=== PATIENT | female | born 1940 ===

== ENCOUNTER 2016-10-29 13:32 | Inpatient (IN) | payer MEDICAID, MEDICARE ==
[2016-10-29 13:33] VITALS: BMI 26.9
--- NOTE | 2016-10-29 14:03 | ED PDOC ---
HPI: General Adult Time Seen by Provider: 10/29/16 13:48 Chief Complaint (Nursing): Dizziness/Lightheaded Chief Complaint (Provider): Dizziness History Per: Patient History/Exam Limitations: no limitations Onset/Duration Of Symptoms: Days (3) Have you had recent travel within the past 21 days to any of the following countries: [place], [place], [place] or [place]?: No Current Symptoms Are (Timing): Still Present Additional Complaint(s): Dyspnea, dizziness, weakness all over, nausea (no vomit), palpitations, off and on chest pain. No headaches, numbness, tingles. Has diarrhea and abd pain upper as well mild. No cough, congestion. States same when she had chf last time (1 month ago and was admitted). No leg pain. Past Medical History Reviewed: Nursing Documentation, Vital Signs Vital Signs: Last Vital Signs Temp 98.7 F 10/29/16 17:32 Pulse 128 H 10/29/16 17:32 Resp 16 10/29/16 17:32 BP 125/83 10/29/16 17:32 Pulse Ox 99 10/29/16 17:32 - Medical History PMH: Asthma, CHF, Depression, Diabetes, HTN Denies: Chronic Kidney Disease - Surgical History Surgical History: Denies: Pacemaker - Family History Family History: States: Unknown Family Hx - Living Arrangements Living Arrangements: With Family - Social History Current smoker - smoking cessation education provided: No Alcohol: None Drugs: Denies - Home Medications Home Medications: Ambulatory Orders Medication Instructions Recorded Metformin ER [Glucophage XR] 1,000 mg PO QPM 09/06/16 Omeprazole [Omeprazole] 20 mg PO DAILY 09/06/16 Polyethylene Glycol 3350 [Miralax] 17 gm PO DAILY 09/06/16 Atorvastatin [Lipitor] 10 mg PO DAILY #30 tab 09/10/16 Carvedilol [Coreg] 6.25 mg PO Q12 #60 tab 09/10/16 Lisinopril [Zestril] 10 mg PO DAILY #30 tab 09/10/16 Spironolactone [Aldactone] 25 mg PO DAILY #30 tab 09/10/16 Bisacodyl [Dulcolax] 5 mg PO DAILY 10/29/16 Furosemide [Lasix] 40 mg PO BID 10/29/16 - Allergies Allergies/Adverse Reactions: Allergies Allergy/AdvReac Type Severity Reaction Status Date / Time No Known Allergies Allergy Verified 03/12/14 18:47 Review of Systems ROS Statement: Except As Marked, All Systems Reviewed And Found Negative Constitutional: Positive for: Weakness Cardiovascular: Positive for: Chest Pain, Palpitations, Light Headedness Respiratory: Positive for: Shortness of Breath Gastrointestinal: Positive for: Nausea, Abdominal Pain, Diarrhea Neurological: Positive for: Weakness, Dizziness Physical Exam - Reviewed Nursing Documentation Reviewed: Yes Vital Signs Reviewed: Yes - Physical Exam Appears: Positive for: Non-toxic, Uncomfortable Head Exam: Positive for: ATRAUMATIC, NORMAL INSPECTION, NORMOCEPHALIC Skin: Positive for: Normal Color, Warm, DRY Eye Exam: Positive for: EOMI, Normal appearance, PERRL ENT: Positive for: Normal ENT Inspection Neck: Positive for: Normal, Painless ROM Cardiovascular/Chest: Positive for: Regular Rate, Rhythm. Negative for: Edema Respiratory: Positive for: Decreased Breath Sounds. Negative for: Wheezing, Respiratory Distress Gastrointestinal/Abdominal: Positive for: Bowel Sounds, Soft, Tenderness (mild epigastric) Back: Positive for: Normal Inspection. Negative for: L CVA Tenderness, R CVA Tenderness Extremity: Positive for: Normal ROM. Negative for: Tenderness, Pedal Edema, Calf Tenderness Neurologic/Psych: Positive for: Alert, police officer booking II-XII, Oriented. Negative for: Motor/Sensory Deficits, Facial Droop - Laboratory Results Result Diagrams: 10/29/16 14:35 10/29/16 14:35 Interpretation Of Abn Labs: 12.2 wbc, probnp elevation, bun elevation, t bili 1.6 - ECG ECG: Positive for: Interpreted By Me, Viewed By Me Interpretation Of Abn EKG: possible atrial flutter O2 Sat by Pulse Oximetry: 100 Pulse Ox Interpretation: Normal - Radiology X-Ray: Read By Radiologist X-Ray Interpretation: No Acute Disease - CT Scan/US head Other Rad Studies (CT/US): Read By Radiologist Other Rad Interpretation: no acute - Progress ED Course And Treament: 1744: Dr. Lee aware of pt. Wanted digoxin 0.25mg IV for a flutter. If no improvement after 4 hours, can give another dose. 1809: Stable. Spoke with Dr. Biswas for [facility]. Will admit tele inpt. AAOx3. Pain free. Tolerated PO. Will hold anticoagulation at this time. [facility] team to further evaluate and determine need. - Critical Care Total Time (In Min): 30 Documented Critical Care: Time excludes all time spent performint seperately billable procedures Disposition - Clinical Impression Clinical Impression: Atrial flutter, CHF (congestive heart failure) - Patient ED Disposition Is Patient to be Admitted: Yes Counseled Patient/Family Regarding: Studies Performed, Diagnosis - Disposition Disposition Time: 18:12 Condition: FAIR - Pt Status Changed To: Hospital Disposition Of: Inpatient - Admit Certification Admit to Inpatient:: After my assessment, the patient will require hospitalization for at least two midnights. This is because of the severity of symptoms shown, intensity of services needed, and/or the medical risk in this patient being treated as an outpatient. - POA Present On Arrival: None
[2016-10-29] MEDS ORDERED: Sodium Chloride 0.9% 500 ML IV STA (14:08)
[2016-10-29 14:43] LABS: BASO # 0.1 K/uL (0.0-0.2); BASO % 0.8 % (0.0-2.0); HEMATOCRIT 50.4 % (34.0-47.0); LYMPH # 1.7 K/uL (1.0-4.3); MEAN CELL VOLUME 78.8 fl (81.0-99.0); MEAN CORPUSCULAR HEMOGLOBIN 25.2 pg (27.0-31.0); MEAN CORPUSCULAR HGB CONC 32.1 g/dL (33.0-37.0); MEAN PLATELET VOLUME 10.1 fl (7.2-11.7); MONO # 1.2 K/uL (0.0-0.8); MONO % 9.5 % (0.0-10.0); NEUT # 9.3 K/uL (1.8-7.0); NEUT % 75.7 % (50.0-75.0); NRBC % 0.1 % (0.0-0.0); RED CELL DISTRIBUTION WIDTH 15.7 % (11.5-14.5); WHITE BLOOD COUNT 12.2 K/uL (4.8-10.8)
[2016-10-29 14:56] LABS: ALKALINE PHOSPHATASE 83 U/L (38-126); ALT/SGPT 36 U/L (9-52); AST/SGOT 60 U/L (14-36); BILIRUBIN,TOTAL 1.6 mg/dl (0.2-1.3); BLOOD UREA NITROGEN 28 mg/dl (7-17); CALCIUM 9.7 mg/dL (8.4-10.2); CARBON DIOXIDE 28 mmol/L (22-30); CHLORIDE 94 mmol/L (98-107); GFR AFRICAN-AMERICAN > 60; GLUCOSE,RANDOM 206 mg/dL (65-105); LIPASE 94 U/L (23-300); POTASSIUM 4.6 MMOL/L (3.6-5.0); SODIUM 134 mmol/l (132-148); TOTAL PROTEIN 8.4 G/DL (6.3-8.2)
[2016-10-29 15:08] LABS: PARTIAL THROMBOPLASTIN TIME 25.7 SECONDS (23.3-32.5)
--- NOTE | 2016-10-29 15:16 | CT ---
PROCEDURE: CT HEAD WITHOUT CONTRAST. HISTORY: Headache COMPARISON: 09/13/2013 TECHNIQUE: Axial computed tomography images were obtained through the head/brain without intravenous contrast. Radiation dose: Total exam DLP = 806.72 mGy-cm. This CT exam was performed using one or more of the following dose reduction techniques: Automated exposure control, adjustment of the mA and/or kV according to patient size, and/or use of iterative reconstruction technique. FINDINGS: HEMORRHAGE: No intracranial hemorrhage. BRAIN: There are moderate chronic microangiopathic changes. There is no mass, mass effect or abnormal extra-axial fluid collection. There are coarse atherosclerotic calcifications in the cavernous carotid arteries. VENTRICLES: There is moderate age-related global parenchymal volume loss and proportionate enlargement of the ventricles and cortical sulci. CALVARIUM: The skull base and calvarium are normal. PARANASAL SINUSES: Predominantly clear. MASTOID AIR CELLS: Predominantly clear. OTHER FINDINGS: None. IMPRESSION: No acute intracranial abnormality. Moderate chronic microangiopathic changes and moderate age-related global parenchymal volume loss.
--- NOTE | 2016-10-29 15:18 | RAD ---
HISTORY: Dyspnea COMPARISON: 09/06/2016 FINDINGS: LUNGS: The lungs are well inflated and clear. PLEURA: No significant pleural effusion identified, no pneumothorax apparent. CARDIOVASCULAR: There is persistent mild cardiomegaly. OSSEOUS STRUCTURES: No significant abnormalities. VISUALIZED UPPER ABDOMEN: Normal. OTHER FINDINGS: None. IMPRESSION: No active pulmonary disease.
[2016-10-29] MEDS ORDERED: Digoxin 500 mcg/2ml (0.5 mg/2ml) Inj IVP STA (16:33)
[2016-10-29] MEDS ORDERED: Digoxin 500 mcg/2ml (0.5 mg/2ml) Inj ONE (17:13)
--- NOTE | 2016-10-29 17:49 | US ---
HISTORY: RUQ for pain r/o stones COMPARISON: Comparison is made to the previous study dated 09/08/2016 TECHNIQUE: Sonographic evaluation of the right upper quadrant of the abdomen. FINDINGS: LIVER: Measures 15.4 cm in length. Normal echogenicity of the liver parenchyma. No mass. No intrahepatic bile duct dilatation. GALLBLADDER: Again seen is gallbladder sludge and stone. The gallbladder wall measures 3 millimeter. COMMON BILE DUCT: Measures 5 mm. No stones. No dilatation. PANCREAS: Unremarkable as visualized. No mass. No ductal dilatation. RIGHT KIDNEY: Measures 10.7 x 3.7 x 3.7 cm in length. Normal echogenicity. No calculus, mass, or hydronephrosis. AORTA: No aneurysmal dilatation. IVC: Unremarkable. OTHER FINDINGS: None . IMPRESSION: Re- demonstration of gallstones without definite ultrasound evidence of acute cholecystitis.
[2016-10-29] MEDS ORDERED: Dextrose 50% SYRINGE Inj (50 ml) IVP PRN (19:26)
[2016-10-29] MEDS ORDERED: Dextrose 50% SYRINGE Inj (50 ml) IV PRN (19:26)
[2016-10-29] MEDS ORDERED: Glucagon Recombinant 1 mg Inj IM PRN ×2 (19:26)
[2016-10-29] MEDS ORDERED: Sodium Chloride 0.9% 1,000 ML IV SCH (19:30)
--- NOTE | 2016-10-29 19:45 | CP.PCM.HP ---
History of Present Illness - History of Present Illness History of Present Illness: 76yo F with PMHx of hypertension, T2DM, asthma, depression, GERD, diabetic neuropathy admitted for atrial flutter and CHF exacerbation. SOB x3 days, a/w unsteady gait., diarrhea x3 days. c/o nausea, tolerating liquids, no new foods, no other sick contacts. Reports abd pain with diarrhea which have both resolved. Denies attempts at exercise, walking up stairs, or walking in general d/t SOB. Denies LE edema, PND; sleeps with 1 pillow at night. Denies chest pain , headaches, palpitations, nausea, vomiting, fever, chills, weakness, numbness, tingling. Patient was last seen by PMD about 4 weeks ago. PMHx; as above SHx: csection, tumor removal FHx: noncontributory Social Hx: lives by herself. Elevator to apt[address]3rd floor, Denies smoking, EtOH, drug use Allergy: NKDA Meds: checked in [facility] PMD: Dr Leung ED course: HR 120s EKG aflutter Digoxin 0.25mg IV x1 ASA 325mg x1 c/s Cardio Dr. Lee -start digoxin CBC, CMP, coags, lipase, troponin WBC 12.2 BNP 36285 pepcid 20mg IV x1 lasix 40mg IV x1 Reglan 10mg IV x1 NS 500cc, 100cc/hr CT head-no acute change US abd-cholelithiasis CXR-no acute disease Present on Admission - Present on Admission Any Indicators Present on Admission: No Review of Systems - Constitutional Constitutional: absent: Chills, Fever - Cardiovascular Cardiovascular: Palpitations. absent: Chest Pain - Respiratory Respiratory: Dyspnea. absent: Dyspnea on Exertion - Gastrointestinal Gastrointestinal: Abdominal Pain, Diarrhea, Nausea. absent: Vomiting - Genitourinary Genitourinary: absent: Dysuria, Hematuria - Musculoskeletal Musculoskeletal: absent: Back Pain - Neurological Neurological: absent: Headaches Past Patient History - Infectious Disease Hx of Infectious Diseases: None - Tetanus Immunizations Tetanus Immunization: Unknown - Past Medical History & Family History Past Medical History?: Yes - Past Social History Alcohol: None Drugs: Denies - CARDIAC Hx Congestive Heart Failure: Yes Hx Hypertension: Yes Hx Pacemaker: No - PULMONARY Hx Asthma: Yes - NEUROLOGICAL Hx Paralysis: No - HEENT Hx Deafness: Yes (hard of hearing) - RENAL Hx Chronic Kidney Disease: No - ENDOCRINE/METABOLIC Hx Diabetes Mellitus Type 2: Yes - HEMATOLOGICAL/ONCOLOGICAL Hx Blood Transfusions: No - INTEGUMENTARY Hx Dermatological Problems: No - MUSCULOSKELETAL/RHEUMATOLOGICAL Hx Musculoskeletal Disorders: No - GASTROINTESTINAL Hx Diverticulitis: Yes (diverticulosis w polypectomy non-malignant) - GENITOURINARY/GYNECOLOGICAL Other/Comment: 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 - PSYCHIATRIC Hx Depression: Yes - SURGICAL HISTORY Hx Surgeries: No - ANESTHESIA Hx Anesthesia Reactions: Yes (SOB if general given, pt states she needs iv sedation) Meds Allergies/Adverse Reactions: Allergies Allergy/AdvReac Type Severity Reaction Status Date / Time No Known Allergies Allergy Verified 03/12/14 18:47 Physical Exam - Constitutional Appears: Non-toxic, No Acute Distress - Head Exam Head Exam: ATRAUMATIC, NORMAL INSPECTION - Eye Exam Eye Exam: Normal appearance - Neck Exam Neck exam: Positive for: Normal Inspection - Respiratory Exam Respiratory Exam: Rales (lower lung bases b/l, some in the middle lobe) - Cardiovascular Exam Cardiovascular Exam: Irregular Rhythm, JVD (6cm) - GI/Abdominal Exam GI & Abdominal Exam: Normal Bowel Sounds, Soft - Extremities Exam Extremities exam: Positive for: normal inspection. Negative for: pedal edema, tenderness - Neurological Exam Neurological exam: Alert, Oriented x3 - Skin Skin Exam: Dry, Warm Results - Vital Signs Recent Vital Signs: Last Vital Signs Temp 98.7 F 10/29/16 17:32 Pulse 128 H 10/29/16 17:32 Resp 16 10/29/16 17:32 BP 125/83 10/29/16 17:32 Pulse Ox 100 10/29/16 18:13 - Labs Result Diagrams: 10/29/16 14:35 10/29/16 14:35 Assessment & Plan - Assessment and Plan (Free Text) Assessment: 76yo F with PMHx of hypertension, DM, GERD, hep c admitted for CHF exacerbation and aflutter. likely 2/2 hypovolemia clinically given tachycardia, hemo- concentrated with increased H/H from baseline and BUN/Cr 28/0.9 atrial flutter -EKG atrial flutter -repeat EKG 4 hours later continues to show atrial flutter -EKG AM -cardio on board, appreciate input -reevaluated in 4 hr: 2nd dose of digoxin 0.25mg IV -start digoxin 0.125mg daily -ASA and lovenox for now Acute on chronic CHF exacerbation -lasix 40mg iv bid -spironolactone -echo -daily weight -I/O -cardio on board, appreciate input -will provide gentle IV hydration NS 75cc/hr concomittantly Hypertension -amlodipine, coreg, lisinopril T2DM -A1c 7.9 (09/08/16) -held metformin -SSI -accucheck Hx of hep c -AST/ALT 60/36 -monitor Hx of GERD -omeprazole 20mg po daily Diabetic neuropathy -c/w Gabapenin 300mg DVT prophylaxis -lovenox 40mg sc daily Decision To Admit - Pt Status Changed To: Hospital Disposition Of: Inpatient - Admit Certification Admit to Inpatient:: After my assessment, the patient will require hospitalization for at least two midnights. This is because of the severity of symptoms shown, intensity of services needed, and/or the medical risk in this patient being treated as an outpatient. - . Bed Request Type: Telemetry Admitting Physician: Yvonne Dunn
[2016-10-29] MEDS: Insulin Regular 100 units/ml SC SCH (22:30)
[2016-10-29] MEDS ORDERED: Digoxin 500 mcg/2ml (0.5 mg/2ml) Inj IVP ONE (22:44)
[2016-10-30 04:10] VITALS: PULSE 109
[2016-10-30] MEDS ORDERED: Digoxin 500 mcg/2ml (0.5 mg/2ml) Inj IVP ONE ×2 (05:00→10:00)
[2016-10-30 05:50] LABS: HEMATOCRIT 47.5 % (34.0-47.0); MEAN CELL VOLUME 79.2 fl (81.0-99.0); MEAN CORPUSCULAR HEMOGLOBIN 25.4 pg (27.0-31.0); MEAN CORPUSCULAR HGB CONC 32.1 g/dL (33.0-37.0); RED CELL DISTRIBUTION WIDTH 15.8 % (11.5-14.5); WHITE BLOOD COUNT 11.9 K/uL (4.8-10.8)
[2016-10-30 05:58] LABS: ALB/GLOB RATIO 0.9 (1.0-2.1); ALKALINE PHOSPHATASE 76 U/L (38-126); ALT/SGPT 30 U/L (9-52); AST/SGOT 51 U/L (14-36); BILIRUBIN,TOTAL 1.7 mg/dl (0.2-1.3); BLOOD UREA NITROGEN 23 mg/dl (7-17); CALCIUM 9.1 mg/dL (8.4-10.2); CARBON DIOXIDE 25 mmol/L (22-30); CHLORIDE 98 mmol/L (98-107); GFR AFRICAN-AMERICAN > 60; GLUCOSE,RANDOM 169 mg/dL (65-105); POTASSIUM 4.1 MMOL/L (3.6-5.0); SODIUM 133 mmol/l (132-148); TOTAL PROTEIN 7.4 G/DL (6.3-8.2)
[2016-10-30] MEDS: Insulin Regular 100 units/ml SC SCH ×4 (06:33→23:00)
[2016-10-30] MEDS: Bisacodyl 5mg EC Tab PO SCH (08:54)
[2016-10-30] MEDS: Pantoprazole 40 mg EC Tab PO SCH (08:55)
[2016-10-30] MEDS ORDERED: Digoxin 125 mcg (0.125 mg) Tab PO SCH (09:00)
[2016-10-30] MEDS ORDERED: Enoxaparin 40 mg Syringe SC SCH (09:00)
[2016-10-30] MEDS ORDERED: Iohexol 240 (50 ml) PO ONE (10:07)
--- NOTE | 2016-10-30 10:58 | CP.PCM.PN ---
Subjective - Date & Time of Evaluation Date of Evaluation: 10/30/16 Time of Evaluation: 08:30 - Subjective Subjective: Overnight events reviewed. Pt with aflutter with HR of 140s and was given Digoxin 0.25mg IV twice overnight. Currently, pt seen sitting up in bed, with c/o diffuse abdominal pain and nausea. States she only had a few bites of breakfast to eat. Denies vomiting or diarrhea since admission. Denies fever, chills, chest pain, SOB. Objective - Vital Signs/Intake and Output Vital Signs (last 24 hours): Temp Pulse Resp BP Pulse Ox 98.2 F 136 H 18 127/89 96 10/30/16 07:53 10/30/16 07:53 10/30/16 07:53 10/30/16 10:21 10/30/16 07:53 - Medications Medications: Current Medications Amlodipine Besylate (Norvasc) 5 mg PO DAILY [facility] Last Admin: 10/30/16 08:55 Dose: 5 mg Atorvastatin Calcium (Lipitor) 10 mg PO DAILY [facility] Last Admin: 10/30/16 08:54 Dose: 10 mg Bisacodyl (Dulcolax) 5 mg PO DAILY [facility] Last Admin: 10/30/16 08:54 Dose: 5 mg Carvedilol (Coreg) 6.25 mg PO Q12 [facility] Last Admin: 10/30/16 08:53 Dose: 6.25 mg Dextrose (Dextrose 50% Inj) 0 ml IVP STAT PRN; Protocol PRN Reason: Hypoglycemia Protocol Dextrose (Dextrose 50% Inj) 0 ml IV STAT PRN; Protocol PRN Reason: Hyglycemia Protocol Dextrose (Glutose 15) 0 gm PO ONCE PRN; Protocol PRN Reason: Hypoglycemia Protocol Enoxaparin Sodium (Lovenox) 40 mg SC DAILY [facility] PRN Reason: Protocol Famotidine (Pepcid) 20 mg PO DAILY [facility] Furosemide (Lasix) 40 mg IVP BID [facility] Last Admin: 10/30/16 10:21 Dose: 40 mg Glucagon (Glucagen Diagnostic Kit) 0 mg IM STAT PRN; Protocol PRN Reason: Hypoglycemia Protocol Glucagon (Glucagen Diagnostic Kit) 0 mg IM STAT PRN; Protocol PRN Reason: Hypoglycemia Protocol Insulin Human Regular (Humulin R) 0 units SC ACHS [facility] PRN Reason: Protocol Last Admin: 10/30/16 06:33 Dose: Not Given Lisinopril (Zestril) 10 mg PO DAILY [facility] Last Admin: 10/30/16 08:55 Dose: 10 mg Ondansetron HCl (Zofran Inj) 4 mg IVP Q4 PRN PRN Reason: Nausea/Vomiting Pantoprazole Sodium (Protonix Ec Tab) 40 mg PO DAILY [facility] Last Admin: 10/30/16 08:55 Dose: 40 mg Polyethylene Glycol (Miralax) 17 gm PO DAILY [facility] Spironolactone (Aldactone) 25 mg PO DAILY [facility] Last Admin: 10/30/16 08:53 Dose: 25 mg - Labs Labs: 10/30/16 05:40 10/30/16 05:40 PT 11.3 SECONDS (9.6-11.2) H 10/29/16 14:35 INR 1.09 (0.92-1.08) H 10/29/16 14:35 APTT 25.7 SECONDS (23.3-32.5) 10/29/16 14:35 - Constitutional Appears: Well, No Acute Distress - Head Exam Head Exam: NORMAL INSPECTION - Eye Exam Eye Exam: EOMI, Normal appearance - ENT Exam ENT Exam: Mucous Membranes Moist - Respiratory Exam Respiratory Exam: Clear to Ausculation Bilateral, NORMAL BREATHING PATTERN - Cardiovascular Exam Cardiovascular Exam: Tachycardia, +S1, +S2. absent: Irregular Rhythm - GI/Abdominal Exam GI & Abdominal Exam: Soft, Tenderness (LLQ), Normal Bowel Sounds, Rebound. absent: Distended, Guarding - Extremities Exam Extremities Exam: Normal Inspection. absent: Calf Tenderness, Pedal Edema - Neurological Exam Neurological Exam: Alert, Oriented x3 - Skin Skin Exam: Dry, Normal Color Assessment and Plan - Assessment and Plan (Free Text) Assessment: 1. Abdominal Pain - Abd US shows gallstone, present from before - LLQ tenderness with rebound - f/u CT scan with PO and IV contrast; r/o colitis - add cipro/flagyl if necessary 2. Atrial flutter -s/p Digoxin 0.25mg IV; 3 doses total since admission -cardio consult - Dr. Lee, follow recommendation -consider increasing pt's coreg dose 3. Acute on chronic CHF exacerbation -lasix 40mg iv bid -spironolactone -echo -daily weight -I/O 4. Hypertension - controlled -amlodipine, coreg, lisinopril 5. T2DM -A1c 7.9 (3/8/17) -held metformin -SSI -accucheck 6. Hx of hep c -elevated LFTs -monitor 7. Hx of GERD -omeprazole 20mg po daily 8. Diabetic neuropathy -c/w Gabapenin 300mg 9. DVT prophylaxis -lovenox 40mg sc daily
--- NOTE | 2016-10-30 11:24 | CARD ---
APPROVED REPORT EKG Measurement Heart [id number] <Conclusion> Atrial flutter with variable AV block ST & T wave abnormality, consider lateral ischemia Abnormal ECG
--- NOTE | 2016-10-30 11:24 | CARD ---
APPROVED REPORT EKG Measurement Heart [id number] <Conclusion> Atrial flutter with variable AV block ST & T wave abnormality, consider lateral ischemia Abnormal ECG
--- NOTE | 2016-10-30 13:01 | CP.PCM.CON ---
History of Present Illness - History of Present Illness History of Present Illness: Full Note Dictated Pt with Dilated Cardiomyopathy CHF precipitated by A Flutter and related tachycardia DM(II) Dig used to control HR initially because of low BP Now rec higher dose of Coreg to control HR (Amlodipine D/Naeem) Xarelto for oral anticoagulation Past Patient History - Infectious Disease Hx of Infectious Diseases: None - Tetanus Immunizations Tetanus Immunization: Unknown - Past Medical History & Family History Past Medical History?: Yes - Past Social History Alcohol: None Drugs: Denies - CARDIAC Hx Cardiac Disorders: Yes - PULMONARY Hx Respiratory Disorders: Yes - NEUROLOGICAL Hx Neurological Disorder: Yes - HEENT Hx HEENT Problems: No - RENAL Hx Chronic Kidney Disease: No - ENDOCRINE/METABOLIC Hx Endocrine Disorders: Yes - HEMATOLOGICAL/ONCOLOGICAL Hx Blood Transfusions: No - INTEGUMENTARY Hx Dermatological Problems: No - MUSCULOSKELETAL/RHEUMATOLOGICAL Hx Musculoskeletal Disorders: No - GASTROINTESTINAL Hx Diverticulitis: Yes (diverticulosis w polypectomy non-malignant) - GENITOURINARY/GYNECOLOGICAL Hx Genitourinary Disorders: No - PSYCHIATRIC Hx Psychophysiologic Disorder: Yes - SURGICAL HISTORY Hx Surgeries: No - ANESTHESIA Hx Anesthesia Reactions: Yes (SOB if general given, pt states she needs iv sedation) Meds Allergies/Adverse Reactions: Allergies Allergy/AdvReac Type Severity Reaction Status Date / Time No Known Allergies Allergy Verified 03/12/14 18:47 - Medications Medications: Current Medications Atorvastatin Calcium (Lipitor) 10 mg PO DAILY [facility] Last Admin: 10/30/16 08:54 Dose: 10 mg Bisacodyl (Dulcolax) 5 mg PO DAILY [facility] Last Admin: 10/30/16 08:54 Dose: 5 mg Carvedilol (Coreg) 12.5 mg PO Q12 [facility] Dextrose (Dextrose 50% Inj) 0 ml IVP STAT PRN; Protocol PRN Reason: Hypoglycemia Protocol Dextrose (Dextrose 50% Inj) 0 ml IV STAT PRN; Protocol PRN Reason: Hyglycemia Protocol Dextrose (Glutose 15) 0 gm PO ONCE PRN; Protocol PRN Reason: Hypoglycemia Protocol Famotidine (Pepcid) 20 mg PO DAILY [facility] Furosemide (Lasix) 40 mg PO DAILY [facility] Glucagon (Glucagen Diagnostic Kit) 0 mg IM STAT PRN; Protocol PRN Reason: Hypoglycemia Protocol Glucagon (Glucagen Diagnostic Kit) 0 mg IM STAT PRN; Protocol PRN Reason: Hypoglycemia Protocol Insulin Human Regular (Humulin R) 0 units SC ACHS [facility] PRN Reason: Protocol Last Admin: 10/30/16 06:33 Dose: Not Given Lisinopril (Zestril) 10 mg PO DAILY [facility] Last Admin: 10/30/16 08:55 Dose: 10 mg Ondansetron HCl (Zofran Inj) 4 mg IVP Q4 PRN PRN Reason: Nausea/Vomiting Pantoprazole Sodium (Protonix Ec Tab) 40 mg PO DAILY [facility] Last Admin: 10/30/16 08:55 Dose: 40 mg Polyethylene Glycol (Miralax) 17 gm PO DAILY [facility] Rivaroxaban (Xarelto) 20 mg PO QD5 [facility] PRN Reason: Protocol Spironolactone (Aldactone) 25 mg PO DAILY [facility] Last Admin: 10/30/16 08:53 Dose: 25 mg Results - Vital Signs Recent Vital Signs: Last Vital Signs Temp 97.4 F L 10/30/16 11:53 Pulse 107 H 10/30/16 11:53 Resp 18 10/30/16 11:53 BP 136/86 10/30/16 11:53 Pulse Ox 97 10/30/16 11:53 - Labs Result Diagrams: 10/30/16 05:40 10/30/16 05:40 Labs: Laboratory Results - last 24 hr 10/29/16 10/30/16 10/30/16 22:14 05:18 05:40 WBC 11.9 H RBC 6.00 H Hgb 15.2 Hct 47.5 H MCV 79.2 L MCH 25.4 L MCHC 32.1 L RDW 15.8 H Plt Count 90 L Sodium Potassium Chloride Carbon Dioxide Anion Gap BUN Creatinine Est GFR ( Amer) Est GFR (Non-Af Amer) POC Glucose (mg/dL) 169 H 146 H Random Glucose Calcium Total Bilirubin AST ALT Alkaline Phosphatase Total Protein Albumin Globulin Albumin/Globulin Ratio 10/30/16 10/30/16 05:40 11:13 WBC RBC Hgb Hct MCV MCH MCHC RDW Plt Count Sodium 133 Potassium 4.1 Chloride 98 Carbon Dioxide 25 Anion Gap 14 BUN 23 H Creatinine 0.7 Est GFR ( Amer) > 60 Est GFR (Non-Af Amer) > 60 POC Glucose (mg/dL) 197 H Random Glucose 169 H Calcium 9.1 Total Bilirubin 1.7 H AST 51 H ALT 30 Alkaline Phosphatase 76 Total Protein 7.4 Albumin 3.6 Globulin 3.9 Albumin/Globulin Ratio 0.9 L
[2016-10-30] MEDS ORDERED: Docusate-Senna 50 mg-8.6 mg Tab PO PRN (13:46)
[2016-10-30] MEDS ORDERED: Iohexol 300 100 ML IJ ONE (15:19)
--- NOTE | 2016-10-30 15:28 | CON ---
DATE: 10/30/2016 She is hospitalized under the resident's care in room 401, bed 2. 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 The patient arrived in the Emergency Room with a heart rate of 130 beats per minute, irregularly irregular and was found to have atrial flutter on her electrocardiogram. She has recently undergone a coronary angiogram which shows nonobstructive coronary arteries and generalized dilated cardiomyopathy. The patient has never been a smoker and has never suffered congestive cardiac failure. She has a left ventricular ejection fraction in the range of 20%-25% with mild to moderate mitral regurgitation. The patient was on spironolactone and Lasix as well as Coreg for heart rate control and on lisinopril. Initially in the Emergency Room , her systolic blood pressure was in the range of 108 mmHg and digitalis was used to control her heart rate. This morning, her heart rate has been fairly well controlled with a heart rate between 80 and 90 beats per minute, has received approximately 0.75 mg of digoxin overnight intravenously in multiple doses. Now she is free of dyspnea, having received intravenous Lasix once and diuresed well. PHYSICAL EXAMINATION: VITAL SIGNS: With the heart rate controlled, her systolic blood pressure now was 120 mmHg. The patient was able to stand up without any orthostatic changes to her blood pressure. She had no rales. NECK: Her jugular venous pressure was not elevated. EXTREMITIES: There was no edema of lower extremity. The pedal pulses were well felt. HEART: She had a faint S3 gallop. LUNGS: Again there were no rales. EXTREMITIES: Warm, nailbeds are pink. There was no central or peripheral cyanosis. Her electrocardiogram showed atrial flutter with variable AV conduction and no Q -waves were seen. The QRS morphology was identical to her earlier electrocardiograms. LABORATORY DATA: Noted. IMPRESSION: At this time is dilated cardiomyopathy secondary to adult onset diabetes mellitus with new onset atrial flutter with precipitation of congestive heart failure because of atrial flutter and induced related tachycardia. So her heart failure is left ventricular, acute on chronic and systolic. Accordingly a higher dose of Coreg is being used to control her heart rate. She has been started on Xarelto for oral anticoagulation and will continue to take Lasix and spironolactone as diuretics. Her potassium level will be checked again tomorrow. If she appears stable, she may be allowed to return home to continue taking her medicines subsequently. Jeffery V Rosa GONCALVES cc: 23 TT: 10/30/2016 15:27:24 Confirmation # [id number] Dictation # [id number] MTDD
[2016-10-30] MEDS: POLYETHYLENE GLYCOL 3350 17 GM/Dose PACKET PO SCH (17:02)
[2016-10-31] MEDS: Insulin Regular 100 units/ml SC SCH ×4 (06:34→22:33)
[2016-10-31 07:53] LABS: ALB/GLOB RATIO 0.9 (1.0-2.1); ALKALINE PHOSPHATASE 65 U/L (38-126); ALT/SGPT 31 U/L (9-52); AST/SGOT 53 U/L (14-36); BILIRUBIN,TOTAL 1.7 mg/dl (0.2-1.3); BLOOD UREA NITROGEN 21 mg/dl (7-17); CALCIUM 9.2 mg/dL (8.4-10.2); CARBON DIOXIDE 32 mmol/L (22-30); CHLORIDE 95 mmol/L (98-107); GFR AFRICAN-AMERICAN > 60; GLUCOSE,RANDOM 125 mg/dL (65-105); POTASSIUM 4.1 MMOL/L (3.6-5.0); SODIUM 137 mmol/l (132-148); TOTAL PROTEIN 7.8 G/DL (6.3-8.2)
[2016-10-31] MEDS: Bisacodyl 5mg EC Tab PO SCH (09:40)
[2016-10-31] MEDS: Pantoprazole 40 mg EC Tab PO SCH (09:42)
[2016-10-31] MEDS: POLYETHYLENE GLYCOL 3350 17 GM/Dose PACKET PO SCH (09:42)
[2016-10-31 10:34] LABS: BASO # 0.1 K/uL (0.0-0.2); BASO % 0.6 % (0.0-2.0); EOS % 0.3 % (0.0-4.0); HEMATOCRIT 49.4 % (34.0-47.0); LYMPH # 3.3 K/uL (1.0-4.3); LYMPH % 30.5 % (20.0-40.0); MEAN CELL VOLUME 79.3 fl (81.0-99.0); MEAN CORPUSCULAR HEMOGLOBIN 25.2 pg (27.0-31.0); MEAN CORPUSCULAR HGB CONC 31.8 g/dL (33.0-37.0); MEAN PLATELET VOLUME 10.8 fl (7.2-11.7); MONO # 1.1 K/uL (0.0-0.8); MONO % 10.3 % (0.0-10.0); NEUT # 6.4 K/uL (1.8-7.0); NEUT % 58.3 % (50.0-75.0); NRBC % 0.1 % (0.0-0.0); RED CELL DISTRIBUTION WIDTH 15.7 % (11.5-14.5); WHITE BLOOD COUNT 10.9 K/uL (4.8-10.8)
--- NOTE | 2016-10-31 11:03 | CP.PCM.PN ---
Subjective - Date & Time of Evaluation Date of Evaluation: 10/31/16 Time of Evaluation: 10:30 - Subjective Subjective: Feels well, slept well Gets in and out of bed and uses BR unassisted Ambulates in the room symptomlessly HR 80-90 BPM (A Flutter) BP 120/70 mm Hg JVP flat, no rales, no gallop Labs stable including BUN/ Creatinin and electrolytes Tolerates present Rx well Can go home on present Rx ( Including Xarelto) Objective - Vital Signs/Intake and Output Vital Signs (last 24 hours): Temp Pulse Resp BP Pulse Ox 97.3 F L 94 H 18 124/60 98 10/31/16 07:52 10/31/16 09:40 10/31/16 07:52 10/31/16 09:41 10/31/16 07:52 - Medications Medications: Current Medications Acetaminophen (Tylenol 325mg Tab) 650 mg PO Q4 PRN PRN Reason: Pain, moderate (4-7) Atorvastatin Calcium (Lipitor) 10 mg PO DAILY [facility] Last Admin: 10/31/16 09:41 Dose: 10 mg Bisacodyl (Dulcolax) 5 mg PO DAILY [facility] Last Admin: 10/31/16 09:40 Dose: 5 mg Carvedilol (Coreg) 12.5 mg PO Q12 [facility] Last Admin: 10/31/16 09:40 Dose: 12.5 mg Ciprofloxacin (Cipro) 500 mg PO Q12 [facility] Dextrose (Dextrose 50% Inj) 0 ml IVP STAT PRN; Protocol PRN Reason: Hypoglycemia Protocol Dextrose (Dextrose 50% Inj) 0 ml IV STAT PRN; Protocol PRN Reason: Hyglycemia Protocol Dextrose (Glutose 15) 0 gm PO ONCE PRN; Protocol PRN Reason: Hypoglycemia Protocol Famotidine (Pepcid) 20 mg PO DAILY [facility] Last Admin: 10/31/16 09:42 Dose: 20 mg Furosemide (Lasix) 40 mg PO DAILY [facility] Last Admin: 10/31/16 09:41 Dose: 40 mg Glucagon (Glucagen Diagnostic Kit) 0 mg IM STAT PRN; Protocol PRN Reason: Hypoglycemia Protocol Glucagon (Glucagen Diagnostic Kit) 0 mg IM STAT PRN; Protocol PRN Reason: Hypoglycemia Protocol Insulin Human Regular (Humulin R) 0 units SC ACHS [facility] PRN Reason: Protocol Last Admin: 10/31/16 06:34 Dose: Not Given Lisinopril (Zestril) 10 mg PO DAILY [facility] Last Admin: 10/31/16 09:42 Dose: 10 mg Metronidazole (Flagyl) 500 mg PO Q8 [facility] Ondansetron HCl (Zofran Inj) 4 mg IVP Q4 PRN PRN Reason: Nausea/Vomiting Pantoprazole Sodium (Protonix Ec Tab) 40 mg PO DAILY [facility] Last Admin: 10/31/16 09:42 Dose: 40 mg Polyethylene Glycol (Miralax) 17 gm PO DAILY [facility] Last Admin: 10/31/16 09:42 Dose: 17 gm Rivaroxaban (Xarelto) 20 mg PO QD5 [facility] PRN Reason: Protocol Last Admin: 10/30/16 17:02 Dose: 20 mg Senna/Docusate Sodium (Senokot S 50 Mg-8.6 Mg) 2 tab PO HS PRN PRN Reason: Constipation Spironolactone (Aldactone) 25 mg PO DAILY [facility] Last Admin: 10/31/16 09:40 Dose: 25 mg - Labs Labs: 10/31/16 10:15 10/31/16 06:30 PT 11.3 SECONDS (9.6-11.2) H 10/29/16 14:35 INR 1.09 (0.92-1.08) H 10/29/16 14:35 APTT 25.7 SECONDS (23.3-32.5) 10/29/16 14:35
--- NOTE | 2016-10-31 12:01 | CT ---
PROCEDURE: CT Abdomen and Pelvis with contrast HISTORY: LLQ pain, rebound tenderness, r/o colitis COMPARISON: 03/12/2014 TECHNIQUE: Contrast dose: 100 cc of Omnipaque 300 Radiation dose: Total exam DLP = 1093 mGy-cm. This CT exam was performed using one or more of the following dose reduction techniques: Automated exposure control, adjustment of the mA and/or kV according to patient size, and/or use of iterative reconstruction technique. FINDINGS: LOWER THORAX: Unremarkable. LIVER: Unremarkable. No gross lesion or ductal dilatation. GALLBLADDER AND BILE DUCTS: Unremarkable. PANCREAS: Unremarkable. No gross lesion or ductal dilatation. SPLEEN: Unremarkable. ADRENALS: Unremarkable. No mass. KIDNEYS AND URETERS: Unremarkable. No hydronephrosis. No solid mass. VASCULATURE: Unremarkable. No aortic aneurysm. BOWEL: Severe colonic diverticulosis with diffuse pericolonic fat infiltration involving the sigmoid colon consistent with acute diverticulitis.. No obstruction. No gross mural thickening. APPENDIX: Normal appendix. PERITONEUM: Unremarkable. No free fluid. No free air. LYMPH NODES: Unremarkable. No enlarged lymph nodes. BLADDER: Unremarkable. REPRODUCTIVE: Unremarkable. BONES: No acute fracture. OTHER FINDINGS: None. IMPRESSION: Severe colonic diverticulosis with diffuse pericolonic fat infiltration involving the sigmoid colon consistent with acute diverticulitis.
--- NOTE | 2016-10-31 12:48 | CP.PCM.PN ---
Subjective - Date & Time of Evaluation Date of Evaluation: 10/31/16 Time of Evaluation: 08:00 - Subjective Subjective: Pt sleeping upon entering room. Easily arousable with verbal stimuli. Pt has not eaten breakfast yet, because of being asleep still, however, she states that she tolerated regular diet yesterday for lunch and dinner. Still has some mid/LLQ abdominal pain, but denies any vomiting or diarrhea. Pt had abdominal CT scan done yesterday. Was evaluated by cardiology yesterday, at which time coreg dose was increased and pt was placed on xarelto. Pt feeling CP, SOB or palpitations. Objective - Vital Signs/Intake and Output Vital Signs (last 24 hours): Temp Pulse Resp BP Pulse Ox 98.2 F 78 18 119/78 96 10/31/16 11:54 10/31/16 11:54 10/31/16 11:54 10/31/16 11:54 10/31/16 11:54 - Medications Medications: Current Medications Acetaminophen (Tylenol 325mg Tab) 650 mg PO Q4 PRN PRN Reason: Pain, moderate (4-7) Atorvastatin Calcium (Lipitor) 10 mg PO DAILY [facility] Last Admin: 10/31/16 09:41 Dose: 10 mg Bisacodyl (Dulcolax) 5 mg PO DAILY [facility] Last Admin: 10/31/16 09:40 Dose: 5 mg Carvedilol (Coreg) 12.5 mg PO Q12 [facility] Last Admin: 10/31/16 09:40 Dose: 12.5 mg Ciprofloxacin (Cipro) 500 mg PO Q12 [facility] Last Admin: 10/31/16 12:36 Dose: 500 mg Dextrose (Dextrose 50% Inj) 0 ml IVP STAT PRN; Protocol PRN Reason: Hypoglycemia Protocol Dextrose (Dextrose 50% Inj) 0 ml IV STAT PRN; Protocol PRN Reason: Hyglycemia Protocol Dextrose (Glutose 15) 0 gm PO ONCE PRN; Protocol PRN Reason: Hypoglycemia Protocol Famotidine (Pepcid) 20 mg PO DAILY [facility] Last Admin: 10/31/16 09:42 Dose: 20 mg Furosemide (Lasix) 40 mg PO DAILY [facility] Last Admin: 10/31/16 09:41 Dose: 40 mg Glucagon (Glucagen Diagnostic Kit) 0 mg IM STAT PRN; Protocol PRN Reason: Hypoglycemia Protocol Glucagon (Glucagen Diagnostic Kit) 0 mg IM STAT PRN; Protocol PRN Reason: Hypoglycemia Protocol Insulin Human Regular (Humulin R) 0 units SC ACHS [facility] PRN Reason: Protocol Last Admin: 10/31/16 12:39 Dose: Not Given Lisinopril (Zestril) 10 mg PO DAILY [facility] Last Admin: 10/31/16 09:42 Dose: 10 mg Metronidazole (Flagyl) 500 mg PO Q8 [facility] Last Admin: 10/31/16 12:36 Dose: 500 mg Ondansetron HCl (Zofran Inj) 4 mg IVP Q4 PRN PRN Reason: Nausea/Vomiting Pantoprazole Sodium (Protonix Ec Tab) 40 mg PO DAILY [facility] Last Admin: 10/31/16 09:42 Dose: 40 mg Polyethylene Glycol (Miralax) 17 gm PO DAILY [facility] Last Admin: 10/31/16 09:42 Dose: 17 gm Rivaroxaban (Xarelto) 20 mg PO QD5 [facility] PRN Reason: Protocol Last Admin: 10/30/16 17:02 Dose: 20 mg Senna/Docusate Sodium (Senokot S 50 Mg-8.6 Mg) 2 tab PO HS PRN PRN Reason: Constipation Spironolactone (Aldactone) 25 mg PO DAILY [facility] Last Admin: 10/31/16 09:40 Dose: 25 mg - Labs Labs: 10/31/16 10:15 10/31/16 06:30 PT 11.3 SECONDS (9.6-11.2) H 10/29/16 14:35 INR 1.09 (0.92-1.08) H 10/29/16 14:35 APTT 25.7 SECONDS (23.3-32.5) 10/29/16 14:35 - Constitutional Appears: Non-toxic, No Acute Distress - Head Exam Head Exam: NORMAL INSPECTION - Eye Exam Eye Exam: EOMI, Normal appearance - ENT Exam ENT Exam: Mucous Membranes Moist - Respiratory Exam Respiratory Exam: Clear to Ausculation Bilateral, NORMAL BREATHING PATTERN - Cardiovascular Exam Cardiovascular Exam: Tachycardia - GI/Abdominal Exam GI & Abdominal Exam: Soft, Tenderness (LLQ, improved from yesterday), Rebound ( mild, improved from yesterday). absent: Distended - Extremities Exam Extremities Exam: absent: Calf Tenderness - Neurological Exam Neurological Exam: Awake, Oriented x3 - Skin Skin Exam: Normal Color Assessment and Plan - Assessment and Plan (Free Text) Assessment: 1. Acute diverticulitis - Abd US shows gallstone, present from before - LLQ tenderness with rebound - CT scan shows diverticulitis - PO cipro and flagyl started 2. Atrial flutter - HR better today -cardio - Dr. Lee consulted -coreg dose increased -xarelto added 3. Acute on chronic CHF exacerbation -asymptomatic, likely resolved at this point -ECHO 09/06/16: severe systolic dysfunction with EF 15% -lasix changed 40mg po daily from prior IV BID -spironolactone 25mg PO daily -daily weights -I/Os 4. Hypertension - controlled -amlodipine, coreg, lisinopril 5. T2DM -A1c 7.9 (09/08/16) -held metformin -SSI -accucheck 6. Hx of hep c -elevated LFTs -monitor 7. Hx of GERD -omeprazole 20mg po daily 8. Diabetic neuropathy -c/w Gabapenin 300mg 9. DVT prophylaxis -lovenox 40mg sc daily 10. Dispo plan - PT evaluated pt and recommends TCU - SW consulted for TCU placement and also for homemaker services once pt is d/c' d home
[2016-11-01] MEDS: Insulin Regular 100 units/ml SC SCH ×4 (06:49→21:52)
--- NOTE | 2016-11-01 09:30 | CP.PCM.PN ---
Subjective - Date & Time of Evaluation Date of Evaluation: 11/01/16 Time of Evaluation: 09:15 - Subjective Subjective: Becomes tachycardic everytime she gets OOB and uses BR (with faster A:V conduction) HR was 80-96 during night (A Flutter) Now 140 BPM (A Flutter) BP 120/70 mm Hg No overt CHF/No dizziness upon standing up Will increase Coreg dose to 25 mg BID (to create higher A:V block) Objective - Vital Signs/Intake and Output Vital Signs (last 24 hours): Temp Pulse Resp BP Pulse Ox 98.9 F 107 H 20 128/94 H 98 11/01/16 07:49 11/01/16 07:49 11/01/16 07:49 11/01/16 07:49 11/01/16 07:49 - Medications Medications: Current Medications Acetaminophen (Tylenol 325mg Tab) 650 mg PO Q4 PRN PRN Reason: Pain, moderate (4-7) Atorvastatin Calcium (Lipitor) 10 mg PO DAILY [facility] Last Admin: 10/31/16 09:41 Dose: 10 mg Bisacodyl (Dulcolax) 5 mg PO DAILY [facility] Last Admin: 10/31/16 09:40 Dose: 5 mg Ciprofloxacin (Cipro) 500 mg PO Q12 [facility] Last Admin: 10/31/16 21:07 Dose: 500 mg Dextrose (Dextrose 50% Inj) 0 ml IVP STAT PRN; Protocol PRN Reason: Hypoglycemia Protocol Dextrose (Dextrose 50% Inj) 0 ml IV STAT PRN; Protocol PRN Reason: Hyglycemia Protocol Dextrose (Glutose 15) 0 gm PO ONCE PRN; Protocol PRN Reason: Hypoglycemia Protocol Famotidine (Pepcid) 20 mg PO DAILY [facility] Last Admin: 10/31/16 09:42 Dose: 20 mg Furosemide (Lasix) 40 mg PO DAILY [facility] Last Admin: 10/31/16 09:41 Dose: 40 mg Glucagon (Glucagen Diagnostic Kit) 0 mg IM STAT PRN; Protocol PRN Reason: Hypoglycemia Protocol Glucagon (Glucagen Diagnostic Kit) 0 mg IM STAT PRN; Protocol PRN Reason: Hypoglycemia Protocol Insulin Human Regular (Humulin R) 0 units SC ACHS [facility] PRN Reason: Protocol Last Admin: 11/01/16 06:49 Dose: Not Given Lisinopril (Zestril) 10 mg PO DAILY [facility] Last Admin: 10/31/16 09:42 Dose: 10 mg Metronidazole (Flagyl) 500 mg PO Q8 [facility] Last Admin: 11/01/16 02:55 Dose: 500 mg Ondansetron HCl (Zofran Inj) 4 mg IVP Q4 PRN PRN Reason: Nausea/Vomiting Pantoprazole Sodium (Protonix Ec Tab) 40 mg PO DAILY [facility] Last Admin: 10/31/16 09:42 Dose: 40 mg Polyethylene Glycol (Miralax) 17 gm PO DAILY [facility] Last Admin: 10/31/16 09:42 Dose: 17 gm Rivaroxaban (Xarelto) 20 mg PO QD5 [facility] PRN Reason: Protocol Last Admin: 10/31/16 17:30 Dose: 20 mg Senna/Docusate Sodium (Senokot S 50 Mg-8.6 Mg) 2 tab PO HS PRN PRN Reason: Constipation Spironolactone (Aldactone) 25 mg PO DAILY [facility] Last Admin: 10/31/16 09:40 Dose: 25 mg - Labs Labs: 10/31/16 10:15 10/31/16 06:30 PT 11.3 SECONDS (9.6-11.2) H 10/29/16 14:35 INR 1.09 (0.92-1.08) H 10/29/16 14:35 APTT 25.7 SECONDS (23.3-32.5) 10/29/16 14:35
[2016-11-01] MEDS: POLYETHYLENE GLYCOL 3350 17 GM/Dose PACKET PO SCH ×2 (09:36→09:43)
[2016-11-01] MEDS: Pantoprazole 40 mg EC Tab PO SCH (09:37)
[2016-11-01] MEDS: Bisacodyl 5mg EC Tab PO SCH (09:37)
--- NOTE | 2016-11-01 15:28 | CP.PCM.PN ---
Subjective - Date & Time of Evaluation Date of Evaluation: 11/01/16 Time of Evaluation: 08:30 - Subjective Subjective: 76 y/o F seen at bedside in not acute distress. Patient states she feels better and has regained some of her appetite and strength back since admission. Denies CP, palpitations, SOB, fever, headache. Patient evalauted by Dr Lee this morning and Coreg dose increased to 25mg BID due to persistent increased HR when OOB. Accuchecks 162-256 last 24h. Patient is refusing insulin administration when needed as per sliding scale. She states her BS at home have been "low"(100-150) and that her PCP recommended to stop her DM meds about 2 months ago. ECW patient chart reviewed and case discussed with Dr Leung(her PCP ) who recommends patient should be on Metformin if patient thinks she feels better about the GI discomfort. Patient's CBC reviewed, Hgb and Hct elevated and Plt low. O2sat WNL. Objective - Vital Signs/Intake and Output Vital Signs (last 24 hours): Temp Pulse Resp BP Pulse Ox 98.9 F 77 20 130/86 97 11/01/16 12:37 11/01/16 12:37 11/01/16 12:37 11/01/16 12:37 11/01/16 12:37 - Medications Medications: Current Medications Acetaminophen (Tylenol 325mg Tab) 650 mg PO Q4 PRN PRN Reason: Pain, moderate (4-7) Atorvastatin Calcium (Lipitor) 10 mg PO DAILY [facility] Last Admin: 11/01/16 09:37 Dose: 10 mg Bisacodyl (Dulcolax) 5 mg PO DAILY [facility] Last Admin: 11/01/16 09:37 Dose: 5 mg Carvedilol (Coreg) 25 mg PO Q12 [facility] Last Admin: 11/01/16 10:46 Dose: 25 mg Ciprofloxacin (Cipro) 500 mg PO Q12 [facility] Last Admin: 11/01/16 09:36 Dose: 500 mg Dextrose (Dextrose 50% Inj) 0 ml IVP STAT PRN; Protocol PRN Reason: Hypoglycemia Protocol Dextrose (Dextrose 50% Inj) 0 ml IV STAT PRN; Protocol PRN Reason: Hyglycemia Protocol Dextrose (Glutose 15) 0 gm PO ONCE PRN; Protocol PRN Reason: Hypoglycemia Protocol Famotidine (Pepcid) 20 mg PO DAILY [facility] Last Admin: 11/01/16 09:36 Dose: 20 mg Furosemide (Lasix) 40 mg PO DAILY [facility] Last Admin: 11/01/16 09:36 Dose: 40 mg Glucagon (Glucagen Diagnostic Kit) 0 mg IM STAT PRN; Protocol PRN Reason: Hypoglycemia Protocol Glucagon (Glucagen Diagnostic Kit) 0 mg IM STAT PRN; Protocol PRN Reason: Hypoglycemia Protocol Insulin Human Regular (Humulin R) 0 units SC ACHS [facility] PRN Reason: Protocol Last Admin: 11/01/16 06:49 Dose: Not Given Lisinopril (Zestril) 10 mg PO DAILY [facility] Last Admin: 11/01/16 09:37 Dose: 10 mg Metronidazole (Flagyl) 500 mg PO Q8 [facility] Last Admin: 11/01/16 09:36 Dose: 500 mg Ondansetron HCl (Zofran Inj) 4 mg IVP Q4 PRN PRN Reason: Nausea/Vomiting Last Admin: 11/01/16 09:35 Dose: 4 mg Pantoprazole Sodium (Protonix Ec Tab) 40 mg PO DAILY [facility] Last Admin: 11/01/16 09:37 Dose: 40 mg Polyethylene Glycol (Miralax) 17 gm PO DAILY [facility] Last Admin: 11/01/16 09:43 Dose: Not Given Rivaroxaban (Xarelto) 20 mg PO QD5 [facility] PRN Reason: Protocol Last Admin: 10/31/16 17:30 Dose: 20 mg Senna/Docusate Sodium (Senokot S 50 Mg-8.6 Mg) 2 tab PO HS PRN PRN Reason: Constipation Spironolactone (Aldactone) 25 mg PO DAILY [facility] Last Admin: 11/01/16 09:37 Dose: 25 mg - Labs Labs: 10/31/16 10:15 10/31/16 06:30 PT 11.3 SECONDS (9.6-11.2) H 10/29/16 14:35 INR 1.09 (0.92-1.08) H 10/29/16 14:35 APTT 25.7 SECONDS (23.3-32.5) 10/29/16 14:35 - Constitutional Appears: Non-toxic, No Acute Distress - Head Exam Head Exam: NORMAL INSPECTION - Eye Exam Eye Exam: PERRL - Respiratory Exam Respiratory Exam: Clear to Ausculation Bilateral, NORMAL BREATHING PATTERN. absent: Rales, Wheezes - Cardiovascular Exam Cardiovascular Exam: Irregular Rhythm, +S1, +S2. absent: Gallop - GI/Abdominal Exam GI & Abdominal Exam: Soft, Tenderness (mild tenderness with deep palpation of LLQ), Normal Bowel Sounds. absent: Distended - Extremities Exam Extremities Exam: Normal Capillary Refill. absent: Calf Tenderness, Tenderness - Neurological Exam Neurological Exam: Alert, Awake, Oriented x3 - Psychiatric Exam Psychiatric exam: Normal Affect, Normal Mood (Confused at times) - Skin Skin Exam: Normal Color Assessment and Plan - Assessment and Plan (Free Text) Assessment: 1. Acute diverticulitis - Abd US shows gallstone, present from before - LLQ tenderness with rebound - CT scan shows diverticulitis - Cont PO cipro and flagyl 2. Atrial flutter - HR increases when OOB -cardio Dr. Lee on board -coreg dose increased to 25mg BID -Cont xarelto PO 3. Acute on chronic CHF exacerbation -asymptomatic -ECHO 09/06/16: severe systolic dysfunction with EF 15% -lasix changed 40mg po daily from prior IV BID -spironolactone 25mg PO daily -daily weights -I/Os 4. Elevated Hgb/Hct with low platelets(rule out malignancy) Acute -Hematology consult Dr Lee, V -TIBC, Ferritin, Vit B12, TSH, folate, ret count 5. Hypertension - controlled - amlodipine, coreg, lisinopril 6. T2DM -A1c 7.9 (09/08/16) -held metformin. Consider restarting metformin tomorrow -SSI(patient declining insuling dose as needed per SS) -accucheck 7. Hx of hep c -elevated LFTs -monitor 8. Hx of GERD -omeprazole 20mg po daily 9. Diabetic neuropathy -c/w Gabapenin 300mg 10. DVT prophylaxis -Patient on Xarelto 11. Dispo plan - PT evaluated pt and recommends TCU - SW consulted for TCU placement and also for homemaker services once pt is d/c' d home - Patient needs insurance authorization. - F/U with SW on 11/02/16
[2016-11-01] MEDS: Saccharomyces Boulardi 250 mg Cap PO SCH (18:10)
[2016-11-01 19:06] LABS: IRON 51 ug/dL (37-170)
[2016-11-02 06:39] LABS: BASO # 0.1 K/uL (0.0-0.2); BASO % 1.1 % (0.0-2.0); EOS # 0.1 K/uL (0.0-0.7); EOS % 0.7 % (0.0-4.0); LYMPH # 2.4 K/uL (1.0-4.3); LYMPH % 28.2 % (20.0-40.0); MEAN CELL VOLUME 80.1 fl (81.0-99.0); MEAN CORPUSCULAR HGB CONC 31.1 g/dL (33.0-37.0); MEAN PLATELET VOLUME 9.6 fl (7.2-11.7); MONO % 11.6 % (0.0-10.0); NEUT # 4.9 K/uL (1.8-7.0); NEUT % 58.4 % (50.0-75.0); NRBC % 0.1 % (0.0-0.0); RED CELL DISTRIBUTION WIDTH 16.1 % (11.5-14.5); WHITE BLOOD COUNT 8.3 K/uL (4.8-10.8)
[2016-11-02 06:52] LABS: BLOOD UREA NITROGEN 23 mg/dl (7-17); CARBON DIOXIDE 28 mmol/L (22-30); CHLORIDE 99 mmol/L (98-107); GFR AFRICAN-AMERICAN > 60; GLUCOSE,RANDOM 162 mg/dL (65-105); POTASSIUM 3.8 MMOL/L (3.6-5.0); SODIUM 137 mmol/l (132-148)
[2016-11-02] MEDS: Insulin Regular 100 units/ml SC SCH ×4 (07:00→22:40)
[2016-11-02 07:15] LABS: THYROID STIMULATING HORMONE 8.49 mIU/ML (0.46-4.68)
[2016-11-02] MEDS: Saccharomyces Boulardi 250 mg Cap PO SCH ×2 (08:50→16:29)
[2016-11-02] MEDS: Bisacodyl 5mg EC Tab PO SCH (08:52)
[2016-11-02] MEDS: Pantoprazole 40 mg EC Tab PO SCH (08:53)
[2016-11-02] MEDS: POLYETHYLENE GLYCOL 3350 17 GM/Dose PACKET PO SCH ×2 (08:53→08:56)
--- NOTE | 2016-11-02 08:56 | CP.PCM.PN ---
Subjective - Date & Time of Evaluation Date of Evaluation: 11/02/16 Time of Evaluation: 08:00 - Subjective Subjective: 76 y/o F seen at bedside in not acute distress. Patient states she continues feeling better in terms of strength and appetite. She reports 4 episodes of small liquid diarrhea NBNM yesterday. No vomiting or nausea. Denies CP, SOB or palpitations. No difficulty urinating. Patient to be evaluated by Dr Moncho Lee today. hand worker contacted yesterday 15:00. Patient needs insurance approval for rehabilitation services at [facility] as recommended by PT evaluation. Disposition most likely to be decided today. Objective - Vital Signs/Intake and Output Vital Signs (last 24 hours): Temp Pulse Resp BP Pulse Ox 97.9 F 88 20 129/87 97 11/02/16 08:03 11/02/16 08:52 11/02/16 08:03 11/02/16 08:52 11/02/16 08:03 - Medications Medications: Current Medications Acetaminophen (Tylenol 325mg Tab) 650 mg PO Q4 PRN PRN Reason: Pain, moderate (4-7) Atorvastatin Calcium (Lipitor) 10 mg PO DAILY [facility] Last Admin: 11/02/16 08:52 Dose: 10 mg Bisacodyl (Dulcolax) 5 mg PO DAILY [facility] Last Admin: 11/02/16 08:52 Dose: 5 mg Carvedilol (Coreg) 25 mg PO Q12 [facility] Last Admin: 11/02/16 08:51 Dose: 25 mg Ciprofloxacin (Cipro) 500 mg PO Q12 [facility] Last Admin: 11/02/16 08:51 Dose: 500 mg Dextrose (Dextrose 50% Inj) 0 ml IVP STAT PRN; Protocol PRN Reason: Hypoglycemia Protocol Dextrose (Dextrose 50% Inj) 0 ml IV STAT PRN; Protocol PRN Reason: Hyglycemia Protocol Dextrose (Glutose 15) 0 gm PO ONCE PRN; Protocol PRN Reason: Hypoglycemia Protocol Famotidine (Pepcid) 20 mg PO DAILY [facility] Last Admin: 11/02/16 08:50 Dose: 20 mg Furosemide (Lasix) 40 mg PO DAILY [facility] Last Admin: 11/02/16 08:51 Dose: 40 mg Glucagon (Glucagen Diagnostic Kit) 0 mg IM STAT PRN; Protocol PRN Reason: Hypoglycemia Protocol Glucagon (Glucagen Diagnostic Kit) 0 mg IM STAT PRN; Protocol PRN Reason: Hypoglycemia Protocol Insulin Human Regular (Humulin R) 0 units SC ACHS [facility] PRN Reason: Protocol Last Admin: 11/01/16 21:52 Dose: Not Given Lisinopril (Zestril) 10 mg PO DAILY [facility] Last Admin: 11/02/16 08:52 Dose: 10 mg Metronidazole (Flagyl) 500 mg PO Q8 [facility] Last Admin: 11/02/16 08:52 Dose: 500 mg Ondansetron HCl (Zofran Inj) 4 mg IVP Q4 PRN PRN Reason: Nausea/Vomiting Last Admin: 11/01/16 09:35 Dose: 4 mg Pantoprazole Sodium (Protonix Ec Tab) 40 mg PO DAILY [facility] Last Admin: 11/02/16 08:53 Dose: 40 mg Polyethylene Glycol (Miralax) 17 gm PO DAILY [facility] Last Admin: 11/01/16 09:43 Dose: Not Given Rivaroxaban (Xarelto) 20 mg PO QD5 [facility] PRN Reason: Protocol Last Admin: 11/01/16 16:08 Dose: 20 mg Saccharomyces Boulardii (Florastor) 250 mg PO BID [facility] Last Admin: 11/02/16 08:50 Dose: 250 mg Senna/Docusate Sodium (Senokot S 50 Mg-8.6 Mg) 2 tab PO HS PRN PRN Reason: Constipation Spironolactone (Aldactone) 25 mg PO DAILY [facility] Last Admin: 11/02/16 08:50 Dose: 25 mg - Labs Labs: 11/02/16 05:00 11/02/16 05:00 PT 11.3 SECONDS (9.6-11.2) H 10/29/16 14:35 INR 1.09 (0.92-1.08) H 10/29/16 14:35 APTT 25.7 SECONDS (23.3-32.5) 10/29/16 14:35 - Constitutional Appears: Non-toxic, No Acute Distress - Eye Exam Eye Exam: PERRL - ENT Exam ENT Exam: Mucous Membranes Moist - Neck Exam Neck Exam: Full ROM - Respiratory Exam Respiratory Exam: Clear to Ausculation Bilateral, NORMAL BREATHING PATTERN - Cardiovascular Exam Cardiovascular Exam: Irregular Rhythm, +S1, +S2. absent: Gallop, Murmur - GI/Abdominal Exam GI & Abdominal Exam: Soft, Tenderness (Mild tenderness deep palpation of LLQ), Normal Bowel Sounds - Extremities Exam Extremities Exam: Full ROM, Normal Capillary Refill. absent: Calf Tenderness - Neurological Exam Neurological Exam: Alert, Awake, Oriented x3 - Psychiatric Exam Psychiatric exam: Normal Affect, Normal Mood - Skin Skin Exam: Normal Color, Warm Assessment and Plan - Assessment and Plan (Free Text) Assessment: 1. Acute diverticulitis - LLQ tenderness with rebound - CT scan shows diverticulitis - Cont PO cipro and flagyl - Diarrhea: C.Diff toxines ordered 2. Atrial flutter - Stable/asymptomatic - HR increases when OOB -cardio Dr. Lee on board -coreg dose increased to 25mg BID yesterday -Cont xarelto PO 3. Acute on chronic CHF exacerbation -asymptomatic -ECHO 09/06/16: severe systolic dysfunction with EF 15% -lasix changed 40mg po daily from prior IV BID -spironolactone 25mg PO daily -daily weights -I/Os 4. Elevated Hgb/Hct with low platelets(rule out malignancy) Acute -Improved compared to yesterday: WBC 8.3, Hgb 14.6, Hct 47.0, Plt 109 -F/U Hematology consult Dr Lee, V -F/U Ferritin, folate -Vit B12: 556 -ret count: 1.3 -TIBC high -TSH: 8.49(Repeat TSH in 2-3 days) Free T4, T3, Thyroglobulin panel, Thyroid peroxidase AB: ordered 5. Hypertension - controlled - amlodipine, coreg, lisinopril 6. T2DM -A1c 7.9 (09/08/16) -held metformin. -Decided not to restart metformin for now due to persistent diarrhea -SSI: Patient has been refusing reg insulin as needed per SS. -accucheck 7. Hx of hep c -elevated LFTs -F/U CMP tomorrow -monitor 8. Hx of GERD -omeprazole 20mg po daily 9. Diabetic neuropathy -c/w Gabapenin 300mg 10. DVT prophylaxis -Patient on Xarelto 11. Dispo plan - PT evaluated pt and recommends TCU - SW consulted for TCU placement and also for homemaker services once pt is d/c' d home - Patient needs insurance authorization. - F/U with SW
--- NOTE | 2016-11-02 11:11 | CP.PCM.CON ---
History of Present Illness - History of Present Illness History of Present Illness: This is a 76 yrs old female who was admitted with c/o weakness and dizziness. She also had nausea but no vomiting, and diarrhea but no rectal bleeding. She has a h/o atrial flutter and CHF. A blood count done as a out pt showed a hgb of 18.6.in the hospital it was 16.2 when she came in. nowtwas 12.2 but is now 14.6gms. The WBC was 12.2 but have come down to 8.3. Platelets are a little low 90-115., no bleeding from any site. She has a strong h/o diverticulitis and GERD. Last time she had a colonoscopy or endoscopy was 7 yrs ago. She has lost her appetite because of this and has lost about 15 lbs. No shortness of breath, or cough. She has a h/o DMtype 2 but is not on any medication at this time.Iron studies show low serum iron and iron sat, but ferritin is in the normal range. She is not a smoker and only drinks socially. Past Patient History - Infectious Disease Hx of Infectious Diseases: None - Tetanus Immunizations Tetanus Immunization: Unknown - Past Medical History & Family History Past Medical History?: Yes - Past Social History Alcohol: None Drugs: Denies - CARDIAC Hx Cardiac Disorders: Yes - PULMONARY Hx Respiratory Disorders: Yes - NEUROLOGICAL Hx Neurological Disorder: Yes - HEENT Hx HEENT Problems: No - RENAL Hx Chronic Kidney Disease: No - ENDOCRINE/METABOLIC Hx Endocrine Disorders: Yes - HEMATOLOGICAL/ONCOLOGICAL Hx Blood Transfusions: No - INTEGUMENTARY Hx Dermatological Problems: No - MUSCULOSKELETAL/RHEUMATOLOGICAL Hx Musculoskeletal Disorders: No - GASTROINTESTINAL Hx Diverticulitis: Yes (diverticulosis w polypectomy non-malignant) - GENITOURINARY/GYNECOLOGICAL Hx Genitourinary Disorders: No - PSYCHIATRIC Hx Psychophysiologic Disorder: Yes - SURGICAL HISTORY Hx Surgeries: No - ANESTHESIA Hx Anesthesia Reactions: Yes (SOB if general given, pt states she needs iv sedation) Meds Allergies/Adverse Reactions: Allergies Allergy/AdvReac Type Severity Reaction Status Date / Time No Known Allergies Allergy Verified 03/12/14 18:47 - Medications Medications: Current Medications Acetaminophen (Tylenol 325mg Tab) 650 mg PO Q4 PRN PRN Reason: Pain, moderate (4-7) Atorvastatin Calcium (Lipitor) 10 mg PO DAILY [facility] Last Admin: 11/02/16 08:52 Dose: 10 mg Carvedilol (Coreg) 25 mg PO Q12 [facility] Last Admin: 11/02/16 08:51 Dose: 25 mg Ciprofloxacin (Cipro) 500 mg PO Q12 [facility] Last Admin: 11/02/16 08:51 Dose: 500 mg Dextrose (Dextrose 50% Inj) 0 ml IVP STAT PRN; Protocol PRN Reason: Hypoglycemia Protocol Dextrose (Dextrose 50% Inj) 0 ml IV STAT PRN; Protocol PRN Reason: Hyglycemia Protocol Dextrose (Glutose 15) 0 gm PO ONCE PRN; Protocol PRN Reason: Hypoglycemia Protocol Famotidine (Pepcid) 20 mg PO DAILY [facility] Last Admin: 11/02/16 08:50 Dose: 20 mg Furosemide (Lasix) 40 mg PO DAILY [facility] Last Admin: 11/02/16 08:51 Dose: 40 mg Glucagon (Glucagen Diagnostic Kit) 0 mg IM STAT PRN; Protocol PRN Reason: Hypoglycemia Protocol Glucagon (Glucagen Diagnostic Kit) 0 mg IM STAT PRN; Protocol PRN Reason: Hypoglycemia Protocol Insulin Human Regular (Humulin R) 0 units SC [facility] PRN Reason: Protocol Last Admin: 11/01/16 21:52 Dose: Not Given Lisinopril (Zestril) 10 mg PO DAILY [facility] Last Admin: 11/02/16 08:52 Dose: 10 mg Metronidazole (Flagyl) 500 mg PO Q8 [facility] Last Admin: 11/02/16 08:52 Dose: 500 mg Ondansetron HCl (Zofran Inj) 4 mg IVP Q4 PRN PRN Reason: Nausea/Vomiting Last Admin: 11/01/16 09:35 Dose: 4 mg Pantoprazole Sodium (Protonix Ec Tab) 40 mg PO DAILY [facility] Last Admin: 11/02/16 08:53 Dose: 40 mg Rivaroxaban (Xarelto) 20 mg PO QD5 [facility] PRN Reason: Protocol Last Admin: 11/01/16 16:08 Dose: 20 mg Saccharomyces Boulardii (Florastor) 250 mg PO BID [facility] Last Admin: 11/02/16 08:50 Dose: 250 mg Spironolactone (Aldactone) 25 mg PO DAILY [facility] Last Admin: 11/02/16 08:50 Dose: 25 mg Physical Exam - Additional Findings Additional findings: Physical exam; Alert, well oriented, in no acute distress. Neck; Supple, no adenopathy Chest; Clear, no rales or rhonchi Heart; RSR, no murmur Abd; Soft, no josephine, mild generalised tenderness.s Results - Vital Signs Recent Vital Signs: Last Vital Signs Temp 97.9 F 11/02/16 08:03 Pulse 88 11/02/16 08:52 Resp 20 11/02/16 08:03 BP 129/87 11/02/16 08:52 Pulse Ox 97 11/02/16 08:03 - Labs Result Diagrams: 11/02/16 05:00 11/02/16 05:00 Labs: Laboratory Results - last 24 hr 11/01/16 11/01/16 11/01/16 11:16 15:39 18:26 WBC RBC Hgb Hct MCV MCH MCHC RDW Plt Count MPV Neut % (Auto) Lymph % (Auto) Patrick % (Auto) Eos % (Auto) Baso % (Auto) Neut # Lymph # Patrick # Eos # Baso # Retic Count Sodium Potassium Chloride Carbon Dioxide Anion Gap BUN Creatinine Est GFR ( Amer) Est GFR (Non-Af Amer) POC Glucose (mg/dL) 230 H 163 H Random Glucose Calcium Iron 51 TIBC 453 H % Saturation 11 L Ferritin Vitamin B12 TSH 3rd Generation 11/01/16 11/02/16 11/02/16 21:20 05:00 05:00 WBC 8.3 RBC 5.86 H Hgb 14.6 Hct 47.0 MCV 80.1 L MCH 25.0 L MCHC 31.1 L RDW 16.1 H Plt Count 109 L MPV 9.6 Neut % (Auto) 58.4 Lymph % (Auto) 28.2 Patrick % (Auto) 11.6 H Eos % (Auto) 0.7 Baso % (Auto) 1.1 Neut # 4.9 Lymph # 2.4 Patrick # 1.0 H Eos # 0.1 Baso # 0.1 Retic Count Sodium 137 Potassium 3.8 Chloride 99 Carbon Dioxide 28 Anion Gap 14 BUN 23 H Creatinine 0.7 Est GFR ( Amer) > 60 Est GFR (Non-Af Amer) > 60 POC Glucose (mg/dL) 233 H Random Glucose 162 H Calcium 9.0 Iron TIBC % Saturation Ferritin 63.8 Vitamin B12 556 TSH 3rd Generation 8.49 H 11/02/16 11/02/16 05:00 05:07 WBC RBC Hgb Hct MCV MCH MCHC RDW Plt Count MPV Neut % (Auto) Lymph % (Auto) Patrick % (Auto) Eos % (Auto) Baso % (Auto) Neut # Lymph # Patrick # Eos # Baso # Retic Count 1.3 Sodium Potassium Chloride Carbon Dioxide Anion Gap BUN Creatinine Est GFR ( Amer) Est GFR (Non-Af Amer) POC Glucose (mg/dL) 158 H Random Glucose Calcium Iron TIBC % Saturation Ferritin Vitamin B12 TSH 3rd Generation Assessment & Plan - Assessment and Plan (Free Text) Assessment: Impression; Mild reactive thrombocytopenia, and leukocytosis from the diverticulitis. R/O malignancy Plan: Plan; I do feel though that she should have an endoscopy and colonoscopy to r/o malignancy/ - Date & Time Date: 11/02/16 Time: 11:46
[2016-11-02 17:35] LABS: FOLATE 11.8 ng/mL
[2016-11-03 07:02] LABS: BASO # 0.1 K/uL (0.0-0.2); EOS # 0.1 K/uL (0.0-0.7); EOS % 0.8 % (0.0-4.0); HEMATOCRIT 47.8 % (34.0-47.0); LYMPH # 2.2 K/uL (1.0-4.3); LYMPH % 29.1 % (20.0-40.0); MEAN CORPUSCULAR HEMOGLOBIN 25.2 pg (27.0-31.0); MEAN CORPUSCULAR HGB CONC 31.4 g/dL (33.0-37.0); MEAN PLATELET VOLUME 9.5 fl (7.2-11.7); MONO # 0.9 K/uL (0.0-0.8); MONO % 12.3 % (0.0-10.0); NEUT # 4.4 K/uL (1.8-7.0); NEUT % 56.8 % (50.0-75.0); NRBC % 0.1 % (0.0-0.0); WHITE BLOOD COUNT 7.7 K/uL (4.8-10.8)
[2016-11-03 07:26] LABS: ALB/GLOB RATIO 0.9 (1.0-2.1); ALKALINE PHOSPHATASE 75 U/L (38-126); ALT/SGPT 33 U/L (9-52); AST/SGOT 51 U/L (14-36); BILIRUBIN,TOTAL 0.9 mg/dl (0.2-1.3); BLOOD UREA NITROGEN 21 mg/dl (7-17); CALCIUM 9.3 mg/dL (8.4-10.2); CARBON DIOXIDE 28 mmol/L (22-30); CHLORIDE 98 mmol/L (98-107); GFR AFRICAN-AMERICAN > 60; GLUCOSE,RANDOM 174 mg/dL (65-105); POTASSIUM 3.9 MMOL/L (3.6-5.0); SODIUM 136 mmol/l (132-148); TOTAL PROTEIN 7.5 G/DL (6.3-8.2)
[2016-11-03 08:12] VITALS: RESP 18
[2016-11-03] MEDS: Saccharomyces Boulardi 250 mg Cap PO SCH (08:38)
[2016-11-03] MEDS: Pantoprazole 40 mg EC Tab PO SCH (08:39)
[2016-11-03] MEDS: Insulin Regular 100 units/ml SC SCH ×2 (08:40→14:02)
[2016-11-03] MEDS ORDERED: Lidocaine 5% Patch TD SCH (09:45)
[2016-11-03 12:38] VITALS: BP 128/88; PULSE 88; TEMP 97.3; O2SAT 100
--- NOTE | 2016-11-03 12:40 | CP.PCM.DIS ---
Provider - Provider Date of Admission: 10/29/16 18:13 Attending physician: Yvonne Dunn MD Primary care physician: Deanne Leung MD Consults: Dr Zapata Cardiology Dr Blandon Hem-onc Time Spent in preparation of Discharge (in minutes): 35 Diagnosis - Discharge Diagnosis (1) Acute diverticulitis Status: Acute Comment: Cont abx treatment with Flagyl and Cipro PO (2) Atrial flutter Status: Chronic Comment: Stable. Evaluated by Cardiology. Cont Xarelto PO daily (3) CHF (congestive heart failure) Status: Chronic Comment: EF 15%. Stable. Cont Home meds. (4) Diabetes mellitus Status: Chronic Comment: On ISS. Held Metformin due to diarrhea Hospital Course - Lab Results Lab Results: Most Recent Lab Values WBC 7.7 K/uL (4.8-10.8) 11/03/16 06:10 RBC 5.98 Mil/uL (3.80-5.20) H 11/03/16 06:10 Hgb 15.0 g/dL (12.0-16.0) 11/03/16 06:10 Hct 47.8 % (34.0-47.0) H 11/03/16 06:10 MCV 80.0 fl (81.0-99.0) L 11/03/16 06:10 MCH 25.2 pg (27.0-31.0) L 11/03/16 06:10 MCHC 31.4 g/dL (33.0-37.0) L 11/03/16 06:10 RDW 16.0 % (11.5-14.5) H 11/03/16 06:10 Plt Count 119 K/uL (130-400) L 11/03/16 06:10 MPV 9.5 fl (7.2-11.7) 11/03/16 06:10 Neut % (Auto) 56.8 % (50.0-75.0) 11/03/16 06:10 Lymph % (Auto) 29.1 % (20.0-40.0) 11/03/16 06:10 Tyrrell % (Auto) 12.3 % (0.0-10.0) H 11/03/16 06:10 Eos % (Auto) 0.8 % (0.0-4.0) 11/03/16 06:10 Baso % (Auto) 1.0 % (0.0-2.0) 11/03/16 06:10 Neut # 4.4 K/uL (1.8-7.0) 11/03/16 06:10 Lymph # 2.2 K/uL (1.0-4.3) 11/03/16 06:10 Tyrrell # 0.9 K/uL (0.0-0.8) H 11/03/16 06:10 Eos # 0.1 K/uL (0.0-0.7) 11/03/16 06:10 Baso # 0.1 K/uL (0.0-0.2) 11/03/16 06:10 Retic Count 1.3 % (0.5-1.5) 11/02/16 05:00 PT 11.3 SECONDS (9.6-11.2) H 10/29/16 14:35 INR 1.09 (0.92-1.08) H 10/29/16 14:35 APTT 25.7 SECONDS (23.3-32.5) 10/29/16 14:35 Sodium 136 mmol/l (132-148) 11/03/16 06:10 Potassium 3.9 MMOL/L (3.6-5.0) 11/03/16 06:10 Chloride 98 mmol/L (98-107) 11/03/16 06:10 Carbon Dioxide 28 mmol/L (22-30) 11/03/16 06:10 Anion Gap 14 (10-20) 11/03/16 06:10 BUN 21 mg/dl (7-17) H 11/03/16 06:10 Creatinine 0.7 mg/dL (0.7-1.2) 11/03/16 06:10 Est GFR ( Amer) > 60 11/03/16 06:10 Est GFR (Non-Af Amer) > 60 11/03/16 06:10 POC Glucose (mg/dL) 296 mg/dL (65-110) H 11/03/16 10:55 Random Glucose 174 mg/dL (65-105) H 11/03/16 06:10 Calcium 9.3 mg/dL (8.4-10.2) 11/03/16 06:10 Iron 51 ug/dL (37-170) 11/01/16 18:26 TIBC 453 ug/dL (250-450) H 11/01/16 18:26 % Saturation 11 % (20-55) L 11/01/16 18:26 Ferritin 63.8 ng/mL 11/02/16 05:00 Total Bilirubin 0.9 mg/dl (0.2-1.3) 11/03/16 06:10 AST 51 U/L (14-36) H 11/03/16 06:10 ALT 33 U/L (9-52) 11/03/16 06:10 Alkaline Phosphatase 75 U/L (38-126) 11/03/16 06:10 Troponin I 0.0330 ng/mL (0.00-0.120) 10/29/16 14:35 NT-Pro-B Natriuret Pep 60298 pg/ml (0-900) H 10/29/16 14:35 Total Protein 7.5 G/DL (6.3-8.2) 11/03/16 06:10 Albumin 3.6 g/dL (3.5-5.0) 11/03/16 06:10 Globulin 3.9 gm/dL (2.2-3.9) 11/03/16 06:10 Albumin/Globulin Ratio 0.9 (1.0-2.1) L 11/03/16 06:10 Lipase 94 U/L (23-300) 10/29/16 14:35 Carcinoembryonic Ag 3.7 ng/mL (0-3.0) H 11/02/16 11:52 Vitamin B12 556 pg/mL (239-931) 11/02/16 05:00 Folate 11.8 ng/mL 11/02/16 05:00 Free T4 1.89 ng/dL (0.78-2.19) 11/03/16 06:10 Total T3 1.44 nmol/L (1.49-2.60) L 11/03/16 06:10 TSH 3rd Generation 8.49 mIU/ML (0.46-4.68) H 11/02/16 05:00 C. difficile Ag & Toxin Negative (NEGATIVE) 11/02/16 20:00 - Hospital Course Hospital Course: 76 y/o F with PMHx of DM, CHF and Cardiac Arrhythmia, presented to ED for abd pain, fatigue, anorexia and diarrhea. CT abd showed acute noncomplicated diverticulitis. Patient was started with Abx treatment and was evaluated by Cardiology due to CHF and cardiac arrhythmia. Coreg dose was readjusted and patient responded well to treatment. General status improved. Patient was evaluated by Hem-onc due to elevated Hgb-Hct with low plt. Dr Blandon suggested work up for malignancy with Colonoscopy and Endoscopy as out patient. UE US was performed due to L/arm swelling and showed L/arm thrombosis when patiet had previously blood drawn. As per Hem-onc recs patient can cont with current anticoag treatment. Today patient is stable to DC from telemetry unit and after evaluated by PT services, she will be admitted to TCU for PT treatment. Discharge Exam - Head Exam Head Exam: NORMAL INSPECTION - Eye Exam Eye Exam: PERRL - ENT Exam ENT Exam: Mucous Membranes Moist - Neck Exam Neck exam: Normal Inspection - Respiratory Exam Respiratory Exam: Clear to PA & Lateral, NORMAL BREATHING PATTERN, UNREMARKABLE - Cardiovascular Exam Cardiovascular Exam: Irregular Rhythm, +S1, +S2. absent: Gallop - GI/Abdominal Exam GI & Abdominal Exam: Normal Bowel Sounds, Tenderness (Deep palpation of LLQ). absent: Distended, Rebound - Extremities Exam Extremities exam: normal capillary refill - Neurological Exam Neurological exam: Alert, Oriented x3 (Confused at times), Reflexes Normal - Psychiatric Exam Psychiatric exam: Normal Affect, Normal Mood - Skin Skin Exam: Normal Color Discharge Plan - Follow Up Plan Condition: FAIR Disposition: HOME/ ROUTINE Instructions: Heart Failure (DC), Heart Failure (GEN), Atrial Flutter (DC), Pacemaker (DC), Pacemaker (GEN), Pulmonary Edema (DC), Pulmonary Edema (GEN), Ascites (DC), Ascites (GEN) Referrals: Deanne Leung MD [Primary Care Provider] -
--- NOTE | 2016-11-03 17:53 | US ---
Left upper extremity venous Doppler dated 11/03/2016. History: Rule out DVT. Duplex interrogation of the deep veins left upper extremity performed. Findings: The the visualized left internal jugular vein, left subclavian, axillary, brachial and basilic veins, compressibility out evidence of DVT. Poor thrombus in a short segment of the left cephalic vein within the antecubital fossa. The left ulnar and radial veins not visualized Impression: There is a short segment of thrombus within the left cephalic vein in the antecubital fossa. Note that these findings were discussed with 7 Floor Nurse Operario at approximately 5:42 p.m. with written down and read back verification.
== END 2016-11-03 14:45 | DRG 544 ==
LOC: H.ER 13:32 → H.ERHOLD 18:13 → H.TEL 21:36
PROVIDERS: ADMIT Family Medicine; ATTEND Family Medicine
DX: I48.92 Unspecified atrial flutter (principal); I50.23 Acute on chronic systolic (congestive) heart failure; K80.00 Calculus of gallbladder with acute cholecystitis without obstruction; I42.0 Dilated cardiomyopathy; E11.40 Type 2 diabetes mellitus with diabetic neuropathy, unspecified; D69.59 Other secondary thrombocytopenia; I82.612 Acute embolism and thrombosis of superficial veins of left upper extremity; E86.1 Hypovolemia; I11.0 Hypertensive heart disease with heart failure; K57.92 Diverticulitis of intestine, part unspecified, without perforation or abscess without bleeding; K21.9 Gastro-esophageal reflux disease without esophagitis; J45.909 Unspecified asthma, uncomplicated; Z86.19 Personal history of other infectious and parasitic diseases; D72.828 Other elevated white blood cell count; Z79.01 Long term (current) use of anticoagulants

== ENCOUNTER 2016-11-02 14:03 | Inpatient (IN) | payer MEDICAID, MEDICARE ==
[2016-11-03 14:27] VITALS: BMI 26.6
[2016-11-03 15:05] VITALS: RESP 20
[2016-11-03] MEDS ORDERED: Dextrose 50% SYRINGE Inj (50 ml) IV PRN (15:24)
[2016-11-03] MEDS ORDERED: Glucagon Recombinant 1 mg Inj IM PRN (15:24)
[2016-11-03] MEDS: Insulin Regular 100 units/ml SC SCH ×2 (17:37→22:44)
[2016-11-03] MEDS: Saccharomyces Boulardi 250 mg Cap PO SCH (17:38)
[2016-11-04] MEDS: Digoxin 125 mcg (0.125 mg) Tab PO SCH (08:17)
[2016-11-04] MEDS: Insulin Regular 100 units/ml SC SCH ×3 (08:18→16:48)
[2016-11-04] MEDS: Saccharomyces Boulardi 250 mg Cap PO SCH ×2 (08:19→16:47)
--- NOTE | 2016-11-04 10:00 | CP.PCM.HP ---
History of Present Illness - History of Present Illness History of Present Illness: PMD:Dr Leung 76yo F with PMHx of hypertension, T2DM, depression, GERD, diabetic neuropathy initially admitted to [facility] on 10/29/16 for abd pain, fatigue and anorexia. Patient was found to have acute diverticulitis, atrial flutter and CHF exacerbation. During this same hospital stay her blood count showed a hgb 16.2 it trended down but is now 14.6gms. The She had leukocytosis that resolved and thombocytopenia(plt 90-115.) Denies any Hx of bleeding or bruising. Last time she had a colonoscopy or endoscopy was 7 yrs ago; she was evaluated by hematology/oncology Dr Blandon who recommended GI consult for endoscopy/ colonoscopy to rule out malignancy. She was also evaluated by Cardiology Dr Zapata because of persistent increased HR with exertion, coreg dose was increased, Xarelto was started and patient has been stable since. She was also found to have acute superficial venous thrombosis on the L/arm. She was admitted yesterday to TCU for PT services. Reports her abd pain continues improving, as well as appetite. L/Arm swelling improved with warm compresses. Denies any fever, chills, numbness, nausea or vomiting Present on Admission - Present on Admission Any Indicators Present on Admission: Yes History of DVT/PE: No History of Uncontrolled Diabetes: Yes Urinary Catheter: No Decubitus Ulcer Present: No Review of Systems - Constitutional Constitutional: Anorexia, Malaise, Weight Loss - EENT Nose/Mouth/Throat: absent: Nasal Congestion, Sore Throat - Cardiovascular Cardiovascular: Irregular Heart Rhythm, Rapid Heart Rate (with exertion). absent: Chest Pain, Dyspnea on Exertion - Respiratory Respiratory: absent: Cough, Wheezing - Gastrointestinal Gastrointestinal: Abdominal Pain (improved), Diarrhea (NBNM), Heartburn ( occasional) - Genitourinary Genitourinary: absent: Dysuria - Musculoskeletal Musculoskeletal: Back Pain (resolved). absent: Arthralgias - Integumentary Integumentary: absent: Lesions, Rash - Neurological Neurological: As Per HPI - Psychiatric Psychiatric: absent: Anxiety, Depression - Hematologic/Lymphatic Hematologic: absent: Easy Bleeding, Easy Bruising Past Patient History - Infectious Disease Hx of Infectious Diseases: None - Tetanus Immunizations Tetanus Immunization: Unknown - Past Medical History & Family History Past Medical History?: Yes - Past Social History Smoking Status: Never Smoked - CARDIAC Hx Cardiac Disorders: Yes - PULMONARY Hx Respiratory Disorders: Yes - NEUROLOGICAL Hx Neurological Disorder: Yes - HEENT Hx HEENT Problems: No 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) - RENAL Hx Chronic Kidney Disease: No - ENDOCRINE/METABOLIC Hx Endocrine Disorders: Yes - HEMATOLOGICAL/ONCOLOGICAL Hx AIDS: No Hx Blood Transfusions: No Hx Human Immunodeficiency Virus (HIV): No - INTEGUMENTARY Hx Dermatological Problems: No - MUSCULOSKELETAL/RHEUMATOLOGICAL Hx Falls: No - GASTROINTESTINAL Hx Diarrhea: Yes Hx Diverticulitis: Yes (diverticulosis w polypectomy non-malignant) - GENITOURINARY/GYNECOLOGICAL Hx Genitourinary Disorders: No - PSYCHIATRIC Hx Substance Use: No - SURGICAL HISTORY Hx Surgeries: No - ANESTHESIA Hx Anesthesia Reactions: Yes (SOB if general given, pt states she needs iv sedation) Meds Allergies/Adverse Reactions: Allergies Allergy/AdvReac Type Severity Reaction Status Date / Time No Known Allergies Allergy Verified 11/03/16 14:45 Results - Vital Signs Recent Vital Signs: Last Vital Signs Temp 98.2 F 11/04/16 07:59 Pulse 72 11/04/16 08:20 Resp 20 11/04/16 07:59 BP 147/65 11/04/16 08:20 Pulse Ox 99 11/04/16 07:59 - Labs Labs: Laboratory Results - last 24 hr 11/03/16 11/03/16 11/04/16 16:31 20:25 05:10 POC Glucose (mg/dL) 173 H 213 H 164 H Assessment & Plan - Assessment and Plan (Free Text) Assessment: 76yo F with PMHx of hypertension, DM, GERD, hep c s/p 5 days inpatient stay for CHF exacerbation, aflutter an acute diverticulits admitted to TCU for PT services 1-Deconditioning -S/P 5 days inpatient stay -generalized weakness 2-Atrial flutter -EKG atrial flutter -Cont Coreg 25mg BID -Evaluated by Cardiology Dr Lee -Digoxin 0.125mg daily -ASA -Xarelto 20mg daily -CHADs2 score: 4 3-Acute uncomplicated diverticulitis -Diarrhea, mild abd pain -Diagnosed on CT scan -Cont Flagyl and Cipro PO -C.Diff negative 4-CHF(chronic) -lasix -spironolactone -EF 15% -cardio on board. 5-Elevated Hgb/Hct, low plt -Rule out malignancy -Elevated TIBC normal ferritin -Evaluated by Hem-onc(Dr Blandon): recommended GI eval for Colonoscopy/Endoscopy -F/U GI recs -Improving -EPO ordered 6-Hypertension(chronic) -amlodipine, coreg, lisinopril 7-T2DM(stable) -A1c 7.9 (09/08/16) -held metformin due to diarrhea -SSI -accucheck 8-Diabetic neuropathy -c/w Gabapenin 300mg 9-L/arm thrombosis -site where blood was drawn -Diagnosed on UE US -Improved since yesterday -Cont warm compress -As per Hem-Onc cont Xarelto 20mg 10- Prophylactic measures -On Xarelto 20mg daily -Pepcid -Florastor
--- NOTE | 2016-11-04 10:17 | CP.PCM.CON ---
<Devora Steele - Last Filed: 11/04/16 11:06> History of Present Illness - History of Present Illness History of Present Illness: This is a GI consult Note: Dr. Del Castillo cc: diverticulitis HPI: Pt is 76yo F with PMHx of hypertension, T2DM, asthma, depression, GERD, diabetic neuropathy initially admitted to [facility] on 10/29/16 for atrial flutter and CHF exacerbation. During this admission she also reported having diarrhea x3 days and abdominal pain and was found to have diverticulitis on CT scan for which she is currently being treated for at [facility]. During this same hospital stay her blood count went done; from as an out patient showed a hgb of 18.6.in the hospital it was 16.2 when she came in. now it was 12.2 but is now 14.6gms. The WBC was 12.2 but have come down to 8.3. Platelets are a little low 90-115. No bleeding from any site. She has a strong h/o diverticulitis and GERD. Last time she had a colonoscopy or endoscopy was 7 yrs ago; she was evaluated by hematology/oncology who recommended GI consult for endoscopy/colonoscopy. Pt seen and evaluated at the [facility] gym this morning, reports her stomach has been bothering her for a while, and she has not being eating much. Denies any fever, chills, numbness, nausea or vomiting,bleeding from the rectum PMHX: T2DM, Diabetic neuropathy, systolic CHF, Asthma, HTN, A-flutter SHx: , tumor removal FHx: noncontributory Social Hx: lives by herself. Elevator to apt.3rd floor, Denies smoking, EtOH, drug use Allergy: NKDA PMD: Dr Leung Review of Systems - Review of Systems All systems: reviewed and no additional remarkable complaints except Review of Systems: All negative except those stated in HPI Past Patient History - Infectious Disease Hx of Infectious Diseases: None - Tetanus Immunizations Tetanus Immunization: Unknown - Past Medical History & Family History Past Medical History?: Yes - Past Social History Smoking Status: Never Smoked - CARDIAC Hx Cardiac Disorders: Yes - PULMONARY Hx Respiratory Disorders: Yes - NEUROLOGICAL Hx Neurological Disorder: Yes - HEENT Hx HEENT Problems: No 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) - RENAL Hx Chronic Kidney Disease: No - ENDOCRINE/METABOLIC Hx Endocrine Disorders: Yes - HEMATOLOGICAL/ONCOLOGICAL Hx AIDS: No Hx Blood Transfusions: No Hx Human Immunodeficiency Virus (HIV): No - INTEGUMENTARY Hx Dermatological Problems: No - MUSCULOSKELETAL/RHEUMATOLOGICAL Hx Falls: No - GASTROINTESTINAL Hx Diarrhea: Yes Hx Diverticulitis: Yes (diverticulosis w polypectomy non-malignant) - GENITOURINARY/GYNECOLOGICAL Hx Genitourinary Disorders: No - PSYCHIATRIC Hx Substance Use: No - SURGICAL HISTORY Hx Surgeries: No - ANESTHESIA Hx Anesthesia Reactions: Yes (SOB if general given, pt states she needs iv sedation) Meds Allergies/Adverse Reactions: Allergies Allergy/AdvReac Type Severity Reaction Status Date / Time No Known Allergies Allergy Verified 11/03/16 14:45 - Medications Medications: Current Medications Acetaminophen (Tylenol 325mg Tab) 325 mg PO Q6 PRN PRN Reason: Pain, Mild (1-3) Aspirin (Aspirin Chewable) 81 mg PO DAILY [facility] Last Admin: 11/04/16 08:17 Dose: 81 mg Atorvastatin Calcium (Lipitor) 10 mg PO DAILY [facility] Last Admin: 11/04/16 08:19 Dose: 10 mg Carvedilol (Coreg) 25 mg PO Q12 [facility] Last Admin: 11/04/16 08:20 Dose: 25 mg Ciprofloxacin (Cipro) 500 mg PO Q12 [facility] Last Admin: 11/04/16 08:19 Dose: 500 mg Dextrose (Dextrose 50% Inj) 0 ml IV STAT PRN; Protocol PRN Reason: Hyglycemia Protocol Dextrose (Glutose 15) 0 gm PO ONCE PRN; Protocol PRN Reason: Hypoglycemia Protocol Digoxin (Lanoxin) 0.125 mg PO DAILY [facility] Last Admin: 11/04/16 08:17 Dose: 0.125 mg Famotidine (Pepcid) 20 mg PO DAILY [facility] Last Admin: 11/04/16 08:19 Dose: 20 mg Furosemide (Lasix) 40 mg PO DAILY [facility] Last Admin: 11/04/16 08:18 Dose: 40 mg Gabapentin (Neurontin) 300 mg PO HS PRN PRN Reason: Other Last Admin: 11/04/16 08:18 Dose: 300 mg Glucagon (Glucagen Diagnostic Kit) 0 mg IM STAT PRN; Protocol PRN Reason: Hypoglycemia Protocol Insulin Human Regular (Humulin R) 0 units SC ACCU-CHECK [facility] PRN Reason: Protocol Last Admin: 11/04/16 08:18 Dose: 1 u Lisinopril (Zestril) 10 mg PO DAILY [facility] Last Admin: 11/04/16 08:19 Dose: 10 mg Metronidazole (Flagyl) 500 mg PO Q8 [facility] Last Admin: 11/04/16 08:17 Dose: 500 mg Ondansetron HCl (Zofran Tab) 4 mg PO Q6 PRN PRN Reason: Nausea/Vomiting Rivaroxaban (Xarelto) 20 mg PO QD5 [facility] PRN Reason: Protocol Last Admin: 11/03/16 17:36 Dose: 20 mg Saccharomyces Boulardii (Florastor) 250 mg PO BID [facility] Last Admin: 11/04/16 08:19 Dose: 250 mg Spironolactone (Aldactone) 25 mg PO DAILY [facility] Last Admin: 11/04/16 08:19 Dose: 25 mg Physical Exam - Constitutional Appears: Well, Non-toxic, No Acute Distress - Head Exam Head Exam: NORMOCEPHALIC - Eye Exam Eye Exam: Normal appearance, PERRL Pupil Exam: NORMAL ACCOMODATION - ENT Exam ENT Exam: Mucous Membranes Moist - Neck Exam Neck exam: Positive for: Normal Inspection - Respiratory Exam Respiratory Exam: Clear to Auscultation Bilateral, NORMAL BREATHING PATTERN - Cardiovascular Exam Cardiovascular Exam: REGULAR RHYTHM, +S1, +S2 - GI/Abdominal Exam GI & Abdominal Exam: Normal Bowel Sounds, Soft. absent: Tenderness - Extremities Exam Extremities exam: Negative for: calf tenderness - Neurological Exam Neurological exam: Alert, Oriented x3 Results - Vital Signs Recent Vital Signs: Last Vital Signs Temp 98.2 F 11/04/16 07:59 Pulse 72 11/04/16 08:20 Resp 20 11/04/16 07:59 BP 147/65 11/04/16 08:20 Pulse Ox 99 11/04/16 07:59 - Labs Labs: Laboratory Results - last 24 hr 11/03/16 11/03/16 11/04/16 16:31 20:25 05:10 POC Glucose (mg/dL) 173 H 213 H 164 H Assessment & Plan - Assessment and Plan (Free Text) Assessment: 76 y/o female with medical history of T2DM, HTN, CHF(EF of 15%), A-flutter, diabetic neuropathy, asthma and Hep C, currently on antibiotics for active diverticulitis,and found to have mild reactive thrombocytopenia and leukocyctosis most likely due to the diverticulitis but was seen and evaluated by hematology/oncology who recommends a GI consult for endoscopy/colonoscopy to rule out malignancy, pt's last colonoscopy was 7years. Plan: Patient is currently actively on antibiotics for diverticulitis- continue with antibiotics course after infectious process is resolved, and pt medically optimized, colonoscopy will be done. Thank you very much for your consult <Livan Del Castillo MD - Last Filed: 11/04/16 16:12> Meds - Medications Medications: Current Medications Acetaminophen (Tylenol 325mg Tab) 325 mg PO Q6 PRN PRN Reason: Pain, Mild (1-3) Aspirin (Aspirin Chewable) 81 mg PO DAILY [facility] Last Admin: 11/04/16 08:17 Dose: 81 mg Atorvastatin Calcium (Lipitor) 10 mg PO DAILY [facility] Last Admin: 11/04/16 08:19 Dose: 10 mg Carvedilol (Coreg) 25 mg PO Q12 [facility] Last Admin: 11/04/16 08:20 Dose: 25 mg Ciprofloxacin (Cipro) 500 mg PO Q12 [facility] Last Admin: 11/04/16 08:19 Dose: 500 mg Dextrose (Dextrose 50% Inj) 0 ml IV STAT PRN; Protocol PRN Reason: Hyglycemia Protocol Dextrose (Glutose 15) 0 gm PO ONCE PRN; Protocol PRN Reason: Hypoglycemia Protocol Digoxin (Lanoxin) 0.125 mg PO DAILY [facility] Last Admin: 11/04/16 08:17 Dose: 0.125 mg Famotidine (Pepcid) 20 mg PO DAILY [facility] Last Admin: 11/04/16 08:19 Dose: 20 mg Furosemide (Lasix) 40 mg PO DAILY [facility] Last Admin: 11/04/16 08:18 Dose: 40 mg Gabapentin (Neurontin) 300 mg PO HS PRN PRN Reason: Other Last Admin: 11/04/16 08:18 Dose: 300 mg Glucagon (Glucagen Diagnostic Kit) 0 mg IM STAT PRN; Protocol PRN Reason: Hypoglycemia Protocol Insulin Human Regular (Humulin R) 0 units SC ACCU-CHECK [facility] PRN Reason: Protocol Last Admin: 11/04/16 12:21 Dose: 1 u Lisinopril (Zestril) 10 mg PO DAILY [facility] Last Admin: 11/04/16 08:19 Dose: 10 mg Metronidazole (Flagyl) 500 mg PO Q8 [facility] Last Admin: 11/04/16 08:17 Dose: 500 mg Ondansetron HCl (Zofran Tab) 4 mg PO Q6 PRN PRN Reason: Nausea/Vomiting Rivaroxaban (Xarelto) 20 mg PO QD5 [facility] PRN Reason: Protocol Last Admin: 11/03/16 17:36 Dose: 20 mg Saccharomyces Boulardii (Florastor) 250 mg PO BID [facility] Last Admin: 11/04/16 08:19 Dose: 250 mg Spironolactone (Aldactone) 25 mg PO DAILY [facility] Last Admin: 11/04/16 08:19 Dose: 25 mg Results - Vital Signs Recent Vital Signs: Last Vital Signs Temp 98.2 F 11/04/16 07:59 Pulse 72 11/04/16 08:20 Resp 20 11/04/16 07:59 BP 147/65 11/04/16 08:20 Pulse Ox 99 11/04/16 07:59 - Labs Labs: Laboratory Results - last 24 hr 11/03/16 11/03/16 11/04/16 16:31 20:25 05:10 POC Glucose (mg/dL) 173 H 213 H 164 H 11/04/16 10:57 POC Glucose (mg/dL) 198 H Attending/Attestation - Attestation I have personally seen and examined this patient.: Yes I have fully participated in the care of the patient.: Yes I have reviewed all pertinent clinical information: Yes Notes (Text): 11/04/16 16:02 Patient seen and examined with resident on GI rounds. This is a 76 y/o female with medical history of T2DM, HTN, CHF(EF of 15%), A-flutter, diabetic neuropathy, asthma and Hep C, currently on antibiotics for active diverticulitis on imaging and loose stools for last few days. Patient denies antibiotic use prior to admission. She has nausea, dyspepsia like symptoms due to gastroparesis. Tolerating diet. GI consulted for diverticulitis and anemia. Patient is on xarelto for new DVT as per nursing staff - Uncomplicated diverticulitis- continue antibiotics as you are doing - Stool infectious work up- C diff, O and P, wbc, culture and calprotectin - Currently with acute diverticulitis and on xarelto for recent DVT- absolute contraindications for invasive luminal exam - Gastroparesis as already have underlying DM neuropathy- if nausea and vomiting will not subside will give reglan trail - Small frequent meals with low fat and fiber - Patient given phone number to office to follow after discharge to schedule EGD / colonoscopy - No current indications for in hospital endoscopy - Thank you for letting us participate in the care of this patient 11/04/16 16:09
[2016-11-05] MEDS: Insulin Regular 100 units/ml SC SCH ×5 (00:12→22:54)
[2016-11-05] MEDS: Saccharomyces Boulardi 250 mg Cap PO SCH ×2 (08:49→17:00)
[2016-11-05] MEDS: Digoxin 125 mcg (0.125 mg) Tab PO SCH (08:50)
--- NOTE | 2016-11-05 09:27 | CP.PCM.PN ---
Subjective - Date & Time of Evaluation Date of Evaluation: 11/05/16 Time of Evaluation: 09:24 - Subjective Subjective: Pt was seen by me when she was on medsurg floor. She had c/o abdominal pain and diarrhea, negative for C Diff. She also had a h/o the HGb being elevated to 18 as a out patient, However when she came to the hospitl the hgb was down to 14.5 gms. Her platelets had started to improve as well, along with the wbc which came down to 7.8. She had a CT scan of the abdomen done which showed diverticulitis, She is on antibiotics for the same and that may be the reason for the counts getting better. She had a little swelling in the left arm at the site of the ib which had infiltrated.The ultrasound of the arm showed a very short segment of a clot at the iv site. She was started on xarelto for that. This and the antibiotics may delay the endo and colonoscopy which I feel may be important considering her lack of appetite and weight loss. So if the clot in the arm clears up she should have a the above tests. I have ordered the JAK2 mutation to r/o evidence of polycythemia Objective - Vital Signs/Intake and Output Vital Signs (last 24 hours): Temp Pulse Resp BP Pulse Ox 97.7 F 91 H 20 127/72 100 11/05/16 08:06 11/05/16 08:50 11/05/16 08:06 11/05/16 08:50 11/05/16 08:06 - Medications Medications: Current Medications Acetaminophen (Tylenol 325mg Tab) 325 mg PO Q6 PRN PRN Reason: Pain, Mild (1-3) Aspirin (Aspirin Chewable) 81 mg PO DAILY [facility] Last Admin: 11/05/16 08:49 Dose: 81 mg Atorvastatin Calcium (Lipitor) 10 mg PO DAILY [facility] Last Admin: 11/04/16 08:19 Dose: 10 mg Carvedilol (Coreg) 25 mg PO Q12 [facility] Last Admin: 11/05/16 08:49 Dose: 25 mg Ciprofloxacin (Cipro) 500 mg PO Q12 [facility] Last Admin: 11/05/16 08:50 Dose: 500 mg Dextrose (Dextrose 50% Inj) 0 ml IV STAT PRN; Protocol PRN Reason: Hyglycemia Protocol Dextrose (Glutose 15) 0 gm PO ONCE PRN; Protocol PRN Reason: Hypoglycemia Protocol Digoxin (Lanoxin) 0.125 mg PO DAILY [facility] Last Admin: 11/05/16 08:50 Dose: 0.125 mg Famotidine (Pepcid) 20 mg PO DAILY [facility] Last Admin: 11/05/16 08:49 Dose: 20 mg Furosemide (Lasix) 40 mg PO DAILY [facility] Last Admin: 11/05/16 08:49 Dose: 40 mg Gabapentin (Neurontin) 300 mg PO HS PRN PRN Reason: Other Last Admin: 11/04/16 08:18 Dose: 300 mg Glucagon (Glucagen Diagnostic Kit) 0 mg IM STAT PRN; Protocol PRN Reason: Hypoglycemia Protocol Insulin Human Regular (Humulin R) 0 units SC ACCU-CHECK [facility] PRN Reason: Protocol Last Admin: 11/05/16 06:21 Dose: 2 u Lisinopril (Zestril) 10 mg PO DAILY [facility] Last Admin: 11/05/16 08:50 Dose: 10 mg Metronidazole (Flagyl) 500 mg PO Q8 [facility] Last Admin: 11/05/16 08:49 Dose: 500 mg Ondansetron HCl (Zofran Tab) 4 mg PO Q6 PRN PRN Reason: Nausea/Vomiting Rivaroxaban (Xarelto) 20 mg PO QD5 [facility] PRN Reason: Protocol Last Admin: 11/04/16 16:47 Dose: 20 mg Saccharomyces Boulardii (Florastor) 250 mg PO BID [facility] Last Admin: 11/05/16 08:49 Dose: 250 mg Spironolactone (Aldactone) 25 mg PO DAILY [facility] Last Admin: 11/05/16 08:50 Dose: 25 mg
--- NOTE | 2016-11-05 11:12 | CP.PCM.CON ---
History of Present Illness - History of Present Illness History of Present Illness: Full Note Dictated. Congestive Cardiomyopathy A Flutter CHF (LV, Syst, Chr) DM(II) Polycythemia (?? Primary/? 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) - RENAL Hx Chronic Kidney Disease: No - ENDOCRINE/METABOLIC Hx Endocrine Disorders: Yes - HEMATOLOGICAL/ONCOLOGICAL Hx AIDS: No Hx Blood Transfusions: No Hx Human Immunodeficiency Virus (HIV): No - INTEGUMENTARY Hx Dermatological Problems: No - MUSCULOSKELETAL/RHEUMATOLOGICAL Hx Falls: No - GASTROINTESTINAL Hx Diarrhea: Yes Hx Diverticulitis: Yes (diverticulosis w polypectomy non-malignant) - GENITOURINARY/GYNECOLOGICAL Hx Genitourinary Disorders: No - PSYCHIATRIC Hx Substance Use: No - SURGICAL HISTORY Hx Surgeries: No - ANESTHESIA Hx Anesthesia Reactions: Yes (SOB if general given, pt states she needs iv sedation) Meds Allergies/Adverse Reactions: Allergies Allergy/AdvReac Type Severity Reaction Status Date / Time No Known Allergies Allergy Verified 11/03/16 14:45 - Medications Medications: Current Medications Acetaminophen (Tylenol 325mg Tab) 325 mg PO Q6 PRN PRN Reason: Pain, Mild (1-3) Aspirin (Aspirin Chewable) 81 mg PO DAILY [facility] Last Admin: 11/05/16 08:49 Dose: 81 mg Atorvastatin Calcium (Lipitor) 10 mg PO DAILY [facility] Last Admin: 11/04/16 08:19 Dose: 10 mg Carvedilol (Coreg) 25 mg PO Q12 [facility] Last Admin: 11/05/16 08:49 Dose: 25 mg Ciprofloxacin (Cipro) 500 mg PO Q12 [facility] Last Admin: 11/05/16 08:50 Dose: 500 mg Dextrose (Dextrose 50% Inj) 0 ml IV STAT PRN; Protocol PRN Reason: Hyglycemia Protocol Dextrose (Glutose 15) 0 gm PO ONCE PRN; Protocol PRN Reason: Hypoglycemia Protocol Digoxin (Lanoxin) 0.125 mg PO DAILY [facility] Last Admin: 11/05/16 08:50 Dose: 0.125 mg Famotidine (Pepcid) 20 mg PO DAILY [facility] Last Admin: 11/05/16 08:49 Dose: 20 mg Furosemide (Lasix) 40 mg PO DAILY [facility] Last Admin: 11/05/16 08:49 Dose: 40 mg Gabapentin (Neurontin) 300 mg PO HS PRN PRN Reason: Other Last Admin: 11/04/16 08:18 Dose: 300 mg Glucagon (Glucagen Diagnostic Kit) 0 mg IM STAT PRN; Protocol PRN Reason: Hypoglycemia Protocol Insulin Human Regular (Humulin R) 0 units SC ACCU-CHECK [facility] PRN Reason: Protocol Last Admin: 11/05/16 06:21 Dose: 2 u Lisinopril (Zestril) 10 mg PO DAILY [facility] Last Admin: 11/05/16 08:50 Dose: 10 mg Metronidazole (Flagyl) 500 mg PO Q8 [facility] Last Admin: 11/05/16 08:49 Dose: 500 mg Ondansetron HCl (Zofran Tab) 4 mg PO Q6 PRN PRN Reason: Nausea/Vomiting Rivaroxaban (Xarelto) 20 mg PO QD5 [facility] PRN Reason: Protocol Last Admin: 11/04/16 16:47 Dose: 20 mg Saccharomyces Boulardii (Florastor) 250 mg PO BID [facility] Last Admin: 11/05/16 08:49 Dose: 250 mg Spironolactone (Aldactone) 25 mg PO DAILY [facility] Last Admin: 11/05/16 08:50 Dose: 25 mg Results - Vital Signs Recent Vital Signs: Last Vital Signs Temp 97.7 F 11/05/16 08:06 Pulse 91 H 11/05/16 08:50 Resp 20 11/05/16 08:06 BP 127/72 11/05/16 08:50 Pulse Ox 100 11/05/16 08:06 - Labs Labs: Laboratory Results - last 24 hr 11/04/16 11/04/16 11/04/16 10:57 16:28 20:45 POC Glucose (mg/dL) 198 H 190 H 198 H 11/05/16 11/05/16 05:47 10:58 POC Glucose (mg/dL) 200 H 245 H
--- NOTE | 2016-11-05 12:42 | CON ---
DATE: 11/05/2016 She is hospitalized under the resident's care in room 708, bed 1. This 76-year-old diabetic female was recently found to have congestive cardiomyopathy. A coronary an giogram did not show any significant coronary stenosis. The patient was recently hospitalized follow ing onset of atrial fibrillation with rapid heart rate requiring additional beta blockers to control her heart rate. She has been successfully diuresed and has been on a beta shanice and an ARB along w ith spironolactone and is in the transitional care unit. The patient was also found to have polycyth emia with a hematocrit in the range of 59%. Subsequent lab tests have shown that the hematocrit is i n the range of 50%-51%. She has never been a smoker and there is no prior history of lung disease. The patient at this juncture is in transitional care unit and is able to get in and out of bed unassi sted and ambulate in her room without much difficulty. PHYSICAL EXAMINATION: GENERAL: Shows an elderly, pleasant female who is alert, awake, coherent. VITAL SIGNS: Afebrile. Her pulse rate was 80 beats per minute, irregularly irregular, and her blood pressure was 120/80 mmHg. Her jugular venous pressure was not elevated. EXTREMITIES: There was no edema of her lower extremities. The pedal pulses were well felt. NECK: There were no carotid bruits. Thyroid and breasts did not reveal anything abnormal. HEART: The apex was vaguely felt in the fifth space. The first heart sound had a variable intensity . The second heart sound was normal. A brief apical systolic murmur of mitral regurgitation was shonda dent at apex. There was no gallop. LUNGS: There were no rales. Her electrocardiogram showed atrial flutter with 3:1 conduction and a heart rate of 84 beats per pallavi te. There were nonspecific ST changes. No Q-waves suggestive of a prior myocardial infarction were evident on her electrocardiogram. IMPRESSION: At this time is dilated congestive cardiomyopathy with atrial flutter, congestive heart failure, which is left ventricular systolic and chronic with diabetes mellitus and polycythemia. The patient at this juncture is on appropriate medications and will continue to be on it until a repeat echocardiogram to evaluate if her ejection fraction has improved. Otherwise, she will need an automa tic implantable cardioverter-defibrillator implant. Jeffery Lee MD cc: [id number] TT: 11/05/2016 12:42:16 Confirmation # [id number] Dictation # [id number]
[2016-11-06] MEDS: Insulin Regular 100 units/ml SC SCH ×2 (06:11→12:50)
[2016-11-06 08:17] VITALS: BP 123/78; PULSE 90; TEMP 96.1; O2SAT 98
[2016-11-06] MEDS: Saccharomyces Boulardi 250 mg Cap PO SCH (08:57)
[2016-11-06] MEDS: Digoxin 125 mcg (0.125 mg) Tab PO SCH (08:58)
[2016-11-06 09:01] VITALS: PULSE 90
--- NOTE | 2016-11-06 09:19 | CARD ---
APPROVED REPORT EKG Measurement Heart [id number] <Conclusion> Atrial flutter with variable AV block with premature ventricular or aberrantly conducted complexes ST & T wave abnormality, consider inferolateral ischemia Abnormal ECG
--- NOTE | 2016-11-06 09:53 | CP.PCM.DIS ---
Provider - Provider Date of Admission: 11/03/16 14:35 Attending physician: Yvonne Dunn MD Primary care physician: Deanne Leung MD Consults: cardiology: Dr. Sandi Lee heme/onc: Dr. Moncho Lee GI: Dr. Del Castillo Time Spent in preparation of Discharge (in minutes): 45 Diagnosis - Discharge Diagnosis (1) Acute diverticulitis Status: Acute Hospital Course - Lab Results Lab Results: Most Recent Lab Values POC Glucose (mg/dL) 216 mg/dL (65-110) H 11/05/16 19:53 Erythropoietin 25.5 mIU/mL (2.6-18.5) H 11/04/16 09:30 - Hospital Course Hospital Course: 76 yo female with PMHx of hypertension, T2DM, asthma, depression, GERD, diabetic neuropathy presents with sob, unstable gait, and diarrhea x 3 days was admitted diverticulitis s/p cipro and flagyl. During admission pt was found to have a flutter on ekg. Cardiology was consulted and recommend increase in Coreg dose and started on xarelto. Patient was evaluated by Hem-onc, Dr. Moncho Lee, due to elevated Hgb-Hct with thrombocytopenia, and suggested work up for malignancy with Colonoscopy and Endoscopy as out patient. US was performed due to left arm swelling and showed thrombosis. As per Hem-onc recs patient can continue with xarelto. Patient transfer to TCU for PT treatment. Per PT, she ahs maximize her treat. Pt is medically optimize and stable to be discharge home today. Follow up pending labs: calprotectin, fecal, cyndi 2 mutation, stool ova and parasit, fecal leukocytes Continue with home medications: Aspirin 81 mg PO DAILY Lipitor 10 mg PO DAILY Spironolactone 25 mg PO DAILY Digoxin 0.125 mg PO DAILY Lasix 40 mg PO DAILY Gabapentin 300 mg PO HS PRN Lisinopril 10 mg PO DAILY JUNO Discharge new medication: Ciprofloxacin (Cipro) 500 mg PO Q12 JUNO x 8 days Metronidazole (Flagyl) 500 mg PO Q8 JUNO x 8 days Ondansetron HCl (Zofran Tab) 4 mg PO daily PRN x5days Rivaroxaban (Xarelto) 20 mg PO QD5 JUNO Carvedilol (Coreg) 25 mg PO Q12 RX was given for both home and d/c medications. Appointment was made with Dr. Leung on December 17 @9:40 am. Follow up with Dr. Lee, senior engineering associate and Dr. Moncho day within 2 weeks Follow up with GI for outpt endoscopy and colonoscopy. Follow up pending labs: calprotectin, fecal, cyndi 2 mutation, stool ova and parasit, fecal leukocytes Discharge Exam - Head Exam Head Exam: NORMOCEPHALIC - Additional Findings Additional findings: Constitutional Appears: Non-toxic, No Acute Distress - Eye Exam Eye Exam: PERRL - ENT Exam ENT Exam: Mucous Membranes Moist - Neck Exam Neck Exam: Full ROM - Respiratory Exam Respiratory Exam: Clear to Ausculation Bilateral, NORMAL BREATHING PATTERN - Cardiovascular Exam Cardiovascular Exam: Irregular Rhythm, +S1, +S2. absent: Gallop, Murmur, RUB - GI/Abdominal Exam GI & Abdominal Exam: Soft, Tenderness (Mild tenderness deep palpation of LLQ), Normal Bowel Sounds - Extremities Exam Extremities Exam: Full ROM, Normal Capillary Refill. absent: Calf Tenderness - Neurological Exam Neurological Exam: Alert, Awake, Oriented x3 - Psychiatric Exam Psychiatric exam: Normal Affect, Normal Mood - Skin Skin Exam: Normal Color, Warm Discharge Plan - Discharge Medications Prescriptions: Atorvastatin [Lipitor] 10 mg PO DAILY #30 tab Carvedilol [Coreg] 25 mg PO BID #60 tab Carvedilol [Coreg] 25 mg PO Q12 #60 tab Ciprofloxacin [Cipro] 500 mg PO Q12 #16 tab metroNIDAZOLE [Flagyl] 500 mg PO Q8 #24 tab Ondansetron [Zofran Tab] 4 mg PO DAILY #5 tab Ondansetron HCl [Zofran] 4 mg PO DAILY #5 solution - Follow Up Plan Condition: FAIR Disposition: HOME/ ROUTINE Instructions: Heart Failure (DC), Atrial Flutter (DC), Diverticulitis (DC), Deep Venous Thrombosis (DC) Referrals: Deanne Leung MD [Primary Care Provider] - 12/17/16 9:40 am
[2016-11-06 10:25] LABS: BASO # 0.1 K/uL (0.0-0.2); BASO % 1.4 % (0.0-2.0); EOS % 0.5 % (0.0-4.0); HEMATOCRIT 44.9 % (34.0-47.0); LYMPH # 2.2 K/uL (1.0-4.3); LYMPH % 27.4 % (20.0-40.0); MEAN CELL VOLUME 79.6 fl (81.0-99.0); MEAN CORPUSCULAR HEMOGLOBIN 25.2 pg (27.0-31.0); MEAN CORPUSCULAR HGB CONC 31.7 g/dL (33.0-37.0); MEAN PLATELET VOLUME 8.8 fl (7.2-11.7); MONO # 0.8 K/uL (0.0-0.8); MONO % 10.2 % (0.0-10.0); NEUT # 4.8 K/uL (1.8-7.0); NEUT % 60.5 % (50.0-75.0); NRBC % 0.1 % (0.0-0.0); RED CELL DISTRIBUTION WIDTH 16.2 % (11.5-14.5)
[2016-11-06 10:34] LABS: ALB/GLOB RATIO 0.9 (1.0-2.1); ALKALINE PHOSPHATASE 71 U/L (38-126); ALT/SGPT 29 U/L (9-52); AST/SGOT 48 U/L (14-36); BILIRUBIN,TOTAL 0.8 mg/dl (0.2-1.3); BLOOD UREA NITROGEN 24 mg/dl (7-17); CALCIUM 9.2 mg/dL (8.4-10.2); CARBON DIOXIDE 28 mmol/L (22-30); CHLORIDE 95 mmol/L (98-107); GFR AFRICAN-AMERICAN > 60; GLUCOSE,RANDOM 279 mg/dL (65-105); POTASSIUM 4.2 MMOL/L (3.6-5.0); SODIUM 129 mmol/l (132-148); TOTAL PROTEIN 7.4 G/DL (6.3-8.2)
[2016-11-08 11:11] LABS: JAK2 V617F NOT DETECTED
== END 2016-11-06 15:20 | disposition home or self-care (01) | DRG 551 ==
LOC: H.TCU 11-03 14:35
PROVIDERS: ADMIT Family Medicine; ATTEND Family Medicine
PROC: F07L0ZZ Range of Motion and Joint Mobility Treatment of Musculoskeletal System - Lower Back / Lower Extremity (ICD-10-PCS; principal; 2016-11-03)
PROC: F07K0ZZ Range of Motion and Joint Mobility Treatment of Musculoskeletal System - Upper Back / Upper Extremity (ICD-10-PCS; 2016-11-03)
PROC: F08Z4ZZ Home Management Treatment (ICD-10-PCS; 2016-11-03)
PROC: F07Z9ZZ Gait Training/Functional Ambulation Treatment (ICD-10-PCS; 2016-11-03)
PROC: F07M6ZZ Therapeutic Exercise Treatment of Musculoskeletal System - Whole Body (ICD-10-PCS; 2016-11-03)
DX: K57.92 Diverticulitis of intestine, part unspecified, without perforation or abscess without bleeding (principal); I50.22 Chronic systolic (congestive) heart failure; I42.0 Dilated cardiomyopathy; E11.40 Type 2 diabetes mellitus with diabetic neuropathy, unspecified; K31.84 Gastroparesis; I11.0 Hypertensive heart disease with heart failure; D69.6 Thrombocytopenia, unspecified; I48.92 Unspecified atrial flutter; B19.20 Unspecified viral hepatitis C without hepatic coma; I48.91 Unspecified atrial fibrillation; J45.909 Unspecified asthma, uncomplicated; D75.1 Secondary polycythemia; Z86.718 Personal history of other venous thrombosis and embolism; Z79.01 Long term (current) use of anticoagulants; K21.9 Gastro-esophageal reflux disease without esophagitis

== ENCOUNTER 2016-11-16 11:23 | Inpatient (IN) | payer MEDICARE, MEDICAID ==
[2016-11-16 11:23] VITALS: BMI 26.6
[2016-11-16] MEDS ORDERED: Iohexol 240 (50 ml) PO ONE (11:53)
[2016-11-16] MEDS ORDERED: Sodium Chloride 0.9% 500 ML IV STA ×2 (11:53→14:47)
--- NOTE | 2016-11-16 12:03 | ED PDOC ---
HPI: Abdomen Time Seen by Provider: 11/16/16 11:43 Chief Complaint (Nursing): Abdominal Pain Chief Complaint (Provider): Abd pain History Per: Patient History/Exam Limitations: no limitations Onset/Duration Of Symptoms: Days (weeks) Additional Complaint(s): Pt. with abd pain diffuse like she has been getting since being in the hospital recently. Nausea and vomit, nonbloody. No chest pain, dyspnea. Feels light- headed. No palpitations. Weakness all over. Seen by pcp today and sent to the ER. Denies diarrhea. No numbness, tingles. Past Medical History Vital Signs: Last Vital Signs Temp 96.0 F L 11/16/16 11:44 Pulse 94 H 11/16/16 12:20 Resp 18 11/16/16 12:20 BP 105/82 11/16/16 12:20 Pulse Ox 99 11/16/16 14:46 - Medical History PMH: Asthma, Atrial Fibrillation, CHF, Depression, Diabetes, Diverticulitis ( diverticulosis w polypectomy non-malignant), HTN, Hypercholesterolemia Denies: HIV, Chronic Kidney Disease - Surgical History Surgical History: Denies: Pacemaker - Family History Family History: States: Unknown Family Hx - Living Arrangements Living Arrangements: With Family - Social History Current smoker - smoking cessation education provided: No Alcohol: None Drugs: Denies - Home Medications Home Medications: Ambulatory Orders Medication Instructions Recorded Aspirin [Aspirin Chewable] 81 mg PO DAILY #0 11/06/16 Atorvastatin [Lipitor] 10 mg PO DAILY #30 tab 11/06/16 Carvedilol [Coreg] 25 mg PO Q12 #60 tab 11/06/16 Digoxin [Lanoxin] 0.125 mg PO DAILY tab 11/06/16 Gabapentin [Neurontin] 300 mg PO HS PRN cap 11/06/16 Lisinopril [Zestril] 10 mg PO DAILY tab 11/06/16 Ondansetron [Zofran Tab] 4 mg PO DAILY #5 tab 11/06/16 Rivaroxaban [Xarelto] 20 mg PO QD5 tab 11/06/16 Saccharomyces Boulardi [Florastor] 250 mg PO BID cap 11/06/16 Spironolactone [Aldactone] 25 mg PO DAILY tab 11/06/16 metroNIDAZOLE [Flagyl] 500 mg PO Q8 #24 tab 11/06/16 Furosemide [Lasix] 40 mg PO BID 11/16/16 Polyethylene Glycol 3350 [Miralax] 17 gm PO DAILY 11/16/16 - Allergies Allergies/Adverse Reactions: Allergies Allergy/AdvReac Type Severity Reaction Status Date / Time No Known Allergies Allergy Verified 11/16/16 11:43 Review of Systems ROS Statement: Except As Marked, All Systems Reviewed And Found Negative Constitutional: Positive for: Weakness Cardiovascular: Positive for: Light Headedness Gastrointestinal: Positive for: Nausea, Vomiting, Abdominal Pain Neurological: Positive for: Weakness, Dizziness Physical Exam - Reviewed Nursing Documentation Reviewed: Yes Vital Signs Reviewed: Yes - Physical Exam Appears: Positive for: Non-toxic, No Acute Distress Head Exam: Positive for: ATRAUMATIC, NORMAL INSPECTION, NORMOCEPHALIC Skin: Positive for: Normal Color, Warm, DRY Eye Exam: Positive for: EOMI, Normal appearance, PERRL ENT: Positive for: Normal ENT Inspection Neck: Positive for: Normal, Painless ROM, Supple Cardiovascular/Chest: Positive for: Regular Rate, Rhythm Respiratory: Positive for: CNT, Normal Breath Sounds Gastrointestinal/Abdominal: Positive for: Bowel Sounds, Soft, Tenderness ( diffuse mild) Back: Positive for: Normal Inspection. Negative for: L CVA Tenderness, R CVA Tenderness Extremity: Positive for: Normal ROM. Negative for: Tenderness, Pedal Edema Neurologic/Psych: Positive for: Alert, Oriented - Laboratory Results Result Diagrams: 11/16/16 12:58 11/16/16 14:00 Interpretation Of Abn Labs: elevated bun and cr; changed from old - ECG ECG: Positive for: Interpreted By Me, Viewed By Me ECG Rhythm: Positive for: Atrial Fibrillation (rate controlled) O2 Sat by Pulse Oximetry: 99 Pulse Ox Interpretation: Normal - Radiology X-Ray: Interpreted by Me, Viewed By Me X-Ray Interpretation: No Acute Disease - Progress ED Course And Treament: 1620: Spoke with [facility] resident Dr. Ortega. Will admit tele. She will call nephrology and fu on Ct abd/pelvis. Pt. stable. AAOx3. Feels better. Disposition - Clinical Impression Clinical Impression: Dehydration, Renal insufficiency, Abdominal pain - Patient ED Disposition Is Patient to be Admitted: Yes Counseled Patient/Family Regarding: Studies Performed, Diagnosis - Disposition Disposition Time: 16:21 Condition: FAIR - Pt Status Changed To: Hospital Disposition Of: Inpatient - Admit Certification Admit to Inpatient:: After my assessment, the patient will require hospitalization for at least two midnights. This is because of the severity of symptoms shown, intensity of services needed, and/or the medical risk in this patient being treated as an outpatient. - POA Present On Arrival: None
[2016-11-16] MEDS ORDERED: Iohexol 240 (50 ml) ONE (12:54)
[2016-11-16 13:02] LABS: BASO # 0.1 K/uL (0.0-0.2); BASO % 0.9 % (0.0-2.0); EOS % 0.2 % (0.0-4.0); HEMATOCRIT 53.3 % (34.0-47.0); LYMPH # 2.4 K/uL (1.0-4.3); LYMPH % 24.9 % (20.0-40.0); MEAN CELL VOLUME 77.8 fl (81.0-99.0); MEAN CORPUSCULAR HEMOGLOBIN 25.5 pg (27.0-31.0); MEAN CORPUSCULAR HGB CONC 32.8 g/dL (33.0-37.0); MEAN PLATELET VOLUME 10.4 fl (7.2-11.7); MONO # 1.1 K/uL (0.0-0.8); MONO % 11.2 % (0.0-10.0); NEUT % 62.8 % (50.0-75.0); NRBC % 0.1 % (0.0-0.0); RED CELL DISTRIBUTION WIDTH 16.7 % (11.5-14.5); WHITE BLOOD COUNT 9.6 K/uL (4.8-10.8)
[2016-11-16 13:26] LABS: PARTIAL THROMBOPLASTIN TIME 32.3 SECONDS (23.3-32.5)
[2016-11-16 14:17] LABS: ALKALINE PHOSPHATASE 97 U/L (38-126); ALT/SGPT 45 U/L (9-52); AST/SGOT 82 U/L (14-36); BILIRUBIN,TOTAL 1.3 mg/dl (0.2-1.3); BLOOD UREA NITROGEN 64 mg/dl (7-17); CALCIUM 9.8 mg/dL (8.4-10.2); CARBON DIOXIDE 28 mmol/L (22-30); CHLORIDE 90 mmol/L (98-107); GFR AFRICAN-AMERICAN 25; GLUCOSE,RANDOM 197 mg/dL (65-105); LIPASE 246 U/L (23-300); POTASSIUM 4.4 MMOL/L (3.6-5.0); SODIUM 134 mmol/l (132-148); TOTAL PROTEIN 9.5 G/DL (6.3-8.2)
--- NOTE | 2016-11-16 17:00 | CT ---
PROCEDURE: CT Abdomen and pelvis dated 11/16/2016. HISTORY: pain COMPARISON: Comparison made with prior CT scan of the abdomen pelvis 10/30/2016. TECHNIQUE: The contiguous helical/ transaxial sections of the abdomen pelvis performed in standard fashion following oral contrast administration. IV contrast not injected per request. Radiation dose: Total exam DLP = 862.73 mGy-cm. This CT exam was performed using one or more of the following dose reduction techniques: Automated exposure control, adjustment of the mA and/or kV according to patient size, and/or use of iterative reconstruction technique. FINDINGS: LOWER THORAX: Heart is enlarged. No significant pericardial effusion. Mild left basilar atelectasis and or scarring changes including left lingular and middle lobe regions. No evidence of effusion or basilar pneumothorax. Small hiatal hernia. LIVER: Liver exhibits normal size measuring 15 cm in CC dimension. No obvious hepatic mass or collection. Small calcification consistent with prior exposure to granulomatous disease process. GALLBLADDER AND BILE DUCTS: The gallbladder is markedly distended with at least 1 peripherally calcified intraluminal calculus at what is felt to represent layering sludge. No evidence of gallbladder wall thickening. No pericholecystic fluid collections. PANCREAS: The visualized portions of the pancreas appear grossly unremarkable. . SPLEEN: Spleen exhibits normal size and attenuation pattern without mass collection or calcification. Small splenule anterior to the splenic parenchyma unchanged. ADRENALS: Mildly prominent adrenal glands KIDNEYS AND URETERS: The kidneys exhibit symmetric size. No evidence of nephrolithiasis or hydronephrosis. . VASCULATURE: Unremarkable. No aortic aneurysm. BOWEL: . Evaluation of the bowel is slightly limited due to incomplete opacification. The stomach is under opacified and nondistended which may account for thick-walled appearance. The possibility of a gastritis or other intrinsic/invasive wall lesion cannot be excluded. Followup endoscopy could be performed if clinically indicated. Visualized loops of small bowel exhibit normal contour and caliber. No evidence acute mechanical small bowel obstruction. Oral contrast material has extended into the colon to the level of the distal descending/sigmoid colon junction. There is the mild irregular wall thickening of a short segment of the distal descending and proximal transverse colon which may in part be due to incomplete distention peristalsis and under opacified stool. The possibility of a localized inflammatory process cannot be completely excluded. Previously noted significant inflammatory wall thickening of the sigmoid colon has improved. Colonic diverticulosis predominately involving the sigmoid colon again noted. Moderate amount of stool is present within the rectum and sigmoid consistent mild constipation. . Wall thickening APPENDIX: The appendix not seen with certainty on this study however no inflammatory changes on the identified in the right lower quadrant of the abdomen. PERITONEUM: Unremarkable. No free fluid. No free air. LYMPH NODES: Unremarkable. No enlarged lymph nodes. BLADDER: Urinary bladder is incompletely distended which may account for slight thick-walled appearance. Possibility of a cystitis not excluded. REPRODUCTIVE: Vascular calcifications surrounding the uterus again noted. BONES: No acute compression fractures nor retropulsed fragments. Minor multilevel degenerative spondylosis of the lumbar spine. There are no acute or chronic compression fractures nor retropulsed fragments. No suspicious lytic or blastic lesions are identified. OTHER FINDINGS: None. IMPRESSION: Interval improvement previously noted significant inflammatory wall thickening of the sigmoid colon. Colonic diverticulosis predominately involving the sigmoid again noted. . . A moderate amount of stool is present within the rectum and sigmoid suggesting mild constipation. There is the mild irregular wall thickening of a short segment of the distal descending and proximal transverse colon which may in part be due to incomplete distention peristalsis and under opacified stool. The possibility of a localized inflammatory process cannot be completely excluded. The stomach is under distended which may account for thick-walled appearance however the possibility of gastritis or other intrinsic/invasive wall lesion cannot be excluded. Followup bulla endoscopy could be performed if clinically indicated. The gallbladder is moderately distended and contains at least 1 peripherally calcified stone and what appears represent layering sludge in the dependent portion of the gallbladder. Small hepatic calcification consistent with prior exposure to a granulomatous disease process. Mild wall thickening of the urinary bladder could be due to under distention however cystitis not excluded Cardiomegaly.
--- NOTE | 2016-11-16 17:00 | RAD ---
HISTORY: Upper dyspnea. Portable study 12:34. COMPARISON: 10/29/2016. FINDINGS: LUNGS: No active pulmonary disease. PLEURA: No significant pleural effusion identified, no pneumothorax apparent. CARDIOVASCULAR: Cardiomegaly. No evidence of acute, significant cardiovascular disease. OSSEOUS STRUCTURES: No significant abnormalities. VISUALIZED UPPER ABDOMEN: Normal. OTHER FINDINGS: None. IMPRESSION: No active disease. No significant interval change compared to the prior examination(s).
--- NOTE | 2016-11-16 18:30 | CP.PCM.HP ---
<Brit Solano - Last Filed: 11/16/16 23:03> History of Present Illness - History of Present Illness History of Present Illness: 76 yo female with PMHx of hypertension, T2DM, asthma, depression, GERD, diabetic neuropathy who was sent to Ed by PCP after clinic visit due to abdominal pain. Patient states that she has been with epigastric pain for couple of days reason why she has been with poor oral intake. It is associated w/ nauseas, vomiting and acid reflux. Last vomit yesterday, NBNB as per pt. Also she mentions to have low grade fever and feels generalized weakness. Denies: diarrheas, chest pain, SOB, Headache, focal weakness, cough, dysuria. Last BM today morning, soft, non bloody. Patient was recently d/c from [facility] w[facility] after an episode of acute diverticulitis, interim events reviewed. ED Course: vitals stable, labs: Cr: 2.3, BUN: 64, H+H: 17.4/53.3, probnp: 2630, Lipase:246, troponin x 1 negative. -abd CT: Interval improvement previously noted significant inflammatory wall thickening of the sigmoid colon. Mild irregular wall thickening of a short segment of the distal descending and proximal transverse colon which may in part be due to incomplete distention peristalsis and under opacified stool. The possibility of a localized inflammatory process cannot be completely excluded. The stomach is under distended which may account for thick-walled appearance however the possibility of gastritis or other intrinsic/invasive wall lesion cannot be excluded. Followup bulla endoscopy could be performed if clinically indicated. The gallbladder is moderately distended and contains at least 1 peripherally calcified stone and what appears represent layering sludge in the dependent portion of the gallbladder. Small hepatic calcification consistent with prior exposure to a granulomatous disease process. Mild wall thickening of the urinary bladder could be due to under distention however cystitis not excluded Meds: pepcid, reglan, morphine, IV normal saline bolus. Patient was admitted w/ diagnosis of YOVANI and Dehydration. PMD: Dr. Leung at [facility] PMHx: hypertension, T2DM, asthma, depression, GERD, diabetic neuropathy SHx: csection, tumor removal FHx: noncontributory Social Hx: lives by herself. Elevator to apt[address]3rd floor, Denies smoking, EtOH, drug use Allergy: NKDA Meds:Aspirin 81 mg PO DAILY Lipitor 10 mg PO DAILY Spironolactone 25 mg PO DAILY Digoxin 0.125 mg PO DAILY Lasix 40 mg PO DAILY Gabapentin 300 mg PO HS PRN Lisinopril 10 mg PO DAILY JUNO Rivaroxaban (Xarelto) 20 mg PO QD Carvedilol (Coreg) 25 mg PO Q12 Present on Admission - Present on Admission Any Indicators Present on Admission: Yes History of DVT/PE: Yes History of Uncontrolled Diabetes: No Urinary Catheter: No Decubitus Ulcer Present: No Review of Systems - Review of Systems Review of Systems: as per HPI Past Patient History - Infectious Disease Hx of Infectious Diseases: None - Tetanus Immunizations Tetanus Immunization: Unknown - Past Medical History & Family History Past Medical History?: Yes - Past Social History Smoking Status: Former Smoker - CARDIAC Hx Cardiac Disorders: Yes Hx Atrial Fibrillation: Yes Hx Congestive Heart Failure: Yes Hx Hypercholesterolemia: Yes Hx Hypertension: Yes Hx Pacemaker: No Other/Comment: Cardiac Cath 10/2016 - PULMONARY Hx Respiratory Disorders: Yes Hx Asthma: Yes - NEUROLOGICAL Hx Neurological Disorder: Yes Hx Dizziness: Yes - HEENT Hx HEENT Problems: Yes 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) Other/Comment: reading glasses - RENAL Hx Chronic Kidney Disease: No - ENDOCRINE/METABOLIC Hx Endocrine Disorders: Yes Hx Diabetes Mellitus Type 2: Yes - HEMATOLOGICAL/ONCOLOGICAL Hx Blood Disorders: Yes Hx Anemia: Yes - INTEGUMENTARY Hx Dermatological Problems: Yes Other/Comment: dry scaly skin - MUSCULOSKELETAL/RHEUMATOLOGICAL Hx Musculoskeletal Disorders: Yes Hx Falls: Yes - GASTROINTESTINAL Hx Gastrointestinal Disorders: Yes Hx Diarrhea: Yes Hx Diverticulitis: Yes (diverticulosis w polypectomy non-malignant) Hx Vomiting: Yes - GENITOURINARY/GYNECOLOGICAL Hx Genitourinary Disorders: No - PSYCHIATRIC Hx Psychophysiologic Disorder: No Hx Substance Use: No - SURGICAL HISTORY Hx Surgeries: Yes Hx Cardiac Catheterization: Yes (10/2016) Other/Comment: Right Ovary cyst removal 12 yrs ago - ANESTHESIA Hx Anesthesia: Yes Hx Anesthesia Reactions: No Meds Allergies/Adverse Reactions: Allergies Allergy/AdvReac Type Severity Reaction Status Date / Time No Known Allergies Allergy Verified 11/16/16 11:43 Physical Exam - Constitutional Appears: No Acute Distress, Chronically Ill - Head Exam Head Exam: ATRAUMATIC - Eye Exam Eye Exam: EOMI - ENT Exam ENT Exam: Mucous Membranes Dry - Neck Exam Neck exam: Positive for: Full Rom - Respiratory Exam Respiratory Exam: Clear to Auscultation Bilateral. absent: Rales, Rhonchi, Wheezes, Respiratory Distress - Cardiovascular Exam Cardiovascular Exam: Irregular Rhythm. absent: JVD - GI/Abdominal Exam GI & Abdominal Exam: Normal Bowel Sounds, Soft, Tenderness (mild epigastric tenderness). absent: Guarding - Extremities Exam Extremities exam: Negative for: pedal edema, tenderness - Neurological Exam Neurological exam: Alert, Oriented x3 Results - Vital Signs Recent Vital Signs: Last Vital Signs Temp 97.3 F L 11/16/16 17:49 Pulse 110 H 11/16/16 17:58 Resp 20 11/16/16 17:58 BP 135/85 11/16/16 17:49 Pulse Ox 99 11/16/16 17:58 - Labs Result Diagrams: 11/16/16 12:58 11/16/16 14:00 <Devora Steele - Last Filed: 11/17/16 08:16> Results - Vital Signs Recent Vital Signs: Last Vital Signs Temp 97.5 F L 11/17/16 05:00 Pulse 98 H 11/17/16 05:00 Resp 20 11/17/16 05:00 BP 113/73 11/17/16 05:00 Pulse Ox 97 11/17/16 05:00 - Labs Result Diagrams: 11/17/16 05:30 11/17/16 05:30 Labs: Laboratory Results - last 24 hr 11/16/16 11/17/16 11/17/16 21:06 05:04 05:30 WBC 7.4 RBC 6.20 H Hgb 15.6 Hct 49.0 H MCV 79.1 L MCH 25.1 L MCHC 31.7 L RDW 16.6 H Plt Count 113 L D Sodium Potassium Chloride Carbon Dioxide Anion Gap BUN Creatinine Est GFR ( Amer) Est GFR (Non-Af Amer) POC Glucose (mg/dL) 169 H 103 Random Glucose Calcium NT-Pro-B Natriuret Pep 11/17/16 05:30 WBC RBC Hgb Hct MCV MCH MCHC RDW Plt Count Sodium 134 Potassium 4.2 Chloride 98 Carbon Dioxide 25 Anion Gap 16 BUN 60 H Creatinine 2.1 H Est GFR ( Amer) 28 Est GFR (Non-Af Amer) 23 POC Glucose (mg/dL) Random Glucose 134 H Calcium 9.0 NT-Pro-B Natriuret Pep 2500 H Assessment & Plan - Assessment and Plan (Free Text) Assessment: 76 yo F with multiples comorbidities admitted with abdominal pain/nauseas/ vomiting. 1) Abdominal pain admit to telemetry vitals q 6 hrs heart heathy /mod carb diet likely 2/2 Gastritis/GERD vs diabetic gastroparesis vs malignancy lipase neg not improvement w/ PPI at home Pain management: Morphine Zofran PRN Reglan 5 mg PO ACHS pepcid 20 mg IV q[address] CT: Interval improvement previously noted significant inflammatory wall thickening of the sigmoid colon. Mild irregular wall thickening of a short segment of the distal descending and proximal transverse colon which may in part be due to incomplete distention peristalsis and under opacified stool. The possibility of a localized inflammatory process cannot be completely excluded. The stomach is under distended which may account for thick-walled appearance however the possibility of gastritis or other intrinsic/invasive wall lesion cannot be excluded. Followup bulla endoscopy could be performed if clinically indicated. The gallbladder is moderately distended and contains at least 1 peripherally calcified stone and what appears represent layering sludge in the dependent portion of the gallbladder. Small hepatic calcification consistent with prior exposure to a granulomatous disease process. Mild wall thickening of the urinary bladder could be due to under distention however cystitis not excluded Consider GI for possible EGD/Colonoscopy ( + concerning about malignancy..+ weight loss, anorexia, Hx of DVT, abd ct findings) 2) YOVANI BUN/CR: 64/2.3 new onset, likely prerenal 2/2 Dehydration. IVFs: normal saline at 100 cc/hr , s/p 500 cc bolus in ED carefully Hydration due to Hx of CHF w/ EF: 15%. repeat BMP in AM consider Nephro consult. 3) Polycythemia H=H: 17.4/53.3 can be 2/2 dehydration prior work up: elevated EPO, negative Srini mutation will repeat CBC after hydration continue to monitor consider HO consult. 4) Hx of A. Flutter on anticoag w/ xarelto ( held due to worsening of renal Fx, CrCL: 24) rate well controlled c/w digoxin, coreg 5) Hx of chronic systolic CHF proBNP: 2630 PE negative for edema or rales in lungs last echo: EF: 15% lasix on hold c/w digoxin c/w coreg c/w aldactone c/w lisinopril 6)Hx of DM2 w/o hyperglycemia ISS low dose metformin held accucheck ACHS 7) DVT prophylaxis scd for now xarelto held due to worsening of renal Fx repeat BMP in AM, and consider start heparin. Decision To Admit - Pt Status Changed To: Hospital Disposition Of: Inpatient - Admit Certification Admit to Inpatient:: After my assessment, the patient will require hospitalization for at least two midnights. This is because of the severity of symptoms shown, intensity of services needed, and/or the medical risk in this patient being treated as an outpatient. - . Bed Request Type: Telemetry Admitting Physician: Kayla Magana
[2016-11-16] MEDS ORDERED: Sodium Chloride 0.9% 1,000 ML IV SCH (18:45)
[2016-11-16] MEDS ORDERED: Glucagon Recombinant 1 mg Inj IM PRN ×2 (20:33→20:34)
[2016-11-16] MEDS ORDERED: Dextrose 50% SYRINGE Inj (50 ml) IVP PRN (20:33)
[2016-11-16] MEDS ORDERED: Dextrose 50% SYRINGE Inj (50 ml) IV PRN (20:34)
[2016-11-16] MEDS: Sodium Chloride 0.9% 1,000 ML IV SCH (20:40)
[2016-11-16] MEDS: Insulin Regular 100 units/ml SC SCH (21:47)
--- NOTE | 2016-11-16 22:35 | CARD ---
APPROVED REPORT EKG Measurement Heart [id number] <Conclusion> Atrial fibrillation with rapid ventricular response Nonspecific T wave abnormality Abnormal ECG
[2016-11-17] MEDS: Insulin Regular 100 units/ml SC SCH ×4 (06:37→22:05)
[2016-11-17 06:57] LABS: MEAN CELL VOLUME 79.1 fl (81.0-99.0); MEAN CORPUSCULAR HEMOGLOBIN 25.1 pg (27.0-31.0); MEAN CORPUSCULAR HGB CONC 31.7 g/dL (33.0-37.0); RED CELL DISTRIBUTION WIDTH 16.6 % (11.5-14.5); WHITE BLOOD COUNT 7.4 K/uL (4.8-10.8)
[2016-11-17 07:01] LABS: POTASSIUM 4.2 MMOL/L (3.6-5.0)
[2016-11-17] MEDS: Digoxin 125 mcg (0.125 mg) Tab PO SCH (10:09)
--- NOTE | 2016-11-17 10:43 | CP.PCM.PN ---
Subjective - Date & Time of Evaluation Date of Evaluation: 11/17/16 Time of Evaluation: 09:00 - Subjective Subjective: 76 y/o F admitted for nausea, vomiting seen today in not acute distress, patient still c/o nausea and epigastric discomfort. Denies diarrhea, vomiting, blood in stools, dizziness, CP or SOB. She was evaluated today by GI and is scheduled for endos/colonoscopy tomorrow. Objective - Vital Signs/Intake and Output Vital Signs (last 24 hours): Temp Pulse Resp BP Pulse Ox 97.3 F L 128 H 18 120/90 100 11/17/16 08:40 11/17/16 10:09 11/17/16 08:40 11/17/16 10:09 11/17/16 08:40 - Medications Medications: Current Medications Aspirin (Aspirin Chewable) 81 mg PO DAILY [facility] Last Admin: 11/17/16 10:10 Dose: 81 mg Atorvastatin Calcium (Lipitor) 10 mg PO DAILY [facility] Last Admin: 11/17/16 10:09 Dose: 10 mg Carvedilol (Coreg) 25 mg PO Q12 [facility] Last Admin: 11/17/16 10:09 Dose: 25 mg Dextrose (Dextrose 50% Inj) 0 ml IVP STAT PRN; Protocol PRN Reason: Hypoglycemia Protocol Dextrose (Dextrose 50% Inj) 0 ml IV STAT PRN; Protocol PRN Reason: Hyglycemia Protocol Dextrose (Glutose 15) 0 gm PO ONCE PRN; Protocol PRN Reason: Hypoglycemia Protocol Digoxin (Lanoxin) 0.125 mg PO DAILY [facility] Last Admin: 11/17/16 10:09 Dose: 0.125 mg Famotidine (Pepcid) 20 mg IVP Q12 [facility] Last Admin: 11/17/16 10:15 Dose: 20 mg Gabapentin (Neurontin) 300 mg PO HS PRN PRN Reason: Other Glucagon (Glucagen Diagnostic Kit) 0 mg IM STAT PRN; Protocol PRN Reason: Hypoglycemia Protocol Glucagon (Glucagen Diagnostic Kit) 0 mg IM STAT PRN; Protocol PRN Reason: Hypoglycemia Protocol Sodium Chloride (Sodium Chloride 0.9%) 1,000 mls @ 80 mls/hr IV .[id number] [facility] Stop: 11/17/16 18:42 Last Admin: 11/16/16 20:40 Dose: 80 mls/hr Insulin Human Regular (Humulin R) 0 units SC ACHS [facility] PRN Reason: Protocol Last Admin: 11/17/16 06:37 Dose: Not Given Lisinopril (Zestril) 10 mg PO DAILY [facility] Last Admin: 11/17/16 10:09 Dose: 10 mg Metoclopramide HCl (Reglan) 5 mg PO ACHS [facility] Last Admin: 11/17/16 10:08 Dose: 5 mg Morphine Sulfate (Morphine) 1 mg IVP Q6 PRN PRN Reason: Pain, severe (8-10) Ondansetron HCl (Zofran Inj) 4 mg IVP Q6 PRN PRN Reason: Nausea/Vomiting - Labs Labs: 11/17/16 05:30 11/17/16 05:30 PT 14.9 SECONDS (9.6-11.2) H 11/16/16 12:58 INR 1.43 (0.92-1.08) H 11/16/16 12:58 APTT 32.3 SECONDS (23.3-32.5) 11/16/16 12:58 - Constitutional Appears: Non-toxic, No Acute Distress - Head Exam Head Exam: NORMAL INSPECTION - Eye Exam Eye Exam: PERRL - ENT Exam ENT Exam: Mucous Membranes Moist - Respiratory Exam Respiratory Exam: Clear to Ausculation Bilateral, NORMAL BREATHING PATTERN - Cardiovascular Exam Cardiovascular Exam: REGULAR RHYTHM, +S1, +S2. absent: Gallop - GI/Abdominal Exam GI & Abdominal Exam: Soft, Tenderness (epigastrium), Normal Bowel Sounds. absent: Distended, Guarding - Extremities Exam Extremities Exam: Normal Capillary Refill - Neurological Exam Neurological Exam: Alert, Awake, Oriented x3 - Psychiatric Exam Psychiatric exam: Normal Affect, Normal Mood - Skin Skin Exam: Warm Assessment and Plan - Assessment and Plan (Free Text) Assessment: Assessment: 76 yo F with multiples comorbidities admitted with abdominal pain/nausea/ vomiting. 1) Abdominal pain heart heathy /mod carb diet likely 2/2 Gastritis/GERD vs diabetic gastroparesis vs malignancy Zofran PRN Reglan 5 mg PO ACHS pepcid 20 mg IV q12 GI consult(Dr Byrd) Patient scheduled for Endo/Colonoscopy tomorrow 2) YOVANI BUN/CR: 64/2.3--->60/2.1 new onset, likely prerenal 2/2 Dehydration. IVFs: normal saline at 100 cc/hr , s/p 500 cc bolus in ED carefully Hydration due to Hx of CHF w/ EF: 15%. Nephro consult will f/u recs 3) Polycythemia secondary improved prior work up: elevated EPO, negative Srini mutation continue to monitor Will consider HO consult after GI evaluation 4) Hx of A. Flutter on anticoag w/ xarelto: Held for YOVANI and Procedure tomorrow rate well controlled c/w digoxin, coreg 5) Hx of chronic systolic CHF proBNP: 2630 PE negative for edema or rales in lungs last echo: EF: 15% lasix on hold c/w digoxin c/w coreg aldactone held for now c/w lisinopril 6)Hx of DM2 w/o hyperglycemia ISS low dose metformin held accucheck ACHS 7) DVT prophylaxis scd for now xarelto held due to worsening of renal Fx
[2016-11-17] MEDS ORDERED: Peg-Electrolyte Oral Soln 4L (Golytely) PO ONE (12:25)
--- NOTE | 2016-11-17 13:13 | CP.PCM.CON ---
History of Present Illness - History of Present Illness History of Present Illness: CC: H/o diverticulitis, GERD HPI: 76 year old female with h/o HTN, DM, Asthma, GERD, CHF sent to the ER for abdominal pain. She reports that she has intermittent epigastric pain, sometimes associated with nausea/vomiting. She gets heartburn and acid reflux improved with omeprazole. She denies diarrhea/constipation. She was recently admitted with an episode of acute diverticulitis managed medically. Remote h/o colonoscopy > 7 years ago. She has had poor oral intake. No blood in the stool. No chest pain. Some SOBOE. Hungry today. PMHx: HTN, DM, asthma, depression, GERD, diabetic neuropathy,CHF PSHx: C section FHx: no family history of GI cancer SHx: Denies smoking, EtOH, drug use ROS A comprehesnive review of systems was performed and was negative apart from HPI Past Patient History - Infectious Disease Hx of Infectious Diseases: None - Tetanus Immunizations Tetanus Immunization: Unknown - Past Medical History & Family History Past Medical History?: Yes - Past Social History Smoking Status: Former Smoker - CARDIAC Hx Cardiac Disorders: Yes Hx Atrial Fibrillation: Yes Hx Congestive Heart Failure: Yes Hx Hypercholesterolemia: Yes Hx Hypertension: Yes Hx Pacemaker: No Other/Comment: Cardiac Cath 10/2016 - PULMONARY Hx Respiratory Disorders: Yes Hx Asthma: Yes - NEUROLOGICAL Hx Neurological Disorder: Yes Hx Dizziness: Yes - HEENT Hx HEENT Problems: Yes 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) Other/Comment: reading glasses - RENAL Hx Chronic Kidney Disease: No - ENDOCRINE/METABOLIC Hx Endocrine Disorders: Yes Hx Diabetes Mellitus Type 2: Yes - HEMATOLOGICAL/ONCOLOGICAL Hx Blood Disorders: Yes Hx Anemia: Yes - INTEGUMENTARY Hx Dermatological Problems: Yes Other/Comment: dry scaly skin - MUSCULOSKELETAL/RHEUMATOLOGICAL Hx Musculoskeletal Disorders: Yes Hx Falls: Yes - GASTROINTESTINAL Hx Gastrointestinal Disorders: Yes Hx Diarrhea: Yes Hx Diverticulitis: Yes (diverticulosis w polypectomy non-malignant) Hx Vomiting: Yes - GENITOURINARY/GYNECOLOGICAL Hx Genitourinary Disorders: No - PSYCHIATRIC Hx Psychophysiologic Disorder: No Hx Substance Use: No - SURGICAL HISTORY Hx Surgeries: Yes Hx Cardiac Catheterization: Yes (10/2016) Other/Comment: Right Ovary cyst removal 12 yrs ago - ANESTHESIA Hx Anesthesia: Yes Hx Anesthesia Reactions: No Meds Allergies/Adverse Reactions: Allergies Allergy/AdvReac Type Severity Reaction Status Date / Time No Known Allergies Allergy Verified 11/16/16 11:43 - Medications Medications: Current Medications Aspirin (Aspirin Chewable) 81 mg PO DAILY [facility] Last Admin: 11/17/16 10:10 Dose: 81 mg Atorvastatin Calcium (Lipitor) 10 mg PO DAILY [facility] Last Admin: 11/17/16 10:09 Dose: 10 mg Carvedilol (Coreg) 25 mg PO Q12 [facility] Last Admin: 11/17/16 10:09 Dose: 25 mg Dextrose (Dextrose 50% Inj) 0 ml IVP STAT PRN; Protocol PRN Reason: Hypoglycemia Protocol Dextrose (Dextrose 50% Inj) 0 ml IV STAT PRN; Protocol PRN Reason: Hyglycemia Protocol Dextrose (Glutose 15) 0 gm PO ONCE PRN; Protocol PRN Reason: Hypoglycemia Protocol Digoxin (Lanoxin) 0.125 mg PO DAILY [facility] Last Admin: 11/17/16 10:09 Dose: 0.125 mg Famotidine (Pepcid) 20 mg IVP Q12 [facility] Last Admin: 11/17/16 10:15 Dose: 20 mg Gabapentin (Neurontin) 300 mg PO HS PRN PRN Reason: Other Glucagon (Glucagen Diagnostic Kit) 0 mg IM STAT PRN; Protocol PRN Reason: Hypoglycemia Protocol Glucagon (Glucagen Diagnostic Kit) 0 mg IM STAT PRN; Protocol PRN Reason: Hypoglycemia Protocol Sodium Chloride (Sodium Chloride 0.9%) 1,000 mls @ 80 mls/hr IV .[id number] [facility] Stop: 11/17/16 18:42 Last Admin: 11/16/16 20:40 Dose: 80 mls/hr Insulin Human Regular (Humulin R) 0 units SC [facility] PRN Reason: Protocol Last Admin: 11/17/16 12:30 Dose: 3 unit Lisinopril (Zestril) 10 mg PO DAILY [facility] Last Admin: 11/17/16 10:09 Dose: 10 mg Metoclopramide HCl (Reglan) 5 mg PO ACHS [facility] Last Admin: 11/17/16 12:30 Dose: 5 mg Morphine Sulfate (Morphine) 1 mg IVP Q6 PRN PRN Reason: Pain, severe (8-10) Ondansetron HCl (Zofran Inj) 4 mg IVP Q6 PRN PRN Reason: Nausea/Vomiting Physical Exam - Constitutional Appears: Well, No Acute Distress - Head Exam Head Exam: ATRAUMATIC, NORMOCEPHALIC - Eye Exam Eye Exam: Normal appearance. absent: Scleral icterus Pupil Exam: PERRL - ENT Exam ENT Exam: Mucous Membranes Moist, Normal Oropharynx - Neck Exam Neck exam: Negative for: Lymphadenopathy, Thyromegaly - Respiratory Exam Respiratory Exam: Clear to Auscultation Bilateral, NORMAL BREATHING PATTERN. absent: Respiratory Distress, Stridor - Cardiovascular Exam Cardiovascular Exam: REGULAR RHYTHM, +S1, +S2 - GI/Abdominal Exam GI & Abdominal Exam: Soft. absent: Distended, Guarding, Tenderness - Extremities Exam Extremities exam: Positive for: normal capillary refill, pedal edema - Neurological Exam Neurological exam: Alert, Oriented x3 - Psychiatric Exam Psychiatric exam: Normal Affect, Normal Mood - Skin Skin Exam: Dry, Normal Color, Warm Results - Vital Signs Recent Vital Signs: Last Vital Signs Temp 97.6 F 11/17/16 12:06 Pulse 92 H 11/17/16 12:06 Resp 18 11/17/16 12:06 BP 95/59 L 11/17/16 12:06 Pulse Ox 98 11/17/16 12:06 - Labs Result Diagrams: 11/17/16 05:30 11/17/16 05:30 Labs: Laboratory Results - last 24 hr 11/16/16 11/17/16 11/17/16 21:06 05:04 05:30 WBC 7.4 RBC 6.20 H Hgb 15.6 Hct 49.0 H MCV 79.1 L MCH 25.1 L MCHC 31.7 L RDW 16.6 H Plt Count 113 L D Sodium Potassium Chloride Carbon Dioxide Anion Gap BUN Creatinine Est GFR ( Amer) Est GFR (Non-Af Amer) POC Glucose (mg/dL) 169 H 103 Random Glucose Calcium NT-Pro-B Natriuret Pep 11/17/16 11/17/16 05:30 11:10 WBC RBC Hgb Hct MCV MCH MCHC RDW Plt Count Sodium 134 Potassium 4.2 Chloride 98 Carbon Dioxide 25 Anion Gap 16 BUN 60 H Creatinine 2.1 H Est GFR ( Amer) 28 Est GFR (Non-Af Amer) 23 POC Glucose (mg/dL) 272 H Random Glucose 134 H Calcium 9.0 NT-Pro-B Natriuret Pep 2500 H Assessment & Plan - Assessment and Plan (Free Text) Assessment: 76 year old female with h/o CHF, HTN, DM, Obesity, GERD, Acute diverticulitis recently admitted with abdominal discomfort, YOVANI. 1. Abdominal pain 2. H/o diverticulitis 3. GERD Plan: -recommend EGD/Colonosocopy -clear liquids -golytely 4 liters today -npo after mn -d/w patient the procedure -continue supportive care with ppi daily -CT scan reviewed, improved appearance of diverticulitis - Date & Time Date: 11/17/16 Time: 13:12
[2016-11-17] MEDS: Sodium Chloride 0.9% 1,000 ML IV SCH (16:50)
--- NOTE | 2016-11-17 23:31 | CP.PCM.CON ---
History of Present Illness - History of Present Illness History of Present Illness: REASONS FOR CONSULT : YOVANI MILD HYPONATREMIA .. NA 134 OLD RECORDS ALL REVIEWED .. CURRENT RECORDS ALL REVIEWED .. PT WAS SEEN AND EXAMINED CC: H/o diverticulitis, GERD HPI: 76 year old female with h/o HTN, DM, Asthma, GERD, CHF sent to the ER for abdominal pain. She reports that she has intermittent epigastric pain, sometimes associated with nausea/vomiting. She gets heartburn and acid reflux improved with omeprazole. She denies diarrhea/constipation. She was recently admitted with an episode of acute diverticulitis managed medically. Remote h/o colonoscopy > 7 years ago. She has had poor oral intake. No blood in the stool. No chest pain. Some SOBOE. Hungry today. PMHx: HTN, DM, asthma, depression, GERD, diabetic neuropathy,CHF PSHx: C section FHx: no family history of GI cancer SHx: Denies smoking, EtOH, drug use ROS A comprehesnive review of systems was performed and was negative apart from HPI FAR RENAL IS CONCERNED .. SHE ALWAYS HAD NORMAL RENAL FUNCTION PER OLD RECORDS BUN AND CREAT WERE WNL ON HER PEVIOUS ADMISSIONS Past Patient History - Infectious Disease Hx of Infectious Diseases: None - Tetanus Immunizations Tetanus Immunization: Unknown - Past Medical History & Family History Past Medical History?: Yes - Past Social History Smoking Status: Former Smoker - CARDIAC Hx Cardiac Disorders: Yes Hx Atrial Fibrillation: Yes Hx Congestive Heart Failure: Yes Hx Hypercholesterolemia: Yes Hx Hypertension: Yes Hx Pacemaker: No Other/Comment: Cardiac Cath 10/2016 - PULMONARY Hx Respiratory Disorders: Yes Hx Asthma: Yes - NEUROLOGICAL Hx Neurological Disorder: Yes Hx Dizziness: Yes - HEENT Hx HEENT Problems: Yes 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) Other/Comment: reading glasses - RENAL Hx Chronic Kidney Disease: No - ENDOCRINE/METABOLIC Hx Endocrine Disorders: Yes Hx Diabetes Mellitus Type 2: Yes - HEMATOLOGICAL/ONCOLOGICAL Hx Blood Disorders: Yes Hx Anemia: Yes - INTEGUMENTARY Hx Dermatological Problems: Yes Other/Comment: dry scaly skin - MUSCULOSKELETAL/RHEUMATOLOGICAL Hx Musculoskeletal Disorders: Yes Hx Falls: Yes - GASTROINTESTINAL Hx Gastrointestinal Disorders: Yes Hx Diarrhea: Yes Hx Diverticulitis: Yes (diverticulosis w polypectomy non-malignant) Hx Vomiting: Yes - GENITOURINARY/GYNECOLOGICAL Hx Genitourinary Disorders: No - PSYCHIATRIC Hx Psychophysiologic Disorder: No Hx Substance Use: No - SURGICAL HISTORY Hx Surgeries: Yes Hx Cardiac Catheterization: Yes (10/2016) Other/Comment: Right Ovary cyst removal 12 yrs ago - ANESTHESIA Hx Anesthesia: Yes Hx Anesthesia Reactions: No Meds Allergies/Adverse Reactions: Allergies Allergy/AdvReac Type Severity Reaction Status Date / Time No Known Allergies Allergy Verified 11/16/16 11:43 - Medications Medications: Current Medications Aspirin (Aspirin Chewable) 81 mg PO DAILY [facility] Last Admin: 11/17/16 10:10 Dose: 81 mg Atorvastatin Calcium (Lipitor) 10 mg PO DAILY [facility] Last Admin: 11/17/16 10:09 Dose: 10 mg Carvedilol (Coreg) 25 mg PO Q12 [facility] Last Admin: 11/17/16 21:41 Dose: 25 mg Dextrose (Dextrose 50% Inj) 0 ml IVP STAT PRN; Protocol PRN Reason: Hypoglycemia Protocol Dextrose (Dextrose 50% Inj) 0 ml IV STAT PRN; Protocol PRN Reason: Hyglycemia Protocol Dextrose (Glutose 15) 0 gm PO ONCE PRN; Protocol PRN Reason: Hypoglycemia Protocol Digoxin (Lanoxin) 0.125 mg PO DAILY [facility] Last Admin: 11/17/16 10:09 Dose: 0.125 mg Famotidine (Pepcid) 20 mg IVP Q12 [facility] Last Admin: 11/17/16 22:01 Dose: 20 mg Gabapentin (Neurontin) 300 mg PO HS PRN PRN Reason: Other Glucagon (Glucagen Diagnostic Kit) 0 mg IM STAT PRN; Protocol PRN Reason: Hypoglycemia Protocol Glucagon (Glucagen Diagnostic Kit) 0 mg IM STAT PRN; Protocol PRN Reason: Hypoglycemia Protocol Insulin Human Regular (Humulin R) 0 units SC [facility] PRN Reason: Protocol Last Admin: 11/17/16 22:05 Dose: Not Given Lisinopril (Zestril) 10 mg PO DAILY [facility] Last Admin: 11/17/16 10:09 Dose: 10 mg Metoclopramide HCl (Reglan) 5 mg PO [facility] Last Admin: 11/17/16 21:42 Dose: 5 mg Morphine Sulfate (Morphine) 1 mg IVP Q6 PRN PRN Reason: Pain, severe (8-10) Ondansetron HCl (Zofran Inj) 4 mg IVP Q6 PRN PRN Reason: Nausea/Vomiting Results - Vital Signs Recent Vital Signs: Last Vital Signs Temp 97.6 F 11/17/16 19:35 Pulse 93 H 11/17/16 21:41 Resp 18 11/17/16 19:35 BP 113/80 11/17/16 21:41 Pulse Ox 97 11/17/16 19:35 - Labs Result Diagrams: 11/17/16 05:30 11/17/16 05:30 Labs: Laboratory Results - last 24 hr 11/17/16 11/17/16 11/17/16 05:04 05:30 05:30 WBC 7.4 RBC 6.20 H Hgb 15.6 Hct 49.0 H MCV 79.1 L MCH 25.1 L MCHC 31.7 L RDW 16.6 H Plt Count 113 L D Sodium 134 Potassium 4.2 Chloride 98 Carbon Dioxide 25 Anion Gap 16 BUN 60 H Creatinine 2.1 H Est GFR ( Amer) 28 Est GFR (Non-Af Amer) 23 POC Glucose (mg/dL) 103 Random Glucose 134 H Calcium 9.0 NT-Pro-B Natriuret Pep 2500 H 11/17/16 11/17/16 11/17/16 11:10 16:14 21:15 WBC RBC Hgb Hct MCV MCH MCHC RDW Plt Count Sodium Potassium Chloride Carbon Dioxide Anion Gap BUN Creatinine Est GFR ( Amer) Est GFR (Non-Af Amer) POC Glucose (mg/dL) 272 H 156 H 166 H Random Glucose Calcium NT-Pro-B Natriuret Pep Assessment & Plan - Assessment and Plan (Free Text) Plan: PROBABLY YOVANI 2/2 PRE RENAL AZOTEMIA Vs ATN R/O AIN .. R/O PRIMARY GN P : C/O IVF .. LUCKILY RENAL FUNCTION IS GETTING IMPROVED F/U ON SERIAL BMP WILL F/U VERY CLOSELY - Date & Time Date: 11/17/16 Time: 13:00
[2016-11-18 07:14] LABS: CALCIUM 9.2 mg/dL (8.4-10.2)
[2016-11-18 19:48] LABS: HEMATOCRIT 46.8 % (34.0-47.0); MEAN CORPUSCULAR HGB CONC 31.7 g/dL (33.0-37.0); RED CELL DISTRIBUTION WIDTH 16.7 % (11.5-14.5); WHITE BLOOD COUNT 7.6 K/uL (4.8-10.8)
[2016-11-18] MEDS: Insulin Regular 100 units/ml SC SCH (21:51)
[2016-11-19 06:28] LABS: BASO # 0.1 K/uL (0.0-0.2); BASO % 1.2 % (0.0-2.0); EOS % 0.5 % (0.0-4.0); HEMATOCRIT 47.6 % (34.0-47.0); LYMPH % 37.1 % (20.0-40.0); MEAN CORPUSCULAR HEMOGLOBIN 25.2 pg (27.0-31.0); MEAN CORPUSCULAR HGB CONC 31.5 g/dL (33.0-37.0); MEAN PLATELET VOLUME 10.2 fl (7.2-11.7); MONO % 12.2 % (0.0-10.0); NRBC % 0.1 % (0.0-0.0); RED CELL DISTRIBUTION WIDTH 16.9 % (11.5-14.5); WHITE BLOOD COUNT 8.1 K/uL (4.8-10.8)
[2016-11-19] MEDS: Insulin Regular 100 units/ml SC SCH ×3 (06:39→17:35)
[2016-11-19 06:48] LABS: CALCIUM 8.9 mg/dL (8.4-10.2); POTASSIUM 4.4 MMOL/L (3.6-5.0)
[2016-11-19 08:21] VITALS: O2SAT 98
[2016-11-19 09:14] VITALS: PULSE 97
[2016-11-19] MEDS: Digoxin 125 mcg (0.125 mg) Tab PO SCH (09:14)
--- NOTE | 2016-11-19 09:43 | CP.PCM.CON ---
History of Present Illness - History of Present Illness History of Present Illness: Full Note Dictated Diabetic Cardiomyopathy Recent onset of A Flutter/ fib Acute renal insufficiency ( ?due to tachycardia with consequent drop in card out put Improving with rate control ) DM/HEN Recent finding of polycythemia/Thrombocytosis Stable from cardiac point of view May go home on present Rx and have GI W/U as out pt. Stable for IV sedation Past Patient History - Infectious Disease Hx of Infectious Diseases: None - Tetanus Immunizations Tetanus Immunization: Unknown - Past Medical History & Family History Past Medical History?: Yes - Past Social History Smoking Status: Former Smoker - CARDIAC Hx Cardiac Disorders: Yes Hx Atrial Fibrillation: Yes Hx Congestive Heart Failure: Yes Hx Hypercholesterolemia: Yes Hx Hypertension: Yes Hx Pacemaker: No Other/Comment: Cardiac Cath 10/2016 - PULMONARY Hx Respiratory Disorders: Yes Hx Asthma: Yes - NEUROLOGICAL Hx Neurological Disorder: Yes Hx Dizziness: Yes - HEENT Hx HEENT Problems: Yes 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) Other/Comment: reading glasses - RENAL Hx Chronic Kidney Disease: No - ENDOCRINE/METABOLIC Hx Endocrine Disorders: Yes Hx Diabetes Mellitus Type 2: Yes - HEMATOLOGICAL/ONCOLOGICAL Hx Blood Disorders: Yes Hx Anemia: Yes - INTEGUMENTARY Hx Dermatological Problems: Yes Other/Comment: dry scaly skin - MUSCULOSKELETAL/RHEUMATOLOGICAL Hx Musculoskeletal Disorders: Yes Hx Falls: Yes - GASTROINTESTINAL Hx Gastrointestinal Disorders: Yes Hx Diarrhea: Yes Hx Diverticulitis: Yes (diverticulosis w polypectomy non-malignant) Hx Vomiting: Yes - GENITOURINARY/GYNECOLOGICAL Hx Genitourinary Disorders: No - PSYCHIATRIC Hx Psychophysiologic Disorder: No Hx Substance Use: No - SURGICAL HISTORY Other/Comment: Right Ovary cyst removal 12 yrs ago - ANESTHESIA Hx Anesthesia: Yes Hx Anesthesia Reactions: No Meds Allergies/Adverse Reactions: Allergies Allergy/AdvReac Type Severity Reaction Status Date / Time No Known Allergies Allergy Verified 11/16/16 11:43 - Medications Medications: Current Medications Aspirin (Aspirin Chewable) 81 mg PO DAILY [facility] Last Admin: 11/19/16 09:14 Dose: 81 mg Atorvastatin Calcium (Lipitor) 10 mg PO DAILY [facility] Last Admin: 11/19/16 09:15 Dose: 10 mg Carvedilol (Coreg) 25 mg PO Q12 [facility] Last Admin: 11/18/16 21:49 Dose: 25 mg Dextrose (Dextrose 50% Inj) 0 ml IVP STAT PRN; Protocol PRN Reason: Hypoglycemia Protocol Dextrose (Dextrose 50% Inj) 0 ml IV STAT PRN; Protocol PRN Reason: Hyglycemia Protocol Dextrose (Glutose 15) 0 gm PO ONCE PRN; Protocol PRN Reason: Hypoglycemia Protocol Digoxin (Lanoxin) 0.125 mg PO DAILY [facility] Last Admin: 11/19/16 09:14 Dose: 0.125 mg Famotidine (Pepcid) 20 mg IVP Q12 [facility] Last Admin: 11/19/16 09:15 Dose: 20 mg Gabapentin (Neurontin) 300 mg PO HS PRN PRN Reason: Other Glucagon (Glucagen Diagnostic Kit) 0 mg IM STAT PRN; Protocol PRN Reason: Hypoglycemia Protocol Glucagon (Glucagen Diagnostic Kit) 0 mg IM STAT PRN; Protocol PRN Reason: Hypoglycemia Protocol Insulin Human Regular (Humulin R) 0 units SC ACHS [facility] PRN Reason: Protocol Last Admin: 11/19/16 06:39 Dose: 1 unit Lisinopril (Zestril) 10 mg PO DAILY [facility] Last Admin: 11/19/16 09:13 Dose: 10 mg Metoclopramide HCl (Reglan) 5 mg PO ACHS [facility] Last Admin: 11/19/16 06:40 Dose: 5 mg Morphine Sulfate (Morphine) 1 mg IVP Q6 PRN PRN Reason: Pain, severe (8-10) Ondansetron HCl (Zofran Inj) 4 mg IVP Q6 PRN PRN Reason: Nausea/Vomiting Results - Vital Signs Recent Vital Signs: Last Vital Signs Temp 97.5 F L 11/19/16 08:20 Pulse 97 H 11/19/16 08:20 Resp 20 11/19/16 08:20 BP 118/83 11/19/16 09:13 Pulse Ox 98 11/19/16 08:20 - Labs Result Diagrams: 11/19/16 05:20 11/19/16 05:20 Labs: Laboratory Results - last 24 hr 11/18/16 11/18/16 11/18/16 04:00 04:00 11:54 WBC 7.6 RBC 5.92 H Hgb 14.8 Hct 46.8 MCV 79.0 L MCH 25.0 L MCHC 31.7 L RDW 16.7 H Plt Count 105 L MPV Neut % (Auto) Lymph % (Auto) Schleicher % (Auto) Eos % (Auto) Baso % (Auto) Neut # Lymph # Schleicher # Eos # Baso # Sodium 137 Potassium 4.0 Chloride 101 Carbon Dioxide 25 Anion Gap 15 BUN 46 H Creatinine 1.6 H Est GFR ( Amer) 38 Est GFR (Non-Af Amer) 31 POC Glucose (mg/dL) 203 H Random Glucose 124 H Calcium 9.2 11/18/16 11/18/16 11/19/16 15:43 21:23 05:20 WBC 8.1 RBC 5.95 H Hgb 15.0 Hct 47.6 H MCV 80.0 L MCH 25.2 L MCHC 31.5 L RDW 16.9 H Plt Count 92 L MPV 10.2 Neut % (Auto) 49.0 L Lymph % (Auto) 37.1 Schleicher % (Auto) 12.2 H Eos % (Auto) 0.5 Baso % (Auto) 1.2 Neut # 4.0 Lymph # 3.0 Schleicher # 1.0 H Eos # 0.0 Baso # 0.1 Sodium Potassium Chloride Carbon Dioxide Anion Gap BUN Creatinine Est GFR ( Amer) Est GFR (Non-Af Amer) POC Glucose (mg/dL) 225 H 150 H Random Glucose Calcium 11/19/16 05:20 WBC RBC Hgb Hct MCV MCH MCHC RDW Plt Count MPV Neut % (Auto) Lymph % (Auto) [place] % (Auto) Eos % (Auto) Baso % (Auto) Neut # Lymph # Schleicher # Eos # Baso # Sodium 136 Potassium 4.4 Chloride 105 Carbon Dioxide 20 L Anion Gap 15 BUN 44 H Creatinine 1.6 H Est GFR ( Amer) 38 Est GFR (Non-Af Amer) 31 POC Glucose (mg/dL) Random Glucose 149 H Calcium 8.9
--- NOTE | 2016-11-19 10:24 | CON ---
DATE: 11/19/2016 She is hospitalized under the resident's care in room 408, bed 1. HISTORY OF PRESENT ILLNESS: This 76-year-old female came into the Emergency Room with gastrointestin al complaints and was hospitalized for observation and treatment. Recently, she was found to have di abetic cardiomyopathy confirmed by coronary angiography, which did not show any evidence of coronary stenosis. The patient was then hospitalized with an acute onset of atrial flutter which is not uncom mon given her circumstances and was treated with a beta blockade for controlling heart rate which was added digoxin 0.125 and has good heart rate control. The patient is also anticoagulated. She is on an LYNN inhibitor as well. Her symptoms of congestive heart failure have been controlled as far as o rthopnea or pedal edema is concerned. She complains of fatigue which is consequent to her congestive heart failure. The patient was being worked up for polycythemia and thrombocytosis. Considering th e possibility of a GI malignancy, she was scheduled to undergo GI workup consisting of an endoscopy a nd colonoscopy, which was delayed because of this admission. PHYSICAL EXAMINATION: VITAL SIGNS: Shows a pleasant elderly female who is able to lie virtually flat and breathe comfortab ly at 16-18 breaths per minute, has a heart rate of 88 beats per minute, irregularly irregular and a blood pressure of 122/74 mmHg. NECK: Her jugular venous pressure was not elevated. EXTREMITIES: There was no edema of lower extremity. The pedal pulses were well felt. There were no carotid bruits. HEART: The apex was in the sixth space, slightly heaving in character. The first heart sound had a variable intensity. The second heart sound was normal. There was an apical systolic murmur of oskar l regurgitation. LUNGS: There were no rales. ABDOMEN: Soft. Liver and spleen were not palpable. Her electrocardiogram shows atrial flutter/fibrillation with a heart rate of 104 beats per minute wit h nonspecific ST changes. LABORATORY DATA: Noted. Her BUN and creatinine were 64 and 2.3 mg percent on 11/16, which with adequ ate heart rate control and hydration, have come down to 44 and 1.6 mg percent. The GFR continues to improve. Her hemoglobin and hematocrit, which were 17.4 grams and 53.3% on the are 15.0 and 47. 6% respectively 3 days later. She continues to display a mild degree of thrombocytopenia with a plat elet count of 92,000 which has varied between 180 and 92,000. IMPRESSION AND PLAN: At this time is diabetic congestive cardiomyopathy with atrial flutter/fibrilla tion with hypertension, diabetes, polycythemia and thrombocytopenia. The patient is stable from card iovascular point of view. Her renal status continues to improve, probably due to prerenal causes and precipitated by possible onset of atrial fibrillation. Her heart rate is controlled with improvemen t in the cardiac output, renal perfusion. The BUN and creatinine appears to be improving. She is st able from cardiovascular point of view to go home and be treated on present medications and have her GI workup as an outpatient. Her oral anticoagulation needs to be withdrawn a couple of days before her GI workup. I have discussed this with the residents. Jeffery Lee MD cc: 23 TT: 11/19/2016 10:23:44 Confirmation # [id number] Dictation # [id number] naren
--- NOTE | 2016-11-19 10:39 | CP.PCM.PN ---
Subjective - Date & Time of Evaluation Date of Evaluation: 11/19/16 Time of Evaluation: 08:30 - Subjective Subjective: Patient seen at bedside this am. No overnight complains. She was seen yesterday too and a prolonged discussion with daughter Ele had ensued over her goals of care and outpatient work up. Objective - Vital Signs/Intake and Output Vital Signs (last 24 hours): Temp Pulse Resp BP Pulse Ox 97.5 F L 97 H 20 118/83 98 11/19/16 08:20 11/19/16 08:20 11/19/16 08:20 11/19/16 09:13 11/19/16 08:20 - Medications Medications: Current Medications Aspirin (Aspirin Chewable) 81 mg PO DAILY [facility] Last Admin: 11/19/16 09:14 Dose: 81 mg Atorvastatin Calcium (Lipitor) 10 mg PO DAILY [facility] Last Admin: 11/19/16 09:15 Dose: 10 mg Carvedilol (Coreg) 25 mg PO Q12 [facility] Last Admin: 11/18/16 21:49 Dose: 25 mg Dextrose (Dextrose 50% Inj) 0 ml IVP STAT PRN; Protocol PRN Reason: Hypoglycemia Protocol Dextrose (Dextrose 50% Inj) 0 ml IV STAT PRN; Protocol PRN Reason: Hyglycemia Protocol Dextrose (Glutose 15) 0 gm PO ONCE PRN; Protocol PRN Reason: Hypoglycemia Protocol Digoxin (Lanoxin) 0.125 mg PO DAILY [facility] Last Admin: 11/19/16 09:14 Dose: 0.125 mg Famotidine (Pepcid) 20 mg IVP Q12 [facility] Last Admin: 11/19/16 09:15 Dose: 20 mg Gabapentin (Neurontin) 300 mg PO HS PRN PRN Reason: Other Glucagon (Glucagen Diagnostic Kit) 0 mg IM STAT PRN; Protocol PRN Reason: Hypoglycemia Protocol Glucagon (Glucagen Diagnostic Kit) 0 mg IM STAT PRN; Protocol PRN Reason: Hypoglycemia Protocol Insulin Human Regular (Humulin R) 0 units SC [facility] PRN Reason: Protocol Last Admin: 11/19/16 06:39 Dose: 1 unit Lisinopril (Zestril) 10 mg PO DAILY [facility] Last Admin: 11/19/16 09:13 Dose: 10 mg Metoclopramide HCl (Reglan) [address] [facility] Last Admin: 11/19/16 06:40 Dose: 5 mg Morphine Sulfate (Morphine) 1 mg IVP Q6 PRN PRN Reason: Pain, severe (8-10) Ondansetron HCl (Zofran Inj) 4 mg IVP Q6 PRN PRN Reason: Nausea/Vomiting - Labs Labs: 11/19/16 05:20 11/19/16 05:20 PT 14.9 SECONDS (9.6-11.2) H 11/16/16 12:58 INR 1.43 (0.92-1.08) H 11/16/16 12:58 APTT 32.3 SECONDS (23.3-32.5) 11/16/16 12:58 - Constitutional Appears: Well, Non-toxic, No Acute Distress - Head Exam Head Exam: ATRAUMATIC, NORMAL INSPECTION, NORMOCEPHALIC - Eye Exam Eye Exam: EOMI, Normal appearance, PERRL - ENT Exam ENT Exam: Mucous Membranes Moist, Normal Exam - Respiratory Exam Respiratory Exam: Clear to Ausculation Bilateral, NORMAL BREATHING PATTERN - Cardiovascular Exam Cardiovascular Exam: REGULAR RHYTHM, +S1, +S2. absent: Murmur - GI/Abdominal Exam GI & Abdominal Exam: Soft, Normal Bowel Sounds. absent: Tenderness Additional comments: Non tender, no guarding - Neurological Exam Neurological Exam: Alert, Awake, CN II-XII Intact, Normal Gait, Oriented x3 - Skin Skin Exam: Dry, Intact, Normal Color, Warm Assessment and Plan - Assessment and Plan (Free Text) Assessment: 76 yr old F with multiple comorbidities admitted with abdominal pain and YOVANI now improving. She was seen by me in my office referred by Dr Leung for thin caliber stools back in aug 2016. She was scheduled as outpatient for EGD/ colonoscopy in september which the patient called and cancelled stating '' my herat is too weak to handle it"'. Subsequently she was admitted with sigmoid diverticulitis. Now she is readmitted with abdominal pain and diverticulitis resolving on CT scan. Discussed with daughter Ele at length that EGD/ colonoscopy can be done as outpatient and it is not necessary to keep her in the hospital till next week if all acute issues have resolved. I have given outpatient date for endoscopy to the patient. Discussed with Dr Sandi Lee her oracle programmer analyst that patient is cleared for anesthesia for the procedure. Discussed with the team Plan: - IVF as per primary team - Diet as tolerated - Cleared from GI perspective for discharge - EGD/ colonoscopy as outpatient in 1-2 weeks - Discussed with oracle programmer analyst and primary team - Thank you for letting us participate in the care of this patient
--- NOTE | 2016-11-19 15:22 | CP.PCM.DIS ---
Addendum entered and electronically signed by Faisal Zelaya MD 11/21/16 18: 00: Discharge meds Aspirin [Aspirin Chewable] 81 mg PO DAILY Atorvastatin [Lipitor] 10 mg PO DAILY Carvedilol [Coreg] 25 mg PO Q12 Digoxin [Lanoxin] 0.125 mg PO DAILY tab Gabapentin [Neurontin] 300 mg PO HS PRN cap Lisinopril [Zestril] 10 mg PO DAILY tab Ondansetron [Zofran Tab] 4 mg PO DAILY Rivaroxaban [Xarelto] 20 mg PO daily Spironolactone [Aldactone] 25 mg PO DAILY tab Furosemide [Lasix] 40 mg PO BID Original Note: <Faisal Zelaya - Last Filed: 11/21/16 17:40> Provider - Provider Date of Admission: 11/16/16 16:19 Attending physician: Kayla Magana MD Primary care physician: Deanne Leung MD Consults: Dr Zapata(Cardiology) Dr Mcclellan(Nephrology) Dr Del Castillo(GI) Time Spent in preparation of Discharge (in minutes): 35 Diagnosis - Discharge Diagnosis (1) Abdominal pain Status: Acute Comment: Improved. Epigastric. F/U with GI as outpatient (2) Congestive cardiac failure Status: Chronic Comment: Stable. (3) Renal insufficiency Status: Acute Comment: Improved. Evaluated by Nephro. Possible due to dehydration (4) Atrial flutter Status: Chronic Comment: Stable. [facility] Course - Lab Results Lab Results: Most Recent Lab Values WBC 8.1 K/uL (4.8-10.8) 11/19/16 05:20 RBC 5.95 Mil/uL (3.80-5.20) H 11/19/16 05:20 Hgb 15.0 g/dL (12.0-16.0) 11/19/16 05:20 Hct 47.6 % (34.0-47.0) H 11/19/16 05:20 MCV 80.0 fl (81.0-99.0) L 11/19/16 05:20 MCH 25.2 pg (27.0-31.0) L 11/19/16 05:20 MCHC 31.5 g/dL (33.0-37.0) L 11/19/16 05:20 RDW 16.9 % (11.5-14.5) H 11/19/16 05:20 Plt Count 92 K/uL (130-400) L 11/19/16 05:20 MPV 10.2 fl (7.2-11.7) 11/19/16 05:20 Neut % (Auto) 49.0 % (50.0-75.0) L 11/19/16 05:20 Lymph % (Auto) 37.1 % (20.0-40.0) 11/19/16 05:20 [place] % (Auto) 12.2 % (0.0-10.0) H 11/19/16 05:20 Eos % (Auto) 0.5 % (0.0-4.0) 11/19/16 05:20 Baso % (Auto) 1.2 % (0.0-2.0) 11/19/16 05:20 Neut # 4.0 K/uL (1.8-7.0) 11/19/16 05:20 Lymph # 3.0 K/uL (1.0-4.3) 11/19/16 05:20 [place] # 1.0 K/uL (0.0-0.8) H 11/19/16 05:20 Eos # 0.0 K/uL (0.0-0.7) 11/19/16 05:20 Baso # 0.1 K/uL (0.0-0.2) 11/19/16 05:20 PT 14.9 SECONDS (9.6-11.2) H 11/16/16 12:58 INR 1.43 (0.92-1.08) H 11/16/16 12:58 APTT 32.3 SECONDS (23.3-32.5) 11/16/16 12:58 Sodium 136 mmol/l (132-148) 11/19/16 05:20 Potassium 4.4 MMOL/L (3.6-5.0) 11/19/16 05:20 Chloride 105 mmol/L (98-107) 11/19/16 05:20 Carbon Dioxide 20 mmol/L (22-30) L 11/19/16 05:20 Anion Gap 15 (10-20) 11/19/16 05:20 BUN 44 mg/dl (7-17) H 11/19/16 05:20 Creatinine 1.6 mg/dL (0.7-1.2) H 11/19/16 05:20 Est GFR ( Amer) 38 11/19/16 05:20 Est GFR (Non-Af Amer) 31 11/19/16 05:20 POC Glucose (mg/dL) 150 mg/dL (65-110) H 11/18/16 21:23 Random Glucose 149 mg/dL (65-105) H 11/19/16 05:20 Calcium 8.9 mg/dL (8.4-10.2) 11/19/16 05:20 Total Bilirubin 1.3 mg/dl (0.2-1.3) 11/16/16 14:00 AST 82 U/L (14-36) H D 11/16/16 14:00 ALT 45 U/L (9-52) 11/16/16 14:00 Alkaline Phosphatase 97 U/L (38-126) 11/16/16 14:00 Troponin I < 0.0120 ng/mL (0.00-0.120) 11/16/16 14:00 NT-Pro-B Natriuret Pep 2500 pg/ml (0-900) H 11/17/16 05:30 Total Protein 9.5 G/DL (6.3-8.2) H 11/16/16 14:00 Albumin 4.7 g/dL (3.5-5.0) 11/16/16 14:00 Globulin 4.8 gm/dL (2.2-3.9) H 11/16/16 14:00 Albumin/Globulin Ratio 1.0 (1.0-2.1) 11/16/16 14:00 Lipase 246 U/L (23-300) 11/16/16 14:00 Digoxin < 0.4 ng/mL (0.8-2.0) L 11/16/16 12:58 - Hospital Course Hospital Course: 76 y/o F with PMhx of a.fib, CHF, DM, and dyspepsia presented to ED for abd pain , vomiting, nausea. Patient was previously DC from hosp for acute diverticulitis 2 weeks ago. She improved initially after DC but started having dyspeptic symptoms again about a week before admission associated with epigastric pain and anorexia. Patient was found to have dehydration and YOVANI. While in the hosp she was evaluated by Cardiology, Nephrology and GI specialists. She was scheduled for Endo/Colonoscopy while admitted but had to be cancelled for non medical reasons. After patient renal function improved and general status and closely evaluation by multi team specialist she is decided to DC home with appt for scheduled Colonoscopy/Endoscopy by GI(Dr Del Castillo) in 1 week. Plan discussed with patient and family and agreed. Discharge Exam - Head Exam Head Exam: ATRAUMATIC, NORMAL INSPECTION, NORMOCEPHALIC - ENT Exam ENT Exam: Mucous Membranes Moist - Respiratory Exam Respiratory Exam: Clear to PA & Lateral, NORMAL BREATHING PATTERN, UNREMARKABLE - Cardiovascular Exam Cardiovascular Exam: Irregular Rhythm, +S1, +S2. absent: Gallop - GI/Abdominal Exam GI & Abdominal Exam: Soft, Tenderness (mild epigastric tenderness). absent: Distended, Guarding - Extremities Exam Extremities exam: normal capillary refill, pedal pulses present - Neurological Exam Neurological exam: Alert, Oriented x3 - Psychiatric Exam Psychiatric exam: Normal Affect, Normal Mood - Skin Skin Exam: Warm Discharge Plan - Follow Up Plan Condition: FAIR Disposition: HOME/ ROUTINE Patient education suggested?: Yes Additional Instructions: F/U at [facility] with Dr Washington on Tuesday11/23/16 at 09:00 Referrals: Deanne Leung MD [Primary Care Provider] - <America Schaefera - Last Filed: 11/22/16 11:14> Provider - Provider Date of Admission: 11/16/16 16:19 Attending physician: Kayla Magana MD Primary care physician: Deanne Leung MD Hospital Course - Lab Results Lab Results: Most Recent Lab Values WBC 8.1 K/uL (4.8-10.8) 11/19/16 05:20 RBC 5.95 Mil/uL (3.80-5.20) H 11/19/16 05:20 Hgb 15.0 g/dL (12.0-16.0) 11/19/16 05:20 Hct 47.6 % (34.0-47.0) H 11/19/16 05:20 MCV 80.0 fl (81.0-99.0) L 11/19/16 05:20 MCH 25.2 pg (27.0-31.0) L 11/19/16 05:20 MCHC 31.5 g/dL (33.0-37.0) L 11/19/16 05:20 RDW 16.9 % (11.5-14.5) H 11/19/16 05:20 Plt Count 92 K/uL (130-400) L 11/19/16 05:20 MPV 10.2 fl (7.2-11.7) 11/19/16 05:20 Neut % (Auto) 49.0 % (50.0-75.0) L 11/19/16 05:20 Lymph % (Auto) 37.1 % (20.0-40.0) 11/19/16 05:20 [place] % (Auto) 12.2 % (0.0-10.0) H 11/19/16 05:20 Eos % (Auto) 0.5 % (0.0-4.0) 11/19/16 05:20 Baso % (Auto) 1.2 % (0.0-2.0) 11/19/16 05:20 Neut # 4.0 K/uL (1.8-7.0) 11/19/16 05:20 Lymph # 3.0 K/uL (1.0-4.3) 11/19/16 05:20 [place] # 1.0 K/uL (0.0-0.8) H 11/19/16 05:20 Eos # 0.0 K/uL (0.0-0.7) 11/19/16 05:20 Baso # 0.1 K/uL (0.0-0.2) 11/19/16 05:20 PT 14.9 SECONDS (9.6-11.2) H 11/16/16 12:58 INR 1.43 (0.92-1.08) H 11/16/16 12:58 APTT 32.3 SECONDS (23.3-32.5) 11/16/16 12:58 Sodium 136 mmol/l (132-148) 11/19/16 05:20 Potassium 4.4 MMOL/L (3.6-5.0) 11/19/16 05:20 Chloride 105 mmol/L (98-107) 11/19/16 05:20 Carbon Dioxide 20 mmol/L (22-30) L 11/19/16 05:20 Anion Gap 15 (10-20) 11/19/16 05:20 BUN 44 mg/dl (7-17) H 11/19/16 05:20 Creatinine 1.6 mg/dL (0.7-1.2) H 11/19/16 05:20 Est GFR ( Amer) 38 11/19/16 05:20 Est GFR (Non-Af Amer) 31 11/19/16 05:20 POC Glucose (mg/dL) 150 mg/dL (65-110) H 11/18/16 21:23 Random Glucose 149 mg/dL (65-105) H 11/19/16 05:20 Calcium 8.9 mg/dL (8.4-10.2) 11/19/16 05:20 Total Bilirubin 1.3 mg/dl (0.2-1.3) 11/16/16 14:00 AST 82 U/L (14-36) H D 11/16/16 14:00 ALT 45 U/L (9-52) 11/16/16 14:00 Alkaline Phosphatase 97 U/L (38-126) 11/16/16 14:00 Troponin I < 0.0120 ng/mL (0.00-0.120) 11/16/16 14:00 NT-Pro-B Natriuret Pep 2500 pg/ml (0-900) H 11/17/16 05:30 Total Protein 9.5 G/DL (6.3-8.2) H 11/16/16 14:00 Albumin 4.7 g/dL (3.5-5.0) 11/16/16 14:00 Globulin 4.8 gm/dL (2.2-3.9) H 11/16/16 14:00 Albumin/Globulin Ratio 1.0 (1.0-2.1) 11/16/16 14:00 Lipase 246 U/L (23-300) 11/16/16 14:00 Urine Color Yellow (YELLOW) 11/19/16 22:40 Urine Clarity Clear (Clear) 11/19/16 22:40 Urine pH 5.0 (5.0-8.0) 11/19/16 22:40 Ur Specific Mason 1.010 (1.003-1.030) 11/19/16 22:40 Urine Protein Negative mg/dL (NEGATIVE) 11/19/16 22:40 Urine Glucose (UA) 50 mg/dL (Normal) 11/19/16 22:40 Urine Ketones Negative mg/dL (NEGATIVE) 11/19/16 22:40 Urine Blood Negative (NEGATIVE) 11/19/16 22:40 Urine Nitrate Negative (NEGATIVE) 11/19/16 22:40 Urine Bilirubin Negative (NEGATIVE) 11/19/16 22:40 Urine Urobilinogen 0.2-1.0 mg/dL (0.2-1.0) 11/19/16 22:40 Ur Leukocyte Esterase Neg Vazquez/uL (Negative) 11/19/16 22:40 Urine RBC (Auto) < 1 /hpf (0-3) 11/19/16 22:40 Urine Microscopic WBC 1 /hpf (0-5) 11/19/16 22:40 Ur Squamous Epith Cells 1 /hpf (0-5) 11/19/16 22:40 Urine Bacteria Rare (<OCC) 11/19/16 22:40 Ur Random Sodium 16 meq/L 11/19/16 10:31 Ur Random Potassium 15.6 mmol/L 11/19/16 10:31 Digoxin < 0.4 ng/mL (0.8-2.0) L 11/16/16 12:58 Discharge Exam - Additional Findings Additional findings: ATTENDING NOTE/ ATTESTATION PATIENT SEEN AND EXAMINED. CASE DISCUSSED WITH RESIDENT. WILL BE DISCHARGED. FOLLOW UP 11/23/16 IN OFFICE. AGREE WITH PLAN.
[2016-11-19 17:35] VITALS: RESP 18; TEMP 97.7
--- NOTE | 2016-11-19 20:10 | CP.PCM.PN ---
Subjective - Date & Time of Evaluation Date of Evaluation: 11/19/16 Time of Evaluation: 15:00 - Subjective Subjective: SEEN ON RENAL F/U FEELS MUCH BETTER RENAL FUNCTION IMPROVING ON IVF PREVIOUS EMR ALL REVIEWED Objective - Vital Signs/Intake and Output Vital Signs (last 24 hours): Temp Pulse Resp BP Pulse Ox 97.7 F 95 H 18 120/91 H 98 11/19/16 16:00 11/19/16 16:00 11/19/16 16:00 11/19/16 16:00 11/19/16 16:00 Intake and Output: 11/19/16 11/20/16 18:59 06:59 Intake Total 550 Balance 550 - Medications Medications: Current Medications Aspirin (Aspirin Chewable) 81 mg PO DAILY [facility] Last Admin: 11/19/16 09:14 Dose: 81 mg Atorvastatin Calcium (Lipitor) 10 mg PO DAILY [facility] Last Admin: 11/19/16 09:15 Dose: 10 mg Carvedilol (Coreg) 25 mg PO Q12 [facility] Last Admin: 11/19/16 12:29 Dose: 25 mg Dextrose (Dextrose 50% Inj) 0 ml IVP STAT PRN; Protocol PRN Reason: Hypoglycemia Protocol Dextrose (Dextrose 50% Inj) 0 ml IV STAT PRN; Protocol PRN Reason: Hyglycemia Protocol Dextrose (Glutose 15) 0 gm PO ONCE PRN; Protocol PRN Reason: Hypoglycemia Protocol Digoxin (Lanoxin) 0.125 mg PO DAILY [facility] Last Admin: 11/19/16 09:14 Dose: 0.125 mg Famotidine (Pepcid) 20 mg IVP Q12 [facility] Last Admin: 11/19/16 09:15 Dose: 20 mg Gabapentin (Neurontin) 300 mg PO HS PRN PRN Reason: Other Glucagon (Glucagen Diagnostic Kit) 0 mg IM STAT PRN; Protocol PRN Reason: Hypoglycemia Protocol Glucagon (Glucagen Diagnostic Kit) 0 mg IM STAT PRN; Protocol PRN Reason: Hypoglycemia Protocol Insulin Human Regular (Humulin R) 0 units SC [facility] PRN Reason: Protocol Last Admin: 11/19/16 17:35 Dose: Not Given Lisinopril (Zestril) 10 mg PO DAILY [facility] Last Admin: 11/19/16 09:13 Dose: 10 mg Metoclopramide HCl (Reglan) 5 mg PO [facility] Last Admin: 05/19/17 16:34 Dose: 5 mg Morphine Sulfate (Morphine) 1 mg IVP Q6 PRN PRN Reason: Pain, severe (8-10) Ondansetron HCl (Zofran Inj) 4 mg IVP Q6 PRN PRN Reason: Nausea/Vomiting - Labs Labs: 11/19/16 05:20 11/19/16 05:20 PT 14.9 SECONDS (9.6-11.2) H 11/16/16 12:58 INR 1.43 (0.92-1.08) H 11/16/16 12:58 APTT 32.3 SECONDS (23.3-32.5) 11/16/16 12:58 Assessment and Plan - Assessment and Plan (Free Text) Assessment: YOVANI PROBABLY PRE RENAL AZOTEMIA .. IMPROVING ON IVF OK FOR D/C .. REPEAT BNP AN OUT PT
[2016-11-19 21:09] VITALS: BP 133/96; PULSE 131
[2016-11-19 22:43] LABS: RBC URINE < 1 /hpf (0-3); URINE BACTERIA RARE (<OCC); URINE BILIRUBIN NEGATIVE (NEGATIVE); URINE BLOOD NEGATIVE (NEGATIVE); URINE COLOR YELLOW (YELLOW); URINE GLUCOSE (UA) 50 mg/dL (Normal); URINE KETONE NEGATIVE (NEGATIVE); URINE LEUKOCYTE ESTERASE NEG Leu/uL (Negative); URINE PROTEIN NEGATIVE (NEGATIVE); URINE UROBILINOGEN 0.2-1.0 mg/dL (0.2-1.0); WBC URINE 1 /hpf (0-5)
== END 2016-11-19 21:30 | disposition home or self-care (01) | DRG 683 ==
LOC: H.ER 11:23 → H.ERHOLD 16:19 → H.TEL 17:27
PROVIDERS: ADMIT Family Medicine Geriatric Medicine; ATTEND Family Medicine Geriatric Medicine
DX: N17.9 Acute kidney failure, unspecified (principal); E87.1 Hypo-osmolality and hyponatremia; I48.92 Unspecified atrial flutter; I42.0 Dilated cardiomyopathy; E11.40 Type 2 diabetes mellitus with diabetic neuropathy, unspecified; D69.59 Other secondary thrombocytopenia; I50.22 Chronic systolic (congestive) heart failure; I11.0 Hypertensive heart disease with heart failure; E86.0 Dehydration; I48.91 Unspecified atrial fibrillation; D75.1 Secondary polycythemia; K21.9 Gastro-esophageal reflux disease without esophagitis; K29.60 Other gastritis without bleeding; J45.909 Unspecified asthma, uncomplicated; E78.00 Pure hypercholesterolemia, unspecified; E66.9 Obesity, unspecified; Z68.26 Body mass index [BMI] 26.0-26.9, adult; F32.9 Major depressive disorder, single episode, unspecified; Z87.19 Personal history of other diseases of the digestive system; Z86.718 Personal history of other venous thrombosis and embolism; Z86.711 Personal history of pulmonary embolism; Z87.891 Personal history of nicotine dependence

== ENCOUNTER 2016-11-30 09:07 | Day surgery (SDC) | payer MEDICARE, MEDICAID ==
[2016-11-30] MEDS ORDERED: Lactated Ringer's 500 ML IV ONE (09:34)
[2016-11-30 10:09] VITALS: TEMP 96.8
[2016-11-30] MEDS ORDERED: Etomidate 20 mg/10ml Inj IV ONE (10:33)
[2016-11-30] MEDS ORDERED: Midazolam 2 MG/2 ML VIAL ONE (10:34)
[2016-11-30] MEDS ORDERED: Propofol 10 mg/ml Inj (20 ML) ONE (10:34)
[2016-11-30 11:30] VITALS: BP 128/79; PULSE 76; RESP 19; O2SAT 99
== END 2016-11-30 11:39 | disposition home or self-care (01) ==
LOC: H.ENDO 09:07
PROVIDERS: ATTEND Internal Medicine Gastroenterology
DX: Z12.11 Encounter for screening for malignant neoplasm of colon (principal); Q43.8 Other specified congenital malformations of intestine; E11.9 Type 2 diabetes mellitus without complications; K57.30 Diverticulosis of large intestine without perforation or abscess without bleeding; K63.89 Other specified diseases of intestine; K64.8 Other hemorrhoids
CPT/HCPCS: 45380; 82948; 88305; J2250; J2704; J3010; J7120

== ENCOUNTER 2017-09-07 19:39 | Inpatient (IN) | payer MEDICARE, MEDICAID ==
[2017-09-07 19:39] VITALS: BMI 26.6
[2017-09-07] MEDS ORDERED: Sodium Chloride 0.9% 1,000 ML IV STA (20:12)
--- NOTE | 2017-09-07 20:16 | ED PDOC ---
Syncope/Near Syncope/Dizziness Time Seen by Provider: 09/07/17 20:05 Chief Complaint (Nursing): Syncope History Per: Patient Onset/Duration Of Symptoms: Hrs (1) Current Symptoms Are (Timing): Better Activity At Onset Of Symptoms: Standing Associated Symptoms Preceding Syncopal Episode: Other (palpitations) Seizure Or Post-ictal Symptoms: None Fall Associated With With Symptoms: Yes Severity: Mild Additional Complaint(s): Dizziness assoc with palpitations this PM. Fell to floor. Unknown LOC. Denies chest pain or peripheral weakness. Defibrilator did not fire. Past Medical History Vital Signs: Last Vital Signs Temp 97.5 F L 09/07/17 19:43 Pulse 83 09/07/17 19:43 Resp 18 09/07/17 19:43 BP 129/75 09/07/17 19:43 Pulse Ox 100 09/07/17 19:43 - Medical History PMH: Anemia, Asthma, Atrial Fibrillation, CHF, Depression, Diabetes, Diverticulitis (diverticulosis w polypectomy non-malignant), HTN, Hypercholesterolemia Denies: HIV, Chronic Kidney Disease - Surgical History Surgical History: Denies: Pacemaker - Family History Family History: States: Unknown Family Hx - Home Medications Home Medications: Ambulatory Orders Medication Instructions Recorded Aspirin [Aspirin Chewable] 81 mg PO DAILY #0 11/06/16 Atorvastatin [Lipitor] 10 mg PO DAILY #30 tab 11/06/16 Gabapentin [Neurontin] 300 mg PO HS PRN cap 11/06/16 Lisinopril/Hydrochlorothiazide 1 each PO DAILY 11/30/16 [Lisinopril-Hctz 10-12.5 mg Tab] Meclizine [Antivert] 12.5 mg PO DAILY 11/30/16 Omeprazole 20 mg PO DAILY 11/30/16 Repaglinide [Prandin] 1 mg PO DAILY 11/30/16 amLODIPine [Norvasc] 5 mg PO DAILY 11/30/16 metFORMIN [glucOPHAGE] 500 mg PO BID 11/30/16 - Allergies Allergies/Adverse Reactions: Allergies Allergy/AdvReac Type Severity Reaction Status Date / Time No Known Allergies Allergy Verified 09/07/17 19:51 Review of Systems ROS Statement: Except As Marked, All Systems Reviewed And Found Negative Cardiovascular: Positive for: Palpitations Neurological: Positive for: Dizziness. Negative for: Weakness, Numbness Physical Exam - Reviewed Nursing Documentation Reviewed: Yes Vital Signs Reviewed: Yes - Physical Exam Appears: Positive for: Non-toxic, No Acute Distress Head Exam: Positive for: ATRAUMATIC, NORMAL INSPECTION, NORMOCEPHALIC Skin: Positive for: Normal Color, Warm, DRY Eye Exam: Positive for: EOMI, Normal appearance, PERRL ENT: Positive for: Normal ENT Inspection Neck: Positive for: Normal, Painless ROM Cardiovascular/Chest: Positive for: Regular Rate, Rhythm Respiratory: Positive for: CNT, Normal Breath Sounds Gastrointestinal/Abdominal: Positive for: Normal Exam, Bowel Sounds, Soft Back: Positive for: Normal Inspection Extremity: Positive for: Other (Right hip tenderness. No deformity) Neurologic/Psych: Positive for: Alert, Oriented. Negative for: Motor/Sensory Deficits - Laboratory Results Result Diagrams: 09/07/17 20:32 09/07/17 20:32 - ECG O2 Sat by Pulse Oximetry: 100 Disposition - Clinical Impression Clinical Impression: Syncope - Patient ED Disposition Is Patient to be Admitted: Yes - Disposition Disposition Time: 21:37 Condition: FAIR Forms: [facility] (Welsh) - Pt Status Changed To: Hospital Disposition Of: Observation - POA Present On Arrival: None
[2017-09-07 20:40] LABS: BASO # 0.1 K/uL (0.0-0.2); BASO % 1.1 % (0.0-2.0); EOS # 0.1 K/uL (0.0-0.7); EOS % 0.6 % (0.0-4.0); HEMOGLOBIN 14.6 g/dL (12.0-16.0); LYMPH % 20.6 % (20.0-40.0); MEAN CELL VOLUME 84.8 fl (81.0-99.0); MEAN CORPUSCULAR HEMOGLOBIN 27.7 pg (27.0-31.0); MEAN CORPUSCULAR HGB CONC 32.7 g/dL (33.0-37.0); MEAN PLATELET VOLUME 9.5 fl (7.2-11.7); MONO # 0.7 K/uL (0.0-0.8); MONO % 6.8 % (0.0-10.0); NEUT # 6.8 K/uL (1.8-7.0); NEUT % 70.9 % (50.0-75.0); NRBC % 0.7 % (0.0-0.0); RBC 5.29 Mil/uL (3.80-5.20); RED CELL DISTRIBUTION WIDTH 13.3 % (11.5-14.5); WHITE BLOOD COUNT 9.6 K/uL (4.8-10.8)
[2017-09-07 20:54] LABS: CALCIUM 9.8 mg/dL (8.4-10.2); GFR AFRICAN-AMERICAN > 60; GFR NON-AFRICAN AMERICAN 54
[2017-09-07 21:09] LABS: ALB/GLOB RATIO 1.1 (1.0-2.1); ALBUMIN 4.3 g/dL (3.5-5.0); ALT/SGPT 40 U/L (9-52); AST/SGOT 65 U/L (14-36); BLOOD UREA NITROGEN 29 mg/dl (7-17)
--- NOTE | 2017-09-07 21:15 | CT ---
EXAM: CT Head Without Intravenous Contrast EXAM DATE/TIME: 09/07/2017 8:12 PM CLINICAL HISTORY: 77 years old, female; Injury or trauma and signs and symptoms; Fall; Initial encounter; Blunt trauma (contusions or hematomas); Syncope and collapse; Additional info: R/O bleed TECHNIQUE: Axial computed tomography images of the head/brain without intravenous contrast. All CT scans at this facility use one or more dose reduction techniques, viz.: automated exposure control; ma/kV adjustment per patient size (including targeted exams where dose is matched to indication; i.e. head); or iterative reconstruction technique. Coronal and sagittal reformatted images were created and reviewed. COMPARISON: CT - HEAD W/O CONTRAST 2016-10-29 14:49 FINDINGS: Brain: There is prominence of sulci gyri and ventricles. There is no midline shift. There is decreased attenuation in periventricular white matter. There are basal ganglia calcifications bilaterally. There are no focal masses. There are no focal hemorrhages. Porter-white differentiation is visualized. Ventricles: See above. Bones: Cranial vault is intact. Soft tissues: unremarkable Sinuses: There is no acute sinusitis. Ears and mastoids: Middle ears and mastoids are unremarkable. Orbits: Orbital contents are unremarkable. IMPRESSION: Atrophy and small vessel disease, no bleed
--- NOTE | 2017-09-07 22:11 | CP.PCM.HP ---
History of Present Illness - History of Present Illness History of Present Illness: "i was holding my dinner plate, got dizzy, and fell" 77 y/o female, with PMHx of CHF, HTN, NIDDM2, Asthma, with pacemaker/ defibrillator, presents s/p syncopal episode/fall. Pt reports she has been feeling dizzy for a prolonged period of time but this afternoon it suddenly worsened. At approx dinnertime, she was standing in her kitchen, preparing dinner, when she took her plate and started to move to the table she felt dizzy and weak, dropping the plate, grabbing onto a countertop, and gradually placing her self on the floor. She denies blacking out or head trauma. She then dragged herself to the phone and called for EMS. She denies any fever/chills, headaches , changes in vision, CP/SOB/palpitations, LOC, N/V/D/C, urinary symptoms, numbness/tingling. PMD: Leeanna Leung PMHx: CHF, HTN, NIDDM2, Hep C, Asthma, Anxiety, Depression, GERD Meds: Amlopidpine 10mg QD, Lisinopril 10mg QD, Spironolactone 25mg QD, Carvedilol 12.5mg QD, Digoxin 125mcg QD, Gabapentin 300mg QD at bedtime Repaglinide 1mg before meals, Furosemide 40mg QD, Aspirin 81mg QD, Metformin 500mg BID ALL: NKDA PsurgHx: breast biopsy 04/2014 SocialHx: denies ETOH/Tobacco/drug abuse FamilyHx: no known family hx, several children, all healthy Next of kin: daughterLadan [phone] Code Status: Full Code ER Course: Vitals on presentation: T 97.5, BP 129/75, HR 83, RR 18, POX 100% RA Labs: CBC: wnl CMP: hyperkalemia, hyperglycemia, elevated BUN Troponin I: 0.0330 Imaging: Head CT: negative CXR: cardiomegaly, airbronchograms, laya B lines, AICD in place as per my interpretation Pelvis XR: no fracture EKG: atrial paced, 68 bpm, AV block RI 238, normal QTc, no acute ST elevations/ depressions as interpreted by me Meds: IV NS Toradol Present on Admission - Present on Admission Any Indicators Present on Admission: No History of DVT/PE: No History of Uncontrolled Diabetes: No Review of Systems - Constitutional Constitutional: absent: As Per HPI, Anorexia, Chills, Daytime Sleepiness, Excessive Sweating, Fatigue, Fever, Frequent Falls, Headache, Increased Appetite , Lethargy, Malaise, Night Sweats, Snoring, Sleep Apnea, Weight Gain, Weight Loss, Weakness, Other - EENT Eyes: absent: As Per HPI, Blind Spots, Blurred Vision, Change in Vision, Decreased Night Vision, Diplopia, Discharge, Dry Eye, Exophthalmos, Floaters, Irritation, Itchy Eyes, Loss of Peripheral Vision, Pain, Photophobia, Requires Corrective Lenses, Sees Flashes, Spots in Vision, Tunnel Vision, Other Visual Disturbances, Loss of Vision, Other Ears: absent: As Per HPI, Decreased Hearing, Ear Discharge, Ear Pain, Tinnitus, Abnormal Hearing, Disequilibrium, Dizziness, Other Nose/Mouth/Throat: absent: As Per HPI, Epistaxis, Nasal Congestion, Nasal Discharge, Nasal Obstruction, Nasal Trauma, Nose Pain, Post Nasal Drip, Sinus Pain, Sinus Pressure, Bleeding Gums, Change in Voice, Dental Pain, Dry Mouth, Dysphagia, Halitosis, Hoarsness, Lip Swelling, Mouth Lesions, Mouth Pain, Odynophagia, Sore Throat, Throat Swelling, Tongue Swelling, Facial Pain, Neck Pain, Neck Mass, Other - Cardiovascular Cardiovascular: absent: As Per HPI, Acrocyanosis, Chest Pain, Chest Pain at Rest , Chest Pain with Activity, Claudication, Diaphoresis, Dyspnea, Dyspnea on Exertion, Edema, Irregular Heart Rhythm, Pain Radiating to Arm/Neck/Jaw, Leg Edema, Leg Ulcers, Lightheadedness, Orthopnea, Palpitations, Paroxysmal Nocturnal Dyspnea, Pedal Edema, Radiating Pain, Rapid Heart Rate, Slow Heart Rate, Syncope, Other - Respiratory Respiratory: absent: As Per HPI, Cough, Dyspnea, Hemoptysis, Dyspnea on Exertion , Wheezing, Snoring, Stridor, Pain on Inspiration, Chest Congestion, Excessive Mucous Production, Change in Mucous Color, Pain with Coughing, Other - Gastrointestinal Gastrointestinal: absent: As Per HPI, Abdominal Pain, Belching, Bloating, Change in Bowel Habits, Change in Stool Character, Coffee Ground Emesis, Constipation, Cramping, Diarrhea, Dyspepsia, Dysphagia, Early Satiety, Excessive Flatus, Fecal Incontinence, Heartburn, Hematemesis, Hematochezia, Loose Stools, Melena, Nausea, Odynophagia, Temesmus, Vomiting, Other - Genitourinary Genitourinary: absent: As Per HPI, Change in Urinary Stream, Difficulty Urinating, Dysuria, Flank Pain, Hematuria, Pyuria, Nocturia, Urinary Incontinence, Urinary Frequency, Urinary Hesitance, Urinary Urgency, Voiding Freq/Small Amts, Freq UTI, Hx Renal/Bladder Calculi, Hx /Renal Surgery, Bladder Distension, Other - Musculoskeletal Musculoskeletal: Other (left hip pain ). absent: As Per HPI, Abnormal Gait, Arthralgias, Atrophy, Back Pain, Deformity, Joint Swelling, Limited Range of Motion, Loss of Height, Muscle Cramps, Muscle Weakness, Myalgias, Neck Pain, Numbness, Radiating Pain into Limb, Stiffness, Tingling - Integumentary Integumentary: absent: As Per HPI, Acne, Alopecia, Bleeding Lesions, Change in Hair, Change in Nails, Change in Pigmentation, Changing Lesions, Dry Skin, Erythema, Furuncle, Hirsutism, Lesions, New Lesions, Non-Healing Lesions, Photosensitivity, Pruritus, Rash, Skin Pain, Skin Ulcer, Sores, Striae, Swelling , Unusual Bruising, Wounds, Jaundice, Other - Neurological Neurological: Dizziness, Syncope. absent: Abnormal Gait, Abnormal Speech, Behavioral Changes, Burning Sensations, Confusion, Disequilibrium, Numbness, Focal Weakness, Frequent Falls, Headaches, Lack of Coordination, Loss of Vision , Paresthesias, Sensory Deficit, Tingling, Vertigo - Psychiatric Psychiatric: absent: As Per HPI, Abnormal Sleep Pattern, Anhedonia, Anxiety, Auditory Hallucinations, Behavioral Changes, Change in Appetite, Change in Libido, Confusion, Depression, Difficulty Concentrating, Hallucinations, Homicidal Ideation, Hopelessness, Irritability, Memory Loss, Mood Swings, Panic Attacks, Paranoia, Suicidal Ideation, Visual Hallucinations, Tactile Hallucinations, Other Past Patient History - Infectious Disease Hx of Infectious Diseases: None - Tetanus Immunizations Tetanus Immunization: Unknown - Past Medical History & Family History Past Medical History?: Yes - Past Social History Smoking Status: Never Smoked Alcohol: None Drugs: Denies Home Situation {Lives}: With Family - CARDIAC Hx Atrial Fibrillation: Yes Hx Congestive Heart Failure: Yes Hx Hypercholesterolemia: Yes Hx Hypertension: Yes Hx Pacemaker: No - PULMONARY Hx Asthma: Yes - NEUROLOGICAL Hx Neurological Disorder: No - HEENT Hx HEENT Problems: No - RENAL Hx Chronic Kidney Disease: No - ENDOCRINE/METABOLIC Hx Endocrine Disorders: Yes Hx Diabetes Mellitus Type 2: Yes - HEMATOLOGICAL/ONCOLOGICAL Hx Anemia: Yes Hx Human Immunodeficiency Virus (HIV): No - INTEGUMENTARY Hx Dermatological Problems: No - MUSCULOSKELETAL/RHEUMATOLOGICAL Hx Musculoskeletal Disorders: No - GASTROINTESTINAL Hx Diverticulitis: Yes (diverticulosis w polypectomy non-malignant) - GENITOURINARY/GYNECOLOGICAL Hx Genitourinary Disorders: No - PSYCHIATRIC Hx Depression: Yes - SURGICAL HISTORY Hx Surgeries: Yes Hx Cardiac Catheterization: Yes Other/Comment: OVARIAN TUMOR SURGERY - ANESTHESIA Hx Anesthesia: Yes Hx Anesthesia Reactions: No Hx Malignant Hyperthermia: No Meds Allergies/Adverse Reactions: Allergies Allergy/AdvReac Type Severity Reaction Status Date / Time No Known Allergies Allergy Verified 09/07/17 19:51 Physical Exam - Constitutional Appears: Non-toxic, No Acute Distress - Head Exam Head Exam: ATRAUMATIC, NORMOCEPHALIC - Eye Exam Eye Exam: EOMI, Normal appearance. absent: Conjunctival injection, Nystagmus, Periorbital swelling, Periorbital tenderness, Scleral icterus Pupil Exam: NORMAL ACCOMODATION, PERRL - ENT Exam ENT Exam: Mucous Membranes Moist, Normal Exam, Normal Oropharynx, TM's Normal Bilaterally - Neck Exam Neck exam: Positive for: Full Rom, Normal Inspection. Negative for: Tenderness - Respiratory Exam Respiratory Exam: Clear to Auscultation Bilateral, NORMAL BREATHING PATTERN. absent: Accessory Muscle Use, Rales, Rhonchi, Wheezes, Respiratory Distress - Cardiovascular Exam Cardiovascular Exam: REGULAR RHYTHM, RRR, +S1, +S2. absent: Tachycardia, Diastolic murmur, Gallop, Irregular Rhythm, JVD, Rubs, Systolic Murmur - GI/Abdominal Exam GI & Abdominal Exam: Normal Bowel Sounds, Soft. absent: Tenderness - Extremities Exam Extremities exam: Positive for: calf tenderness, normal capillary refill, normal inspection, pedal pulses present. Negative for: full ROM, pedal edema, tenderness - Back Exam Back exam: NORMAL INSPECTION. absent: CVA tenderness (L), CVA tenderness (R) - Neurological Exam Neurological exam: Alert, CN II-XII Intact, Oriented x3, Reflexes Normal - Psychiatric Exam Psychiatric exam: Normal Affect, Normal Mood - Skin Skin Exam: Dry, Intact, Normal Color, Warm Results - Vital Signs Recent Vital Signs: Last Vital Signs Temp 97.5 F L 09/07/17 19:43 Pulse 83 09/07/17 19:43 Resp 18 09/07/17 19:43 BP 129/75 09/07/17 19:43 Pulse Ox 100 09/07/17 21:37 - Labs Result Diagrams: 09/07/17 20:32 09/07/17 20:32 Labs: Laboratory Results - last 24 hr 09/07/17 09/07/17 20:32 20:32 WBC 9.6 RBC 5.29 H Hgb 14.6 Hct 44.8 MCV 84.8 D MCH 27.7 MCHC 32.7 L RDW 13.3 Plt Count 132 MPV 9.5 Neut % (Auto) 70.9 Lymph % (Auto) 20.6 Ellis % (Auto) 6.8 Eos % (Auto) 0.6 Baso % (Auto) 1.1 Neut # (Auto) 6.8 Lymph # (Auto) 2.0 Ellis # (Auto) 0.7 Eos # (Auto) 0.1 Baso # (Auto) 0.1 Sodium 137 Potassium 5.1 H Chloride 96 L Carbon Dioxide 25 Anion Gap 21 H BUN 29 H Creatinine 1.0 Est GFR ( Amer) > 60 Est GFR (Non-Af Amer) 54 Random Glucose 275 H Calcium 9.8 Total Bilirubin 1.1 AST 65 H ALT 40 Alkaline Phosphatase 80 Troponin I 0.0330 Total Protein 8.1 Albumin 4.3 Globulin 3.9 Albumin/Globulin Ratio 1.1 Assessment & Plan - Assessment and Plan (Free Text) Assessment: 77 y/o female with extensive medical history admitted for evaluation of suspected syncopal episode. Plan: 1) Syncope/Pre-syncope -medication combo? dehydration? vasovagal? ischemia? -vitals stable -AAOx4 -head CT negative -labs/imaging unremarkable thus far -Troponin trending Q6H -Pro-bnp: pending -digoxin level: pending -orthostatic BP: pending -PT evaluation 2) Hyperkalemia: -5.1 -asymptomatic -likely 2/2 to Aldactone -monitor with BMP 3) Azotemia: -likely 2/2 to dehydration -1 L NS given -f/u BMP 4) Left Systolic Heart Failure with Decreased Ejection Fraction -chronic -stable -asymptomatic -LVEF in 02/2017: 10% -ACID in place -followed by Robert Lee -c/w furosemide/spironolactone/digoxin -Pro-BNP pending 5) NIDDM2: -oral hypoglycemics held -Levemir coverage scale 6) Hypertension -chronic -stable -c/w home meds as ordered 7) Hepatitis C -chronic -stable 8) Diet: -mod CC/heart healthy 9) Prophylaxis: -CrCl: 51 mL/min -Lovenox 40mg SC QD 10) Code Status: -full code
[2017-09-07] MEDS ORDERED: Glucagon Recombinant 1 mg Inj IM PRN (23:53)
[2017-09-07] MEDS ORDERED: Dextrose 50% SYRINGE Inj (50 ml) IV PRN (23:53)
[2017-09-08 03:21] LABS: BLOOD UREA NITROGEN 30 mg/dl (7-17); CALCIUM 9.5 mg/dL (8.4-10.2); GFR AFRICAN-AMERICAN > 60; GFR NON-AFRICAN AMERICAN 54
[2017-09-08] MEDS ORDERED: Insulin Lispro (humaLOG) 100 Units/ml Inj SC SCH (07:30)
--- NOTE | 2017-09-08 08:05 | CP.PCM.PN ---
Subjective - Date & Time of Evaluation Date of Evaluation: 09/08/17 Time of Evaluation: 08:03 - Subjective Subjective: Orthostatics taken this morning: Supine: BP 169/77, HR 60 Sitting: BP 170/81, HR 69 Standing: BP 158/80, HR 75 Pt reports that her "dizziness" has improved since last night. Upon standing for orthostatic vitals signs, she reports mild lightheadedness, denied palpitations, cp, sob. Objective - Vital Signs/Intake and Output Vital Signs (last 24 hours): Temp Pulse Resp BP Pulse Ox 98.0 F 62 18 160/80 H 98 09/08/17 05:00 09/08/17 05:00 09/08/17 05:00 09/08/17 05:00 09/08/17 05:00 - Medications Medications: Current Medications Amlodipine Besylate (Norvasc) 5 mg PO DAILY [facility] Aspirin (Aspirin Chewable) 81 mg PO DAILY [facility] Atorvastatin Calcium (Lipitor) 10 mg PO DAILY [facility] Carvedilol (Coreg) 12.5 mg PO Q12 [facility] Dextrose (Dextrose 50% Inj) 0 ml IV STAT PRN; Protocol PRN Reason: Hypoglycemia Protocol Dextrose (Glutose 15) 0 gm PO ONCE PRN; Protocol PRN Reason: Hypoglycemia Protocol Digoxin (Digoxin) 0.125 mg PO DAILY [facility] Enoxaparin Sodium (Lovenox) 40 mg SC DAILY [facility] PRN Reason: Protocol Furosemide (Lasix) 40 mg PO DAILY [facility] Gabapentin (Neurontin) 300 mg PO HS PRN PRN Reason: Other Glucagon (Glucagen Diagnostic Kit) 0 mg IM STAT PRN; Protocol PRN Reason: Hypoglycemia Protocol Lisinopril (Zestril) 10 mg PO DAILY [facility] Metformin HCl (Glucophage) 500 mg PO BID [facility] Pantoprazole Sodium (Protonix Ec Tab) 40 mg PO DAILY [facility] Repaglinide (Prandin) 1 mg PO DAILY [facility] Spironolactone (Aldactone) 25 mg PO DAILY [facility] - Labs Labs: 09/07/17 20:32 09/08/17 02:30 - Constitutional Appears: Well, Non-toxic, No Acute Distress - ENT Exam ENT Exam: Mucous Membranes Moist - Respiratory Exam Respiratory Exam: Clear to Ausculation Bilateral. absent: Rales, Wheezes - Cardiovascular Exam Cardiovascular Exam: REGULAR RHYTHM, +S1, +S2, Murmur - GI/Abdominal Exam GI & Abdominal Exam: Soft. absent: Distended, Tenderness - Neurological Exam Neurological Exam: Alert, Awake, Oriented x3 - Psychiatric Exam Psychiatric exam: Normal Affect - Skin Skin Exam: Normal Color Assessment and Plan - Assessment and Plan (Free Text) Assessment: 77 y/o female with extensive medical history admitted for evaluation of suspected syncopal episode. Plan: 1) Syncope/Pre-syncope -No new/witnessed syncopal events -Clinically suggestive of orthostatic hypotension 2/2 to antihypertensive medications. Orthostatic parameters wnl, however pt reported lightheadedness. I reviewed pt's functional capacity to take medication accordingly at home and she states that she is very independent and also has her medication packaged and delivered to her. Pt states she takes all of her medication in the morning except for Gabapentin which increases clinical suspicion for orthostatis due to antihypertensive medications taken all at once. 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 Will clarify with patient and her daughters. -Hemodynamically stable -Head CT negative -labs/imaging unremarkable thus far -Troponin negative x3 -Pro-bnp: 419 -digoxin level: pending -orthostatic BP:see top of note -PT evaluation 2) Hyperkalemia: -5.1 -asymptomatic -likely 2/2 to Aldactone -monitor with BMP 3) Azotemia: -likely 2/2 to dehydration -1 L NS given -f/u BMP 4) Left Systolic Heart Failure with Decreased Ejection Fraction -chronic -stable -asymptomatic -LVEF in 02/2017: 10% -ACID in place. Pt states she heard beeping noise that she believed was coming from pacemaker. -followed by Robert Lee -c/w furosemide/spironolactone/digoxin -Pro-BNP 418 5) NIDDM2: -c/w metformin. No plan for contrast studies -Levemir coverage scale 6) Hypertension -Normotensive -chronic -stable -c/w home meds as ordered 7) Hepatitis C -chronic -stable 8) Diet: -mod CC/heart healthy 9) Prophylaxis: -CrCl: 51 mL/min -Lovenox 40mg SC QD 10) Code Status: -full code
[2017-09-08] MEDS: Pantoprazole 40 mg EC Tab PO SCH (08:57)
[2017-09-08] MEDS: Digoxin 125 mcg (0.125 mg) Tab PO SCH (08:58)
[2017-09-08] MEDS: Enoxaparin 40 mg Syringe SC SCH (08:59)
--- NOTE | 2017-09-08 09:03 | RAD ---
PROCEDURE: Radiographs of the pelvis. HISTORY: trauma COMPARISON: CT scan of the abdomen and pelvis dated 11/16/2016. FINDINGS: BONES: Pelvic Bones: Unremarkable. Hips: Narrowing with subchondral sclerosis. JOINTS: Sacroiliac Joints: Unremarkable. Pubic Symphysis: Unremarkable. OTHER FINDINGS: None. IMPRESSION: No demonstrated fracture or dislocation. Bilateral hip degenerative changes.
--- NOTE | 2017-09-08 09:17 | RAD ---
PROCEDURE: CHEST RADIOGRAPH, 1 VIEW HISTORY: syncope COMPARISON: Chest radiograph dated 11/16/2016. FINDINGS: LUNGS: Clear. PLEURA: No pneumothorax or pleural fluid seen. CARDIOVASCULAR: New left subclavian access AICD/ pacemaker with leads terminating in the right atrium and right ventricle. Atherosclerotic aortic calcifications. Cardiomediastinal silhouette stably enlarged. OSSEOUS STRUCTURES: Unchanged. VISUALIZED UPPER ABDOMEN: Normal. OTHER FINDINGS: None. IMPRESSION: New left subclavian AICD/ pacemaker in satisfactory position. No appreciable pneumothorax. No focal consolidation or pleural effusion.
[2017-09-08 20:12] VITALS: RESP 18
[2017-09-08] MEDS ORDERED: Insulin Detemir 100 Units/ml Inj SC SCH (22:00)
[2017-09-09] MEDS: Pantoprazole 40 mg EC Tab PO SCH (09:11)
[2017-09-09 09:12] VITALS: PULSE 67
[2017-09-09] MEDS: Digoxin 125 mcg (0.125 mg) Tab PO SCH (09:12)
[2017-09-09] MEDS: Enoxaparin 40 mg Syringe SC SCH (09:12)
--- NOTE | 2017-09-09 09:31 | CP.PCM.CON ---
History of Present Illness - History of Present Illness History of Present Illness: This 77- year-old long-standing diabetic hypertensive female with known nonischemic cardiomyopathy who had severe left ventricular systolic dysfunction requiring an AICD implant in April of last year has come into the hospital having had a near syncopal episode at home while taking her for the breakfast table 80 the patient has had a sense of unsteadiness for number of years. Among her medications she was taking Coreg, Lasix, and Aldactone. The patient had discontinued metformin and arrived in the hospital with blood sugars exceeding 300 mg percent. She has had a bout of atrial fibrillation for which she was briefly started on anticoagulations. These were discontinued after history of repeated falling as well as a bout of GI bleed which was investigated and the patient was found to have gastritis and diverticulitis. The patient lives alone and has some degree of confusion and the possibility that she might have taken her medications in an erratic fashion exist also. Physical examination shows an elderly female who is alert and awake. She is able to answer simple questions currently. Telemetry shows atrial paced and ventricular sensed rhythm. Interoperation of her AICD has shown no evidence of atrial fibrillation or ventricular tachycardia. Her blood pressure lying down was 156/80 mmHg and upon standing up was 124/70 mmHg. Her jugular venous pressure was not elevated and there was no edema over lower extremities. Her pedal pulses were well felt. There were no carotid bruits. An AICD was in place in the left infraclavicular area. Her apex was not palpable. The first and second heart sounds are normal. There was no murmur or gallop there were no rales. Abdomen soft liver and spleen are not palpable. Her electric cardiogram shows atrial paced ventricular sensed rhythm. No Q waves were detected on electro-cardiogram. A coronary angiogram in September of last year shows nonobstructive coronary arteries and a left ventricular ejection fraction in the range of 20%. Her lab data shows normal hemoglobin and hematocrit with a marginally elevated BUN and creatinine. Her serum potassium was normal. Her proBNP was 450 pg per mL. Impression: Near syncopal episode in the patient demonstrates some degree of orthostatic changes to her blood pressure and was taking multiple medications that could contribute to her orthostatic hypotension including carvedilol, Lasix , Aldactone as well as lisinopril. Her blood sugar at admission was significantly limited which could have contradicted to osmotic diuresis and further drop in her systolic blood pressure. The patient had received intravenous fluids prior to this examination. I have discussed her case with her primary care physician and residents. I have requested an echocardiogram in light of the normal proBNP level. If her left ventricular systolic function has improved she will need less number of diuretics and with steady sinus rhythm with digoxin can be withdrawn. She will need better supervision of her compliance with medications. Past Patient History - Infectious Disease Hx of Infectious Diseases: None - Tetanus Immunizations Tetanus Immunization: Unknown - Past Medical History & Family History Past Medical History?: Yes - Past Social History Smoking Status: Never Smoked Alcohol: None Drugs: Denies Home Situation {Lives}: With Family - CARDIAC Hx Atrial Fibrillation: Yes Hx Congestive Heart Failure: Yes Hx Hypercholesterolemia: Yes Hx Hypertension: Yes Hx Pacemaker: No - PULMONARY Hx Asthma: Yes - NEUROLOGICAL Hx Neurological Disorder: No - HEENT Hx HEENT Problems: No - RENAL Hx Chronic Kidney Disease: No - ENDOCRINE/METABOLIC Hx Endocrine Disorders: Yes Hx Diabetes Mellitus Type 2: Yes - HEMATOLOGICAL/ONCOLOGICAL Hx Anemia: Yes Hx Human Immunodeficiency Virus (HIV): No - INTEGUMENTARY Hx Dermatological Problems: No - MUSCULOSKELETAL/RHEUMATOLOGICAL Hx Musculoskeletal Disorders: No - GASTROINTESTINAL Hx Diverticulitis: Yes (diverticulosis w polypectomy non-malignant) - GENITOURINARY/GYNECOLOGICAL Hx Genitourinary Disorders: No - PSYCHIATRIC Hx Depression: Yes - SURGICAL HISTORY Hx Surgeries: Yes Hx Cardiac Catheterization: Yes Other/Comment: OVARIAN TUMOR SURGERY - ANESTHESIA Hx Anesthesia: Yes Hx Anesthesia Reactions: No Hx Malignant Hyperthermia: No Meds Allergies/Adverse Reactions: Allergies Allergy/AdvReac Type Severity Reaction Status Date / Time No Known Allergies Allergy Verified 09/07/17 19:51 - Medications Medications: Current Medications Aspirin (Aspirin Chewable) 81 mg PO DAILY [facility] Last Admin: 09/09/17 09:11 Dose: 81 mg Atorvastatin Calcium (Lipitor) 10 mg PO DAILY [facility] Last Admin: 09/09/17 09:11 Dose: 10 mg Carvedilol (Coreg) 12.5 mg PO Q12 [facility] Last Admin: 09/09/17 09:11 Dose: 12.5 mg Dextrose (Dextrose 50% Inj) 0 ml IV STAT PRN; Protocol PRN Reason: Hypoglycemia Protocol Dextrose (Glutose 15) 0 gm PO ONCE PRN; Protocol PRN Reason: Hypoglycemia Protocol Enoxaparin Sodium (Lovenox) 40 mg SC DAILY [facility] PRN Reason: Protocol Last Admin: 09/09/17 09:12 Dose: 40 mg Furosemide (Lasix) 40 mg PO DAILY [facility] Last Admin: 09/09/17 09:10 Dose: 40 mg Gabapentin (Neurontin) 300 mg PO HS PRN PRN Reason: Insomnia Glucagon (Glucagen Diagnostic Kit) 0 mg IM STAT PRN; Protocol PRN Reason: Hypoglycemia Protocol Ibuprofen (Motrin Oral Susp) 200 mg PO Q6 PRN PRN Reason: Headache Last Admin: 09/08/17 20:52 Dose: 200 mg Lisinopril (Zestril) 10 mg PO DAILY [facility] Last Admin: 09/09/17 09:10 Dose: 10 mg Metformin HCl (Glucophage) 500 mg PO BID [facility] Last Admin: 09/09/17 09:10 Dose: 500 mg Pantoprazole Sodium (Protonix Ec Tab) 40 mg PO DAILY [facility] Last Admin: 09/09/17 09:11 Dose: 40 mg Repaglinide (Prandin) 1 mg PO DAILY [facility] Last Admin: 09/08/17 08:57 Dose: 1 mg Spironolactone (Aldactone) 25 mg PO DAILY [facility] Last Admin: 09/09/17 09:10 Dose: 25 mg Results - Vital Signs Recent Vital Signs: Last Vital Signs Temp 97.2 F L 09/09/17 07:59 Pulse 144 H 09/09/17 09:11 Resp 18 09/09/17 07:59 BP 142/83 09/09/17 09:11 Pulse Ox 98 09/09/17 07:59 - Labs Result Diagrams: 09/07/17 20:32 09/08/17 02:30 Labs: Laboratory Results - last 24 hr 09/08/17 09/08/17 09/08/17 08:31 10:19 10:40 POC Glucose (mg/dL) 259 H Troponin I 0.0370 Vitamin B12 Folate TSH 3rd Generation 2.59 RPR 09/08/17 09/08/17 09/08/17 12:44 12:44 16:11 POC Glucose (mg/dL) 276 H Troponin I Vitamin B12 456 Folate 19.0 TSH 3rd Generation RPR Nonreactive 09/08/17 09/09/17 21:25 05:20 POC Glucose (mg/dL) 269 H 181 H Troponin I Vitamin B12 Folate TSH 3rd Generation RPR
--- NOTE | 2017-09-09 11:04 | CARD ---
APPROVED REPORT EXAM: Two-dimensional and M-mode echocardiogram with Doppler and color Doppler. Other Information Quality : GoodRhythm : NSR INDICATION Congestive Heart Failure Surgery/Intervention Pacemaker: 2D DIMENSIONS IVSd1.51 (0.7-1.1cm)LVDd4.72 (3.9-5.9cm) LVOT Diameter2.10 (1.8-2.4cm)PWd1.10 (0.7-1.1cm) IVSs1.74 (0.8-1.2cm)LVDs3.63 (2.5-4.0cm) FS (%) 23.1 %PWs1.28 (0.8-1.2cm) M-Mode DIMENSIONS Left Atrium (MM)4.30 (2.5-4.0cm)IVSd1.57 (0.7-1.1cm) Aortic Root3.23 (2.2-3.7cm)LVDd5.02 (4.0-5.6cm) Aortic Cusp Exc.1.74 (1.5-2.0cm)PWd1.16 (0.7-1.1cm) IVSs1.99 cmFS (%) 31 % LVDs3.47 (2.0-3.8cm)PWs1.35 cm Mitral Valve MV E Ckvtncoi57.2cm/sMV DECEL [id number] A Yekxkpaq76.5cm/s MV BYI15kyO/A ratio0.5MVA (PHT)2.23cm2 TDI Lateral E' Peak V4.48cm/sMedial E' Peak V4.24cm/sE/Lateral E'10.3 E/Medial E'10.9 Pulmonary Valve PV Peak Xurrissv074.6cm/s LEFT VENTRICLE The left ventricle is normal size. There is normal left ventricular wall thickness. Left ventricle systolic function is normal. The Ejection Fraction is >55%. There is normal LV segmental wall motion. Transmitral Doppler flow pattern is Grade I-abnormal relaxation pattern. RIGHT VENTRICLE The right ventricle is normal size. AICD lead are seen in RV There is normal right ventricular wall thickness. The right ventricular systolic function is normal. ATRIA The left atrium size is normal. The right atrium size is normal. Pacing leads are seen in RA. AORTIC VALVE The aortic valve is normal in structure. No aortic regurgitation is present. There is no aortic valvular stenosis. MITRAL VALVE The mitral valve is normal in structure. There is no evidence of mitral valve prolapse. There is no mitral valve stenosis. Mitral regurgitation is mild. TRICUSPID VALVE The tricuspid valve is normal in structure. There is trace to mild tricuspid regurgitation. Right ventricular systolic pressure is estimated at 26 mmHg. There is no pulmonary hypertension. PULMONIC VALVE The pulmonary valve is normal in structure. There is no pulmonic valvular regurgitation. GREAT VESSELS The aortic root is normal in size. The IVC is normal in size and collapses >50% with inspiration. PERICARDIAL EFFUSION The pericardium appears normal. <Conclusion> The left ventricle is normal size. There is normal left ventricular wall thickness. There is normal LV segmental wall motion. Left ventricle systolic function is normal. The Ejection Fraction is >55%. Transmitral Doppler flow pattern is Grade I-abnormal relaxation pattern.
[2017-09-09 12:15] VITALS: BP 149/80; PULSE 64; TEMP 97.9; O2SAT 99
--- NOTE | 2017-09-09 14:29 | CP.PCM.DIS ---
Provider - Provider Date of Admission: 09/08/17 17:15 Attending physician: Kayla Magana MD Time Spent in preparation of Discharge (in minutes): 45 Diagnosis - Discharge Diagnosis (1) Syncope Status: Acute Comment: Likely Orthostatic Hypotension in the setting of multiple antihypertensive regimen. Cardiology consulted, medication regimen adjusted. Pacemaker interogated, no arrythmia noted. (2) CHF (congestive heart failure) Status: Chronic Comment: Echo completed, EF improved to 55%. Digoxin D/C as per marshmallow maker, Dr. Lee. (3) HTN (hypertension) Status: Chronic Comment: BP medications adjusted. Reviewed with pt and called pharmacy to confirm changes in meds. Hospital Course - Lab Results Lab Results: Most Recent Lab Values WBC 9.6 K/uL (4.8-10.8) 09/07/17 20:32 RBC 5.29 Mil/uL (3.80-5.20) H 09/07/17 20:32 Hgb 14.6 g/dL (12.0-16.0) 09/07/17 20:32 Hct 44.8 % (34.0-47.0) 09/07/17 20:32 MCV 84.8 fl (81.0-99.0) D 09/07/17 20:32 MCH 27.7 pg (27.0-31.0) 09/07/17 20:32 MCHC 32.7 g/dL (33.0-37.0) L 09/07/17 20:32 RDW 13.3 % (11.5-14.5) 09/07/17 20:32 Plt Count 132 K/uL (130-400) 09/07/17 20:32 MPV 9.5 fl (7.2-11.7) 09/07/17 20:32 Neut % (Auto) 70.9 % (50.0-75.0) 09/07/17 20:32 Lymph % (Auto) 20.6 % (20.0-40.0) 09/07/17 20:32 [place] % (Auto) 6.8 % (0.0-10.0) 09/07/17 20:32 Eos % (Auto) 0.6 % (0.0-4.0) 09/07/17 20:32 Baso % (Auto) 1.1 % (0.0-2.0) 09/07/17 20:32 Neut # (Auto) 6.8 K/uL (1.8-7.0) 09/07/17 20:32 Lymph # (Auto) 2.0 K/uL (1.0-4.3) 09/07/17 20:32 [place] # (Auto) 0.7 K/uL (0.0-0.8) 09/07/17 20:32 Eos # (Auto) 0.1 K/uL (0.0-0.7) 09/07/17 20:32 Baso # (Auto) 0.1 K/uL (0.0-0.2) 09/07/17 20:32 Sodium 137 mmol/l (132-148) 09/08/17 02:30 Potassium 4.5 MMOL/L (3.6-5.0) 09/08/17 02:30 Chloride 100 mmol/L (98-107) 09/08/17 02:30 Carbon Dioxide 23 mmol/L (22-30) 09/08/17 02:30 Anion Gap 19 (10-20) 09/08/17 02:30 BUN 30 mg/dl (7-17) H 09/08/17 02:30 Creatinine 1.0 mg/dl (0.7-1.2) 09/08/17 02:30 Est GFR ( Amer) > 60 09/08/17 02:30 Est GFR (Non-Af Amer) 54 09/08/17 02:30 POC Glucose (mg/dL) 308 mg/dL (65-110) H 09/09/17 11:02 Random Glucose 317 mg/dL (65-105) H 09/08/17 02:30 Calcium 9.5 mg/dL (8.4-10.2) 09/08/17 02:30 Total Bilirubin 1.1 mg/dl (0.2-1.3) 09/07/17 20:32 AST 65 U/L (14-36) H 09/07/17 20:32 ALT 40 U/L (9-52) 09/07/17 20:32 Alkaline Phosphatase 80 U/L (38-126) 09/07/17 20:32 Troponin I 0.0370 ng/mL (0.00-0.120) 09/08/17 08:31 NT-Pro-B Natriuret Pep 419 pg/ml (0-900) 09/08/17 02:30 Total Protein 8.1 G/DL (6.3-8.2) 09/07/17 20:32 Albumin 4.3 g/dL (3.5-5.0) 09/07/17 20:32 Globulin 3.9 gm/dL (2.2-3.9) 09/07/17 20:32 Albumin/Globulin Ratio 1.1 (1.0-2.1) 09/07/17 20:32 Vitamin B12 456 pg/mL (239-931) 09/08/17 12:44 Folate 19.0 ng/mL 09/08/17 12:44 TSH 3rd Generation 2.59 mIU/ML (0.46-4.68) 09/08/17 10:19 Digoxin 1.0 ng/mL (0.8-2.0) 09/08/17 02:30 RPR Nonreactive (NONREACTIVE) 09/08/17 12:44 - Hospital Course Hospital Course: Consultations: Cardiology (Dr. Lee- BP meds adjusted, Echo EF 55%) Procedures: None Hospital Course: 77 y/o female, with PMHx of CHF, HTN, NIDDM2, Asthma, with pacemaker/ defibrillator, admitted to the hospital for Syncope. Workup revealed syncopal episode is likely related to pt's multiple antihypertensive regimen. Pt stable on d/c. Discharge Medication: Spironolactone and Digoxin D/C'd. Lasix dosage changed to 20mg daily. Called pharmacy to verfy d/c of old medications. Ibuprofen d/c Discharge Instructions: Pt instructed on new medication regimen. Advised to take Lasix in the evening. Pt strongly advised not to take Nsaids including ibuprofen as this may worsen her CHF. Alternative medication discussed. Pt verbalized understanding. 3 Discharge Exam - Head Exam Head Exam: ATRAUMATIC, NORMOCEPHALIC - ENT Exam ENT Exam: Mucous Membranes Moist - Respiratory Exam Respiratory Exam: Clear to PA & Lateral. absent: Rhonchi, Wheezes - Cardiovascular Exam Cardiovascular Exam: REGULAR RHYTHM, +S1, +S2. absent: Systolic Murmur - GI/Abdominal Exam GI & Abdominal Exam: Soft. absent: Distended, Tenderness - Extremities Exam Extremities exam: normal inspection - Neurological Exam Neurological exam: Alert, Oriented x3 - Psychiatric Exam Psychiatric exam: Normal Affect Discharge Plan - Discharge Medications Prescriptions: Carvedilol [Coreg] 6.25 mg PO Q12 30 Days #60 tab Furosemide [Lasix] 20 mg PO DAILY 30 Days #30 tab - Follow Up Plan Condition: FAIR Disposition: HOME/ ROUTINE Instructions: Syncope (Fainting) (DC) Additional Instructions: follow up with pmd on 09/27 Referrals: Deanne Leung MD [Family Provider] - 09/27/17 8:00 pm
== END 2017-09-09 15:30 | disposition home or self-care (01) | DRG 312 ==
LOC: H.ER 19:39 → H.ERHOLD 21:34 → H.TEL 22:54 → OBSVTOIN 09-08 17:15
PROVIDERS: ADMIT Family Medicine Geriatric Medicine; ATTEND Family Medicine Geriatric Medicine
DX: I95.2 Hypotension due to drugs (principal); E87.5 Hyperkalemia; I11.0 Hypertensive heart disease with heart failure; I50.22 Chronic systolic (congestive) heart failure; E86.0 Dehydration; E11.9 Type 2 diabetes mellitus without complications; I48.91 Unspecified atrial fibrillation; I42.8 Other cardiomyopathies; B18.2 Chronic viral hepatitis C; E78.00 Pure hypercholesterolemia, unspecified; F32.9 Major depressive disorder, single episode, unspecified; J45.909 Unspecified asthma, uncomplicated; T46.5X5A Adverse effect of other antihypertensive drugs, initial encounter; F41.9 Anxiety disorder, unspecified; K21.9 Gastro-esophageal reflux disease without esophagitis; Z95.810 Presence of automatic (implantable) cardiac defibrillator

== ENCOUNTER 2018-01-25 19:06 | Inpatient (IN) | payer MEDICARE, MEDICAID ==
[2018-01-25 19:06] VITALS: PULSE 67
[2018-01-25] MEDS ORDERED: Nitroglycerin 2% Ointment Foilpak UD TOP STA (20:03)
[2018-01-25 20:06] LABS: BASO # 0.1 K/uL (0.0-0.2); EOS % 0.5 % (0.0-4.0); LYMPH # 2.1 K/uL (1.0-4.3); LYMPH % 26.7 % (20.0-40.0); MEAN CELL VOLUME 87.8 fl (81.0-99.0); MEAN CORPUSCULAR HEMOGLOBIN 28.1 pg (27.0-31.0); MEAN PLATELET VOLUME 9.5 fl (7.2-11.7); MONO # 0.8 K/uL (0.0-0.8); MONO % 10.6 % (0.0-10.0); NEUT # 4.8 K/uL (1.8-7.0); NEUT % 61.2 % (50.0-75.0); RBC 4.64 Mil/uL (3.80-5.20); RED CELL DISTRIBUTION WIDTH 14.4 % (11.5-14.5); WHITE BLOOD COUNT 7.9 K/uL (4.8-10.8)
--- NOTE | 2018-01-25 20:08 | ED PDOC ---
HPI: SOB/CHF/COPD Time Seen by Provider: 01/25/18 19:27 Chief Complaint (Nursing): Shortness Of Breath Chief Complaint (Provider): Shortness Of Breath History Per: Patient History/Exam Limitations: no limitations Onset/Duration Of Symptoms: Days (x2) Current Symptoms Are (Timing): Still Present Additional Complaint(s): 78 y/o female with a PMHx of a-fib, HTN, diabetes, pacemaker, and CHF presenting for evaluation of shortness of breath x2 days. Patient is describing dyspnea on exertion. She denies any chest pain, nausea, vomiting, or diaphoresis. She states she may have mild swelling to her feet. She reports shortness of breath is worse with recumbence. PMD: [facility] Past Medical History Reviewed: Historical Data, Nursing Documentation, Vital Signs Vital Signs: Last Vital Signs Temp 97.3 F L 01/26/18 00:20 Pulse 87 01/26/18 02:17 Resp 16 01/26/18 02:17 BP 152/89 H 01/26/18 00:20 Pulse Ox 98 01/26/18 00:20 - Medical History PMH: Anemia, Asthma, Atrial Fibrillation, CHF, Depression, Diabetes, Diverticulitis (diverticulosis w polypectomy non-malignant), HTN, Hypercholesterolemia Denies: HIV, Chronic Kidney Disease - Surgical History Surgical History: Denies: Pacemaker - Family History Family History: States: Unknown Family Hx - Social History Current smoker - smoking cessation education provided: No Alcohol: None Drugs: Denies - Home Medications Home Medications: Ambulatory Orders Medication Instructions Recorded Aspirin [Aspirin Chewable] 81 mg PO DAILY #0 11/06/16 Atorvastatin [Lipitor] 10 mg PO DAILY #30 tab 11/06/16 Gabapentin [Neurontin] 300 mg PO HS PRN cap 11/06/16 Meclizine [Antivert] 12.5 mg PO DAILY 11/30/16 Omeprazole 20 mg PO DAILY 11/30/16 Repaglinide [Prandin] 1 mg PO DAILY 11/30/16 metFORMIN [glucOPHAGE] 500 mg PO BID 11/30/16 Lisinopril [Zestril] DAILY 09/07/17 Carvedilol [Coreg] 6.25 mg PO Q12 30 Days #60 tab 09/09/17 Furosemide [Lasix] 20 mg PO DAILY 30 Days #30 tab 09/09/17 - Allergies Allergies/Adverse Reactions: Allergies Allergy/AdvReac Type Severity Reaction Status Date / Time No Known Allergies Allergy Verified 01/25/18 19:09 Review of Systems ROS Statement: Except As Marked, All Systems Reviewed And Found Negative Constitutional: Negative for: Sweats Cardiovascular: Negative for: Chest Pain Respiratory: Positive for: Shortness of Breath, SOB with Exertion Gastrointestinal: Negative for: Nausea, Vomiting Physical Exam - Reviewed Nursing Documentation Reviewed: Yes Vital Signs Reviewed: Yes - Physical Exam Appears: Positive for: Non-toxic, No Acute Distress Head Exam: Positive for: ATRAUMATIC, NORMAL INSPECTION, NORMOCEPHALIC Skin: Positive for: Normal Color, Warm, DRY Eye Exam: Positive for: EOMI, Normal appearance, PERRL ENT: Positive for: Normal ENT Inspection Neck: Positive for: Normal, Painless ROM Cardiovascular/Chest: Positive for: JVD (+1) Respiratory: Positive for: Crackles (bibasilar) Gastrointestinal/Abdominal: Positive for: Normal Exam, Soft. Negative for: Tenderness Back: Positive for: Normal Inspection. Negative for: L CVA Tenderness, R CVA Tenderness, Vertebral Tenderness Extremity: Positive for: Normal ROM. Negative for: Pedal Edema, Deformity Neurologic/Psych: Positive for: Alert, Oriented (x3). Negative for: Motor/ Sensory Deficits - Laboratory Results Result Diagrams: 01/25/18 20:00 01/25/18 20:00 - ECG O2 Sat by Pulse Oximetry: 100 (RA) Pulse Ox Interpretation: Normal Medical Decision Making Medical Decision Makin:31 Impression: 78 y/o female with acute mild exacerbation of CHF Plan: -EKg -BNP -CMP -Troponin I -CBC -PTT/PT -CXR -Heplock insertion -Accucheck -Reevaluation 20:50 Labs reviewed and found significant for markedly elevated pro-BNP. Patient will be placed under observation for CHF. Case accepted by Dr. Umm Zelaya, resident conical mixer. Scribe Attestation: Documented by Brett Davila, acting as a scribe for Joey Williamson MD. Provider Scribe Attestation: All medical record entries made by the Scribe were at my direction and personally dictated by me. I have reviewed the chart and agree that the record accurately reflects my personal performance of the history, physical exam, medical decision making, and the department course for this patient. I have also personally directed, reviewed, and agree with the discharge instructions and disposition. Disposition - Clinical Impression Clinical Impression: CHF (congestive heart failure) - Patient ED Disposition Is Patient to be Admitted: Yes - Disposition Disposition Time: 20:50 Condition: FAIR - Pt Status Changed To: Hospital Disposition Of: Observation
[2018-01-25 20:17] LABS: INR 1.3 (0.9-1.2); PARTIAL THROMBOPLASTIN TIME 33.5 Seconds (25.6-37.1); PROTHROMBIN TIME 13.9 Seconds (9.8-13.1)
[2018-01-25] MEDS ORDERED: Nitroglycerin 2% Ointment Foilpak UD TOP ONE (20:21)
[2018-01-25 20:29] LABS: ALB/GLOB RATIO 1.2 (1.0-2.1); ALBUMIN 4.2 g/dL (3.5-5.0); ALT/SGPT 21 U/L (9-52); AST/SGOT 39 U/L (14-36); BLOOD UREA NITROGEN 19 mg/dl (7-17); CALCIUM 9.3 mg/dL (8.4-10.2); GFR NON-AFRICAN AMERICAN > 60
[2018-01-25 20:47] LABS: B-TYPE NATRIURETIC PEPTIDE 6740 pg/ml (0-900)
--- NOTE | 2018-01-25 21:16 | CP.PCM.HP ---
History of Present Illness - History of Present Illness History of Present Illness: History taken from patient and medical records Full code PMD: Dr Leung, [place] Stitcher Dr Lee 77-year-old F with PMhx of HTN, NIDDM, CHF, nonischemic cardiomyopathy S/P AICD implant in April of last year presented to ED c/o worsening SOB for the past 2 -3 days. As per patient she was taking all her meds as prescribed. Admits fatigue. Denies CP, palpitations, vomiting, nausea, lightheadedness or changes in urination or stools. Patient admits drinking "a lot" of water. ED course VS HR 95, BP 138/90, O2sat 99 RA, afebrile CBC Unremarkable CMP. BUN 19, AST 39 rest WNL trop x1 normal ProBnp: 6740 EKG: Sinus rhythm wit occasional PVCs, T wave abnormality(Pending official) CXR: NO focal consolidation, No obvious pleural effusion: Pending report Lasix 40 mg IV once Nitro-Bid top once Admit for Obs PMHx: CHF, HTN, NIDDM2, Hep C, Asthma, Anxiety, Depression, GERD ALL: NKDA PsurgHx: breast biopsy 04/2014 SocialHx: denies ETOH/Tobacco/drug abuse FamilyHx: no known family hx, several children, all healthy Next of kin: daughterLadan [phone] Present on Admission - Present on Admission Any Indicators Present on Admission: No Review of Systems - Review of Systems All systems: reviewed and no additional remarkable complaints except (Those described on HPI) Past Patient History - Infectious Disease Hx of Infectious Diseases: None - Tetanus Immunizations Tetanus Immunization: Unknown - Past Medical History & Family History Past Medical History?: Yes - Past Social History Alcohol: None Drugs: Denies - CARDIAC Hx Atrial Fibrillation: Yes Hx Congestive Heart Failure: Yes Hx Hypercholesterolemia: Yes Hx Hypertension: Yes Hx Pacemaker: No - PULMONARY Hx Asthma: Yes - NEUROLOGICAL Hx Neurological Disorder: No - HEENT Hx HEENT Problems: No - RENAL Hx Chronic Kidney Disease: No - ENDOCRINE/METABOLIC Hx Endocrine Disorders: Yes Hx Diabetes Mellitus Type 2: Yes - HEMATOLOGICAL/ONCOLOGICAL Hx Anemia: Yes Hx Human Immunodeficiency Virus (HIV): No - INTEGUMENTARY Hx Dermatological Problems: No - MUSCULOSKELETAL/RHEUMATOLOGICAL Hx Musculoskeletal Disorders: No - GASTROINTESTINAL Hx Diverticulitis: Yes (diverticulosis w polypectomy non-malignant) - GENITOURINARY/GYNECOLOGICAL Hx Genitourinary Disorders: No - PSYCHIATRIC Hx Depression: Yes - SURGICAL HISTORY Hx Surgeries: Yes Hx Cardiac Catheterization: Yes Other/Comment: OVARIAN TUMOR SURGERY - ANESTHESIA Hx Anesthesia: Yes Hx Anesthesia Reactions: No Hx Malignant Hyperthermia: No Meds Allergies/Adverse Reactions: Allergies Allergy/AdvReac Type Severity Reaction Status Date / Time No Known Allergies Allergy Verified 01/25/18 19:09 Physical Exam - Constitutional Appears: Non-toxic, Chronically Ill - Eye Exam Eye Exam: EOMI, PERRL - ENT Exam ENT Exam: Mucous Membranes Moist - Neck Exam Neck exam: Positive for: Full Rom. Negative for: Lymphadenopathy - Respiratory Exam Respiratory Exam: Rales (BB), NORMAL BREATHING PATTERN. absent: Decreased Breath Sounds, Clear to Auscultation Bilateral, Rhonchi, Wheezes, Respiratory Distress - Cardiovascular Exam Cardiovascular Exam: Irregular Rhythm, +S1, +S2. absent: Gallop - GI/Abdominal Exam GI & Abdominal Exam: Normal Bowel Sounds, Soft. absent: Distended, Firm, Guarding, Rebound, Rigid, Tenderness - Extremities Exam Extremities exam: Positive for: normal capillary refill, pedal edema (Mild/ Nonpitting), pedal pulses present. Negative for: calf tenderness - Neurological Exam Neurological exam: Alert, Oriented x3 - Psychiatric Exam Psychiatric exam: Normal Affect, Normal Mood - Skin Skin Exam: Pallor, Warm Results - Vital Signs Recent Vital Signs: Last Vital Signs Temp 97.0 F L 01/25/18 19:21 Pulse 95 H 01/25/18 21:05 Resp 21 01/25/18 19:54 BP 139/71 01/25/18 21:05 Pulse Ox 100 01/25/18 21:00 - Labs Result Diagrams: 01/25/18 20:00 01/25/18 20:00 Labs: Laboratory Results - last 24 hr 01/25/18 01/25/18 01/25/18 20:00 20:00 20:00 WBC 7.9 RBC 4.64 Hgb 13.0 Hct 40.7 MCV 87.8 D MCH 28.1 MCHC 32.0 L RDW 14.4 Plt Count 165 MPV 9.5 Neut % (Auto) 61.2 Lymph % (Auto) 26.7 [place] % (Auto) 10.6 H Eos % (Auto) 0.5 Baso % (Auto) 1.0 Neut # (Auto) 4.8 Lymph # (Auto) 2.1 [place] # (Auto) 0.8 Eos # (Auto) 0.0 Baso # (Auto) 0.1 PT 13.9 H INR 1.3 H APTT 33.5 Sodium 140 Potassium 3.7 Chloride 98 Carbon Dioxide 30 Anion Gap 16 BUN 19 H Creatinine 0.7 Est GFR ( Amer) > 60 Est GFR (Non-Af Amer) > 60 POC Glucose (mg/dL) Random Glucose 149 H Calcium 9.3 Total Bilirubin 1.1 AST 39 H D ALT 21 Alkaline Phosphatase 59 Troponin I 0.0240 NT-Pro-B Natriuret Pep 6740 H Total Protein 7.6 Albumin 4.2 Globulin 3.4 Albumin/Globulin Ratio 1.2 01/25/18 20:22 WBC RBC Hgb Hct MCV MCH MCHC RDW Plt Count MPV Neut % (Auto) Lymph % (Auto) [place] % (Auto) Eos % (Auto) Baso % (Auto) Neut # (Auto) Lymph # (Auto) [place] # (Auto) Eos # (Auto) Baso # (Auto) PT INR APTT Sodium Potassium Chloride Carbon Dioxide Anion Gap BUN Creatinine Est GFR ( Amer) Est GFR (Non-Af Amer) POC Glucose (mg/dL) 138 H Random Glucose Calcium Total Bilirubin AST ALT Alkaline Phosphatase Troponin I NT-Pro-B Natriuret Pep Total Protein Albumin Globulin Albumin/Globulin Ratio Assessment & Plan - Assessment and Plan (Free Text) Assessment: 78 y/o F with PMhx of NIDDM, HTN, CHF is admitted to CHF exacerbation CHF exacerbation SOB, Probnp elevated, mild LE edema Has hx of systolic CHF but last Echo 4 m/a showed EF=55%. States compliance with meds Might be related to increased PO fluids intake VS stable as well as mental status S/P Lasix and Nitrobid at ED Restart all home meds including Lasix 20 mg, Lisinopril 10mg, Atorvastatin 10 mg , Coreg 6.25mg Q12h Fluid restriction and low Na diet Daily Wts and I&O Patient has AICD placed Admit to Obs NIDDM Last Hgb1c <8, 4 m/a C/W home meds ACB and Hypoglycemia protocol HTN Chronic C/w home meds Monitor DVT prophylaxis SCDs Lovenox 40 mg HS
[2018-01-25] MEDS ORDERED: Glucagon Recombinant 1 mg Inj IM PRN (21:28)
[2018-01-25] MEDS ORDERED: Dextrose 50% SYRINGE Inj (50 ml) IV PRN (21:28)
--- NOTE | 2018-01-26 06:37 | CP.PCM.PN ---
Subjective - Date & Time of Evaluation Date of Evaluation: 01/26/18 Time of Evaluation: 07:00 - Subjective Subjective: Pt is seen and examined at bed side. Pt was lying at bed receiving oxygen by nasal canulla. Pt state that she still feel SOB, and epigastric pain, she still dont feel any improvement. Pt denies fever, chills, headache, chest pain, constipation diarrhea, dysuria, polyuria, or any other symptoms Objective - Vital Signs/Intake and Output Vital Signs (last 24 hours): Temp Pulse Resp BP Pulse Ox 97.6 F 78 18 123/86 96 01/26/18 05:00 01/26/18 05:00 01/26/18 05:00 01/26/18 05:00 01/26/18 05:00 - Medications Medications: Current Medications Aspirin (Aspirin Chewable) 81 mg PO DAILY [facility] Atorvastatin Calcium (Lipitor) 10 mg PO DAILY [facility] Carvedilol (Coreg) 6.25 mg PO Q12 [facility] Dextrose (Dextrose 50% Inj) 0 ml IV STAT PRN; Protocol PRN Reason: Hypoglycemia Protocol Dextrose (Glutose 15) 0 gm PO ONCE PRN; Protocol PRN Reason: Hypoglycemia Protocol Enoxaparin Sodium (Lovenox) 40 mg SC HS JUNO PRN Reason: Protocol Furosemide (Lasix) 20 mg PO DAILY [place] Gabapentin (Neurontin) 300 mg PO HS PRN PRN Reason: Other Glucagon (Glucagen Diagnostic Kit) 0 mg IM STAT PRN; Protocol PRN Reason: Hypoglycemia Protocol Lisinopril (Zestril) 10 mg PO DAILY [facility] Metformin HCl (Glucophage) 500 mg PO BID [facility] Repaglinide (Prandin) 1 mg PO DAILY [facility] - Labs Labs: 01/25/18 20:00 01/25/18 20:00 PT 13.9 Seconds (9.8-13.1) H 01/25/18 20:00 INR 1.3 (0.9-1.2) H 01/25/18 20:00 APTT 33.5 Seconds (25.6-37.1) 01/25/18 20:00 - Constitutional Appears: Well, Non-toxic, No Acute Distress - Head Exam Head Exam: ATRAUMATIC, NORMAL INSPECTION, NORMOCEPHALIC - Eye Exam Eye Exam: EOMI, Normal appearance, PERRL Pupil Exam: NORMAL ACCOMODATION, PERRL - ENT Exam ENT Exam: Mucous Membranes Moist, Normal Exam - Neck Exam Neck Exam: Full ROM, Normal Inspection - Respiratory Exam Respiratory Exam: Clear to Ausculation Bilateral, NORMAL BREATHING PATTERN - Cardiovascular Exam Cardiovascular Exam: REGULAR RHYTHM, +S1, +S2 - GI/Abdominal Exam GI & Abdominal Exam: Soft, Tenderness, Normal Bowel Sounds Additional comments: epigastric tenderness - Extremities Exam Extremities Exam: Full ROM, Normal Capillary Refill, Normal Inspection - Back Exam Back Exam: NORMAL INSPECTION. absent: CVA tenderness (L), CVA tenderness (R) - Neurological Exam Neurological Exam: Alert, Awake, Oriented x3 - Psychiatric Exam Psychiatric exam: Normal Affect, Normal Mood - Skin Skin Exam: Dry, Intact, Normal Color, Warm Assessment and Plan - Assessment and Plan (Free Text) Assessment: Assessment: 78 yo f with pmh of NIDDM, HTN, CHF, is admitted to CHF exacerbation. CHF exacerbation Systolic CHF but last Echo 4 m/a showed EF=35-40% SOB, Pro-bnp elevated, mild LE edema. 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
--- NOTE | 2018-01-26 09:01 | RAD ---
Date of service: 01/25/2018 HISTORY: chest pain COMPARISON: Portable chest 09/07/2017. FINDINGS: LUNGS: No active pulmonary disease. PLEURA: No significant pleural effusion identified, no pneumothorax apparent. CARDIOVASCULAR: Cardiac silhouette appears more prominent which may be a function of frontal technique. All pulmonary vascular congestion is also in question. Permanent cardiac pacemaker/AICD stable in appearance. OSSEOUS STRUCTURES: No significant abnormalities. VISUALIZED UPPER ABDOMEN: Mild elevation of right hemidiaphragm noted. OTHER FINDINGS: None. IMPRESSION: Limited pulmonary vascular congestion in question. Clinically correlate further. No acute infiltrate, pleural effusion or pneumothorax identified. Mild elevation of right hemidiaphragm noted.
--- NOTE | 2018-01-26 10:52 | CP.PCM.CON ---
History of Present Illness - History of Present Illness History of Present Illness: This 78-year-old hypertensive diabetic female came into the emergency room after experiencing severe shortness of breath and eventual orthopnea. She was diagnosed to have dilated cardiomyopathy when she was hospitalized in early 2016 with severe congestive cardiac failure and was found to have a severely dysfunctional left ventricle with an ejection fraction in the range of 10-15%. A coronary angiogram in September revealed no significant obstructive coronary lesions and a diagnosis of nonischemic cardial by Janett was made. The patient eventually required an AICD placement in late 2016. The patient has had bouts of atrial flutter fibrillation. The patient has been extremely noncompliant as far as taking medications or sticking to a low salt diet is concerned. By her own admission she has been eating salty food and arrived in the emergency room profoundly short of breath. Physical examination reveals a elderly anxious female who is alert and awake and mildly confused. She reports significant diuresis after furosemide was administered with relief of shortness of breath to some extent. Her heart rate was 70 bpm regular and her blood pressure was 130/70 mmHg lying down and standing up. Her jugular veins with distended up to the angle of the jaw with severe CVA complexes her apex was in the sixth space slightly heaving in character the first heart sound was muffled the second heart sound was normal there was an S3 gallop. With a apical systolic murmur of mitral regurgitation. There was mild pedal edema which was pitting in nature with well felt pedal pulses and no carotid bruits. Her extremities were warm and nailbeds were pink. There was no central or peripheral cyanosis. There were scattered rales at both bases. Her abdomen was soft and liver and spleen are not palpable. The electric cardiac gram showed sinus rhythm with nonspecific ST-T changes no Q waves were detected on her cardiogram. The pattern of her cardiogram has not significantly changed since September of last year. Her lab data showed a BUN/creatinine of 19 and 0.7 mg percent respectively his electrolytes were normal her proBNP was 6740 pg per mL her blood sugar was 138 mg percent. Her hemoglobin and hematocrit were normal her WBC count and platelet counts were normal as well chest x-ray revealed an AICD in place with mild pulmonary congestion and blunted costophrenic angle on the left side. There was mild cardiomegaly. Echocardiogram of September this year shows mildly dysfunctional left ventricle with an ejection fraction in the range of 35-40%. Impression: Nonischemic congestive cardiomyopathy with poor compliance with medications and diet. Status post insertion of an AICD. Diabetes mellitus. I have impressed upon the patient the need for salt and starts restrictions. I have started her on intravenous Diuretics and her renal function and electrolytes will be monitored. I have spoken with her daughter at length and the need for proper salt and starts restriction was stressed again. Past Patient History - Infectious Disease Hx of Infectious Diseases: None - Tetanus Immunizations Tetanus Immunization: Unknown - Past Medical History & Family History Past Medical History?: Yes - Past Social History Alcohol: None Drugs: Denies - CARDIAC Hx Atrial Fibrillation: Yes Hx Congestive Heart Failure: Yes Hx Hypercholesterolemia: Yes Hx Hypertension: Yes Hx Pacemaker: No - PULMONARY Hx Asthma: Yes - NEUROLOGICAL Hx Neurological Disorder: Yes - HEENT Hx HEENT Problems: No - RENAL Hx Chronic Kidney Disease: No - ENDOCRINE/METABOLIC Hx Endocrine Disorders: Yes - HEMATOLOGICAL/ONCOLOGICAL Hx Anemia: Yes Hx Human Immunodeficiency Virus (HIV): No - INTEGUMENTARY Hx Dermatological Problems: No - MUSCULOSKELETAL/RHEUMATOLOGICAL Hx Musculoskeletal Disorders: No Hx Falls: No - GASTROINTESTINAL Hx Diverticulitis: Yes (diverticulosis w polypectomy non-malignant) - GENITOURINARY/GYNECOLOGICAL Hx Genitourinary Disorders: No - PSYCHIATRIC Hx Depression: Yes - SURGICAL HISTORY Hx Surgeries: Yes Hx Cardiac Catheterization: Yes Other/Comment: OVARIAN TUMOR SURGERY - ANESTHESIA Hx Anesthesia: Yes Hx Anesthesia Reactions: No Hx Malignant Hyperthermia: No Meds Allergies/Adverse Reactions: Allergies Allergy/AdvReac Type Severity Reaction Status Date / Time No Known Allergies Allergy Verified 01/25/18 19:09 - Medications Medications: Current Medications Aspirin (Aspirin Chewable) 81 mg PO DAILY [facility] Last Admin: 01/26/18 08:31 Dose: 81 mg Atorvastatin Calcium (Lipitor) 10 mg PO DAILY [facility] Last Admin: 01/26/18 08:29 Dose: 10 mg Carvedilol (Coreg) 6.25 mg PO Q12 [facility] Last Admin: 01/26/18 08:30 Dose: 6.25 mg Dextrose (Dextrose 50% Inj) 0 ml IV STAT PRN; Protocol PRN Reason: Hypoglycemia Protocol Dextrose (Glutose 15) 0 gm PO ONCE PRN; Protocol PRN Reason: Hypoglycemia Protocol Enoxaparin Sodium (Lovenox) 40 mg SC HS [facility] PRN Reason: Protocol Famotidine (Pepcid) 20 mg PO BID [facility] Furosemide (Lasix) 40 mg IVP DAILY [facility] Gabapentin (Neurontin) 300 mg PO HS PRN PRN Reason: Other Glucagon (Glucagen Diagnostic Kit) 0 mg IM STAT PRN; Protocol PRN Reason: Hypoglycemia Protocol Lisinopril (Zestril) 10 mg PO DAILY [facility] Last Admin: 01/26/18 08:29 Dose: 10 mg Metformin HCl (Glucophage) 500 mg PO BID [facility] Last Admin: 01/26/18 08:30 Dose: 500 mg Repaglinide (Prandin) 1 mg PO DAILY [facility] Last Admin: 01/26/18 08:29 Dose: 1 mg Results - Vital Signs Recent Vital Signs: Last Vital Signs Temp 98.0 F 01/26/18 08:41 Pulse 95 H 01/26/18 08:41 Resp 20 01/26/18 08:41 BP 154/111 H 01/26/18 08:41 Pulse Ox 97 01/26/18 08:41 - Labs Result Diagrams: 01/25/18 20:00 01/25/18 20:00 Labs: Laboratory Results - last 24 hr 01/25/18 01/25/18 01/25/18 20:00 20:00 20:00 WBC 7.9 RBC 4.64 Hgb 13.0 Hct 40.7 MCV 87.8 D MCH 28.1 MCHC 32.0 L RDW 14.4 Plt Count 165 MPV 9.5 Neut % (Auto) 61.2 Lymph % (Auto) 26.7 [place] % (Auto) 10.6 H Eos % (Auto) 0.5 Baso % (Auto) 1.0 Neut # (Auto) 4.8 Lymph # (Auto) 2.1 [place] # (Auto) 0.8 Eos # (Auto) 0.0 Baso # (Auto) 0.1 PT 13.9 H INR 1.3 H APTT 33.5 Sodium 140 Potassium 3.7 Chloride 98 Carbon Dioxide 30 Anion Gap 16 BUN 19 H Creatinine 0.7 Est GFR ( Amer) > 60 Est GFR (Non-Af Amer) > 60 POC Glucose (mg/dL) Random Glucose 149 H Calcium 9.3 Total Bilirubin 1.1 AST 39 H D ALT 21 Alkaline Phosphatase 59 Troponin I 0.0240 NT-Pro-B Natriuret Pep 6740 H Total Protein 7.6 Albumin 4.2 Globulin 3.4 Albumin/Globulin Ratio 1.2 01/25/18 01/26/18 20:22 05:27 WBC RBC Hgb Hct MCV MCH MCHC RDW Plt Count MPV Neut % (Auto) Lymph % (Auto) [place] % (Auto) Eos % (Auto) Baso % (Auto) Neut # (Auto) Lymph # (Auto) [place] # (Auto) Eos # (Auto) Baso # (Auto) PT INR APTT Sodium Potassium Chloride Carbon Dioxide Anion Gap BUN Creatinine Est GFR ( Amer) Est GFR (Non-Af Amer) POC Glucose (mg/dL) 138 H 105 Random Glucose Calcium Total Bilirubin AST ALT Alkaline Phosphatase Troponin I NT-Pro-B Natriuret Pep Total Protein Albumin Globulin Albumin/Globulin Ratio
--- NOTE | 2018-01-26 12:31 | CARD ---
APPROVED REPORT Date of service: 01/25/2018 EKG Measurement Heart [id number] KS 172P [id number] <Conclusion> Sinus rhythm with occasional premature ventricular complexes T wave abnormality, consider lateral ischemia Abnormal ECG
[2018-01-26 12:59] VITALS: BMI 25.0
[2018-01-26] MEDS: Enoxaparin 40 mg Syringe SC SCH (21:42)
[2018-01-27 05:22] LABS: BLOOD UREA NITROGEN 20 mg/dl (7-17); CALCIUM 9.2 mg/dL (8.4-10.2); GFR NON-AFRICAN AMERICAN > 60; HDL CHOLESTEROL 41 MG/DL (30-70)
[2018-01-27 05:59] LABS: LDL CHOLESTEROL < 30 mg/dL (0-129)
[2018-01-27] MEDS: Multivitamin With Minerals Tab PO SCH (08:54)
[2018-01-27] MEDS: Pantoprazole 40 mg EC Tab PO SCH (08:58)
--- NOTE | 2018-01-27 11:21 | CP.PCM.PN ---
Subjective - Date & Time of Evaluation Date of Evaluation: 01/27/18 Time of Evaluation: 09:15 - Subjective Subjective: The patient reports significant diuresis following intravenous administration of Lasix She was able to lie virtually flat last night and sleep well. Telemetry shows sinus rhythm with intermittent ventricular paced rhythm. Her blood pressure was 120/80 mmHg lying down as well as standing up. Her jugular venous pressure was elevated and there was minimal pitting edema over ankles There was no S3 gallop. There were few basal rales still audible. Lab data from this morning shows stable BUN/creatinine as well as GFR. Electrolytes were normal I have instructed the patient to ambulate when her daughter visits today to find out if she has good effort tolerance. I have spoken with her daughter at length and emphasize the importance of salt restriction in her diet at home to avoid recurring hospitalizations. Objective - Vital Signs/Intake and Output Vital Signs (last 24 hours): Temp Pulse Resp BP Pulse Ox 97.5 F L 93 H 20 140/95 H 97 01/27/18 08:25 01/27/18 08:54 01/27/18 08:25 01/27/18 08:54 01/27/18 08:25 - Medications Medications: Current Medications Aspirin (Aspirin Chewable) 81 mg PO DAILY [facility] Last Admin: 01/27/18 08:54 Dose: 81 mg Atorvastatin Calcium (Lipitor) 10 mg PO DAILY [facility] Last Admin: 01/27/18 08:54 Dose: 10 mg Carvedilol (Coreg) 6.25 mg PO Q12 [facility] Last Admin: 01/27/18 08:54 Dose: 6.25 mg Dextrose (Dextrose 50% Inj) 0 ml IV STAT PRN; Protocol PRN Reason: Hypoglycemia Protocol Dextrose (Glutose 15) 0 gm PO ONCE PRN; Protocol PRN Reason: Hypoglycemia Protocol Enoxaparin Sodium (Lovenox) 40 mg SC HS [facility] PRN Reason: Protocol Last Admin: 01/26/18 21:42 Dose: 40 mg Famotidine (Pepcid) 20 mg PO BID [facility] Last Admin: 01/27/18 08:53 Dose: 20 mg Furosemide (Lasix) 40 mg IVP DAILY [facility] Last Admin: 01/27/18 08:52 Dose: 40 mg Gabapentin (Neurontin) 300 mg PO HS PRN PRN Reason: Other Glucagon (Glucagen Diagnostic Kit) 0 mg IM STAT PRN; Protocol PRN Reason: Hypoglycemia Protocol Lisinopril (Zestril) 10 mg PO DAILY [facility] Last Admin: 01/27/18 08:53 Dose: 10 mg Metformin HCl (Glucophage) 500 mg PO BID [facility] Last Admin: 01/27/18 08:54 Dose: 500 mg Multivitamins/Minerals (Therapeutic-M Tab) 1 tab PO DAILY [facility] Last Admin: 01/27/18 08:54 Dose: 1 tab Pantoprazole Sodium (Protonix Ec Tab) 40 mg PO DAILY [facility] Last Admin: 01/27/18 08:58 Dose: 40 mg Repaglinide (Prandin) 1 mg PO DAILY [facility] Last Admin: 01/27/18 08:53 Dose: 1 mg - Labs Labs: 01/25/18 20:00 01/27/18 04:20 PT 13.9 Seconds (9.8-13.1) H 01/25/18 20:00 INR 1.3 (0.9-1.2) H 01/25/18 20:00 APTT 33.5 Seconds (25.6-37.1) 01/25/18 20:00
--- NOTE | 2018-01-27 12:17 | CP.PCM.PN ---
<James Villafuerte - Last Filed: 01/27/18 13:17> Subjective - Date & Time of Evaluation Date of Evaluation: 01/27/18 Time of Evaluation: 07:00 - Subjective Subjective: Pt is seen and examined at bed site. No acute even over night. Pt was lying on bed comfortable with no acute distress. Pt state that her SOB have resolved, she dont need the nasal cannula anymore. She state that her Legs are not swollen anymore. She still complain of epigastric pain and acid reflux, that is exacerbated with food but no acute changes. Pt denies fever, chills, dizziness, chest pain, diarrhea, constipation, dysuria or polyuria. Objective - Vital Signs/Intake and Output Vital Signs (last 24 hours): Temp Pulse Resp BP Pulse Ox 97.5 F L 93 H 20 140/95 H 97 01/27/18 08:25 01/27/18 08:54 01/27/18 08:25 01/27/18 08:54 01/27/18 08:25 - Medications Medications: Current Medications Aspirin (Aspirin Chewable) 81 mg PO DAILY [facility] Last Admin: 01/27/18 08:54 Dose: 81 mg Atorvastatin Calcium (Lipitor) 10 mg PO DAILY [facility] Last Admin: 01/27/18 08:54 Dose: 10 mg Carvedilol (Coreg) 6.25 mg PO Q12 [facility] Last Admin: 01/27/18 08:54 Dose: 6.25 mg Dextrose (Dextrose 50% Inj) 0 ml IV STAT PRN; Protocol PRN Reason: Hypoglycemia Protocol Dextrose (Glutose 15) 0 gm PO ONCE PRN; Protocol PRN Reason: Hypoglycemia Protocol Enoxaparin Sodium (Lovenox) 40 mg SC HS [facility] PRN Reason: Protocol Last Admin: 01/26/18 21:42 Dose: 40 mg Famotidine (Pepcid) 20 mg PO BID [facility] Last Admin: 01/27/18 08:53 Dose: 20 mg Furosemide (Lasix) 40 mg IVP DAILY [facility] Last Admin: 01/27/18 08:52 Dose: 40 mg Gabapentin (Neurontin) 300 mg PO HS PRN PRN Reason: Other Glucagon (Glucagen Diagnostic Kit) 0 mg IM STAT PRN; Protocol PRN Reason: Hypoglycemia Protocol Lisinopril (Zestril) 10 mg PO DAILY [facility] Last Admin: 01/27/18 08:53 Dose: 10 mg Metformin HCl (Glucophage) 500 mg PO BID [facility] Last Admin: 01/27/18 08:54 Dose: 500 mg Multivitamins/Minerals (Therapeutic-M Tab) 1 tab PO DAILY [facility] Last Admin: 01/27/18 08:54 Dose: 1 tab Pantoprazole Sodium (Protonix Ec Tab) 40 mg PO DAILY [facility] Last Admin: 01/27/18 08:58 Dose: 40 mg Repaglinide (Prandin) 1 mg PO DAILY [facility] Last Admin: 01/27/18 08:53 Dose: 1 mg - Labs Labs: 01/25/18 20:00 01/27/18 04:20 PT 13.9 Seconds (9.8-13.1) H 01/25/18 20:00 INR 1.3 (0.9-1.2) H 01/25/18 20:00 APTT 33.5 Seconds (25.6-37.1) 01/25/18 20:00 - Constitutional Appears: Well, Non-toxic, No Acute Distress - Head Exam Head Exam: ATRAUMATIC, NORMAL INSPECTION, NORMOCEPHALIC - Eye Exam Eye Exam: EOMI, Normal appearance, PERRL Pupil Exam: NORMAL ACCOMODATION, PERRL - ENT Exam ENT Exam: Mucous Membranes Moist, Normal Exam - Neck Exam Neck Exam: Full ROM, Normal Inspection - Respiratory Exam Respiratory Exam: Clear to Ausculation Bilateral, NORMAL BREATHING PATTERN. absent: Rales, Rhonchi, Wheezes, Respiratory Distress, Stridor - Cardiovascular Exam Cardiovascular Exam: REGULAR RHYTHM, JVD, +S1, +S2. absent: RRR, Rubs, +S4, Murmur - GI/Abdominal Exam GI & Abdominal Exam: Soft, Tenderness, Normal Bowel Sounds Additional comments: Epigastric tenderness - Extremities Exam Extremities Exam: Full ROM, Normal Capillary Refill, Normal Inspection. absent : Joint Swelling, Pedal Edema, Tenderness - Back Exam Back Exam: Full ROM, NORMAL INSPECTION. absent: CVA tenderness (L), CVA tenderness (R) - Neurological Exam Neurological Exam: Alert, Awake, Oriented x3 - Psychiatric Exam Psychiatric exam: Normal Affect, Normal Mood. absent: Agitated, Anxious - Skin Skin Exam: Dry, Intact, Normal Color, Warm Assessment and Plan - Assessment and Plan (Free Text) Plan: 78 yo f with pmh of NIDDM, HTN, CHF, is admitted to CHF exacerbation. CHF exacerbation Improving Systolic CHF but last Echo 4 m/a showed EF=35-40% Pro-bnp elevated States compliance with meds May related to increased PO fluids intake Patient has AICD placed Continue Lasix 40mg iv daily continue Lisinopril 10mg, Atorvastatin 10 mg, Coreg 6.25mg Q12h Fluid restriction and low Na diet BMP WNL 6 mint walk stress test F/U BMP F/U Vitals Epigastric pain Tenderness on Epigastric area Acid reflux Continue Pepcid 20mg BID Continue Protonix 40mg PO NIDDM Continue Metformin 500mg, Prandin 1mg ACB and Hypoglycemia protocol F/U HA1C Lipid panel WNL monitor Vitals HTN Chronic Continue home meds Monitor DVT prophylaxis SCDs Lovenox 40 mg HS <Vkitoria Schaefer - Last Filed: 01/28/18 08:57> Objective - Vital Signs/Intake and Output Vital Signs (last 24 hours): Temp Pulse Resp BP Pulse Ox 97.6 F 74 20 127/84 96 01/28/18 08:00 01/28/18 08:27 01/28/18 08:00 01/28/18 08:27 01/28/18 08:00 - Medications Medications: Current Medications Aspirin (Aspirin Chewable) 81 mg PO DAILY [facility] Last Admin: 01/28/18 08:27 Dose: 81 mg Atorvastatin Calcium (Lipitor) 10 mg PO DAILY [facility] Last Admin: 01/28/18 08:26 Dose: 10 mg Carvedilol (Coreg) 6.25 mg PO Q12 [facility] Last Admin: 01/28/18 08:27 Dose: 6.25 mg Dextrose (Dextrose 50% Inj) 0 ml IV STAT PRN; Protocol PRN Reason: Hypoglycemia Protocol Dextrose (Glutose 15) 0 gm PO ONCE PRN; Protocol PRN Reason: Hypoglycemia Protocol Enoxaparin Sodium (Lovenox) 40 mg SC HS [facility] PRN Reason: Protocol Last Admin: 01/27/18 21:26 Dose: 40 mg Famotidine (Pepcid) 20 mg PO BID [facility] Last Admin: 01/28/18 08:27 Dose: 20 mg Furosemide (Lasix) 40 mg IVP DAILY [facility] Last Admin: 01/28/18 08:26 Dose: 40 mg Gabapentin (Neurontin) 300 mg PO HS PRN PRN Reason: Other Glucagon (Glucagen Diagnostic Kit) 0 mg IM STAT PRN; Protocol PRN Reason: Hypoglycemia Protocol Lisinopril (Zestril) 10 mg PO DAILY [facility] Last Admin: 01/28/18 08:26 Dose: 10 mg Metformin HCl (Glucophage) 500 mg PO BID [facility] Last Admin: 01/28/18 08:27 Dose: 500 mg Multivitamins/Minerals (Therapeutic-M Tab) 1 tab PO DAILY [facility] Last Admin: 01/28/18 08:27 Dose: 1 tab Pantoprazole Sodium (Protonix Ec Tab) 40 mg PO DAILY [facility] Last Admin: 01/28/18 08:26 Dose: 40 mg Repaglinide (Prandin) 1 mg PO DAILY [facility] Last Admin: 01/28/18 08:27 Dose: 1 mg - Labs Labs: 01/25/18 20:00 01/28/18 06:00 PT 13.9 Seconds (9.8-13.1) H 01/25/18 20:00 INR 1.3 (0.9-1.2) H 01/25/18 20:00 APTT 33.5 Seconds (25.6-37.1) 01/25/18 20:00 Attending/Attestation - Attestation I have personally seen and examined this patient.: Yes I have fully participated in the care of the patient.: Yes I have reviewed all pertinent clinical information, including history, physical exam and plan: Yes
[2018-01-27] MEDS: Enoxaparin 40 mg Syringe SC SCH (21:26)
[2018-01-28 08:02] LABS: BLOOD UREA NITROGEN 20 mg/dl (7-17); CALCIUM 9.1 mg/dL (8.4-10.2); GFR NON-AFRICAN AMERICAN > 60
[2018-01-28] MEDS: Pantoprazole 40 mg EC Tab PO SCH (08:26)
[2018-01-28] MEDS: Multivitamin With Minerals Tab PO SCH (08:27)
[2018-01-28] MEDS ORDERED: Albuterol-Ipratrop 3 mg / 0.5 (3 ml) UD INH ONE (08:37)
--- NOTE | 2018-01-28 10:26 | CP.PCM.PN ---
Subjective - Date & Time of Evaluation Date of Evaluation: 01/28/18 Time of Evaluation: 10:00 - Subjective Subjective: Continues to be dyspnoic on walking 20-30 feet HR 68 BPM, BP 122/80 mm Hg JVP still [id number] Few Basal rales+ Weight 163 lbs at admission today 162 lbs No change in BMP All indicators point to minimal diuresis if at all since admission Will increase Lasix to BID and add Aldactone Objective - Vital Signs/Intake and Output Vital Signs (last 24 hours): Temp Pulse Resp BP Pulse Ox 97.6 F 74 20 127/84 96 01/28/18 08:00 01/28/18 08:27 01/28/18 08:00 01/28/18 08:27 01/28/18 08:00 - Medications Medications: Current Medications Aspirin (Aspirin Chewable) 81 mg PO DAILY [facility] Last Admin: 01/28/18 08:27 Dose: 81 mg Atorvastatin Calcium (Lipitor) 10 mg PO DAILY [facility] Last Admin: 01/28/18 08:26 Dose: 10 mg Carvedilol (Coreg) 6.25 mg PO Q12 [facility] Last Admin: 01/28/18 08:27 Dose: 6.25 mg Dextrose (Dextrose 50% Inj) 0 ml IV STAT PRN; Protocol PRN Reason: Hypoglycemia Protocol Dextrose (Glutose 15) 0 gm PO ONCE PRN; Protocol PRN Reason: Hypoglycemia Protocol Enoxaparin Sodium (Lovenox) 40 mg SC HS [facility] PRN Reason: Protocol Last Admin: 01/27/18 21:26 Dose: 40 mg Famotidine (Pepcid) 20 mg PO BID [facility] Last Admin: 01/28/18 08:27 Dose: 20 mg Furosemide (Lasix) 40 mg IVP BID [facility] Gabapentin (Neurontin) 300 mg PO HS PRN PRN Reason: Other Glucagon (Glucagen Diagnostic Kit) 0 mg IM STAT PRN; Protocol PRN Reason: Hypoglycemia Protocol Lisinopril (Zestril) 10 mg PO DAILY [facility] Last Admin: 01/28/18 08:26 Dose: 10 mg Metformin HCl (Glucophage) 500 mg PO BID [facility] Last Admin: 01/28/18 08:27 Dose: 500 mg Multivitamins/Minerals (Therapeutic-M Tab) 1 tab PO DAILY [facility] Last Admin: 01/28/18 08:27 Dose: 1 tab Pantoprazole Sodium (Protonix Ec Tab) 40 mg PO DAILY [facility] Last Admin: 01/28/18 08:26 Dose: 40 mg Repaglinide (Prandin) 1 mg PO DAILY [facility] Last Admin: 01/28/18 08:27 Dose: 1 mg Spironolactone (Aldactone) 50 mg PO DAILY [facility] - Labs Labs: 01/25/18 20:00 01/28/18 06:00 PT 13.9 Seconds (9.8-13.1) H 01/25/18 20:00 INR 1.3 (0.9-1.2) H 01/25/18 20:00 APTT 33.5 Seconds (25.6-37.1) 01/25/18 20:00
--- NOTE | 2018-01-28 11:32 | CP.PCM.PN ---
<Aurelio Flores - Last Filed: 01/28/18 11:24> Subjective - Date & Time of Evaluation Date of Evaluation: 01/28/18 Time of Evaluation: 08:45 - Subjective Subjective: Patient seen and examined this morning. There are no acute events overnight, NAD. Patient reports improvement but still complains of breathing problems w/ exertion. Patient has no other complaints. Objective - Vital Signs/Intake and Output Vital Signs (last 24 hours): Temp Pulse Resp BP Pulse Ox 97.6 F 74 20 127/84 96 01/28/18 08:00 01/28/18 08:27 01/28/18 08:00 01/28/18 08:27 01/28/18 08:00 - Medications Medications: Current Medications Aspirin (Aspirin Chewable) 81 mg PO DAILY [facility] Last Admin: 01/28/18 08:27 Dose: 81 mg Atorvastatin Calcium (Lipitor) 10 mg PO DAILY [facility] Last Admin: 01/28/18 08:26 Dose: 10 mg Carvedilol (Coreg) 6.25 mg PO Q12 [facility] Last Admin: 01/28/18 08:27 Dose: 6.25 mg Dextrose (Dextrose 50% Inj) 0 ml IV STAT PRN; Protocol PRN Reason: Hypoglycemia Protocol Dextrose (Glutose 15) 0 gm PO ONCE PRN; Protocol PRN Reason: Hypoglycemia Protocol Enoxaparin Sodium (Lovenox) 40 mg SC HS JUNO PRN Reason: Protocol Last Admin: 01/27/18 21:26 Dose: 40 mg Famotidine (Pepcid) 20 mg PO BID [facility] Last Admin: 01/28/18 08:27 Dose: 20 mg Furosemide (Lasix) 40 mg IVP BID [facility] Gabapentin (Neurontin) 300 mg PO HS PRN PRN Reason: Other Glucagon (Glucagen Diagnostic Kit) 0 mg IM STAT PRN; Protocol PRN Reason: Hypoglycemia Protocol Lisinopril (Zestril) 10 mg PO DAILY [facility] Last Admin: 01/28/18 08:26 Dose: 10 mg Metformin HCl (Glucophage) 500 mg PO BID [facility] Last Admin: 01/28/18 08:27 Dose: 500 mg Multivitamins/Minerals (Therapeutic-M Tab) 1 tab PO DAILY [facility] Last Admin: 01/28/18 08:27 Dose: 1 tab Pantoprazole Sodium (Protonix Ec Tab) 40 mg PO DAILY [facility] Last Admin: 01/28/18 08:26 Dose: 40 mg Repaglinide (Prandin) 1 mg PO DAILY [facility] Last Admin: 01/28/18 08:27 Dose: 1 mg Spironolactone (Aldactone) 50 mg PO DAILY [facility] - Labs Labs: 01/25/18 20:00 01/28/18 06:00 PT 13.9 Seconds (9.8-13.1) H 01/25/18 20:00 INR 1.3 (0.9-1.2) H 01/25/18 20:00 APTT 33.5 Seconds (25.6-37.1) 01/25/18 20:00 - Constitutional Appears: Non-toxic, No Acute Distress - Head Exam Head Exam: ATRAUMATIC, NORMAL INSPECTION, NORMOCEPHALIC - Eye Exam Eye Exam: Normal appearance - ENT Exam ENT Exam: Mucous Membranes Moist - Neck Exam Neck Exam: Full ROM. absent: Tenderness - Respiratory Exam Respiratory Exam: Rales (minimal bibasilar crackles on auscultation). absent: Rhonchi, Wheezes, Respiratory Distress - Cardiovascular Exam Cardiovascular Exam: absent: Tachycardia - GI/Abdominal Exam GI & Abdominal Exam: Soft, Tenderness (mild epigastric tenderness), Normal Bowel Sounds - Extremities Exam Extremities Exam: Normal Inspection. absent: Pedal Edema - Neurological Exam Neurological Exam: Alert, Awake, Normal Gait, Oriented x3 - Skin Skin Exam: Dry, Intact, Normal Color, Warm Assessment and Plan - Assessment and Plan (Free Text) Assessment: 78 y/o woman w/ pmh of NIDDM, HTN, CHF, is admitted for CHF exacerbation. Plan: acute on chronic CHF exacerbation - Improving - Systolic CHF but last Echo 09/09/2017 showed EF=35-40% - Pro-bnp elevated - Mmost likely related to increased PO fluids intake - Patient has AICD placed - start spironolactone 50 mg PO daily - lasix increase to 40 mg IV BID - c/w Lisinopril 10mg, Atorvastatin 10 mg, Coreg 6.25mg Q12h - Fluid restriction and low Na diet - BMP WNL - 6 mint walk stress test to assess if patient needs home O2 - F/U BMP - monitor for acute changes Epigastric pain - Tenderness on Epigastric area - Acid reflux - Continue Pepcid 20mg BID - Continue Protonix 40mg PO NIDDM - Continue Metformin 500mg, Prandin 1mg - Hypoglycemia protocol - HbA1c 8.3% - Lipid panel WNL - monitor Vitals HTN - Chronic - Continue home meds - Monitor DVT prophylaxis - SCDs - Lovenox 40 mg HS <SilvanoViktoria - Last Filed: 01/29/18 09:01> Objective - Vital Signs/Intake and Output Vital Signs (last 24 hours): Temp Pulse Resp BP Pulse Ox 98 F 76 20 138/86 97 01/29/18 08:00 01/29/18 08:21 01/29/18 08:00 01/29/18 08:21 01/29/18 08:00 - Medications Medications: Current Medications Aspirin (Aspirin Chewable) 81 mg PO DAILY [facility] Last Admin: 01/29/18 08:20 Dose: 81 mg Atorvastatin Calcium (Lipitor) 10 mg PO DAILY [facility] Last Admin: 01/29/18 08:19 Dose: 10 mg Carvedilol (Coreg) 6.25 mg PO Q12 [facility] Last Admin: 01/29/18 08:20 Dose: 6.25 mg Dextrose (Dextrose 50% Inj) 0 ml IV STAT PRN; Protocol PRN Reason: Hypoglycemia Protocol Dextrose (Glutose 15) 0 gm PO ONCE PRN; Protocol PRN Reason: Hypoglycemia Protocol Enoxaparin Sodium (Lovenox) 40 mg SC HS JUNO PRN Reason: Protocol Last Admin: 01/28/18 21:46 Dose: 40 mg Famotidine (Pepcid) 20 mg PO BID [facility] Last Admin: 01/29/18 08:19 Dose: 20 mg Furosemide (Lasix) 40 mg IVP BID [facility] Last Admin: 01/29/18 08:18 Dose: 40 mg Gabapentin (Neurontin) 300 mg PO HS PRN PRN Reason: Other Glucagon (Glucagen Diagnostic Kit) 0 mg IM STAT PRN; Protocol PRN Reason: Hypoglycemia Protocol Lisinopril (Zestril) 10 mg PO DAILY [facility] Last Admin: 01/29/18 08:21 Dose: 10 mg Metformin HCl (Glucophage) 500 mg PO BID [facility] Last Admin: 01/29/18 08:20 Dose: 500 mg Multivitamins/Minerals (Therapeutic-M Tab) 1 tab PO DAILY [facility] Last Admin: 01/29/18 08:21 Dose: 1 tab Pantoprazole Sodium (Protonix Ec Tab) 40 mg PO DAILY [facility] Last Admin: 01/29/18 08:19 Dose: 40 mg Repaglinide (Prandin) 1 mg PO DAILY [facility] Last Admin: 01/29/18 08:19 Dose: 1 mg Spironolactone (Aldactone) 50 mg PO DAILY [facility] Last Admin: 01/29/18 08:19 Dose: 50 mg - Labs Labs: 01/25/18 20:00 01/29/18 05:30 PT 13.9 Seconds (9.8-13.1) H 01/25/18 20:00 INR 1.3 (0.9-1.2) H 01/25/18 20:00 APTT 33.5 Seconds (25.6-37.1) 01/25/18 20:00 Attending/Attestation - Attestation I have personally seen and examined this patient.: Yes I have fully participated in the care of the patient.: Yes I have reviewed all pertinent clinical information, including history, physical exam and plan: Yes Notes (Text): 01/29/18 09:00 Attending Note - Attestation -Discussed with [employer] Manager Dr. Lee. Increase meds lasix to bid and adding spironolactone. Continue to monitor
[2018-01-28] MEDS ORDERED: Simethicone 40 mg/0.6 ml Liquid (30 ml) PO PRN (12:55)
[2018-01-28] MEDS ORDERED: Alum-Mag Hydrox-Simethicone Susp (30 mL) PO ONE (12:59)
[2018-01-28] MEDS: Enoxaparin 40 mg Syringe SC SCH (21:46)
[2018-01-29 07:31] LABS: BLOOD UREA NITROGEN 21 mg/dl (7-17); CALCIUM 9.4 mg/dL (8.4-10.2); GFR NON-AFRICAN AMERICAN > 60
--- NOTE | 2018-01-29 07:48 | CP.PCM.PN ---
Objective - Vital Signs/Intake and Output Vital Signs (last 24 hours): Temp Pulse Resp BP Pulse Ox 97.8 F 93 H 18 118/72 98 01/29/18 04:49 01/29/18 04:49 01/29/18 04:49 01/29/18 04:49 01/29/18 04:49 - Medications Medications: Current Medications Aspirin (Aspirin Chewable) 81 mg PO DAILY [facility] Last Admin: 01/28/18 08:27 Dose: 81 mg Atorvastatin Calcium (Lipitor) 10 mg PO DAILY [facility] Last Admin: 01/28/18 08:26 Dose: 10 mg Carvedilol (Coreg) 6.25 mg PO Q12 [facility] Last Admin: 01/28/18 21:45 Dose: 6.25 mg Dextrose (Dextrose 50% Inj) 0 ml IV STAT PRN; Protocol PRN Reason: Hypoglycemia Protocol Dextrose (Glutose 15) 0 gm PO ONCE PRN; Protocol PRN Reason: Hypoglycemia Protocol Enoxaparin Sodium (Lovenox) 40 mg SC HS JUNO PRN Reason: Protocol Last Admin: 01/28/18 21:46 Dose: 40 mg Famotidine (Pepcid) 20 mg PO BID [facility] Last Admin: 01/28/18 17:00 Dose: 20 mg Furosemide (Lasix) 40 mg IVP BID [facility] Last Admin: 01/28/18 17:00 Dose: 40 mg Gabapentin (Neurontin) 300 mg PO HS PRN PRN Reason: Other Glucagon (Glucagen Diagnostic Kit) 0 mg IM STAT PRN; Protocol PRN Reason: Hypoglycemia Protocol Lisinopril (Zestril) 10 mg PO DAILY [facility] Last Admin: 01/28/18 08:26 Dose: 10 mg Metformin HCl (Glucophage) 500 mg PO BID [facility] Last Admin: 01/28/18 16:59 Dose: 500 mg Multivitamins/Minerals (Therapeutic-M Tab) 1 tab PO DAILY [facility] Last Admin: 01/28/18 08:27 Dose: 1 tab Pantoprazole Sodium (Protonix Ec Tab) 40 mg PO DAILY [facility] Last Admin: 01/28/18 08:26 Dose: 40 mg Repaglinide (Prandin) 1 mg PO DAILY [facility] Last Admin: 01/28/18 08:27 Dose: 1 mg Spironolactone (Aldactone) 50 mg PO DAILY [facility] Last Admin: 01/28/18 12:48 Dose: 50 mg - Labs Labs: 01/25/18 20:00 01/29/18 05:30 PT 13.9 Seconds (9.8-13.1) H 01/25/18 20:00 INR 1.3 (0.9-1.2) H 01/25/18 20:00 APTT 33.5 Seconds (25.6-37.1) 01/25/18 20:00 Assessment and Plan - Assessment and Plan (Free Text) Assessment: Assessment: 78 y/o woman w/ pmh of NIDDM, HTN, CHF, is admitted for CHF exacerbation. Plan: acute on chronic CHF exacerbation - Improving - Systolic CHF but last Echo 09/09/2017 showed EF=35-40% - Pro-bnp elevated - Mmost likely related to increased PO fluids intake - Patient has AICD placed - start spironolactone 50 mg PO daily - lasix increase to 40 mg IV BID - c/w Lisinopril 10mg, Atorvastatin 10 mg, Coreg 6.25mg Q12h - Fluid restriction and low Na diet - BMP WNL - 6 mint walk stress test to assess if patient needs home O2 - F/U BMP - monitor for acute changes Epigastric pain - Tenderness on Epigastric area - Acid reflux - Continue Pepcid 20mg BID - Continue Protonix 40mg PO NIDDM - Continue Metformin 500mg, Prandin 1mg - Hypoglycemia protocol - HbA1c 8.3% - Lipid panel WNL - monitor Vitals HTN - Chronic - Continue home meds - Monitor DVT prophylaxis - SCDs - Lovenox 40 mg HS
[2018-01-29 08:09] VITALS: BP 138/86; PULSE 76; RESP 20; TEMP 98; O2SAT 97
[2018-01-29] MEDS: Pantoprazole 40 mg EC Tab PO SCH (08:19)
[2018-01-29] MEDS: Multivitamin With Minerals Tab PO SCH (08:21)
--- NOTE | 2018-01-29 09:02 | CP.PCM.PN ---
Subjective - Date & Time of Evaluation Date of Evaluation: 01/29/18 Time of Evaluation: 08:30 - Subjective Subjective: Diuresed well with addl IV Lasix and a dose of Aldactone Weighs 160 lbs today from 162.4 Lbs yesterday BP 120/74 mm Hg JVP mildly elevated, no rales Chest: no rales, no pedal oedema Labs stable (BUN/ Creatinin stable, K+ normal) Pulse OX remained at 99% during a walk for PT May go home on Lasix 40 mg daily and Spironolactone 25 daily along with the rwst of her meds Spoke with her daughter re daily weights and need for salt/carb restriction Objective - Vital Signs/Intake and Output Vital Signs (last 24 hours): Temp Pulse Resp BP Pulse Ox 98 F 76 20 138/86 97 01/29/18 08:00 01/29/18 08:21 01/29/18 08:00 01/29/18 08:21 01/29/18 08:00 - Medications Medications: Current Medications Aspirin (Aspirin Chewable) 81 mg PO DAILY [facility] Last Admin: 01/29/18 08:20 Dose: 81 mg Atorvastatin Calcium (Lipitor) 10 mg PO DAILY [facility] Last Admin: 01/29/18 08:19 Dose: 10 mg Carvedilol (Coreg) 6.25 mg PO Q12 [facility] Last Admin: 01/29/18 08:20 Dose: 6.25 mg Dextrose (Dextrose 50% Inj) 0 ml IV STAT PRN; Protocol PRN Reason: Hypoglycemia Protocol Dextrose (Glutose 15) 0 gm PO ONCE PRN; Protocol PRN Reason: Hypoglycemia Protocol Enoxaparin Sodium (Lovenox) 40 mg SC HS [facility]UN[facility] PRN Reason: Protocol Last Admin: 01/28/18 21:46 Dose: 40 mg Famotidine (Pepcid) 20 mg PO BID [facility] Last Admin: 01/29/18 08:19 Dose: 20 mg Furosemide (Lasix) 40 mg IVP BID [facility] Last Admin: 01/29/18 08:18 Dose: 40 mg Gabapentin (Neurontin) 300 mg PO HS PRN PRN Reason: Other Glucagon (Glucagen Diagnostic Kit) 0 mg IM STAT PRN; Protocol PRN Reason: Hypoglycemia Protocol Lisinopril (Zestril) 10 mg PO DAILY [facility] Last Admin: 01/29/18 08:21 Dose: 10 mg Metformin HCl (Glucophage) 500 mg PO BID [facility] Last Admin: 01/29/18 08:20 Dose: 500 mg Multivitamins/Minerals (Therapeutic-M Tab) 1 tab PO DAILY [facility] Last Admin: 01/29/18 08:21 Dose: 1 tab Pantoprazole Sodium (Protonix Ec Tab) 40 mg PO DAILY [facility] Last Admin: 01/29/18 08:19 Dose: 40 mg Repaglinide (Prandin) 1 mg PO DAILY [facility] Last Admin: 01/29/18 08:19 Dose: 1 mg Spironolactone (Aldactone) 50 mg PO DAILY [facility] Last Admin: 01/29/18 08:19 Dose: 50 mg - Labs Labs: 01/25/18 20:00 01/29/18 05:30 PT 13.9 Seconds (9.8-13.1) H 01/25/18 20:00 INR 1.3 (0.9-1.2) H 01/25/18 20:00 APTT 33.5 Seconds (25.6-37.1) 01/25/18 20:00
--- NOTE | 2018-01-29 10:49 | CP.PCM.DIS ---
<James Villafuerte - Last Filed: 01/29/18 11:59> Provider - Provider Date of Admission: 01/27/18 11:34 Attending physician: Kayla Magana MD Primary care physician: Dr. Hernandez Time Spent in preparation of Discharge (in minutes): 15 Hospital Course - Lab Results Lab Results: Most Recent Lab Values WBC 7.9 K/uL (4.8-10.8) 01/25/18 20:00 RBC 4.64 Mil/uL (3.80-5.20) 01/25/18 20:00 Hgb 13.0 g/dL (12.0-16.0) 01/25/18 20:00 Hct 40.7 % (34.0-47.0) 01/25/18 20:00 MCV 87.8 fl (81.0-99.0) D 01/25/18 20:00 MCH 28.1 pg (27.0-31.0) 01/25/18 20:00 MCHC 32.0 g/dL (33.0-37.0) L 01/25/18 20:00 RDW 14.4 % (11.5-14.5) 01/25/18 20:00 Plt Count 165 K/uL (130-400) 01/25/18 20:00 MPV 9.5 fl (7.2-11.7) 01/25/18 20:00 Neut % (Auto) 61.2 % (50.0-75.0) 01/25/18 20:00 Lymph % (Auto) 26.7 % (20.0-40.0) 01/25/18 20:00 Mccracken % (Auto) 10.6 % (0.0-10.0) H 01/25/18 20:00 Eos % (Auto) 0.5 % (0.0-4.0) 01/25/18 20:00 Baso % (Auto) 1.0 % (0.0-2.0) 01/25/18 20:00 Neut # (Auto) 4.8 K/uL (1.8-7.0) 01/25/18 20:00 Lymph # (Auto) 2.1 K/uL (1.0-4.3) 01/25/18 20:00 Mccracken # (Auto) 0.8 K/uL (0.0-0.8) 01/25/18 20:00 Eos # (Auto) 0.0 K/uL (0.0-0.7) 01/25/18 20:00 Baso # (Auto) 0.1 K/uL (0.0-0.2) 01/25/18 20:00 PT 13.9 Seconds (9.8-13.1) H 01/25/18 20:00 INR 1.3 (0.9-1.2) H 01/25/18 20:00 APTT 33.5 Seconds (25.6-37.1) 01/25/18 20:00 Sodium 139 mmol/l (132-148) 01/29/18 05:30 Potassium 3.6 MMOL/L (3.6-5.0) 01/29/18 05:30 Chloride 99 mmol/L (98-107) 01/29/18 05:30 Carbon Dioxide 30 mmol/L (22-30) 01/29/18 05:30 Anion Gap 14 (10-20) 01/29/18 05:30 BUN 21 mg/dl (7-17) H 01/29/18 05:30 Creatinine 0.8 mg/dl (0.7-1.2) 01/29/18 05:30 Est GFR ( Amer) > 60 01/29/18 05:30 Est GFR (Non-Af Amer) > 60 01/29/18 05:30 POC Glucose (mg/dL) 150 mg/dL (65-110) H 01/29/18 04:30 Random Glucose 132 mg/dL (65-105) H 01/29/18 05:30 Hemoglobin A1c 8.3 % (4.2-6.5) H 01/27/18 04:20 Calcium 9.4 mg/dL (8.4-10.2) 01/29/18 05:30 Total Bilirubin 1.1 mg/dl (0.2-1.3) 01/25/18 20:00 AST 39 U/L (14-36) H D 01/25/18 20:00 ALT 21 U/L (9-52) 01/25/18 20:00 Alkaline Phosphatase 59 U/L (38-126) 01/25/18 20:00 Troponin I 0.0240 ng/mL (0.00-0.120) 01/25/18 20:00 NT-Pro-B Natriuret Pep 6740 pg/ml (0-900) H 01/25/18 20:00 Total Protein 7.6 G/DL (6.3-8.2) 01/25/18 20:00 Albumin 4.2 g/dL (3.5-5.0) 01/25/18 20:00 Globulin 3.4 gm/dL (2.2-3.9) 01/25/18 20:00 Albumin/Globulin Ratio 1.2 (1.0-2.1) 01/25/18 20:00 Triglycerides 84 mg/DL (0-149) 01/27/18 04:20 Cholesterol 90 mg/dL (0-199) 01/27/18 04:20 LDL Cholesterol Direct < 30 mg/dL (0-129) 01/27/18 04:20 HDL Cholesterol 41 MG/DL (30-70) 01/27/18 04:20 - Hospital Course Hospital Course: 78 yo f with PMH of HTN, NIDDM, CHF, nonischemic cardiomyopathy S/P AICD implant in April 2017 presented to due to worsning SOB for Past 2-3 days. Pt was admitted to Ob for CHF exacerbation. Pt was treated with lasix 40mg, Fluid restriction and was put on low Na diet. Pt symptoms have improved, Pt have no other complain. Pt denies having Fever, SOB, Chest pain, abd pain, diarrhea, constipation, dysuria, polyuria. Medical team approve pt is medically stable to be discharged and F/u with PCP in 1 week F/U with cardiology Dr. Lee as outpatient clinic Medication Lasix 40mg Sprinolactone 25mg Discharge Exam - Head Exam Head Exam: ATRAUMATIC, NORMAL INSPECTION, NORMOCEPHALIC - Eye Exam Eye Exam: EOMI, Normal appearance, PERRL Pupil Exam: NORMAL ACCOMODATION, PERRL - Respiratory Exam Respiratory Exam: Clear to PA & Lateral, NORMAL BREATHING PATTERN, UNREMARKABLE. absent: Rhonchi, Wheezes, Respiratory Distress - Cardiovascular Exam Cardiovascular Exam: REGULAR RHYTHM, +S1, +S2 - GI/Abdominal Exam GI & Abdominal Exam: Normal Bowel Sounds, Unremarkable - Extremities Exam Extremities exam: full ROM - Back Exam Back exam: FULL ROM - Neurological Exam Neurological exam: Alert, Normal Gait - Psychiatric Exam Psychiatric exam: Normal Affect, Normal Mood - Skin Skin Exam: Dry, Intact, Normal Color, Warm Discharge Plan - Discharge Medications Prescriptions: Aspirin [Aspirin Chewable] 81 mg PO DAILY #30 chew Atorvastatin [Lipitor] 10 mg PO DAILY #30 tab Carvedilol [Coreg] 6.25 mg PO Q12 30 Days #60 tab Furosemide [Lasix] 40 mg PO DAILY #30 tablet Gabapentin [Neurontin] 300 mg PO HS PRN #30 cap PRN Reason: Other Lisinopril [Zestril] 10 mg PO DAILY #30 tab metFORMIN [glucOPHAGE] 500 mg PO BID #60 tab Repaglinide [Prandin] 1 mg PO DAILY #30 tab Spironolactone [Aldactone] 25 mg PO DAILY #30 tab - Follow Up Plan Condition: FAIR Disposition: HOME/ ROUTINE Instructions: Heart Failure, Adult (DC), Acute Abdominal Pain (DC), Acute Abdominal Pain (GEN) <Viktoria Schaefer - Last Filed: 01/30/18 08:30> Provider - Provider Date of Admission: 01/27/18 11:34 Attending physician: Kayla Magana MD [facility] - Lab Results Lab Results: Most Recent Lab Values WBC 7.9 K/uL (4.8-10.8) 01/25/18 20:00 RBC 4.64 Mil/uL (3.80-5.20) 01/25/18 20:00 Hgb 13.0 g/dL (12.0-16.0) 01/25/18 20:00 Hct 40.7 % (34.0-47.0) 01/25/18 20:00 MCV 87.8 fl (81.0-99.0) D 01/25/18 20:00 MCH 28.1 pg (27.0-31.0) 01/25/18 20:00 MCHC 32.0 g/dL (33.0-37.0) L 01/25/18 20:00 RDW 14.4 % (11.5-14.5) 01/25/18 20:00 Plt Count 165 K/uL (130-400) 01/25/18 20:00 MPV 9.5 fl (7.2-11.7) 01/25/18 20:00 Neut % (Auto) 61.2 % (50.0-75.0) 01/25/18 20:00 Lymph % (Auto) 26.7 % (20.0-40.0) 01/25/18 20:00 Mccracken % (Auto) 10.6 % (0.0-10.0) H 01/25/18 20:00 Eos % (Auto) 0.5 % (0.0-4.0) 01/25/18 20:00 Baso % (Auto) 1.0 % (0.0-2.0) 01/25/18 20:00 Neut # (Auto) 4.8 K/uL (1.8-7.0) 01/25/18 20:00 Lymph # (Auto) 2.1 K/uL (1.0-4.3) 01/25/18 20:00 Mccracken # (Auto) 0.8 K/uL (0.0-0.8) 01/25/18 20:00 Eos # (Auto) 0.0 K/uL (0.0-0.7) 01/25/18 20:00 Baso # (Auto) 0.1 K/uL (0.0-0.2) 01/25/18 20:00 PT 13.9 Seconds (9.8-13.1) H 01/25/18 20:00 INR 1.3 (0.9-1.2) H 01/25/18 20:00 APTT 33.5 Seconds (25.6-37.1) 01/25/18 20:00 Sodium 139 mmol/l (132-148) 01/29/18 05:30 Potassium 3.6 MMOL/L (3.6-5.0) 01/29/18 05:30 Chloride 99 mmol/L (98-107) 01/29/18 05:30 Carbon Dioxide 30 mmol/L (22-30) 01/29/18 05:30 Anion Gap 14 (10-20) 01/29/18 05:30 BUN 21 mg/dl (7-17) H 01/29/18 05:30 Creatinine 0.8 mg/dl (0.7-1.2) 01/29/18 05:30 Est GFR ( Amer) > 60 01/29/18 05:30 Est GFR (Non-Af Amer) > 60 01/29/18 05:30 POC Glucose (mg/dL) 150 mg/dL (65-110) H 01/29/18 04:30 Random Glucose 132 mg/dL (65-105) H 01/29/18 05:30 Hemoglobin A1c 8.3 % (4.2-6.5) H 01/27/18 04:20 Calcium 9.4 mg/dL (8.4-10.2) 01/29/18 05:30 Total Bilirubin 1.1 mg/dl (0.2-1.3) 01/25/18 20:00 AST 39 U/L (14-36) H D 01/25/18 20:00 ALT 21 U/L (9-52) 01/25/18 20:00 Alkaline Phosphatase 59 U/L (38-126) 01/25/18 20:00 Troponin I 0.0240 ng/mL (0.00-0.120) 01/25/18 20:00 NT-Pro-B Natriuret Pep 6740 pg/ml (0-900) H 01/25/18 20:00 Total Protein 7.6 G/DL (6.3-8.2) 01/25/18 20:00 Albumin 4.2 g/dL (3.5-5.0) 01/25/18 20:00 Globulin 3.4 gm/dL (2.2-3.9) 01/25/18 20:00 Albumin/Globulin Ratio 1.2 (1.0-2.1) 01/25/18 20:00 Triglycerides 84 mg/DL (0-149) 01/27/18 04:20 Cholesterol 90 mg/dL (0-199) 01/27/18 04:20 LDL Cholesterol Direct < 30 mg/dL (0-129) 01/27/18 04:20 HDL Cholesterol 41 MG/DL (30-70) 01/27/18 04:20 Attending/Attestation - Attestation I have personally seen and examined this patient.: Yes I have fully participated in the care of the patient.: Yes I have reviewed all pertinent clinical information, including history, physical exam and plan: Yes
== END 2018-01-29 11:20 | disposition home or self-care (01) | DRG 293 ==
LOC: H.ER 19:06 → H.ERHOLD 20:49 → H.TEL 01-26 00:15 → OBSVTOIN 01-27 11:34
PROVIDERS: ADMIT Family Medicine Geriatric Medicine; ATTEND Family Medicine Geriatric Medicine
PROC: 3E0F7GC Introduction of Other Therapeutic Substance into Respiratory Tract, Via Natural or Artificial Opening (ICD-10-PCS; principal; 2018-01-27)
DX: I11.0 Hypertensive heart disease with heart failure (principal); I34.0 Nonrheumatic mitral (valve) insufficiency; I42.0 Dilated cardiomyopathy; I50.23 Acute on chronic systolic (congestive) heart failure; J44.9 Chronic obstructive pulmonary disease, unspecified; K21.9 Gastro-esophageal reflux disease without esophagitis; Z79.84 Long term (current) use of oral hypoglycemic drugs; Z79.899 Other long term (current) drug therapy; Z91.14 Patient's other noncompliance with medication regimen; Z91.19 Patient's noncompliance with other medical treatment and regimen; Z95.810 Presence of automatic (implantable) cardiac defibrillator; I48.91 Unspecified atrial fibrillation; Z86.19 Personal history of other infectious and parasitic diseases; D64.9 Anemia, unspecified; F32.9 Major depressive disorder, single episode, unspecified; F41.9 Anxiety disorder, unspecified; K57.90 Diverticulosis of intestine, part unspecified, without perforation or abscess without bleeding; Z86.010 Personal history of colon polyps; R09.89 Other specified symptoms and signs involving the circulatory and respiratory systems; E11.9 Type 2 diabetes mellitus without complications; E78.00 Pure hypercholesterolemia, unspecified

== ENCOUNTER 2018-08-25 13:41 | Inpatient (IN) | payer MEDICARE, MEDICAID ==
[2018-08-25 13:42] VITALS: PULSE 67; BMI 25.0
--- NOTE | 2018-08-25 14:29 | ED PDOC ---
HPI: SOB/CHF/COPD Time Seen by Provider: 08/25/18 14:03 Chief Complaint (Nursing): Shortness Of Breath Chief Complaint (Provider): SOB History Per: Patient, Family History/Exam Limitations: no limitations Onset/Duration Of Symptoms: Days Current Symptoms Are (Timing): Still Present Associated Symptoms: Ankle/Leg Swelling Additional Complaint(s): 78yo female, with history of diabetes, CHF, high cholesterol, pacemaker, comes to ER accompanied by family for evaluation of shortness of breath. Patient reports SOB on exertion, and also reports lower extremity swelling. Patient was informed by Dr. Lee to come to the ER for additional evaluation. PMD: Dr. Leung Dough Scaler And Mixer: Dr. Lee Past Medical History Reviewed: Historical Data, Nursing Documentation, Vital Signs Vital Signs: Last Vital Signs Temp 97.4 F L 08/25/18 14:00 Pulse 83 08/25/18 14:00 Resp 18 08/25/18 14:00 BP 142/90 08/25/18 14:00 Pulse Ox 100 08/25/18 14:00 - Medical History PMH: Anemia, Anxiety, Asthma, Atrial Fibrillation, CHF, Depression, Diabetes, Diverticulitis (diverticulosis w polypectomy non-malignant), HTN, Hypercholesterolemia Denies: HIV, Chronic Kidney Disease - Surgical History Surgical History: Pacemaker, - Family History Family History: States: No Known Family Hx - Living Arrangements Living Arrangements: With Family - Home Medications Home Medications: Ambulatory Orders Medication Instructions Recorded RX: Lisinopril [Zestril] 10 mg PO DAILY #30 tab 01/29/18 RX: Spironolactone [Aldactone] 25 mg PO DAILY #30 tab 01/29/18 RX: metFORMIN [glucOPHAGE] 500 mg PO BID #60 tab 01/29/18 Carvedilol [Coreg] 12.5 mg PO Q12 08/25/18 Furosemide [Lasix] 40 mg PO QPM 08/25/18 RX: Aspirin [Ecotrin] 81 mg PO DAILY 08/25/18 RX: Atorvastatin [Lipitor] 10 mg PO HS 08/25/18 RX: Gabapentin [Neurontin] 300 mg PO HS 08/25/18 RX: Repaglinide [Prandin] 2 mg PO TID 08/25/18 - Allergies Allergies/Adverse Reactions: Allergies Allergy/AdvReac Type Severity Reaction Status Date / Time No Known Allergies Allergy Verified 01/25/18 19:09 Review of Systems ROS Statement: Except As Marked, All Systems Reviewed And Found Negative Constitutional: Negative for: Fever, Chills Cardiovascular: Negative for: Chest Pain Respiratory: Positive for: Shortness of Breath, SOB with Exertion Gastrointestinal: Negative for: Vomiting, Abdominal Pain Musculoskeletal: Positive for: Other (leg swelling) Physical Exam - Reviewed Nursing Documentation Reviewed: Yes Vital Signs Reviewed: Yes - Physical Exam Appears: Positive for: Non-toxic, No Acute Distress Head Exam: Positive for: ATRAUMATIC, NORMAL INSPECTION, NORMOCEPHALIC Skin: Positive for: Normal Color Eye Exam: Positive for: Normal appearance, EOMI, PERRL Neck: Positive for: Normal, Supple Cardiovascular/Chest: Positive for: Regular Rate, Rhythm. Negative for: Tachycardia Respiratory: Positive for: Crackles (at bases), Other (full air entry). Negative for: Wheezing, Respiratory Distress Gastrointestinal/Abdominal: Positive for: Soft Back: Positive for: Normal Inspection Extremity: Positive for: Normal ROM, Pedal Edema (pitting edema to bilateral lower extremities) Neurologic/Psych: Positive for: Alert, Oriented. Negative for: Motor/Sensory Deficits - Laboratory Results Result Diagrams: 08/27/18 04:30 08/28/18 05:10 - ECG O2 Sat by Pulse Oximetry: 100 (RA) Pulse Ox Interpretation: Normal Medical Decision Making Medical Decision Makinyo female with CHF Plan: -- Labs -- CXR -- EKG 1439 CXR FINDINGS: LUNGS: No active pulmonary disease. PLEURA: No significant pleural effusion identified, no pneumothorax apparent. CARDIOVASCULAR: No aortic atherosclerotic calcification present. Normal cardiac size. No congestive change. AICD noted. OSSEOUS STRUCTURES: No significant abnormalities. VISUALIZED UPPER ABDOMEN: Normal. OTHER FINDINGS: None. IMPRESSION: No active disease. 1517 Case discussed with family practice resident, patient to be admitted under Dr. Leung service due to CHF Scribe Attestation: Documented by Dionna Fitzpatrick acting as a scribe for Enedina Alexandra MD Provider Attestation: All medical record entries made by the Scribe were at my direction and personally dictated by me. I have reviewed the chart and agree that the record accurately reflects my personal performance of the history, physical exam, m edical decision making, and the department course for this patient. I have also personally directed, reviewed, and agree with the discharge instructions and disposition. Disposition - Clinical Impression Clinical Impression: Chronic congestive heart failure - Patient ED Disposition Is Patient to be Admitted: Yes - Disposition Disposition Time: 15:15 Condition: GUARDED
--- NOTE | 2018-08-25 14:34 | RAD ---
Date of service: 08/25/2018 HISTORY: possible admission COMPARISON: 01/25/2018 FINDINGS: LUNGS: No active pulmonary disease. PLEURA: No significant pleural effusion identified, no pneumothorax apparent. CARDIOVASCULAR: No aortic atherosclerotic calcification present. Normal cardiac size. No congestive change. AICD noted. OSSEOUS STRUCTURES: No significant abnormalities. VISUALIZED UPPER ABDOMEN: Normal. OTHER FINDINGS: None. IMPRESSION: No active disease.
[2018-08-25 16:18] LABS: BASO # 0.1 K/uL (0.0-0.2); BASO % 0.9 % (0.0-2.0); EOS % 0.6 % (0.0-4.0); LYMPH # 1.3 K/uL (1.0-4.3); LYMPH % 19.2 % (20.0-40.0); MEAN CELL VOLUME 81.4 fl (81.0-99.0); MEAN CORPUSCULAR HGB CONC 31.9 g/dL (33.0-37.0); MEAN PLATELET VOLUME 9.8 fl (7.2-11.7); MONO # 0.5 K/uL (0.0-0.8); MONO % 7.9 % (0.0-10.0); NEUT # 4.9 K/uL (1.8-7.0); NEUT % 71.4 % (50.0-75.0); RBC 5.4 Mil/uL (3.80-5.20); RED CELL DISTRIBUTION WIDTH 17.6 % (11.5-14.5); WHITE BLOOD COUNT 6.9 K/uL (4.8-10.8)
[2018-08-25 16:58] LABS: VENOUS BLOOD GAS BASE EXCESS -0.8 mmol/L (0.0-2.0); VENOUS BLOOD GAS PCO2 44 mmHg (40-60); VENOUS BLOOD GAS PO2 32 mm/Hg (30-55); VENOUS BLOOD PH 7.36 (7.32-7.43)
--- NOTE | 2018-08-25 17:09 | CP.PCM.HP ---
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 Pt complains of worsening SOB that exacerbates with exertion since several days a go. Pt also reports bilateral lower leg swelling and abdominal distension. Pt denies chills, sweats, chest pain, palpitations, nausea, vomiting, dysuria or abdominal pain. --Daughter, Ele, was by bedside and reported that pt missed her night medications for 1 week. Possibly due to pt's misunderstanding on medication's instructions. --Echocardiogram on 09/2017: LVEF >55%, transmitral doppler flow pattern is grade I-abnormal relaxation pattern. PMD: Deanne Castro Nursing Techn: Dr Robert Lee. NKDA Medications: --AM: Carvedilol 12.5mg, Metformin 500mg, Spironolactone 25mg, Lisinopril 10mg, Repaglinide 2mg, Aspirin 81mg --Noon: Repaglinide 2mg. --PM: Carvedilol 12.5mg, Metformin 500mg, Repaglinide 2mg, Gabapentin 300mg, Atorvastatin Furosemide 40mg, >PMHx: NIDDM. Hypertension. GERD. Depression. Asthma. Hepatitis C. Restless leg syndrom. Left hip pain. CHF. Non-ischemic cardiomyopathy (s/p AICD 04/2017) >PSHx: breast biopsy 04/2014 >SHx: denies drug abuse. Pt smoked 1ppd since young age, stopped 10 years ago. Pt reports stopping EtOH <10 years ago. Next of kin: daughter, Ladan Rasmussen [phone]. *As per daughter, patient is DNR/DNI, has a legal will document at this hospital regarding code status, power of attorney at law is pt's younger sister Ladan, as daughter* ED Course: --VS: wnl --CBC unremarkable. --CXR with NO active disease. --Pending CMP, Pro-BNP and troponin. --IV Furosemide 40mg IV once. Present on Admission - Present on Admission Any Indicators Present on Admission: No Review of Systems - Constitutional Constitutional: absent: Fever - EENT Nose/Mouth/Throat: absent: Nasal Congestion, Nasal Discharge, Odynophagia, Neck Pain, Neck Mass - Cardiovascular Cardiovascular: Dyspnea, Dyspnea on Exertion. absent: Acrocyanosis, Chest Pain - Respiratory Respiratory: absent: Cough, Dyspnea, Hemoptysis - Gastrointestinal Gastrointestinal: Bloating. absent: Abdominal Pain, Nausea, Temesmus, Vomiting Past Patient History - Infectious Disease Hx of Infectious Diseases: None - Tetanus Immunizations Tetanus Immunization: Unknown - Past Medical History & Family History Past Medical History?: Yes - Past Social History Smoking Status: Never Smoked - CARDIAC Hx Atrial Fibrillation: Yes Hx Congestive Heart Failure: Yes Hx Hypercholesterolemia: Yes Hx Hypertension: Yes Hx Pacemaker: Yes - PULMONARY Hx Asthma: Yes - NEUROLOGICAL Hx Neurological Disorder: Yes - HEENT Hx HEENT Problems: No - RENAL Hx Chronic Kidney Disease: No - ENDOCRINE/METABOLIC Hx Endocrine Disorders: Yes - HEMATOLOGICAL/ONCOLOGICAL Hx Anemia: Yes Hx Human Immunodeficiency Virus (HIV): No - INTEGUMENTARY Hx Dermatological Problems: No - MUSCULOSKELETAL/RHEUMATOLOGICAL Hx Musculoskeletal Disorders: No Hx Falls: No - GASTROINTESTINAL Hx Diverticulitis: Yes (diverticulosis w polypectomy non-malignant) - GENITOURINARY/GYNECOLOGICAL Hx Genitourinary Disorders: No - PSYCHIATRIC Hx Anxiety: Yes Hx Depression: Yes - SURGICAL HISTORY Hx Surgeries: Yes Hx Cardiac Catheterization: Yes Other/Comment: OVARIAN TUMOR SURGERY - ANESTHESIA Hx Anesthesia: Yes Hx Anesthesia Reactions: No Hx Malignant Hyperthermia: No Meds Allergies/Adverse Reactions: Allergies Allergy/AdvReac Type Severity Reaction Status Date / Time No Known Allergies Allergy Verified 01/25/18 19:09 Physical Exam - Constitutional Appears: No Acute Distress - Head Exam Head Exam: ATRAUMATIC, NORMAL INSPECTION - Eye Exam Eye Exam: EOMI - ENT Exam ENT Exam: Mucous Membranes Moist - Neck Exam Neck exam: Positive for: Full Rom - Respiratory Exam Respiratory Exam: Rales (scattered over b/l bases. ), NORMAL BREATHING PATTERN. absent: Rhonchi, Wheezes, Respiratory Distress - Cardiovascular Exam Cardiovascular Exam: JVD, +S1, +S2 - GI/Abdominal Exam GI & Abdominal Exam: Soft. absent: Diminished Bowel Sounds, Distended, Guarding, Hernia, Tenderness - Extremities Exam Extremities exam: Positive for: pedal edema (+1 up to below knee area. ), pedal pulses present (faintly). Negative for: calf tenderness Additional comments: temperature decreased on b/l feet. - Neurological Exam Neurological exam: Alert Results - Vital Signs Recent Vital Signs: Last Vital Signs Temp 97.4 F L 08/25/18 14:00 Pulse 83 08/25/18 14:00 Resp 18 08/25/18 14:00 BP 142/90 08/25/18 14:00 Pulse Ox 100 08/25/18 15:17 - Labs Result Diagrams: 08/25/18 16:14 Labs: Laboratory Results - last 24 hr 08/25/18 16:14 WBC 6.9 RBC 5.40 H Hgb 14.0 Hct 44.0 MCV 81.4 D MCH 26.0 L MCHC 31.9 L RDW 17.6 H Plt Count 173 MPV 9.8 Neut % (Auto) 71.4 Lymph % (Auto) 19.2 L [place] % (Auto) 7.9 Eos % (Auto) 0.6 Baso % (Auto) 0.9 Neut # (Auto) 4.9 Lymph # (Auto) 1.3 [place] # (Auto) 0.5 Eos # (Auto) 0.0 Baso # (Auto) 0.1 Assessment & Plan - Assessment and Plan (Free Text) Assessment: 78 y/o F with a PMHx of HTN, CHF, NIDDM, non-ischemic cardiomyopathy (s/p AICD 04/2017) admitted for evaluation and management of agravating dyspnea --Last echocardiogram on 09/2017: LVEF >55%, transmitral doppler flow pattern is grade I-abnormal relaxation pattern. PLAN: >Dyspnea --Likely due to acute CHF exacerbation --Afebrile, stable, not labored breathing on exam, --Preserved EF-HF as per last echocardiogram on chart. --Medication non-compliance/confusion. --S/P IV Lasix 40mg --IV Lasix 40mg ordered for tomorrow --F/U labs: pro-BNP and troponin. --Will clarify medication list with patient. >HTN/ --Chronic --Stable --Home meds resumed --Will verify home medication list and educated pt and daughter on proper pharmacotherapy. >NIDDM --Home meds resumed --Insulin sliding scale --Hypoglycemia protocol >DVT Prophylaxis --SCD's for now --Will order Lovenox depending of BUN/Creat results. --F/U BMP. Case discussed with Izabel Castro PGY-2 - Date & Time Date: 08/25/18 Time: 16:16
[2018-08-25] MEDS ORDERED: Dextrose 50% SYRINGE Inj (50 ml) IV PRN (17:33)
[2018-08-25] MEDS ORDERED: Glucagon Recombinant 1 mg Inj IM PRN (17:33)
[2018-08-25 17:43] LABS: INR 1.3; PROTHROMBIN TIME 14.5 Seconds (9.8-13.1)
[2018-08-25 17:46] LABS: PARTIAL THROMBOPLASTIN TIME 40.3 Seconds (25.6-37.1)
[2018-08-25 17:55] LABS: ALB/GLOB RATIO 1.1 (1.0-2.1); ALBUMIN 4.1 g/dL (3.5-5.0); ALT/SGPT 19 U/L (9-52); AST/SGOT 40 U/L (14-36); BLOOD UREA NITROGEN 17 mg/dl (7-17); CALCIUM 9.5 mg/dL (8.4-10.2); GFR NON-AFRICAN AMERICAN > 60
[2018-08-25 18:06] LABS: B-TYPE NATRIURETIC PEPTIDE 2420 pg/ml (0-900)
[2018-08-25] MEDS: Insulin Lispro (humaLOG) 100 Units/ml Inj SC SCH (23:06)
[2018-08-26 06:00] LABS: BASO # 0.1 K/uL (0.0-0.2); BASO % 0.9 % (0.0-2.0); EOS % 0.7 % (0.0-4.0); HEMOGLOBIN 13.6 g/dL (12.0-16.0); LYMPH # 1.8 K/uL (1.0-4.3); LYMPH % 29.9 % (20.0-40.0); MEAN CELL VOLUME 81.5 fl (81.0-99.0); MEAN CORPUSCULAR HEMOGLOBIN 25.7 pg (27.0-31.0); MEAN CORPUSCULAR HGB CONC 31.5 g/dL (33.0-37.0); MEAN PLATELET VOLUME 9.2 fl (7.2-11.7); MONO # 0.7 K/uL (0.0-0.8); MONO % 11.6 % (0.0-10.0); NEUT # 3.5 K/uL (1.8-7.0); NEUT % 56.9 % (50.0-75.0); NRBC % 0.1 % (0.0-0.0); RBC 5.3 Mil/uL (3.80-5.20); RED CELL DISTRIBUTION WIDTH 16.8 % (11.5-14.5); WHITE BLOOD COUNT 6.1 K/uL (4.8-10.8)
[2018-08-26 06:08] LABS: ALT/SGPT 17 U/L (9-52); AST/SGOT 40 U/L (14-36); BLOOD UREA NITROGEN 15 mg/dl (7-17); CALCIUM 9.5 mg/dL (8.4-10.2); GFR NON-AFRICAN AMERICAN > 60; HDL CHOLESTEROL 41 MG/DL (30-70)
[2018-08-26 06:18] LABS: LDL CHOLESTEROL 37 mg/dL (0-129)
[2018-08-26] MEDS: Insulin Lispro (humaLOG) 100 Units/ml Inj SC SCH ×4 (06:35→23:00)
[2018-08-26] MEDS: Enoxaparin 40 mg Syringe SC SCH (08:39)
--- NOTE | 2018-08-26 11:22 | CARD ---
APPROVED REPORT Date of service: 08/26/2018 EXAM: Two-dimensional and M-mode echocardiogram with Doppler and color Doppler. Other Information Quality : GoodRhythm : NSR INDICATION CHF 2D DIMENSIONS IVSd1.05 (0.7-1.1cm)LVDd5.61 (3.9-5.9cm) LVOT Diameter1.58 (1.8-2.4cm)PWd1.03 (0.7-1.1cm) IVSs1.04 (0.8-1.2cm)LVDs4.74 (2.5-4.0cm) FS (%) 15.4 %PWs1.24 (0.8-1.2cm) M-Mode DIMENSIONS Left Atrium (MM)5.50 (2.5-4.0cm)Aortic Root2.87 (2.2-3.7cm) Aortic Cusp Exc.1.30 (1.5-2.0cm) Aortic Valve AoV Peak Zjvavynq57.3cm/sAoV VTI14.1cmAO Peak GR.2mmHg LVOT Peak Kdnmpzmt81.4cm/sLVOT VTI9.32cmAO Mean GR.2mmHg NATHANIEL (VMAX)0.81kj8BQF (VTI)0.71cm2 Mitral Valve MV E Nyyqmsny01.4cm/sMV E Peak Gr.95mmHgMV DECEL FOBY344sg MV A Mdqfhhvb78.7cm/sMV YLP96tlU/A ratio2.6 MVA (PHT)4.31cm2 TDI E/Lateral E'0.0E/Medial E'0.0 Pulmonary Valve RVOT VTI8.8cm Tricuspid Valve TR Peak Jydeatgd110rl/sTR Peak Gr.18mmHg LEFT VENTRICLE The Left Ventricle is mildly dilated. There is normal left ventricular wall thickness. The systolic function is severely impaired. The estimated ejection fraction is 25-30% There is global hypokinesis of the left ventricle. Transmitral Doppler flow pattern is Grade III-reversible restrictive diastolic dysfunction. No left ventricle thrombus noted on this study. There is no ventricular septal defect visualized. There is no left ventricular aneurysm. There is no mass noted in the left ventricle. RIGHT VENTRICLE The right ventricle is normal size. There is normal right ventricular wall thickness. The right ventricular systolic function is moderately reduced. A PPM/ICD lead is noticed in right ventricle. ATRIA The left atrium is moderately dilated. The right atrium size is moderately dilated. The interatrial septum is intact with no evidence for an atrial septal defect. AORTIC VALVE The aortic valve is normal in structure. Trace aortic regurgitation is present. There is no aortic valvular stenosis. There is no aortic valvular vegetation. MITRAL VALVE The mitral valve is normal in structure. There is no evidence of mitral valve prolapse. There is no mitral valve stenosis. There is moderate to severe mitral valve regurgitation noted. TRICUSPID VALVE The tricuspid valve is normal in structure. There is mild to moderate tricuspid valve regurgitation noted. RVSP is calculated at 37 mm Hg. There is no tricuspid valve prolapse or vegetation. There is no tricuspid valve stenosis. PULMONIC VALVE The pulmonary valve is normal in structure. There is no pulmonic valvular regurgitation. There is no pulmonic valvular stenosis. GREAT VESSELS The aortic root is normal in size. The ascending aorta is normal in size. The pulmonary artery is normal. The IVC is dilated in size and collapses <50% with inspiration. PERICARDIAL EFFUSION There is no pericardial effusion. There is no pleural effusion. <Conclusion> The Left Ventricle is mildly dilated. The systolic function is severely impaired. The estimated ejection fraction is 25-30% There is global hypokinesis of the left ventricle. Transmitral Doppler flow pattern is Grade III-reversible restrictive diastolic dysfunction. The right ventricular systolic function is moderately reduced. A PPM/ICD lead is noticed in right ventricle. The left atrium is moderately dilated. The right atrium size is moderately dilated. There is moderate to severe mitral valve regurgitation noted. There is mild to moderate tricuspid valve regurgitation noted. RVSP is calculated at 37 mm Hg. The IVC is dilated in size and collapses <50% with inspiration.
--- NOTE | 2018-08-26 11:27 | CARD ---
APPROVED REPORT Date of service: 08/25/2018 EKG Measurement Heart [id number] <Conclusion> Normal sinus rhythm Possible Left atrial enlargement Left axis deviation Nonspecific T wave abnormality Abnormal ECG
[2018-08-26] MEDS ORDERED: Nasal Spray(Ocean spray) NAS PRN (11:34)
--- NOTE | 2018-08-26 12:01 | CP.PCM.PN ---
<Collin Fournier - Last Filed: 08/26/18 12:18> Subjective - Date & Time of Evaluation Date of Evaluation: 08/26/18 Time of Evaluation: 10:10 - Subjective Subjective: 78 y/o F was seen and examined by bedside. Pt still complains of SOB that exacerbates with standing up. Pt also c/o dizziness that aggravated today, pt reports it is severe since yesterday and exacerbates with head movement and standing up. As per pt, she has a chronic Hx of dizziness and was previously evaluated by ENT who recommended hearing aid. Pt afebrile with NO acute events overnight. Objective - Vital Signs/Intake and Output Vital Signs (last 24 hours): Temp Pulse Resp BP Pulse Ox 97.5 F L 79 18 137/96 H 97 08/26/18 08:36 08/26/18 09:00 08/26/18 08:36 08/26/18 08:39 08/26/18 08:36 - Medications Medications: Current Medications Acetaminophen (Tylenol 325mg Tab) 650 mg PO Q6 PRN PRN Reason: Pain, Mild (1-3) Acetaminophen (Tylenol 325mg Tab) 650 mg PO Q6 PRN PRN Reason: Fever >100.4 F Aspirin (Ecotrin) 81 mg PO DAILY [facility] Last Admin: 08/26/18 08:37 Dose: 81 mg Atorvastatin Calcium (Lipitor) 10 mg PO HS [facility] Last Admin: 08/25/18 23:07 Dose: 10 mg Carvedilol (Coreg) 12.5 mg PO Q12 [facility] Last Admin: 08/26/18 08:37 Dose: 12.5 mg Dextrose (Dextrose 50% Inj) 0 ml IV STAT PRN; Protocol PRN Reason: Hypoglycemia Protocol Dextrose (Glutose 15) 0 gm PO ONCE PRN; Protocol PRN Reason: Hypoglycemia Protocol Enoxaparin Sodium (Lovenox) 40 mg SC DAILY [facility]; Protocol Last Admin: 08/26/18 08:39 Dose: 40 mg Furosemide (Lasix) 40 mg IV DAILY [facility] Last Admin: 08/26/18 08:38 Dose: 40 mg Glucagon (Glucagen Diagnostic Kit) 0 mg IM STAT PRN; Protocol PRN Reason: Hypoglycemia Protocol Insulin Human Lispro (Humalog) 0 units SC ACCU-CHECK [facility]; Protocol Last Admin: 08/26/18 06:35 Dose: Not Given Lisinopril (Zestril) 10 mg PO DAILY [facility] Last Admin: 08/26/18 08:39 Dose: 10 mg Metformin HCl (Glucophage) 500 mg PO BID [facility] Last Admin: 08/26/18 08:38 Dose: 500 mg Repaglinide (Prandin) 2 mg PO TID [facility] Last Admin: 08/26/18 08:38 Dose: 2 mg Sodium Chloride ([place] Nasal [place]) 1 sprays STAN Q4 PRN PRN Reason: Nasal congestion Spironolactone (Aldactone) 25 mg PO DAILY [facility] Last Admin: 08/26/18 08:37 Dose: 25 mg - Labs Labs: 08/26/18 04:30 08/26/18 04:30 PT 14.5 Seconds (9.8-13.1) H 08/25/18 17:20 INR 1.3 08/25/18 17:20 APTT 40.3 Seconds (25.6-37.1) H 08/25/18 17:20 - Constitutional Appears: No Acute Distress - Head Exam Head Exam: ATRAUMATIC, NORMAL INSPECTION - Eye Exam Eye Exam: EOMI, Normal appearance, PERRL. absent: Nystagmus - ENT Exam ENT Exam: Mucous Membranes Moist - Neck Exam Neck Exam: Full ROM, Normal Inspection. absent: Meningismus - Respiratory Exam Respiratory Exam: Decreased Breath Sounds (over LLL. ), NORMAL BREATHING PATTERN. absent: Rales, Rhonchi, Wheezes - Cardiovascular Exam Cardiovascular Exam: +S1, +S2 - GI/Abdominal Exam GI & Abdominal Exam: Soft. absent: Firm, Guarding, Tenderness - Extremities Exam Extremities Exam: Full ROM, Pedal Edema (+1 bilateral lower leg up to below knee.). absent: Calf Tenderness - Neurological Exam Neurological Exam: Alert, Awake, Oriented x3 Assessment and Plan - Assessment and Plan (Free Text) Assessment: 78 y/o F with a PMHx of HTN, CHF, NIDDM, non-ischemic cardiomyopathy (s/p AICD 04/2017) admitted for evaluation and management of agravating dyspnea --Last echocardiogram on 09/2017: LVEF >55%, transmitral doppler flow pattern is grade I-abnormal relaxation pattern. --Serum troponin negative x1. PLAN: >Dyspnea --Vitals signs stable, not improving. --Extrasystoles/PVC seen on cardiac tech. --Pro-BNP 2420-elevated. --Likely due to acute CHF exacerbation. --Preserved EF-HF as per last echocardiogram on chart (09/2017) --Medication non-compliance/confusion. Will clarify medication list with patient. --Continue with daily IV Lasix 40mg --F/U final reports from today's echocardiography. --Considering cardiology consult. (Dr Lee) >Dizziness --Acute on chronic --F/U labs --Vestubular physical therapy ordered. >HTN/ --Chronic --Stable --Home meds resumed --Will verify home medication list and educated pt and daughter on proper pharmacotherapy. >NIDDM --Home meds resumed --Insulin sliding scale --Hypoglycemia protocol >DVT Prophylaxis --SCD's for now --Lovenox SCdaily --F/U BMP. Case discussed with Izabel Castro PGY-2 <Lina Mendoza - Last Filed: 08/26/18 14:39> Objective - Vital Signs/Intake and Output Vital Signs (last 24 hours): Temp Pulse Resp BP Pulse Ox 97.5 F L 70 18 123/69 96 08/26/18 12:19 08/26/18 12:19 08/26/18 12:19 08/26/18 12:19 08/26/18 12:19 - Medications Medications: Current Medications Acetaminophen (Tylenol 325mg Tab) 650 mg PO Q6 PRN PRN Reason: Pain, Mild (1-3) Acetaminophen (Tylenol 325mg Tab) 650 mg PO Q6 PRN PRN Reason: Fever >100.4 F Aspirin (Ecotrin) 81 mg PO DAILY [facility] Last Admin: 08/26/18 08:37 Dose: 81 mg Atorvastatin Calcium (Lipitor) 10 mg PO HS [facility] Last Admin: 08/25/18 23:07 Dose: 10 mg Carvedilol (Coreg) 12.5 mg PO Q12 [facility] Last Admin: 08/26/18 08:37 Dose: 12.5 mg Dextrose (Dextrose 50% Inj) 0 ml IV STAT PRN; Protocol PRN Reason: Hypoglycemia Protocol Dextrose (Glutose 15) 0 gm PO ONCE PRN; Protocol PRN Reason: Hypoglycemia Protocol Enoxaparin Sodium (Lovenox) 40 mg SC DAILY [facility]; Protocol Last Admin: 08/26/18 08:39 Dose: 40 mg Furosemide (Lasix) 40 mg IV DAILY [facility] Last Admin: 08/26/18 08:38 Dose: 40 mg Glucagon (Glucagen Diagnostic Kit) 0 mg IM STAT PRN; Protocol PRN Reason: Hypoglycemia Protocol Insulin Human Lispro (Humalog) 0 units SC ACCU-CHECK [facility]; Protocol Last Admin: 08/26/18 12:39 Dose: 3 units Lisinopril (Zestril) 10 mg PO DAILY [facility] Last Admin: 08/26/18 08:39 Dose: 10 mg Metformin HCl (Glucophage) 500 mg PO BID [facility] Last Admin: 08/26/18 08:38 Dose: 500 mg Repaglinide (Prandin) 2 mg PO TID [facility] Last Admin: 08/26/18 12:40 Dose: 2 mg Sodium Chloride ([place] Nasal [place]) 1 sprays STAN Q4 PRN PRN Reason: Nasal congestion Spironolactone (Aldactone) 25 mg PO DAILY [facility] Last Admin: 08/26/18 08:37 Dose: 25 mg - Labs Labs: 08/26/18 04:30 08/26/18 04:30 PT 14.5 Seconds (9.8-13.1) H 08/25/18 17:20 INR 1.3 08/25/18 17:20 APTT 40.3 Seconds (25.6-37.1) H 08/25/18 17:20 Attending/Attestation - Attestation I have personally seen and examined this patient.: Yes I have fully participated in the care of the patient.: Yes I have reviewed all pertinent clinical information, including history, physical exam and plan: Yes Notes (Text): Acute on Chronic CHF , systolic and diastolic dysfunction EF 25% s/p AICD placement Vertigo DM type II HTN - cont IV Lasix - Cardio consult - cont Coreg , Lisinopril and Spirinolactone for CHF - PT for Vestibular Rehab - accucheck with coverage, cont Metformin
[2018-08-27 06:16] LABS: HEMOGLOBIN 13.2 g/dL (12.0-16.0); MEAN CELL VOLUME 81.7 fl (81.0-99.0); MEAN CORPUSCULAR HEMOGLOBIN 25.6 pg (27.0-31.0); MEAN CORPUSCULAR HGB CONC 31.4 g/dL (33.0-37.0); RBC 5.14 Mil/uL (3.80-5.20); RED CELL DISTRIBUTION WIDTH 16.4 % (11.5-14.5); WHITE BLOOD COUNT 5.8 K/uL (4.8-10.8)
[2018-08-27 06:35] LABS: BLOOD UREA NITROGEN 20 mg/dl (7-17); CALCIUM 9.1 mg/dL (8.4-10.2); GFR NON-AFRICAN AMERICAN > 60
[2018-08-27] MEDS: Insulin Lispro (humaLOG) 100 Units/ml Inj SC SCH ×4 (06:38→23:08)
--- NOTE | 2018-08-27 11:10 | CP.PCM.PN ---
Subjective - Date & Time of Evaluation Date of Evaluation: 08/27/18 Time of Evaluation: 08:00 - Subjective Subjective: Patient seen and examined bedside reports feeling better, less SOB. reports nausea this morning, reports dizziness has improved. denies chest pain, SOB. less pedal edema noted.zofran given. ECho EF 25-30% Cardio consult Dr Lee pending Objective - Vital Signs/Intake and Output Vital Signs (last 24 hours): Temp Pulse Resp BP Pulse Ox 97.9 F 73 18 119/78 95 08/27/18 08:01 08/27/18 08:01 08/27/18 08:01 08/27/18 08:01 08/27/18 08:01 - Medications Medications: Current Medications Acetaminophen (Tylenol 325mg Tab) 650 mg PO Q6 PRN PRN Reason: Pain, Mild (1-3) Acetaminophen (Tylenol 325mg Tab) 650 mg PO Q6 PRN PRN Reason: Fever >100.4 F Aspirin (Ecotrin) 81 mg PO DAILY [facility] Last Admin: 08/26/18 08:37 Dose: 81 mg Atorvastatin Calcium (Lipitor) 10 mg PO HS [facility] Last Admin: 08/26/18 21:27 Dose: 10 mg Carvedilol (Coreg) 12.5 mg PO Q12 [facility] Last Admin: 08/26/18 21:27 Dose: 12.5 mg Dextrose (Dextrose 50% Inj) 0 ml IV STAT PRN; Protocol PRN Reason: Hypoglycemia Protocol Dextrose (Glutose 15) 0 gm PO ONCE PRN; Protocol PRN Reason: Hypoglycemia Protocol Enoxaparin Sodium (Lovenox) 40 mg SC DAILY [facility]; Protocol Last Admin: 08/26/18 08:39 Dose: 40 mg Furosemide (Lasix) 40 mg IV DAILY [facility] Last Admin: 08/26/18 08:38 Dose: 40 mg Glucagon (Glucagen Diagnostic Kit) 0 mg IM STAT PRN; Protocol PRN Reason: Hypoglycemia Protocol Insulin Human Lispro (Humalog) 0 units SC ACCU-CHECK [facility]; Protocol Last Admin: 08/27/18 06:38 Dose: Not Given Lisinopril (Zestril) 10 mg PO DAILY [facility] Last Admin: 08/26/18 08:39 Dose: 10 mg Metformin HCl (Glucophage) 500 mg PO BID [facility] Last Admin: 08/26/18 16:29 Dose: Not Given Repaglinide (Prandin) 2 mg PO TID [facility] Last Admin: 08/26/18 16:30 Dose: Not Given Sodium Chloride ([place] Nasal [place]) 1 sprays STAN Q4 PRN PRN Reason: Nasal congestion Last Admin: 08/26/18 16:24 Dose: 1 spr Spironolactone (Aldactone) 25 mg PO DAILY [facility] Last Admin: 08/26/18 08:37 Dose: 25 mg - Labs Labs: 08/27/18 04:30 08/27/18 04:30 PT 14.5 Seconds (9.8-13.1) H 08/25/18 17:20 INR 1.3 08/25/18 17:20 APTT 40.3 Seconds (25.6-37.1) H 08/25/18 17:20 - Constitutional Appears: No Acute Distress - Respiratory Exam Respiratory Exam: Rales (scattered rales bibasal minimal ). absent: Rhonchi, Wheezes - Cardiovascular Exam Cardiovascular Exam: REGULAR RHYTHM, +S1, +S2 - GI/Abdominal Exam GI & Abdominal Exam: Soft, Normal Bowel Sounds. absent: Tenderness - Extremities Exam Extremities Exam: Pedal Edema (bilateral 1+ ) - Neurological Exam Neurological Exam: Alert, Awake - Skin Skin Exam: Intact Assessment and Plan - Assessment and Plan (Free Text) Plan: 78 y/o F with a PMHx of HTN, CHF, NIDDM, non-ischemic cardiomyopathy (s/p AICD 04/2017) admitted for evaluation and management of agravating dyspnea Serum troponin negative x1. pending evaluation for PT again. pt refused PT. Assessment/plan 1) HFrEF -Pro-BNP 2420-elevated. --echo on admission wosening EF 20-25 % -Preserved EF-HF as per last echocardiogram on chart (09/2017) -Continue with daily IV Lasix 40mg -still dyspnea on exertion. -f/u cardiology consult. (Dr Lee) 2)Dizziness -resolved -Acute on chronic -Vestubular physical therapy ordered. 3)HTN/ -Chronic c/w home meds 4)NIDDM --Home meds resumed --Insulin sliding scale --Hypoglycemia protocol 5) DVT Prophylaxis -SCD's for now -Lovenox SCdaily
[2018-08-27] MEDS: Enoxaparin 40 mg Syringe SC SCH (11:11)
[2018-08-28 06:27] LABS: BLOOD UREA NITROGEN 21 mg/dl (7-17); CALCIUM 9.3 mg/dL (8.4-10.2); GFR NON-AFRICAN AMERICAN > 60
[2018-08-28 07:51] VITALS: RESP 18
[2018-08-28] MEDS: Enoxaparin 40 mg Syringe SC SCH (09:12)
[2018-08-28] MEDS: Insulin Lispro (humaLOG) 100 Units/ml Inj SC SCH ×4 (09:12→23:00)
--- NOTE | 2018-08-28 09:58 | CP.PCM.CON ---
History of Present Illness - History of Present Illness History of Present Illness: This 78-year-old hypertensive diabetic female with nonischemic cardiomyopathy who lives alone at home and has gradually developed short-term memory loss and cognitive dysfunction was sent to the emergency room by her applications sales representative when she went to see him to have her AICD evaluated. 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 At the same time she was found to have profound left ventricular systolic dysfunction. The patient lives alone at home and takes her medications erratically and there is no corroboration as to what precise medications and when she takes them. The patient was found to have volume overloaded and was sent to the emergency room. The patient is an extremely poor historian and cannot exactly say how short of breath she was. She does confirm that she had pedal edema when she came this has resolved with intravenous diuretics and regular administration of Aldactone. The patient had had a bout of atrial fibrillation and attempts to anticoagulate her with oral anticoagulants had resulted in a GI bleed requiring blood transfusions. Subsequently these have been withdrawn. Physical examination shows an elderly female who is lying virtually flat in bed and can carry on a conversation. Her heart rate was 84 bpm regular and a blood pressure was 110/70 mmHg lying down and 100/70 mmHg standing up. Her jugular venous pressure was mildly elevated and there were CV complexes in her neck veins indicating severe tricuspid regurgitation. There was no rales. Loud apical systolic murmur of mitral regurgitation was detected. Abdomen was soft liver and spleen were not palpable. Her electrocardiogram showed sinus rhythm with nonspecific ST-T changes. There were no Q waves on the cardiogram. Her echocardiogram was reviewed. It shows severe left ventricular systolic dysfunction with moderate to severe tricuspid regurgitation and a pulmonary artery systolic pressure of 31 mmHg. Her lab data was noted. There was a mild increase in her BUN/creatinine following diuresis. Impression: Nonischemic cardiomyopathy with class III-IV congestive cardiac failure. The CHF is left ventricular acute on chronic and systolic. Progressive dementia. History of depression. History of GI bleed. History of transient atrial fibrillation in the past. Hypertension and diabetes mellitus. The patient appears to have diuresed. Physical examination shows minimal volume overload in the form of mildly elevated JVP. The patient appears hemodynamically stable at this point Given her progressive dementia the family should consider long-term placement. Past Patient History - Infectious Disease Hx of Infectious Diseases: None - Tetanus Immunizations Tetanus Immunization: Unknown - Past Medical History & Family History Past Medical History?: Yes - Past Social History Smoking Status: Never Smoked - CARDIAC Hx Atrial Fibrillation: Yes Hx Congestive Heart Failure: Yes Hx Hypercholesterolemia: Yes Hx Hypertension: Yes Hx Pacemaker: Yes - PULMONARY Hx Asthma: Yes - NEUROLOGICAL Hx Neurological Disorder: No - HEENT Hx HEENT Problems: No - RENAL Hx Chronic Kidney Disease: No - ENDOCRINE/METABOLIC Hx Endocrine Disorders: Yes Hx Diabetes Mellitus Type 2: Yes - HEMATOLOGICAL/ONCOLOGICAL Hx Anemia: Yes Hx Human Immunodeficiency Virus (HIV): No - INTEGUMENTARY Hx Dermatological Problems: No - MUSCULOSKELETAL/RHEUMATOLOGICAL Hx Musculoskeletal Disorders: No Hx Falls: No - GASTROINTESTINAL Hx Diverticulitis: Yes (diverticulosis w polypectomy non-malignant) - GENITOURINARY/GYNECOLOGICAL Hx Genitourinary Disorders: No - PSYCHIATRIC Hx Anxiety: Yes Hx Depression: Yes - SURGICAL HISTORY Hx Surgeries: Yes Hx Cardiac Catheterization: Yes Hx Section: Yes Other/Comment: OVARIAN TUMOR SURGERY - ANESTHESIA Hx Anesthesia: Yes Hx Anesthesia Reactions: No Hx Malignant Hyperthermia: No Meds Allergies/Adverse Reactions: Allergies Allergy/AdvReac Type Severity Reaction Status Date / Time No Known Allergies Allergy Verified 01/25/18 19:09 - Medications Medications: Current Medications Acetaminophen (Tylenol 325mg Tab) 650 mg PO Q6 PRN PRN Reason: Pain, Mild (1-3) Acetaminophen (Tylenol 325mg Tab) 650 mg PO Q6 PRN PRN Reason: Fever >100.4 F Aspirin (Ecotrin) 81 mg PO DAILY [facility] Last Admin: 08/28/18 09:11 Dose: 81 mg Atorvastatin Calcium (Lipitor) 10 mg PO HS [facility] Last Admin: 08/27/18 21:06 Dose: 10 mg Carvedilol (Coreg) 12.5 mg PO Q12 [facility] Last Admin: 08/28/18 09:11 Dose: Not Given Dextrose (Dextrose 50% Inj) 0 ml IV STAT PRN; Protocol PRN Reason: Hypoglycemia Protocol Dextrose (Glutose 15) 0 gm PO ONCE PRN; Protocol PRN Reason: Hypoglycemia Protocol Enoxaparin Sodium (Lovenox) 40 mg SC DAILY [facility]; Protocol Last Admin: 08/28/18 09:12 Dose: 40 mg Furosemide (Lasix) 40 mg IV DAILY [facility] Last Admin: 08/28/18 09:13 Dose: 40 mg Glucagon (Glucagen Diagnostic Kit) 0 mg IM STAT PRN; Protocol PRN Reason: Hypoglycemia Protocol Insulin Human Lispro (Humalog) 0 units SC ACCU-CHECK [facility]; Protocol Last Admin: 08/28/18 09:12 Dose: Not Given Lisinopril (Zestril) 10 mg PO DAILY [facility] Last Admin: 08/28/18 09:15 Dose: Not Given Metformin HCl (Glucophage) 500 mg PO BID [facility] Last Admin: 08/28/18 09:11 Dose: 500 mg Repaglinide (Prandin) 2 mg PO TID [facility] Last Admin: 08/28/18 09:15 Dose: 2 mg Sodium Chloride ([place] Nasal [place]) 1 sprays STAN Q4 PRN PRN Reason: Nasal congestion Last Admin: 08/26/18 16:24 Dose: 1 spr Spironolactone (Aldactone) 25 mg PO DAILY [facility] Last Admin: 08/28/18 09:10 Dose: 25 mg Results - Vital Signs Recent Vital Signs: Last Vital Signs Temp 97.7 F 08/28/18 07:50 Pulse 60 08/28/18 07:50 Resp 18 08/28/18 07:50 BP 106/60 08/28/18 09:13 Pulse Ox 100 08/28/18 09:07 - Labs Result Diagrams: 08/27/18 04:30 08/28/18 05:10 Labs: Laboratory Results - last 24 hr 08/26/18 08/27/18 08/27/18 04:30 11:24 16:15 Sodium Potassium Chloride Carbon Dioxide Anion Gap BUN Creatinine Est GFR ( Amer) Est GFR (Non-Af Amer) POC Glucose (mg/dL) 216 H 158 H Random Glucose Hemoglobin A1c 7.0 H Calcium 08/27/18 08/28/18 08/28/18 20:54 05:10 06:18 Sodium 137 Potassium 3.9 Chloride 97 L Carbon Dioxide 28 Anion Gap 16 BUN 21 H Creatinine 0.8 Est GFR ( Amer) > 60 Est GFR (Non-Af Amer) > 60 POC Glucose (mg/dL) 112 H 91 Random Glucose 77 Hemoglobin A1c Calcium 9.3
--- NOTE | 2018-08-28 11:48 | CP.PCM.PN ---
Subjective - Date & Time of Evaluation Date of Evaluation: 08/28/18 Time of Evaluation: 09:30 - Subjective Subjective: 78 y/o F was seen and examined by bedside. Pt reports feeling a little better, SOB has improved. Pt has declined physical therapy as she does not like it. Pt was educated and counseled on the benefits of physical therapy, pt reported un derstanding and will undergo physical therapy eval. Pt reports dizziness has improved since yesterday. Pt afebrile and tolerating PO with NO acute events overnight. Objective - Vital Signs/Intake and Output Vital Signs (last 24 hours): Temp Pulse Resp BP Pulse Ox 97.7 F 60 18 106/60 100 08/28/18 07:50 08/28/18 07:50 08/28/18 07:50 08/28/18 09:13 08/28/18 09:07 - Medications Medications: Current Medications Acetaminophen (Tylenol 325mg Tab) 650 mg PO Q6 PRN PRN Reason: Pain, Mild (1-3) Acetaminophen (Tylenol 325mg Tab) 650 mg PO Q6 PRN PRN Reason: Fever >100.4 F Aspirin (Ecotrin) 81 mg PO DAILY [facility] Last Admin: 08/28/18 09:11 Dose: 81 mg Atorvastatin Calcium (Lipitor) 10 mg PO HS [facility] Last Admin: 08/27/18 21:06 Dose: 10 mg Carvedilol (Coreg) 12.5 mg PO Q12 [facility] Last Admin: 08/28/18 09:11 Dose: Not Given Dextrose (Dextrose 50% Inj) 0 ml IV STAT PRN; Protocol PRN Reason: Hypoglycemia Protocol Dextrose (Glutose 15) 0 gm PO ONCE PRN; Protocol PRN Reason: Hypoglycemia Protocol Enoxaparin Sodium (Lovenox) 40 mg SC DAILY [facility]; Protocol Last Admin: 08/28/18 09:12 Dose: 40 mg Furosemide (Lasix) 40 mg IV DAILY [facility] Last Admin: 08/28/18 09:13 Dose: 40 mg Glucagon (Glucagen Diagnostic Kit) 0 mg IM STAT PRN; Protocol PRN Reason: Hypoglycemia Protocol Insulin Human Lispro (Humalog) 0 units SC ACCU-CHECK [facility]; Protocol Last Admin: 08/28/18 09:12 Dose: Not Given Lisinopril (Zestril) 10 mg PO DAILY [facility] Last Admin: 08/28/18 09:15 Dose: Not Given Metformin HCl (Glucophage) 500 mg PO BID [facility] Last Admin: 08/28/18 09:11 Dose: 500 mg Repaglinide (Prandin) 2 mg PO TID [facility] Last Admin: 08/28/18 09:15 Dose: 2 mg Sodium Chloride ([place] Nasal [place]) 1 sprays STAN Q4 PRN PRN Reason: Nasal congestion Last Admin: 08/26/18 16:24 Dose: 1 spr Spironolactone (Aldactone) 25 mg PO DAILY [facility] Last Admin: 08/28/18 09:10 Dose: 25 mg - Labs Labs: 08/27/18 04:30 08/28/18 05:10 PT 14.5 Seconds (9.8-13.1) H 08/25/18 17:20 INR 1.3 08/25/18 17:20 APTT 40.3 Seconds (25.6-37.1) H 08/25/18 17:20 - Constitutional Appears: No Acute Distress - Head Exam Head Exam: ATRAUMATIC, NORMAL INSPECTION - Eye Exam Eye Exam: EOMI, Normal appearance - Neck Exam Neck Exam: Full ROM, Normal Inspection - Respiratory Exam Respiratory Exam: NORMAL BREATHING PATTERN. absent: Rales, Rhonchi, Wheezes, Respiratory Distress - Cardiovascular Exam Cardiovascular Exam: JVD (mild), +S1, +S2, Murmur (systolic) - Extremities Exam Extremities Exam: Full ROM, Normal Inspection Additional comments: Remarkable improvement of bilateral lower leg edema, no edema appreciated at exam today. - Neurological Exam Neurological Exam: Alert, Awake Additional comments: presence of gait instability. Assessment and Plan - Assessment and Plan (Free Text) Assessment: 78 y/o F with a PMHx of HTN, CHF, NIDDM, non-ischemic cardiomyopathy (s/p AICD 04/2017) admitted for evaluation and management of agravating dyspnea --Last echocardiogram on 09/2017: LVEF >55%, transmitral doppler flow pattern is grade I-abnormal relaxation pattern. --Echocardiogram on 08/25/18: LVEF 25-30%, global hypokinesis of L ventricle, grade III-reversible restrictive diastolic dysfunction. PLAN: >Acute CHF exacerbation/Nonischemic cardiomyopathy with class III-IV congestive cardiac failure/systolic and diastolic dysfunction. --Improved dyspnea. Vitals signs stable. --Heart failure has aggravated since remarkable reduced EF on last echo cardiogram. --Home meds resumed. --AICD in place (recently checked on 08/25/18) --Cardiology on board, Dr Lee. --Hx of prescription non-compliance due to instructions confusion: Will try to modify home medications to once daily. --Will approach manager continuous improvement about the possibility of Metoprolol Succinate as once daily dose. >Gait instability and Dizziness --Pt counseled on benefits from PT, will perform PT eval. --Refuses skilled nursing. Pt OK with TCU transfer and physical therapy. --Pt will benefit from physical therapy for deconditioning and gait instability. >Diabetes Mellitus Type 2 --Chronic, controlled since last HbA1c 7.0 on 08/26/18 --Continue Insulin sliding scale and Accuchecks. --Home meds resumed >Essential HTN --Chronic --Home meds resumed Case discussed with Dr Leung, Deanne Fournier PGY-2.
--- NOTE | 2018-08-28 14:17 | PQF ---
PROVIDER RESPONSE TEXT: Acute on Chronic Combined Systolic and diastolic dysfunction with EF 25% REVIEWER QUERY TEXT: Conflicting Documentation Clarification Please clarify the type of Acute on Chronic CHF: i.e. Systolic or Diastolic or both -- Other, please specify 08/26 Echo: The Left Ventricle is mildly dilated. The systolic function is severely impaired. The est imated ejection fraction is 25-30% There is global hypokinesis of the left ventricle. Transmitral Do ppler flow pattern is Grade III-reversible restrictive diastolic dysfunction.The right ventricular s ystolic function is moderately reduced. A PPM/ICD lead is noticed in right ventricle.The left atrium is moderately dilated.The right atrium s ize is moderately dilated.There is moderate to severe mitral valve regurgitation noted.There is mild to moderate tricuspid valve regurgitation noted .RVSP is calculated at 37 mm Hg. The IVC is dilated in size and collapses <50% with inspiration. Cardiology consult includes:Her echocardiogram was reviewed. It shows severe left ventricular systoli c dysfunction with moderate to severe tricuspid regurgitation and a pulmonary artery systolic pressur e of 31 mmHg Impression: + Nonischemic cardiomyopathy with class III-IV congestive cardiac failure.The CHF is left ventricular acute on chronic and systolic. 08/26 Resident/Dr. Mendoza progress note includes: Assessment includes: Acute on Chronic CHF , systolic a nd diastolic dysfunction EF 25% 08/27 Resident/Dr. Roque: Assessment includes::1) HFrEF --echo on admission wosening EF 20-25 % -Prese rved EF-HF as per last echocardiogram on chart (09/2017) -Continue with daily IV Lasix 40mg -still dy spnea on exertion. The patient's Clinical Indicators include: ----- Query created by: Joanne Small on 08/28/2018 12:29 PM Electronically signed by: Lina Mendoza MD 08/28/2018 2:14 PM
--- NOTE | 2018-08-28 14:17 | PQF ---
PROVIDER RESPONSE TEXT: DM type II REVIEWER QUERY TEXT: Diabetic Associated Manifestations Please specify any manifestations associated / due to diabetes Such as: --DM with Hyperglycemia -- Diabetes with renal manifestation -- Diabetes with neurologic manifestation -- Diabetes with ophthalmic manifestation -- Diabetes with peripheral circulatory manifestation -- Other, please specify --OR: Disagree Random glucose: 159->95->100->77 POC:271->87->200->77->77->111->216->158 08/26 Resident / Dr. Mendoza: progress nore includes: DM type II; - accucheck with coverage, cont Metform in 08/27 Resident/ Dr. Roque: progress note includes:NIDDM --Home meds resumed --Insulin sliding scale --Hypoglycemia protocol The patient's Clinical Indicators include: -- Query created by: Joanne Small on 08/28/2018 12:39 PM Electronically signed by: Lina Mendoza MD 08/28/2018 2:14 PM
[2018-08-28] MEDS ORDERED: Alum-Mag Hydrox-Simethicone Susp (30 mL) PO ONE (18:37)
[2018-08-28] MEDS ORDERED: POLYETHYLENE GLYCOL 3350 17 GM/Dose PACKET PO SCH (22:00)
[2018-08-29] MEDS: Insulin Lispro (humaLOG) 100 Units/ml Inj SC SCH ×2 (06:07→13:02)
[2018-08-29 07:51] VITALS: TEMP 97.3
[2018-08-29] MEDS: Enoxaparin 40 mg Syringe SC SCH (09:12)
--- NOTE | 2018-08-29 09:17 | CP.PCM.PN ---
Subjective - Date & Time of Evaluation Date of Evaluation: 08/29/18 Time of Evaluation: 08:50 - Subjective Subjective: Resting comfortably, denies dyspnoea Has ambulated to the BR with minimal dyspnoea Telemetry shows sinus rhythm at physiologic rates BP 110/70 mm Hg (standing up) No oedema over feet, JVP mildly elevated Will switch to Metoprolol from carvedilol for single daily dosing of beta shanice Pt scheduled to go to TCU Objective - Vital Signs/Intake and Output Vital Signs (last 24 hours): Temp Pulse Resp BP Pulse Ox 97.3 F L 62 18 133/88 96 08/29/18 07:50 08/29/18 09:12 08/29/18 07:50 08/29/18 09:12 08/29/18 07:50 - Medications Medications: Current Medications Acetaminophen (Tylenol 325mg Tab) 650 mg PO Q6 PRN PRN Reason: Pain, Mild (1-3) Acetaminophen (Tylenol 325mg Tab) 650 mg PO Q6 PRN PRN Reason: Fever >100.4 F Aspirin (Ecotrin) 81 mg PO DAILY [facility] Last Admin: 08/29/18 09:10 Dose: 81 mg Atorvastatin Calcium (Lipitor) 10 mg PO HS [facility] Last Admin: 08/28/18 21:52 Dose: 10 mg Carvedilol (Coreg) 12.5 mg PO Q12 [facility] Last Admin: 08/29/18 09:10 Dose: 12.5 mg Dextrose (Dextrose 50% Inj) 0 ml IV STAT PRN; Protocol PRN Reason: Hypoglycemia Protocol Dextrose (Glutose 15) 0 gm PO ONCE PRN; Protocol PRN Reason: Hypoglycemia Protocol Enoxaparin Sodium (Lovenox) 40 mg SC DAILY [facility]; Protocol Last Admin: 08/29/18 09:12 Dose: 40 mg Furosemide (Lasix) 40 mg PO DAILY [facility] Last Admin: 08/29/18 09:11 Dose: 40 mg Glucagon (Glucagen Diagnostic Kit) 0 mg IM STAT PRN; Protocol PRN Reason: Hypoglycemia Protocol Insulin Human Lispro (Humalog) 0 units SC ACCU-CHECK [facility]; Protocol Last Admin: 08/29/18 06:07 Dose: Not Given Lisinopril (Zestril) 10 mg PO DAILY [facility] Last Admin: 08/29/18 09:12 Dose: 10 mg Metformin HCl (Glucophage) 500 mg PO BID [facility] Last Admin: 08/29/18 09:11 Dose: 500 mg Ondansetron HCl (Zofran Tab) 4 mg PO Q6 PRN PRN Reason: Nausea/Vomiting Polyethylene Glycol (Miralax) 17 gm PO HS [facility] Last Admin: 08/29/18 03:00 Dose: Not Given Repaglinide (Prandin) 2 mg PO TID [facility] Last Admin: 08/29/18 09:12 Dose: 2 mg Sodium Chloride ([place] Nasal [place]) 1 sprays STAN Q4 PRN PRN Reason: Nasal congestion Last Admin: 08/26/18 16:24 Dose: 1 spr Spironolactone (Aldactone) 25 mg PO DAILY [facility] Last Admin: 08/28/18 09:10 Dose: 25 mg - Labs Labs: 08/27/18 04:30 08/28/18 05:10 PT 14.5 Seconds (9.8-13.1) H 08/25/18 17:20 INR 1.3 08/25/18 17:20 APTT 40.3 Seconds (25.6-37.1) H 08/25/18 17:20
[2018-08-29] MEDS ORDERED: Metoprolol Succinate 50 mg XL Tab PO SCH (09:30)
[2018-08-29 12:19] VITALS: BP 109/69; PULSE 61; O2SAT 93
--- NOTE | 2018-08-29 14:07 | CP.PCM.DIS ---
Provider - Provider Date of Admission: 08/25/18 15:16 Attending physician: Deanne Leung MD Primary care physician: Dr Izabel Leung Consults: 08/25/18 21:43 Case Management Referral Routine Comment: Physician Instructions: Reason For Exam: Reason for Referral: Discharge Planning Social Work Referral Routine Comment: Lives alone Physician Instructions: Reason For Exam: As per Admission Assessment 08/27/18 07:11 Cardiology Consult Routine Comment: CHF exacerbation Consulting Provider: Jeffery Lee V Consulting Physician: Jeffery Lee V Reason for Consult: CHF exacerbation Time Spent in preparation of Discharge (in minutes): 60 Diagnosis - Discharge Diagnosis (1) Acute congestive heart failure with left ventricular diastolic dysfunction Status: Acute Comment: --Medications optimized. Most medications made once daily. (2) Dizziness Status: Acute Comment: -D/C home, vestibular physical therapy at home 3x weekly. (3) Non-ischemic cardiomyopathy Status: Acute (4) Diabetes mellitus type 2 in nonobese Status: Acute (5) Diabetes mellitus type 2 in nonobese Status: Acute Hospital Course - Lab Results Lab Results: Most Recent Lab Values WBC 5.8 K/uL (4.8-10.8) 08/27/18 04:30 RBC 5.14 Mil/uL (3.80-5.20) 08/27/18 04:30 Hgb 13.2 g/dL (12.0-16.0) 08/27/18 04:30 Hct 42.0 % (34.0-47.0) 08/27/18 04:30 MCV 81.7 fl (81.0-99.0) 08/27/18 04:30 MCH 25.6 pg (27.0-31.0) L 08/27/18 04:30 MCHC 31.4 g/dL (33.0-37.0) L 08/27/18 04:30 RDW 16.4 % (11.5-14.5) H 08/27/18 04:30 Plt Count 115 K/uL (130-400) L 08/27/18 04:30 MPV 9.2 fl (7.2-11.7) 08/26/18 04:30 Neut % (Auto) 56.9 % (50.0-75.0) 08/26/18 04:30 Lymph % (Auto) 29.9 % (20.0-40.0) 08/26/18 04:30 Calvert % (Auto) 11.6 % (0.0-10.0) H 08/26/18 04:30 Eos % (Auto) 0.7 % (0.0-4.0) 08/26/18 04:30 Baso % (Auto) 0.9 % (0.0-2.0) 08/26/18 04:30 Neut # (Auto) 3.5 K/uL (1.8-7.0) 08/26/18 04:30 Lymph # (Auto) 1.8 K/uL (1.0-4.3) 08/26/18 04:30 Calvert # (Auto) 0.7 K/uL (0.0-0.8) 08/26/18 04:30 Eos # (Auto) 0.0 K/uL (0.0-0.7) 08/26/18 04:30 Baso # (Auto) 0.1 K/uL (0.0-0.2) 08/26/18 04:30 PT 14.5 Seconds (9.8-13.1) H 08/25/18 17:20 INR 1.3 08/25/18 17:20 APTT 40.3 Seconds (25.6-37.1) H 08/25/18 17:20 pO2 32 mm/Hg (30-55) 08/25/18 16:50 VBG pH 7.36 (7.32-7.43) 08/25/18 16:50 VBG pCO2 44 mmHg (40-60) 08/25/18 16:50 VBG HCO3 23.2 mmol/L 08/25/18 16:50 VBG Total CO2 26.3 mmol/L (22-28) 08/25/18 16:50 VBG O2 Sat (Calc) 59.0 % (40-65) 08/25/18 16:50 VBG Base Excess -0.8 mmol/L (0.0-2.0) L 08/25/18 16:50 VBG Potassium 3.9 mmol/L (3.6-5.2) 08/25/18 16:50 Sodium 136.0 mmol/L (132-148) 08/25/18 16:50 Chloride 105.0 mmol/L (98-107) 08/25/18 16:50 Glucose 163 mg/dL (65-105) H 08/25/18 16:50 Lactate 1.4 mmol/L (0.7-2.1) 08/25/18 16:50 FiO2 21.0 % 08/25/18 16:50 Sodium 137 mmol/l (132-148) 08/28/18 05:10 Potassium 3.9 MMOL/L (3.6-5.0) 08/28/18 05:10 Chloride 97 mmol/L (98-107) L 08/28/18 05:10 Carbon Dioxide 28 mmol/L (22-30) 08/28/18 05:10 Anion Gap 16 (10-20) 08/28/18 05:10 BUN 21 mg/dl (7-17) H 08/28/18 05:10 Creatinine 0.8 mg/dl (0.7-1.2) 08/28/18 05:10 Est GFR ( Amer) > 60 08/28/18 05:10 Est GFR (Non-Af Amer) > 60 08/28/18 05:10 POC Glucose (mg/dL) 191 mg/dL (65-110) H 08/29/18 10:55 Random Glucose 77 mg/dL (65-105) 08/28/18 05:10 Hemoglobin A1c 7.0 % (4.2-6.5) H 08/26/18 04:30 Calcium 9.3 mg/dL (8.4-10.2) 08/28/18 05:10 Total Bilirubin 1.3 mg/dl (0.2-1.3) 08/26/18 04:30 AST 40 U/L (14-36) H 08/26/18 04:30 ALT 17 U/L (9-52) 08/26/18 04:30 Alkaline Phosphatase 64 U/L (38-126) 08/26/18 04:30 Troponin I 0.0640 ng/mL (0.00-0.120) 08/25/18 16:53 NT-Pro-B Natriuret Pep 2420 pg/ml (0-900) H 08/25/18 16:53 Total Protein 7.9 G/DL (6.3-8.2) 08/26/18 04:30 Albumin 4.0 g/dL (3.5-5.0) 08/26/18 04:30 Globulin 3.9 gm/dL (2.2-3.9) 08/26/18 04:30 Albumin/Globulin Ratio 1.0 (1.0-2.1) 08/26/18 04:30 Triglycerides 78 mg/DL (0-149) 08/26/18 04:30 Cholesterol 93 mg/dL (0-199) 08/26/18 04:30 LDL Cholesterol Direct 37 mg/dL (0-129) 08/26/18 04:30 HDL Cholesterol 41 MG/DL (30-70) 08/26/18 04:30 Venous Blood Potassium 3.9 mmol/L (3.6-5.2) 08/25/18 16:50 - Hospital Course Hospital Course: 78 y/o F with a PMHx of HTN, CHF, NIDDM, non-ischemic cardiomyopathy (s/p AICD 04/2017) admitted for evaluation and management of aggravating dyspnea as most likely acute CHF exacerbation on 08/25/18. --Pt was given diuretics, Furosemide 40mg IV daily. SOB progressively improved and peripheral pitting edema resolved. Cardiology, Dr Lee, evaluated patient. Echocardiogram repeated and showed a decreased in LV systolic function, LVEF 25- 30%. --During hospitalization, pt with chronic Hx of dizziness complained of worsened dizziness and unstable gait. Physical therapy evaluated patient and recommended vestibular therapy at home. --Due to Hx of prescription non-compliance due to instructions confusion, medications changed to extended release. Hence, pt can take most of her medications once daily. Carvedilol BID changed to Metroprolol Succinate 50m PO once daily. Metformin 500mg PO BID changed to Metformin 500 ER --Today, pt reports feeling better, still c/o dizziness Pt discharged home today 08/29/18 with vestibular physical therapy 3x a week at home and homemaker, pharmacy was called for proper blister packaging. HOME MEDS: >Aspirin 81 mg PO daily >Lipitor 10mg PO daily >Lasix 40mg PO daily >Lisinopril 10mg PO daily >Metoprolol 50mg PO daily >Spironolactone 25mg PO daily >Metformin ER 500mg PO daily >Repaglinide 2mg PO TID >Gabapentin 300mg PO HS (Pt and daughter were educated to take this medication as needed) Off note: -->Last echocardiogram on 09/2017: LVEF >55%, transmitral doppler flow pattern is grade I-abnormal relaxation pattern. -->Echocardiogram on 08/25/18: LVEF 25-30%, global hypokinesis of L ventricle, grade III-reversible restrictive diastolic dysfunction. - Date & Time of H&P Date of H&P: 08/25/18 Time of H&P: 16:35 Discharge Exam - Head Exam Head Exam: ATRAUMATIC, NORMAL INSPECTION - Eye Exam Eye Exam: EOMI - ENT Exam ENT Exam: Mucous Membranes Moist - Neck Exam Neck exam: Full Rom, Normal Inspection - Respiratory Exam Respiratory Exam: NORMAL BREATHING PATTERN. absent: Rales, Rhonchi, Wheezes, Respiratory Distress - Cardiovascular Exam Cardiovascular Exam: +S1, +S2, Systolic Murmur - GI/Abdominal Exam GI & Abdominal Exam: Soft. absent: Distended, Guarding, Hernia, Tenderness - Extremities Exam Extremities exam: full ROM, normal inspection, pedal pulses present - Neurological Exam Neurological exam: Alert, Oriented x3 Discharge Plan - Discharge Medications Prescriptions: Aspirin [Ecotrin] 81 mg PO DAILY #30 tablet. Atorvastatin [Lipitor] 10 mg PO HS #30 tab Furosemide 40 mg PO DAILY #30 tablet Gabapentin [Neurontin] 300 mg PO HS #30 cap Lisinopril [Zestril] 10 mg PO DAILY #30 tab metFORMIN ER [glucoPHAGE XR] 500 mg PO DAILY #30 ter Metoprolol Succinate 50 mg PO DAILY #30 tab.er.24h Repaglinide [Prandin] 2 mg PO TID #90 tab Spironolactone [Aldactone] 25 mg PO DAILY #30 tab - Follow Up Plan Condition: GUARDED Disposition: HOME/ ROUTINE Instructions: Vertigo (a Type of Dizziness), Heart Failure (DC) Additional Instructions: Please f/u with Dr Deanne Leung on Tuesday09/05/18 at 11am at the [facility]. Please set an appointment with grader tender, Dr Lee, in which patient can be accompanied and make sure to follow instructions. [facility] VISITING NURSE [phone] Referrals: Jeffery Lee MD [Staff Provider] - Deanne Leung MD [Family Provider] -
== END 2018-08-29 14:00 | disposition home or self-care (01) | DRG 293 ==
LOC: H.ER 13:41 → H.ERHOLD 15:16 → H.TEL 18:31
PROVIDERS: ADMIT Family Medicine; ATTEND Family Medicine
DX: I11.0 Hypertensive heart disease with heart failure (principal); I42.8 Other cardiomyopathies; F03.90 Unspecified dementia, unspecified severity, without behavioral disturbance, psychotic disturbance, mood disturbance, and anxiety; I50.43 Acute on chronic combined systolic (congestive) and diastolic (congestive) heart failure; E11.9 Type 2 diabetes mellitus without complications; F32.9 Major depressive disorder, single episode, unspecified; Z66 Do not resuscitate; Z95.810 Presence of automatic (implantable) cardiac defibrillator; E78.00 Pure hypercholesterolemia, unspecified; F41.9 Anxiety disorder, unspecified; I48.91 Unspecified atrial fibrillation; Z79.82 Long term (current) use of aspirin; G25.81 Restless legs syndrome; Z87.891 Personal history of nicotine dependence; Z91.14 Patient's other noncompliance with medication regimen; Z79.84 Long term (current) use of oral hypoglycemic drugs; K21.9 Gastro-esophageal reflux disease without esophagitis

== ENCOUNTER 2018-10-13 14:08 | Emergency (ER) | payer MEDICARE, MEDICAID ==
[2018-10-13 14:08] VITALS: PULSE 67; BMI 25.0
[2018-10-13 14:18] VITALS: TEMP 97.4
--- NOTE | 2018-10-13 15:58 | ED PDOC ---
HPI: SOB/CHF/COPD Time Seen by Provider: 10/13/18 14:30 Chief Complaint (Nursing): Shortness Of Breath Chief Complaint (Provider): Shortness of Breath History Per: Patient History/Exam Limitations: no limitations Onset/Duration Of Symptoms: Days (1) Current Symptoms Are (Timing): Still Present Associated Symptoms: Ankle/Leg Swelling. denies: Fever, Chest Pain Additional Complaint(s): 78 year old female with CHF, pacemaker, HTN and diabetes presents to the ED for an evaluation of shortness of breath onset yesterday. Patient has dyspnea on exertion and bilateral leg swelling. Otherwise, she denies chest pain, cough or fever. PMD: Goes to clinic [facility]: Dr. Lee Past Medical History Reviewed: Historical Data, Nursing Documentation, Vital Signs Vital Signs: Last Vital Signs Temp 97.4 F L 10/13/18 14:16 Pulse 68 10/13/18 14:16 Resp 18 10/13/18 15:00 BP 117/76 10/13/18 14:16 Pulse Ox 95 10/13/18 15:00 - Medical History PMH: Anemia, Anxiety, Asthma, Atrial Fibrillation, CHF, Depression, Diabetes, Diverticulitis (diverticulosis w polypectomy non-malignant), HTN, Hypercholesterolemia Denies: HIV, Chronic Kidney Disease - Surgical History Surgical History: Pacemaker, - Family History Family History: States: Unknown Family Hx - Home Medications Home Medications: Ambulatory Orders Medication Instructions Recorded Aspirin [Ecotrin] 81 mg PO DAILY #30 tablet. 08/29/18 Atorvastatin [Lipitor] 10 mg PO HS #30 tab 08/29/18 Furosemide 40 mg PO DAILY #30 tablet 08/29/18 Gabapentin [Neurontin] 300 mg PO HS #30 cap 08/29/18 Lisinopril [Zestril] 10 mg PO DAILY #30 tab 08/29/18 Metoprolol Succinate 50 mg PO DAILY #30 tab.er.24h 08/29/18 Repaglinide [Prandin] 2 mg PO TID #90 tab 08/29/18 Spironolactone [Aldactone] 25 mg PO DAILY #30 tab 08/29/18 metFORMIN ER [glucoPHAGE XR] 500 mg PO DAILY #30 ter 08/29/18 - Allergies Allergies/Adverse Reactions: Allergies Allergy/AdvReac Type Severity Reaction Status Date / Time No Known Allergies Allergy Verified 10/13/18 14:16 Review of Systems Constitutional: Negative for: Fever Cardiovascular: Negative for: Chest Pain Respiratory: Positive for: Shortness of Breath. Negative for: Cough Musculoskeletal: Positive for: Other (bilateral leg swelling) Physical Exam - Reviewed Nursing Documentation Reviewed: Yes Vital Signs Reviewed: Yes - Physical Exam Appears: Positive for: Well (comfortable ) Head Exam: Positive for: ATRAUMATIC, NORMAL INSPECTION, NORMOCEPHALIC Skin: Positive for: Normal Color, Warm, Dry. Negative for: Rash Eye Exam: Positive for: EOMI, Normal appearance, PERRL ENT: Positive for: Normal ENT Inspection Neck: Positive for: Normal, Painless ROM, Supple. Negative for: Decreased ROM Cardiovascular/Chest: Positive for: Regular Rate, Rhythm. Negative for: Murmur Respiratory: Positive for: Normal Breath Sounds. Negative for: Respiratory Distress Gastrointestinal/Abdominal: Positive for: Normal Exam, Soft. Negative for: Tenderness Back: Positive for: Normal Inspection. Negative for: L CVA Tenderness, R CVA Tenderness Extremity: Positive for: Normal ROM, Other (Pitting edema bilaterally ) Neurological/Psych: Positive for: Awake, Alert, Normal Tone, Oriented (x3) - Laboratory Results Result Diagrams: 10/13/18 15:51 10/13/18 15:51 - ECG ECG Rhythm: Positive for: Normal QRS, Sinus Rhythm Interpretation Of Abn EKG: T-wave abnormalities Rate: 74 O2 Sat by Pulse Oximetry: 95 (RA) Pulse Ox Interpretation: Normal - Progress Re-evaluation Time: 18:20 Condition: Re-examined, Improved Medical Decision Making Medical Decision Making: Time: 15:01 Impression: dyspnea and bilateral leg swelling Differential Diagnosis: CHF exacerbation Plan: B-type natriuretic peptide stat BMP Thyroid stimulating hormone Troponin EKG CBC w/ differential Chest one view Glucose, POC EKG: normal sinus rhythm, T-wave abnormalities, normal QRS with 74bpm Scribe Attestation: Documented by Cassie Burton, acting as a scribe for Jaxon Osborne MD Provider Scribe Attestation: All medical record entries made by the Scribe were at my direction and personally dictated by me. I have reviewed the chart and agree that the record accurately reflects my personal performance of the history, physical exam, medical decision making, and the department course for this patient. I have also personally directed, reviewed, and agree with the discharge instructions and disposition. Disposition - Clinical Impression Clinical Impression: CHF (congestive heart failure) - Patient ED Disposition Is Patient to be Admitted: No Discussed With Dr.: Deanne Leung Doctor Will See Patient In The: Office Counseled Patient/Family Regarding: Studies Performed, Diagnosis, Need For Followup - Disposition Referrals: Deanne Leung MD [Family Provider] - Disposition: Routine/Home Disposition Time: 18:26 Condition: GOOD Additional Instructions: AB CAMARENA, thank you for letting us take care of you today. Your provider was Jaxon Osborne MD and you were treated for SOB. The emergency medical care you received today was directed at your acute symptoms. If you were p rescribed any medication, please fill it and take as directed. It may take several days for your symptoms to resolve. Return to the Emergency Department if your symptoms worsen, do not improve, or if you have any other problems. Please contact your doctor or call one of the physicians/clinics you have been referred to that are listed on the Patient Visit Information form that is included in your discharge packet. Bring any paperwork you were given at discharge with you along with any medications you are taking to your follow up visit. Our treatment cannot replace ongoing medical care by a primary care provider outside of the emergency department. Thank you for allowing the Critical access hospital team to be part of your care today. If you had an X-Ray or CT scan: A Radiologist will review the ED reading if any change in treatment is needed we will contact you. Instructions: Heart Failure, Adult (DC)
[2018-10-13 16:09] LABS: BASO # 0.1 K/uL (0.0-0.2); BASO % 1.7 % (0.0-2.0); EOS % 0.5 % (0.0-4.0); LYMPH # 1.4 K/uL (1.0-4.3); LYMPH % 21.7 % (20.0-40.0); MEAN CELL VOLUME 81.5 fl (81.0-99.0); MEAN CORPUSCULAR HEMOGLOBIN 25.5 pg (27.0-31.0); MEAN CORPUSCULAR HGB CONC 31.3 g/dL (33.0-37.0); MEAN PLATELET VOLUME 9.6 fl (7.2-11.7); MONO # 0.7 K/uL (0.0-0.8); MONO % 10.9 % (0.0-10.0); NEUT # 4.1 K/uL (1.8-7.0); NEUT % 65.2 % (50.0-75.0); NRBC % 0.1 % (0.0-0.0); RBC 5.48 Mil/uL (3.80-5.20); RED CELL DISTRIBUTION WIDTH 17.5 % (11.5-14.5); WHITE BLOOD COUNT 6.3 K/uL (4.8-10.8)
[2018-10-13 16:19] LABS: BLOOD UREA NITROGEN 25 mg/dl (7-17); CALCIUM 9.8 mg/dL (8.4-10.2); GFR NON-AFRICAN AMERICAN > 60
[2018-10-13 16:37] LABS: B-TYPE NATRIURETIC PEPTIDE 3270 pg/ml (0-900)
--- NOTE | 2018-10-13 17:41 | RAD ---
Date of service: 10/13/2018 PROCEDURE: CHEST RADIOGRAPH, 1 VIEW HISTORY: dyspnea COMPARISON: 08/25/2018 FINDINGS: LUNGS: Clear. PLEURA: No pneumothorax or pleural fluid seen. CARDIOVASCULAR: No aortic atherosclerotic calcification present. Normal heart size. AICD. No congestive change. OSSEOUS STRUCTURES: No significant abnormalities. VISUALIZED UPPER ABDOMEN: Normal. OTHER FINDINGS: None. IMPRESSION: No active disease.
[2018-10-13 18:05] VITALS: BP 123/65; RESP 20; O2SAT 95
[2018-10-13 18:27] VITALS: PULSE 74
--- NOTE | 2018-10-13 22:26 | CARD ---
APPROVED REPORT Date of service: 10/13/2018 EKG Measurement Heart [id number] <Conclusion> Normal sinus rhythm Possible Left atrial enlargement T wave abnormality, consider lateral ischemia Prolonged QT Abnormal ECG
== END 2018-10-13 18:40 | disposition home or self-care (01) ==
LOC: H.ER 14:08
DX: I11.0 Hypertensive heart disease with heart failure (principal); E11.9 Type 2 diabetes mellitus without complications; Z86.59 Personal history of other mental and behavioral disorders; J44.9 Chronic obstructive pulmonary disease, unspecified; Z79.84 Long term (current) use of oral hypoglycemic drugs; Z95.0 Presence of cardiac pacemaker
CPT/HCPCS: 71045; 80048; 82948; 83880; 84443; 84484; 85025; 93005; 96374; 99284; J1940